=== PATIENT | male | born 1955 | race Caucasian/White ===

== ENCOUNTER 2016-10-05 12:07 | Inpatient (IN) | payer OTHER ==
[2016-10-05] MEDS ORDERED: Albuterol 0.083% 2.5 MG/3 ML Neb Soln NEB ONE ×2 (12:45→14:04)
--- NOTE | 2016-10-05 12:55 | EDM.PDOC ---
ED HPI GENERAL MEDICAL PROBLEM - General Chief Complaint: Respiratory Problem Stated Complaint: SOB/CHILLS/SWEATS Time Seen by Provider: 10/05/16 12:29 Source of Information: Reports: Patient History Limitations: Reports: No Limitations - History of Present Illness INITIAL COMMENTS - FREE TEXT/NARRATIVE: 60-year-old male presents for evaluation and treatment of shortness of breath and chest discomfort. Patient reports he has been over several weeks. He was seen at the [facility]. No imaging or lab studies were done. Feels his symptoms have progressively worsened over the last several weeks. Discomfort currently complaining of chills, shakes, diaphoresis, productive cough, shortness of breath and chest discomfort. He states he is unable to keep anything down. Feels slightly nauseous. Did not take his temperature at home. Patient is also complaining of a sore throat. Past medical history of COPD. Chest Pain Score (Numeric/FACES): 7 - Related Data Allergies Allergy/AdvReac Type Severity Reaction Status Date / Time No Known Allergies Allergy Verified 07/03/15 14:23 Home Meds: Home Meds ALPRAZolam [Alprazolam] 0.5 mg PO BEDTIME PRN 07/03/15 [History] Albuterol [Ventolin HFA] 2 puff INH Q6H PRN 07/03/15 [History] Allopurinol [Zyloprim] 300 mg PO DAILY 07/03/15 [History] Aspirin [Children's Aspirin] 81 mg PO BID 07/03/15 [History] Calcium Citrate/Vitamin D3 [Calcium Citrate-Vit D3 Tablet] 3 each PO BID [History] Gabapentin [Neurontin] 1,200 mg PO TID 07/03/15 [History] Hydrocodone/Acetaminophen [Hydrocodon-Acetaminophn 10-300] 1 tab PO Q8HR PRN [History] Multivitamin W/Iron, Minerals [Flintstones Complete] 1 each PO DAILY 07/03/15 [ History] Nitroglycerin [Nitrostat] 0.4 mg SL Q5M PRN 07/03/15 [History] Omeprazole [Prilosec] 20 mg PO DAILY 07/03/15 [History] Doxazosin [Cardura] 2 mg PO BEDTIME 10/05/16 [History] Escitalopram [Lexapro] 20 mg PO DAILY 10/05/16 [History] Fluticasone/Vilanterol [Breo Ellipta 200-25 Mcg INH] 1 each IH DAILY 10/05/16 [ History] Lisinopril 40 mg PO DAILY 10/05/16 [History] Metoprolol Succinate 100 mg PO DAILY 10/05/16 [History] Past Medical History Cardiovascular History: Reports: Hypertension Respiratory History: Reports: Asthma Gastrointestinal History: Reports: GERD, Hemorrhoids Genitourinary History: Reports: Prostate Disorder Musculoskeletal History: Reports: Back Pain, Chronic, Gout, Other (See Below) Other Musculoskeletal History: neuropathy Psychiatric History: Reports: Anxiety - Past Surgical History GI Surgical History: Reports: Bariatric Procedure, Colonoscopy, Polypectomy Social & Family History - Tobacco Use Smoking Status *Q: Former Smoker (quit 20 years ago) Used Tobacco, but Quit: Yes Month Tobacco Last Used: 40 yr Second Hand Smoke Exposure: Yes - Caffeine Use Caffeine Use: Reports: None - Alcohol Use Days Per Week of Alcohol Use: 7 Number of Drinks Per Day: 2 Total Drinks Per Week: 14 - Recreational Drug Use Recreational Drug Use: No Drug Use in Last 12 Months: No ED ROS GENERAL - Review of Systems Review Of Systems: See Below Constitutional: Reports: Fever, Chills, Malaise, Other (shakiness) HEENT: Reports: Throat Pain Respiratory: Reports: Shortness of Breath, Cough, Sputum Cardiovascular: Reports: Chest Pain GI/Abdominal: Reports: Nausea. Denies: Vomiting ED EXAM, GENERAL - Physical Exam Exam: See Below Exam Limited By: No Limitations General Appearance: Alert, WD/WN, Moderate Distress, Obese, Other (ill appearing ) Ears: Normal External Exam Nose: Normal Inspection Throat/Mouth: Normal Inspection, Normal Lips, Normal Voice, No Airway Compromise , Other (posterior orophyarnx erythema) Neck: Lymphadenopathy (L), Lymphadenopathy (R) Respiratory/Chest: Respiratory Distress (tachypnic; labored breathing), Rhonchi (diffuse), Wheezing (diffuse expiratory), Splinting Cardiovascular: Normal Peripheral Pulses, Regular Rate, Rhythm, No Murmur GI/Abdominal: Soft, Non-Tender Neurological: Alert, Oriented Psychiatric: Normal Affect, Normal Mood Skin Exam: Warm, Dry, Normal Color EKG INTERPRETATION EKG Date: 10/05/16 Time: 12:55 Rhythm: NSR Rate (beats/min): 91 [place]: normal P-wave: present QRS: normal ST-T: normal QT: normal EKG Interpretation Comments: NSR at 91 bpm. no acute changes. Reviewed by myself and Dr. Carvalho. Course - Vital Signs Last Recorded V/S: Last Vital Signs Temp 36.1 C 10/05/16 20:00 Pulse 110 H 10/05/16 19:00 Resp 24 H 10/05/16 20:00 BP 139/70 10/05/16 20:53 Pulse Ox 98 10/05/16 21:00 - Orders/Labs/Meds Orders: Active Orders 24 hr Category Date Time Status Oxygen Therapy [RC] ASDIRECTED Care 10/05/16 12:46 Active Peripheral IV Care [] Q2HR Care 10/05/16 12:45 Active RT Aerosol Therapy [] ASDIRECTED Care 10/05/16 12:45 Active CULTURE BLOOD [] Stat Lab 10/05/16 13:04 Received CULTURE BLOOD [] Stat Lab 10/05/16 13:24 Received CULTURE STREP A CONFIRMATION [] Stat Lab 10/05/16 13:40 Results STREP SCRN A RAPID W CULT CONF [] Stat Lab 10/05/16 13:40 Results Sodium Chloride 0.9% [Saline Flush] Med 10/05/16 12:45 Active 10 ml FLUSH ASDIRECTED PRN Blood Culture x2 Reflex Set [OM.PC] Stat Oth 10/05/16 12:45 Ordered Peripheral IV Insertion Adult [OM.PC] Routine Oth 10/05/16 12:44 Ordered Medication Orders Acetaminophen (Tylenol) 650 mg PO Q6H PRN PRN Reason: Pain/Fever Last Admin: 10/05/16 19:19 Dose: 650 mg Hydrocodone Bitart/Acetaminophen ([place] 325-10 Mg) 1 tab PO Q8H PRN PRN Reason: Pain Last Admin: 10/05/16 18:00 Dose: 1 tab Albuterol (Proventil Neb Soln) 2.5 mg NEB Q4HRRT PRN PRN Reason: Shortness of Breath Albuterol/Ipratropium (Duoneb 3.0-0.5 Mg/3 Ml) 3 ml NEB QIDRT [facility]OUD Last Admin: 10/05/16 21:00 Dose: 3 ml Aspirin (Aspirin) 81 mg PO BID [facility] Last Admin: 10/05/16 20:53 Dose: 81 mg Chlordiazepoxide HCl (Librium) 25 mg PO TID [facility] Last Admin: 10/05/16 20:53 Dose: 25 mg Citalopram Hydrobromide (Celexa) 40 mg PO DAILY [facility] Doxazosin Mesylate (Cardura) 2 mg PO BEDTIME [facility] Last Admin: 10/05/16 20:53 Dose: 2 mg Enoxaparin Sodium (Lovenox) 40 mg SUBCUT DAILY [facility] Folic Acid (Folic Acid) 1 mg PO DAILY [facility] Gabapentin (Neurontin) 1,200 mg PO TID [facility] Last Admin: 10/05/16 20:53 Dose: 1,200 mg Haloperidol Lactate (Haldol) 1 mg IVPUSH Q8H PRN PRN Reason: restlessness Azithromycin 500 mg/ Sodium (Chloride) 250 mls @ 250 mls/hr IV Q24H [facility] Last Admin: 10/05/16 17:57 Dose: 250 mls/hr Lactated Ringer's (Ringers, Lactated) 1,000 mls @ 125 mls/hr IV ASDIRECTED [facility] Stop: 10/06/16 13:00 Last Infusion: 10/05/16 18:35 Dose: 125 mls/hr Admin: 10/05/16 18:03 Dose: 75 mls/hr Ceftriaxone Sodium 2 gm/ (Sodium Chloride) 100 mls @ 200 mls/hr IV Q24H [facility] Lorazepam (Ativan) 2 mg IVPUSH Q2H PRN PRN Reason: Anxiety Last Admin: 10/05/16 20:57 Dose: 2 mg Metoprolol Succinate (Toprol Xl) 50 mg PO DAILY [facility] Metoprolol Tartrate (Lopressor) 5 mg IVPUSH Q6H PRN PRN Reason: HR>120 Last Admin: 10/05/16 18:41 Dose: 5 mg Mometasone Furoate/Formoterol Fumar ([place] 200-5 Mcg) 2 puff IH [id number] [facility] Nitroglycerin (Nitrostat) 0.4 mg SL Q5M PRN PRN Reason: Chest Pain Pantoprazole Sodium (Protonix) 40 mg PO DAILY@0700 [facility] Sodium Chloride (Saline Flush) 10 ml FLUSH ASDIRECTED PRN PRN Reason: Keep Vein Open Last Admin: 10/05/16 13:07 Dose: 10 ml Thiamine HCl (Vitamin B-1) 100 mg PO BEDTIME [facility] Last Admin: 10/05/16 20:53 Dose: 100 mg Labs: Laboratory Tests 10/05/16 10/05/16 10/05/16 Range/Units 13:04 13:04 13:04 WBC 18.52 H (4.23-9.07) K/mm3 RBC 3.54 L (4.63-6.08) M/mm3 Hgb 12.5 L (13.7-17.5) gm/L Hct 38.6 L (40.1-51.0) % MCV 109.0 H (79.0-92.2) fl MCH 35.3 H (25.7-32.2) pg MCHC 32.4 (32.2-35.5) g/dl RDW Std Deviation 52.9 H (35.1-43.9) fL Plt Count 123 L (163-337) K/mm3 MPV 10.5 (9.4-12.3) fl Neutrophils % (Manual) 85 H (40-60) % Band Neutrophils % 2 (0-10) % Lymphocytes % (Manual) 9 L (20-40) % Atypical Lymphs % 0 % Monocytes % (Manual) 2 (2-10) % Eosinophils % (Manual) 1 (0.8-7.0) % Basophils % (Manual) 1 (0.2-1.2) Platelet Estimate Adequate Poikilocytosis 1+ slight Anisocytosis 1+ slight Macrocytosis 2+ moderate RBC Morph Comment Not Reportable Sodium 140 (136-145) mEq/L Potassium 4.8 (3.5-5.1) mEq/L Chloride 106 (98-107) mEq/L Carbon Dioxide 23 (21-32) mEq/L Anion Gap 15.8 H (5-15) BUN 33 H (7-18) mg/dL Creatinine 1.5 H (0.7-1.3) mg/dL Est Cr Clr Drug Dosing 58.45 mL/min Estimated GFR (MDRD) 48 (>60) mL/min BUN/Creatinine Ratio 22.0 H (14-18) Glucose 124 H (80-115) mg/dL Lactic Acid 1.5 (0.4-2.0) mmol/L Calcium 9.1 (8.5-10.1) mg/dL Total Bilirubin 0.9 (0.2-1.0) mg/dL AST 31 (15-37) U/L ALT 34 (16-63) U/L Alkaline Phosphatase 46 (46-116) U/L C-Reactive Protein 23.9 H* (<1.0) mg/dL Total Protein 7.0 (6.4-8.2) g/dl Albumin 2.9 L (3.4-5.0) g/dl Globulin 4.1 gm/dL Albumin/Globulin Ratio 0.7 L (1-2) Ethyl Alcohol (0.00) gm% Mycoplasma pneumon IgM (NEGATIVE) 10/05/16 10/05/16 Range/Units 13:04 13:53 WBC (4.23-9.07) K/mm3 RBC (4.63-6.08) M/mm3 Hgb (13.7-17.5) gm/L Hct (40.1-51.0) % MCV (79.0-92.2) fl MCH (25.7-32.2) pg MCHC (32.2-35.5) g/dl RDW Std Deviation (35.1-43.9) fL Plt Count (163-337) K/mm3 MPV (9.4-12.3) fl Neutrophils % (Manual) (40-60) % Band Neutrophils % (0-10) % Lymphocytes % (Manual) (20-40) % Atypical Lymphs % % Monocytes % (Manual) (2-10) % Eosinophils % (Manual) (0.8-7.0) % Basophils % (Manual) (0.2-1.2) Platelet Estimate Poikilocytosis Anisocytosis Macrocytosis RBC Morph Comment Sodium (136-145) mEq/L Potassium (3.5-5.1) mEq/L Chloride (98-107) mEq/L Carbon Dioxide (21-32) mEq/L Anion Gap (5-15) BUN (7-18) mg/dL Creatinine (0.7-1.3) mg/dL Est Cr Clr Drug Dosing mL/min Estimated GFR (MDRD) (>60) mL/min BUN/Creatinine Ratio (14-18) Glucose (80-115) mg/dL Lactic Acid (0.4-2.0) mmol/L Calcium (8.5-10.1) mg/dL Total Bilirubin (0.2-1.0) mg/dL AST (15-37) U/L ALT (16-63) U/L Alkaline Phosphatase (46-116) U/L C-Reactive Protein (<1.0) mg/dL Total Protein (6.4-8.2) g/dl Albumin (3.4-5.0) g/dl Globulin gm/dL Albumin/Globulin Ratio (1-2) Ethyl Alcohol 0.00 (0.00) gm% Mycoplasma pneumon IgM Negative (NEGATIVE) Meds: Medications Generic Name Dose Route Start Last Admin Trade Name Freq PRN Reason Stop Dose Admin Acetaminophen 650 mg 10/05/16 18:53 10/05/16 19:19 Tylenol PO 650 mg Q6H PRN Administration Pain/Fever Hydrocodone Bitart/Acetaminophen 1 tab 10/05/16 17:09 10/05/16 18:00 [place] 325-10 Mg PO 1 tab Q8H PRN Administration Pain Albuterol 2.5 mg 10/05/16 17:29 Proventil Neb Soln NEB Q4HRRT PRN Shortness of Breath Albuterol/Ipratropium 3 ml 10/05/16 21:00 10/05/16 21:00 Duoneb 3.0-0.5 Mg/3 Ml NEB 3 ml QIDRT [facility]OUD Administration Aspirin 81 mg 10/05/16 21:00 10/05/16 20:53 Aspirin PO 81 mg BID [facility]OUD Administration Chlordiazepoxide HCl 25 mg 10/05/16 21:00 10/05/16 20:53 Librium PO 25 mg TID [facility]OUD Administration Citalopram Hydrobromide 40 mg 10/06/16 09:00 Celexa PO DAILY [facility] Doxazosin Mesylate 2 mg 10/05/16 21:00 10/05/16 20:53 Cardura PO 2 mg BEDTIME [facility] Administration Enoxaparin Sodium 40 mg 10/06/16 09:00 Lovenox SUBCUT DAILY [facility] Folic Acid 1 mg 10/06/16 09:00 Folic Acid PO DAILY [facility] Gabapentin 1,200 mg 10/05/16 21:00 10/05/16 20:53 Neurontin PO 1,200 mg TID [facility]OU[facility] Administration Haloperidol Lactate 1 mg 10/05/16 18:10 Haldol IVPUSH Q8H PRN restlessness Azithromycin 500 mg/ Sodium 250 mls @ 250 mls/hr 10/05/16 18:00 10/05/16 17: 57 Chloride IV 250 mls/hr Q24H [facility] Administration Lactated Ringer's 1,000 mls @ 125 mls/hr 10/05/16 17:30 10/05/16 18:35 Ringers, Lactated IV 10/06/16 13:00 125 mls/hr ASDIRECTED [facility] Infusion Ceftriaxone Sodium 2 gm/ 100 mls @ 200 mls/hr 10/06/16 13:00 Sodium Chloride IV Q24H [facility] Lorazepam 2 mg 10/05/16 18:08 10/05/16 20:57 Ativan IVPUSH 2 mg Q2H PRN Administration Anxiety Metoprolol Succinate 50 mg 10/06/16 09:00 Toprol Xl PO DAILY [facility] Metoprolol Tartrate 5 mg 10/05/16 18:21 10/05/16 18:41 Lopressor IVPUSH 5 mg Q6H PRN Administration HR>120 Mometasone Furoate/Formoterol Fumar 2 puff 10/06/16 08:00 Dulera 200-5 Mcg IH [id number] [facility] Nitroglycerin 0.4 mg 10/05/16 17:09 Nitrostat SL Q5M PRN Chest Pain Pantoprazole Sodium 40 mg 10/06/16 07:00 Protonix PO DAILY@0700 [facility] Sodium Chloride 10 ml 10/05/16 12:45 10/05/16 13:07 Saline Flush FLUSH 10 ml ASDIRECTED PRN Administration Keep Vein Open Thiamine HCl 100 mg 10/05/16 21:00 10/05/16 20:53 Vitamin B-1 PO 100 mg BEDTIME [facility] Administration Discontinued Medications Generic Name Dose Route Start Last Admin Trade Name Freq PRN Reason Stop Dose Admin Albuterol 2.5 mg 10/05/16 12:45 10/05/16 12:54 Proventil Neb Soln NEB 10/05/16 12:46 2.5 mg ONETIME ONE Administration Albuterol 2.5 mg 10/05/16 14:04 10/05/16 14:29 Proventil Neb Soln NEB 10/05/16 14:05 2.5 mg ONETIME ONE Administration Alprazolam 0.5 mg 10/05/16 17:09 Xanax PO BEDTIME PRN Insomnia Ceftriaxone Sodium 2 gm 10/06/16 13:00 Rocephin IVPUSH Q24H [facility] Doxazosin Mesylate 1 mg 10/05/16 21:00 Cardura PO BEDTIME [facility] Sodium Chloride 1,000 mls @ 100 mls/hr 10/05/16 13:45 10/05/16 13:47 Normal Saline IV 100 mls/hr ASDIRECTED [facility] Administration Ceftriaxone Sodium 2 gm/ 100 mls @ 200 mls/hr 10/05/16 13:53 10/05/16 14:41 Sodium Chloride IV 10/05/16 14:22 200 mls/hr ONETIME ONE Administration Lorazepam 2 mg 10/05/16 18:24 10/05/16 18:24 Ativan IVPUSH 10/05/16 18:25 2 mg ONETIME ONE Administration Pneumococcal Polyvalent Vaccine 0.5 ml 10/05/16 17:42 Pneumovax 23 IM 10/05/16 17:43 .ONCE ONE - Radiology Interpretation Free Text/Narrative:: chest [address] Wise: Diffuse increased density noted throughout both lungs which is worse within the right lower lung. Some of the density has a nodular appearance. Mild increased density due to callus previous left-sided rib fractures noted. Heart size and mediastinum are within normal limits. Mild degenerative changes seen within the spine. Epidural stimulator wire is present. - Re-Assessments/Exams Free Text/Narrative Re-Assessment/Exam: 10/05/16 15:03 Labs have returned. White blood cell count is elevated at 18.52, hgb is 12.5 and platelets are 123. CRP is elevated at 23.9. Sodium is 140, potassium 4.8 chloride is 106. Anion gap is 15.8. Creatinine is 1.5. Glucose is 124. Lactic acid is 1.8. Rapid strep is negative. Influenza is negative. Mycoplasm is negative. Blood and urine cultures pending. I given the patient's 2 albuterol nebulizers and he is currently on 3 L nasal cannula. His oxygen sats have maintained in the low 90s on the 3 L. He feels the shortness of breath has slightly improved after the 2 albuterol nebs. I gave him 2 g of Rocephin here in the ER to treat for pneumonia. Case discussed with Dr. Caruso, hospitalist. All. She agrees to the admission. Will admit to ICU for pneumonia with hypoxemia. Departure - Departure Time of Disposition: 15:00 Disposition: Admitted As Inpatient 65 Condition: serious Clinical Impression: Pneumonia - Discharge Information - My Orders Last 24 Hours: My Active Orders 10/05/16 12:44 Peripheral IV Insertion Adult [OM.PC] Routine 10/05/16 12:45 Peripheral IV Care [RC] Q2HR RT Aerosol Therapy [RC] ASDIRECTED Sodium Chloride 0.9% [Saline Flush] 10 ml FLUSH ASDIRECTED PRN Blood Culture x2 Reflex Set [OM.PC] Stat 10/05/16 12:46 Oxygen Therapy [RC] ASDIRECTED 10/05/16 13:04 CULTURE BLOOD [BC] Stat 10/05/16 13:24 CULTURE BLOOD [BC] Stat 10/05/16 13:40 CULTURE STREP A CONFIRMATION [RM] Stat STREP SCRN A RAPID W CULT CONF [RM] Stat - Assessment/Plan Last 24 Hours: My Active Orders 10/05/16 12:44 Peripheral IV Insertion Adult [OM.PC] Routine 10/05/16 12:45 Peripheral IV Care [RC] Q2HR RT Aerosol Therapy [RC] ASDIRECTED Sodium Chloride 0.9% [Saline Flush] 10 ml FLUSH ASDIRECTED PRN Blood Culture x2 Reflex Set [OM.PC] Stat 10/05/16 12:46 Oxygen Therapy [RC] ASDIRECTED 10/05/16 13:04 CULTURE BLOOD [BC] Stat 10/05/16 13:24 CULTURE BLOOD [BC] Stat 10/05/16 13:40 CULTURE STREP A CONFIRMATION [RM] Stat STREP SCRN A RAPID W CULT CONF [RM] Stat
[2016-10-05] MEDS: Sodium Chloride 0.9% 10 ML Syringe FLUSH PRN (13:07)
[2016-10-05] MEDS ORDERED: Sodium Chloride 0.9% 1,000 ML IV SCH (13:45)
[2016-10-05] MEDS ORDERED: cefTRIAXone 2 GM in Sodium Chloride 0.9% 100 ML IV ONE (13:53)
--- NOTE | 2016-10-05 15:32 | CR ---
Chest: Two views of the chest were obtained. Comparison: Previous chest x-ray of 06/24/12. Diffuse increased density noted throughout both lungs which is worse within the right lower lung. Some of this density has a nodular appearance. Mild increased density due to callus from previous left-sided rib fractures is noted. Heart size and mediastinum are within normal limits. Mild degenerative change is seen within the spine. Epidural stimulating wire is present. Impression: 1. Increased density within the chest most likely representing pneumonia. Follow-up recommended as there are some nodular densities being seen and difficult to exclude superimposed metastatic disease. Recommend repeat chest x-ray 2 weeks after patient has completed clinical therapy. 2. Areas of increased density within the left chest due to several healing left-sided rib fractures. 3. Other incidental findings. Diagnostic code #9
[2016-10-05] MEDS ORDERED: Nitroglycerin 0.4 MG Tab.SL SL PRN (17:09)
[2016-10-05] MEDS ORDERED: ALPRAZolam 0.5 MG Tab PO PRN (17:09)
[2016-10-05] MEDS ORDERED: Albuterol 0.083% 2.5 MG/3 ML Neb Soln NEB PRN (17:29)
[2016-10-05] MEDS ORDERED: Lactated Ringers 1,000 ML IV SCH (17:30)
--- NOTE | 2016-10-05 17:40 | PCM.HP ---
H&P History of Present Illness - General Date of Service: 10/05/16 Admit Problem/Dx: Admission Diagnosis/Problem Admission Diagnosis/Problem Pneumonia Source of Information: Patient, Provider History Limitations: Reports: No Limitations - History of Present Illness Initial Comments - Free Text/Narative: 60 year old male complaining of chest paion associated with yellowish sputum. Reported feeling weak and sluggish for 1-2 weeks. Had been seen at the [facility] with no change in symptoms. Has had malaise, fever/chills as well as generalized weakness. Labs are pending obtained in the ED. He did receive Rocephin 2 GM in the ED. A CXR has confirmed pneumonia. Additional information obtained includes alcohol dependence, last drink was at 12:30 today; he normally drinks at least 4-5 shots daily of Alfredo Hdez. A long with a beer chaser usually at least 4-5 are needed. His admission has been changed to ICU for ETOH impending withdrawal and CAP. Onset of Symptoms: Reports: Gradual Duration of Symptoms: Reports: Week(s):, Getting Worse Location: Reports: Chest, Generalized Severity: Moderate Improves with: Reports: Medication Worsens with: Reports: None Context: Reports: Sick Contact (unknown) Associated Symptoms: Reports: cough w sputum, Fever/Chills, Malaise, Shortness of Breath, Weakness Chest Pain Score (Numeric/FACES): 7 Headache Pain Score (Numeric/FACES): 4 - Related Data Allergies/Adverse Reactions: Allergies Allergy/AdvReac Type Severity Reaction Status Date / Time No Known Allergies Allergy Verified 07/03/15 14:23 Home Medications: Home Meds ALPRAZolam [Alprazolam] 0.5 mg PO BEDTIME PRN 07/03/15 [History] Albuterol [Ventolin HFA] 2 puff INH Q6H PRN 07/03/15 [History] Allopurinol [Zyloprim] 300 mg PO DAILY 07/03/15 [History] Aspirin [Children's Aspirin] 81 mg PO BID 07/03/15 [History] Calcium Citrate/Vitamin D3 [Calcium Citrate-Vit D3 Tablet] 3 each PO BID [History] Gabapentin [Neurontin] 1,200 mg PO TID 07/03/15 [History] Hydrocodone/Acetaminophen [Hydrocodon-Acetaminophn 10-300] 1 tab PO Q8HR PRN [History] Multivitamin W/Iron, Minerals [Flintstones Complete] 1 each PO DAILY 07/03/15 [ History] Nitroglycerin [Nitrostat] 0.4 mg SL Q5M PRN 07/03/15 [History] Omeprazole [Prilosec] 20 mg PO DAILY 07/03/15 [History] Doxazosin [Cardura] 2 mg PO BEDTIME 10/05/16 [History] Escitalopram [Lexapro] 20 mg PO DAILY 10/05/16 [History] Fluticasone/Vilanterol [Breo Ellipta 200-25 Mcg INH] 1 each IH DAILY 10/05/16 [ History] Lisinopril 40 mg PO DAILY 10/05/16 [History] Metoprolol Succinate 100 mg PO DAILY 10/05/16 [History] Past Medical History Cardiovascular History: Reports: Hypertension Respiratory History: Reports: Asthma Gastrointestinal History: Reports: GERD, Hemorrhoids Genitourinary History: Reports: Prostate Disorder Musculoskeletal History: Reports: Back Pain, Chronic, Gout, Other (See Below) Other Musculoskeletal History: neuropathy Psychiatric History: Reports: Anxiety - Past Surgical History GI Surgical History: Reports: Bariatric Procedure, Colonoscopy, Polypectomy Social & Family History - Tobacco Use Smoking Status *Q: Former Smoker (quit 20 years ago) Used Tobacco, but Quit: Yes Month Tobacco Last Used: 40 yr Second Hand Smoke Exposure: Yes - Caffeine Use Caffeine Use: Reports: None - Alcohol Use Days Per Week of Alcohol Use: 7 Number of Drinks Per Day: 2 Total Drinks Per Week: 14 - Recreational Drug Use Recreational Drug Use: No Drug Use in Last 12 Months: No H&P Review of Systems - Review of Systems: Review Of Systems: See Below General: Reports: Fever, Chills, Malaise, Weakness, Fatigue HEENT: Reports: No Symptoms Pulmonary: Reports: Shortness of Breath, Wheezing, Pleuritic Chest Pain, Cough, Sputum Cardiovascular: Reports: No Symptoms Gastrointestinal: Reports: No Symptoms Genitourinary: Reports: No Symptoms Musculoskeletal: Reports: No Symptoms Skin: Reports: No Symptoms Psychiatric: Reports: No Symptoms Neurological: Reports: No Symptoms Hematologic/Lymphatic: Reports: No Symptoms Immunologic: Reports: No Symptoms Exam - Exam Exam: See Below - Vital Signs Vital Signs: Last Vital Signs Temp 38.3 C H 10/05/16 17:05 Pulse 91 10/05/16 12:18 Resp 24 H 10/05/16 17:05 BP 196/92 H 10/05/16 17:05 Pulse Ox 95 10/05/16 17:05 Weight: 140.387 kg - Exam Quality Assessment: Supplemental Oxygen, DVT Prophylaxis General: Alert, Oriented, Mild Distress HEENT: EACs Clear, EOMI, Hearing Intact, Nares Patent, Normal Nasal Septum, Pupils Equal, Pupils Reactive, PERRLA Neck: Supple, Trachea Midline Lungs: Normal Respiratory Effort, Decreased Breath Sounds, Rhonchi, Wheezing Cardiovascular: Regular Rate, Regular Rhythm Abdomen: Normal Bowel Sounds, Soft (Male) Exam: Deferred Rectal (Males) Exam: Deferred Back Exam: Normal Inspection Extremities: Normal Inspection Skin: Warm Neurological: Cranial Nerves Intact, Normal Speech Neuro Extensive - Mental Status: Alert, Oriented x3, Normal Mood/Affect, Normal Cognition, Memory Intact Neuro Extensive - Motor, Sensory, Reflexes: CN II-XII Intact Psychiatric: Alert, Normal Affect, Normal Mood - Patient Data Result Diagrams: 10/06/16 06:01 10/06/16 06:01 *Q Meaningful Use (ADM) - VTE *Q VTE Criteria *Q: - Stroke *Q Stroke Criteria *Q: - AMI *Q AMI Criteria *Q: - Problem List (1) Rigor SNOMED Code(s): 05200426, 94237111 ICD Code: R68.89 - OTHER GENERAL SYMPTOMS AND SIGNS Status: Acute Current Visit: Yes (2) Pneumonia SNOMED Code(s): 901136179 ICD Code: J18.9 - PNEUMONIA, UNSPECIFIED ORGANISM Status: Acute Current Visit: Yes (3) COPD (chronic obstructive pulmonary disease) SNOMED Code(s): 12984654 ICD Code: J44.9 - CHRONIC OBSTRUCTIVE PULMONARY DISEASE, UNSPECIFIED Status : Acute Current Visit: Yes (4) GERD (gastroesophageal reflux disease) SNOMED Code(s): 061950590 ICD Code: K21.9 - GASTRO-ESOPHAGEAL REFLUX DISEASE WITHOUT ESOPHAGITIS Status: Acute Current Visit: Yes (5) HTN (hypertension) SNOMED Code(s): 89689251 ICD Code: I10 - ESSENTIAL (PRIMARY) HYPERTENSION Status: Acute Current Visit: Yes Problem List Initiated/Reviewed/Updated: Yes Orders Last 24hrs: Active Orders 24 hr Category Date Time Status Antiembolic Devices [RC] PER UNIT ROUTINE Care 10/05/16 17:14 Ordered Antiembolic Devices [RC] PER UNIT ROUTINE Care 10/05/16 17:30 Ordered Bedrest Bathroom Privileges [RC] ASDIRECTED Care 10/05/16 17:14 Ordered RT Aerosol Therapy [RC] ASDIRECTED Care 10/05/16 17:29 Ordered Vital Signs [RC] PER UNIT ROUTINE Care 10/05/16 17:14 Ordered Consult to Occupational Therapy [OT Evaluation and Cons 10/07/16 09:00 Ordered Treatment] [CONS] Routine Consult to Physical Therapy [PT Evaluation and Cons 10/07/16 09:00 Ordered Treatment] [CONS] Routine Consult to [employer] [CONS] Routine Cons 10/07/16 10:00 Ordered BMP [BASIC METABOLIC PANEL,BMP] [CHEM] DAILY Lab 10/06/16 05:00 Ordered BMP [BASIC METABOLIC PANEL,BMP] [CHEM] DAILY Lab 10/07/16 05:00 Ordered BMP [BASIC METABOLIC PANEL,BMP] [CHEM] DAILY Lab 10/08/16 05:00 Ordered BMP [BASIC METABOLIC PANEL,BMP] [CHEM] DAILY Lab 10/09/16 05:00 Ordered CBC WITH AUTO DIFF [HEME] DAILY Lab 10/06/16 05:00 Ordered CBC WITH AUTO DIFF [HEME] DAILY Lab 10/07/16 05:00 Ordered CBC WITH AUTO DIFF [HEME] DAILY Lab 10/08/16 05:00 Ordered CBC WITH AUTO DIFF [HEME] DAILY Lab 10/09/16 05:00 Ordered CRP [C-REACTIVE PROTEIN] [CHEM] DAILY Lab 10/06/16 05:00 Ordered CRP [C-REACTIVE PROTEIN] [CHEM] DAILY Lab 10/07/16 05:00 Ordered CRP [C-REACTIVE PROTEIN] [CHEM] DAILY Lab 10/08/16 05:00 Ordered CRP [C-REACTIVE PROTEIN] [CHEM] DAILY Lab 10/09/16 05:00 Ordered CULTURE RESPIRATORY + SMEAR [RM] Routine Lab 10/05/16 17:19 Uncollected MAGNESIUM [CHEM] DAILY Lab 10/06/16 05:00 Ordered MAGNESIUM [CHEM] DAILY Lab 10/07/16 05:00 Ordered MAGNESIUM [CHEM] DAILY Lab 10/08/16 05:00 Ordered MAGNESIUM [CHEM] DAILY Lab 10/09/16 05:00 Ordered STREP PNEUMONIAE ANTIGEN [MREF] Routine Lab 10/06/16 05:00 Uncollected ALPRAZolam [Xanax] Med 10/05/16 17:09 Ordered 0.5 mg PO BEDTIME PRN Albuterol [Proventil Neb Soln] Med 10/05/16 17:29 Ordered 2.5 mg NEB Q4HRRT PRN Albuterol/Ipratropium [DuoNeb 3.0-0.5 MG/3 ML] Med 10/05/16 21:00 Ordered 3 ml NEB QID Aspirin Med 10/05/16 21:00 Ordered 81 mg PO BID Azithromycin [Zithromax] 500 mg Med 10/05/16 17:30 Ordered Sodium Chloride 0.9% [Normal Saline] 250 ml IV Q24H Doxazosin [Cardura] Med 10/05/16 21:00 Stop Req 1 mg PO BEDTIME Doxazosin [Cardura] Med 10/05/16 21:00 Ordered 2 mg PO BEDTIME Enoxaparin [Lovenox] Med 10/06/16 09:00 Ordered 30 mg SUBCUT DAILY Escitalopram Med 10/06/16 09:00 Ordered 20 mg PO DAILY Fluticasone/Vilanterol Med 10/06/16 09:00 Ordered 1 each IH DAILY Gabapentin Med 10/05/16 21:00 Ordered 1,200 mg PO TID Hydrocodone/Acetaminophen [Hydrocodon-Acetaminophn 10- Med 10/05/16 17:09 Ordered 300] 1 tab PO Q8HR PRN Lactated Ringers @ 75 MLS/HR(1000ml Bag) Med 10/05/16 17:30 Ordered Lactated Ringers [Ringers, Lactated] 1,000 ml IV ASDIRECTED Metoprolol Succinate Med 10/06/16 09:00 Ordered 50 mg PO DAILY Nitroglycerin [Nitrostat] Med 10/05/16 17:09 Ordered 0.4 mg SL Q5M PRN Omeprazole Med 10/06/16 09:00 Ordered 20 mg PO DAILY cefTRIAXone [Rocephin] Med 10/06/16 13:00 Ordered 2 gm IVPUSH Q24H Isolation [COMM] Routine Oth 10/05/16 17:13 Ordered ALIZA Hose [Antiembolic Hose] [OM.PC] Routine Oth 10/05/16 17:14 Ordered ALIZA Hose [Antiembolic Hose] [OM.PC] Routine Oth 10/05/16 17:30 Ordered Medication Orders Hydrocodone Bitart/Acetaminophen (Hayes 325-10 Mg) 1 tab PO Q8H PRN PRN Reason: Pain Albuterol (Proventil Neb Soln) 2.5 mg NEB Q4HRRT PRN PRN Reason: Shortness of Breath Albuterol/Ipratropium (Duoneb 3.0-0.5 Mg/3 Ml) 3 ml NEB QID MASOUD Alprazolam (Xanax) 0.5 mg PO BEDTIME PRN PRN Reason: Insomnia Aspirin (Aspirin) 81 mg PO BID [facility] Ceftriaxone Sodium (Rocephin) 2 gm IVPUSH Q24H [facility] Doxazosin Mesylate (Cardura) 2 mg PO BEDTIME [facility] Enoxaparin Sodium (Lovenox) 30 mg SUBCUT DAILY [facility] Azithromycin 500 mg/ Sodium (Chloride) 250 mls @ 250 mls/hr IV Q24H [facility] Lactated Ringer's (Ringers, Lactated) 1,000 mls @ 75 mls/hr IV ASDIRECTED [facility] Metoprolol Succinate (Toprol Xl) 50 mg PO DAILY [facility] Nitroglycerin (Nitrostat) 0.4 mg SL Q5M PRN PRN Reason: Chest Pain Non-Formulary Medication (Gabapentin) 1,200 mg PO TID [facility] Non-Formulary Medication (Fluticasone/Vilanterol) 1 each IH DAILY [facility] Non-Formulary Medication (Escitalopram) 20 mg PO DAILY [facility] Pantoprazole Sodium (Protonix) 40 mg PO DAILY@0700 [facility] Sodium Chloride (Saline Flush) 10 ml FLUSH ASDIRECTED PRN PRN Reason: Keep Vein Open Last Admin: 10/05/16 13:07 Dose: 10 ml Assessment/Plan Comment:: Impression: COPD with history of former tobacco use >20 years ago CAP ETOH dependence, impending withdrawal; query substance abuse Chronic HTN GERD Morbid Obesity s/p Gastric By Pass Surgery Plan: IVF with oral supplements Clear liquids CIWA Librium Clonidine Rocephin/Zithromax DVT/GI prophylaxis SW/PT/OT//Substance abuse consult as soon as possible, prefer 10/05/16. LOS may exceed 96 hours for ETOH treatment and/or placement
[2016-10-05] MEDS ORDERED: Pneumococcal Polyvalent-23 Vaccine 0.5 ML SDV IM ONE (17:42)
[2016-10-05] MEDS: Azithromycin 500 MG in Sodium Chloride 0.9% 250 ML IV SCH (17:57)
[2016-10-05] MEDS: Acetaminophen/HYDROcodone 325-10 MG Tab PO PRN (18:00)
[2016-10-05] MEDS ORDERED: LORazepam 2 MG/ML MDV IVPUSH PRN (18:08)
[2016-10-05] MEDS ORDERED: Haloperidol Lactate 5 MG/ML SDV IVPUSH PRN (18:10)
[2016-10-05] MEDS ORDERED: LORazepam 2 MG/ML MDV IVPUSH ONE (18:24)
[2016-10-05] MEDS: Metoprolol Tartrate 5 MG/5 ML SDV IVPUSH PRN (18:41)
[2016-10-05] MEDS: Acetaminophen 325 MG Tab PO PRN (19:19)
[2016-10-05] MEDS: Gabapentin 600 MG Tab PO SCH (20:53)
[2016-10-05] MEDS: Doxazosin 2 MG Tab PO SCH (20:53)
[2016-10-05] MEDS: chlordiazePOXIDE 25 MG Cap PO SCH (20:53)
[2016-10-05] MEDS: Aspirin 81 MG Tab.Chew PO SCH (20:53)
[2016-10-05] MEDS: Thiamine 100 MG Tab PO SCH (20:53)
[2016-10-05] MEDS ORDERED: Doxazosin 2 MG Tab PO SCH (21:00)
[2016-10-05] MEDS: Albuterol/Ipratropium 3.0-0.5 MG/3 ML Neb Soln NEB SCH (21:00)
[2016-10-06] MEDS: Albuterol/Ipratropium 3.0-0.5 MG/3 ML Neb Soln NEB SCH ×4 (06:08→20:57)
[2016-10-06] MEDS ORDERED: Pantoprazole 40 MG Tab.CR PO SCH (07:00)
[2016-10-06] MEDS ORDERED: Formoterol/Mometasone 200-5 MCG 8.8 GM Inhaler IH SCH (08:00)
[2016-10-06] MEDS: Citalopram 20 MG Tab PO SCH (08:39)
[2016-10-06] MEDS: chlordiazePOXIDE 25 MG Cap PO SCH ×2 (08:39→21:04)
[2016-10-06] MEDS: Aspirin 81 MG Tab.Chew PO SCH ×2 (08:39→21:04)
[2016-10-06] MEDS: Folic Acid 1 MG Tab PO SCH (08:40)
[2016-10-06] MEDS: Acetaminophen/HYDROcodone 325-10 MG Tab PO PRN ×2 (08:40→21:03)
[2016-10-06] MEDS: Gabapentin 600 MG Tab PO SCH ×3 (08:40→21:02)
[2016-10-06] MEDS: Enoxaparin 40 MG/0.4 ML Syringe SUBCUT SCH (08:45)
[2016-10-06] MEDS ORDERED: Metoprolol Succinate 50 MG Tab.ER PO SCH (09:00)
[2016-10-06] MEDS ORDERED: Magnesium Sulfate/Water 2 GM in Premix Bag 1 BAG IV ONE (09:17)
[2016-10-06] MEDS: BREO ELLIPTA INH SCH (09:19)
[2016-10-06] MEDS ORDERED: cefTRIAXone 2 GM Vial IVPUSH SCH (13:00)
[2016-10-06] MEDS: cefTRIAXone 2 GM in Sodium Chloride 0.9% 100 ML IV SCH (13:10)
--- NOTE | 2016-10-06 13:12 | PCM.PN ---
- General Info Date of Service: 10/06/16 Functional Status: Reports: pain controlled, tolerating diet, ambulating, urinating - Review of Systems General: Reports: No Symptoms HEENT: Reports: no symptoms Pulmonary: Reports: no symptoms Cardiovascular: Reports: No Symptoms Gastrointestinal: Reports: No symptoms Genitourinary: Reports: no symptoms Musculoskeletal: Reports: no symptoms Skin: Reports: no symptoms Neurological: Reports: No Symptoms Psychiatric: Reports: no symptoms - Patient Data Vitals - most recent: Last Vital Signs Temp 36.6 C 10/06/16 12:00 Pulse 82 10/06/16 11:00 Resp 14 10/06/16 12:00 BP 118/81 10/06/16 12:00 Pulse Ox 92 L 10/06/16 12:00 Weight - most recent: 140.387 kg I&O - last 24 hours: Intake & Output 10/05/16 10/06/16 10/06/16 22:59 06:59 14:59 Intake Total 2460 2343 1898 Output Total 250 651 250 Balance 2210 1692 1648 Lab Results last 24 hrs: Laboratory Results - last 24 hr 10/05/16 10/06/16 10/06/16 Range/Units 17:25 06:01 06:01 WBC 13.28 H (4.23-9.07) K/mm3 RBC 3.23 L (4.63-6.08) M/mm3 Hgb 11.5 L (13.7-17.5) gm/L Hct 35.7 L (40.1-51.0) % MCV 110.5 H (79.0-92.2) fl MCH 35.6 H (25.7-32.2) pg MCHC 32.2 (32.2-35.5) g/dl RDW Std Deviation 53.6 H (35.1-43.9) fL Plt Count 98 L (163-337) K/mm3 MPV 10.4 (9.4-12.3) fl Neut % (Auto) 87.6 H (34.0-67.9) % Lymph % (Auto) 6.6 L (21.8-53.1) % Louisa % (Auto) 5.0 L (5.3-12.2) % Eos % (Auto) 0.3 L (0.8-7.0) Baso % (Auto) 0.2 (0.1-1.2) % Neut # (Auto) 11.63 H (1.78-5.38) K/mm3 Lymph # (Auto) 0.87 L (1.32-3.57) K/mm3 Louisa # (Auto) 0.67 (0.30-0.82) K/mm3 Eos # (Auto) 0.04 (0.04-0.54) K/mm3 Baso # (Auto) 0.03 (0.01-0.08) K/mm3 Manual Slide Review Abnormal smear Sodium 142 (136-145) mEq/L Potassium 4.3 (3.5-5.1) mEq/L Chloride 109 H (98-107) mEq/L Carbon Dioxide 27 (21-32) mEq/L Anion Gap 10.3 (5-15) BUN 24 H (7-18) mg/dL Creatinine 1.1 (0.7-1.3) mg/dL Est Cr Clr Drug Dosing 79.70 mL/min Estimated GFR (MDRD) > 60 (>60) mL/min BUN/Creatinine Ratio 21.8 H (14-18) Glucose 108 (80-115) mg/dL Calcium 8.7 (8.5-10.1) mg/dL Magnesium 1.9 (1.8-2.4) mg/dl C-Reactive Protein 35.0 H* (<1.0) mg/dL Urine Color Yellow (Yellow) Urine Appearance Clear (Clear) Urine pH 5.5 (5.0-8.0) Ur Specific [place] 1.020 (1.005-1.030) Urine Protein 2+ H (Negative) Urine Glucose (UA) Negative (Negative) Urine Ketones 1+ H (Negative) Urine Occult Blood 2+ H (Negative) Urine Nitrite Negative (Negative) Urine Bilirubin Negative (Negative) Urine Urobilinogen 0.2 (0.2-1.0) Ur Leukocyte Esterase Negative (Negative) Urine RBC 5-10 H (0-5) /hpf Urine WBC 5-10 H (0-5) /hpf Ur Epithelial Cells 0-5 (0-5) /hpf Amorphous Sediment Few H (NOT SEEN) /hpf Urine Bacteria Few (FEW) /hpf Urine Mucus Not seen (FEW) /hpf Urine Opiates Screen (NEGATIVE) Ur Buprenorphine Scrn (NEGATIVE) Ur Oxycodone Screen (NEGATIVE) Urine Methadone Screen (NEGATIVE) Ur Propoxyphene Screen (NEGATIVE) Ur Barbiturates Screen (NEGATIVE) Ur Tricyclics Screen (NEGATIVE) Ur Phencyclidine Scrn (NEGATIVE) Ur Amphetamine Screen (NEGATIVE) U Methamphetamines Scrn (NEGATIVE) U Benzodiazepines Scrn (NEGATIVE) U Cocaine Metab Screen (NEGATIVE) U Marijuana (THC) Screen (NEGATIVE) 10/06/16 Range/Units 12:25 WBC (4.23-9.07) K/mm3 RBC (4.63-6.08) M/mm3 Hgb (13.7-17.5) gm/L Hct (40.1-51.0) % MCV (79.0-92.2) fl MCH (25.7-32.2) pg MCHC (32.2-35.5) g/dl RDW Std Deviation (35.1-43.9) fL Plt Count (163-337) K/mm3 MPV (9.4-12.3) fl Neut % (Auto) (34.0-67.9) % Lymph % (Auto) (21.8-53.1) % Louisa % (Auto) (5.3-12.2) % Eos % (Auto) (0.8-7.0) Baso % (Auto) (0.1-1.2) % Neut # (Auto) (1.78-5.38) K/mm3 Lymph # (Auto) (1.32-3.57) K/mm3 Louisa # (Auto) (0.30-0.82) K/mm3 Eos # (Auto) (0.04-0.54) K/mm3 Baso # (Auto) (0.01-0.08) K/mm3 Manual Slide Review Sodium (136-145) mEq/L Potassium (3.5-5.1) mEq/L Chloride (98-107) mEq/L Carbon Dioxide (21-32) mEq/L Anion Gap (5-15) BUN (7-18) mg/dL Creatinine (0.7-1.3) mg/dL Est Cr Clr Drug Dosing mL/min Estimated GFR (MDRD) (>60) mL/min BUN/Creatinine Ratio (14-18) Glucose (80-115) mg/dL Calcium (8.5-10.1) mg/dL Magnesium (1.8-2.4) mg/dl C-Reactive Protein (<1.0) mg/dL Urine Color (Yellow) Urine Appearance (Clear) Urine pH (5.0-8.0) Ur Specific [place] (1.005-1.030) Urine Protein (Negative) Urine Glucose (UA) (Negative) Urine Ketones (Negative) Urine Occult Blood (Negative) Urine Nitrite (Negative) Urine Bilirubin (Negative) Urine Urobilinogen (0.2-1.0) Ur Leukocyte Esterase (Negative) Urine RBC (0-5) /hpf Urine WBC (0-5) /hpf Ur Epithelial Cells (0-5) /hpf Amorphous Sediment (NOT SEEN) /hpf Urine Bacteria (FEW) /hpf Urine Mucus (FEW) /hpf Urine Opiates Screen Presumptive positive H (NEGATIVE) Ur Buprenorphine Scrn Negative (NEGATIVE) Ur Oxycodone Screen Negative (NEGATIVE) Urine Methadone Screen Negative (NEGATIVE) Ur Propoxyphene Screen Negative (NEGATIVE) Ur Barbiturates Screen Negative (NEGATIVE) Ur Tricyclics Screen Negative (NEGATIVE) Ur Phencyclidine Scrn Negative (NEGATIVE) Ur Amphetamine Screen Negative (NEGATIVE) U Methamphetamines Scrn Negative (NEGATIVE) U Benzodiazepines Scrn Presumptive positive H (NEGATIVE) U Cocaine Metab Screen Negative (NEGATIVE) U Marijuana (THC) Screen Negative (NEGATIVE) Marcello Results last 24 hrs: Microbiology 10/06/16 06:45 Gram Stain - Final Sputum - Expectorated Med Orders - Current: Current Medications Acetaminophen (Tylenol) 650 mg PO Q6H PRN PRN Reason: Pain/Fever Last Admin: 10/05/16 19:19 Dose: 650 mg Hydrocodone Bitart/Acetaminophen ([place] 325-10 Mg) 1 tab PO Q8H PRN PRN Reason: Pain Last Admin: 10/06/16 08:40 Dose: 1 tab Albuterol (Proventil Neb Soln) 2.5 mg NEB Q4HRRT PRN PRN Reason: Shortness of Breath Albuterol/Ipratropium (Duoneb 3.0-0.5 Mg/3 Ml) 3 ml NEB QIDRT [facility] Last Admin: 10/06/16 09:19 Dose: 3 ml Aspirin (Aspirin) 81 mg PO BID [facility] Last Admin: 10/06/16 08:39 Dose: 81 mg Chlordiazepoxide HCl (Librium) 25 mg PO TID [facility] Last Admin: 10/06/16 08:39 Dose: 25 mg Citalopram Hydrobromide (Celexa) 40 mg PO DAILY [facility] Last Admin: 10/06/16 08:39 Dose: 40 mg Doxazosin Mesylate (Cardura) 2 mg PO BEDTIME [facility] Last Admin: 10/05/16 20:53 Dose: 2 mg Enoxaparin Sodium (Lovenox) 40 mg SUBCUT DAILY [facility] Last Admin: 10/06/16 08:45 Dose: 40 mg Folic Acid (Folic Acid) 1 mg PO DAILY [facility] Last Admin: 10/06/16 08:40 Dose: 1 mg Gabapentin (Neurontin) 1,200 mg PO TID [facility] Last Admin: 10/06/16 08:40 Dose: 1,200 mg Haloperidol Lactate (Haldol) 1 mg IVPUSH Q8H PRN PRN Reason: restlessness Azithromycin 500 mg/ Sodium (Chloride) 250 mls @ 250 mls/hr IV Q24H [facility] Last Admin: 10/05/16 17:57 Dose: 250 mls/hr Ceftriaxone Sodium 2 gm/ (Sodium Chloride) 100 mls @ 200 mls/hr IV Q24H [facility] Lorazepam (Ativan) 2 mg IVPUSH Q2H PRN PRN Reason: Anxiety Last Admin: 10/05/16 20:57 Dose: 2 mg Metoprolol Succinate (Toprol Xl) 50 mg PO DAILY [facility] Last Admin: 10/06/16 08:42 Dose: 50 mg Metoprolol Tartrate (Lopressor) 5 mg IVPUSH Q6H PRN PRN Reason: HR>120 Last Admin: 10/05/16 18:41 Dose: 5 mg Nitroglycerin (Nitrostat) 0.4 mg SL Q5M PRN PRN Reason: Chest Pain Pantoprazole Sodium (Protonix) 40 mg PO DAILY@0700 [facility] Last Admin: 10/06/16 06:32 Dose: 40 mg Breo Ellipta 200/25 (Mcg Inhaler) 0 each INH DAILY [facility] Last Admin: 10/06/16 09:19 Dose: 1 each Sodium Chloride (Saline Flush) 10 ml FLUSH ASDIRECTED PRN PRN Reason: Keep Vein Open Last Admin: 10/05/16 13:07 Dose: 10 ml Thiamine HCl (Vitamin B-1) 100 mg PO BEDTIME [facility] Last Admin: 10/05/16 20:53 Dose: 100 mg Discontinued Medications Albuterol (Proventil Neb Soln) 2.5 mg NEB ONETIME ONE Stop: 10/05/16 12:46 Last Admin: 10/05/16 12:54 Dose: 2.5 mg Albuterol (Proventil Neb Soln) 2.5 mg NEB ONETIME ONE Stop: 10/05/16 14:05 Last Admin: 10/05/16 14:29 Dose: 2.5 mg Alprazolam (Xanax) 0.5 mg PO BEDTIME PRN PRN Reason: Insomnia Ceftriaxone Sodium (Rocephin) 2 gm IVPUSH Q24H [facility] Doxazosin Mesylate (Cardura) 1 mg PO BEDTIME [facility] Sodium Chloride (Normal Saline) 1,000 mls @ 100 mls/hr IV ASDIRECTED [facility] Last Admin: 10/05/16 13:47 Dose: 100 mls/hr Ceftriaxone Sodium 2 gm/ (Sodium Chloride) 100 mls @ 200 mls/hr IV ONETIME ONE Stop: 10/05/16 14:22 Last Admin: 10/05/16 14:41 Dose: 200 mls/hr Lactated Ringer's (Ringers, Lactated) 1,000 mls @ 125 mls/hr IV ASDIRECTED [facility] Stop: 10/06/16 13:00 Last Infusion: 10/05/16 18:35 Dose: 125 mls/hr Magnesium Sulfate 2 gm/ Premix 50 mls @ 25 mls/hr IV ONETIME ONE Stop: 10/06/16 11:16 Last Admin: 10/06/16 09:49 Dose: 25 mls/hr Lorazepam (Ativan) 2 mg IVPUSH ONETIME ONE Stop: 10/05/16 18:25 Last Admin: 10/05/16 18:24 Dose: 2 mg Mometasone Furoate/Formoterol Fumar (Dulera 200-5 Mcg) 2 puff IH [id number] [facility] Last Admin: 10/06/16 08:47 Dose: Not Given Pneumococcal Polyvalent Vaccine (Pneumovax 23) 0.5 ml IM .ONCE ONE Stop: 10/05/16 17:43 - Exam Quality Assessment: supplemental oxygen, DVT prophylaxis General: alert, oriented, cooperative, no acute distress HEENT: Pupils equal, Pupils reactive, EOMI, Mucous membr. moist/pink Neck: supple, trachea midline, no JVD Lungs: Normal respiratory effort, Decreased breath sounds Cardiovascular: Regular Rate, Regular Rhythm Abdomen: bowel sounds present, soft, no tenderness, no distension (Male) Exam: Deferred Back Exam: Normal Inspection Extremities: normal pulses Skin: warm Neurological: no new focal deficit, normal gait, normal speech Psy/Mental Status: alert, normal affect, normal mood - Problem List & Annotations (1) Rigor SNOMED Code(s): 72079983, 54318021 Code(s): R68.89 - OTHER GENERAL SYMPTOMS AND SIGNS Status: Acute Current Visit: Yes (2) Pneumonia SNOMED Code(s): 441895541 Code(s): J18.9 - PNEUMONIA, UNSPECIFIED ORGANISM Status: Acute Current Visit: Yes (3) COPD (chronic obstructive pulmonary disease) SNOMED Code(s): 54797837 Code(s): J44.9 - CHRONIC OBSTRUCTIVE PULMONARY DISEASE, UNSPECIFIED Status : Acute Current Visit: Yes (4) GERD (gastroesophageal reflux disease) SNOMED Code(s): 165679897 Code(s): K21.9 - GASTRO-ESOPHAGEAL REFLUX DISEASE WITHOUT ESOPHAGITIS Status: Acute Current Visit: Yes (5) HTN (hypertension) SNOMED Code(s): 53440599 Code(s): I10 - ESSENTIAL (PRIMARY) HYPERTENSION Status: Acute Current Visit: Yes (6) Alcohol dependence syndrome SNOMED Code(s): 89087483, 392745120 Code(s): F10.20 - ALCOHOL DEPENDENCE, UNCOMPLICATED Status: Acute Current Visit: Yes (7) Narcotic dependence SNOMED Code(s): 55464389, 07343460 Code(s): F11.20 - OPIOID DEPENDENCE, UNCOMPLICATED Status: Acute Current Visit: Yes - Problem List Review Problem List Initiated/Reviewed/Updated: Yes - My Orders Last 24 Hours: My Active Orders 10/05/16 17:09 Acetaminophen/HYDROcodone [[place] 325-10 MG] 1 tab PO Q8H PRN Nitroglycerin [Nitrostat] 0.4 mg SL Q5M PRN 10/05/16 17:13 Isolation [COMM] Routine 10/05/16 17:14 Antiembolic Devices [RC] 10,22 Bedrest Bathroom Privileges [RC] ASDIRECTED Vital Signs [RC] Q4HR ALIZA Hose [Antiembolic Hose] [OM.PC] Routine 10/05/16 17:19 CULTURE RESPIRATORY + SMEAR [RM] Routine 10/05/16 17:25 STREP PNEUMONIAE ANTIGEN [MREF] Routine 10/05/16 17:29 Albuterol [Proventil Neb Soln] 2.5 mg NEB Q4HRRT PRN 10/05/16 17:30 ALIZA Hose [Antiembolic Hose] [OM.PC] Routine 10/05/16 18:00 Azithromycin [Zithromax] 500 mg Sodium Chloride 0.9% [Normal Saline] 250 ml IV Q24H 10/05/16 18:06 CIWAA Assessment [RC] Q1HR 10/05/16 18:08 LORazepam [Ativan] 2 mg IVPUSH Q2H PRN 10/05/16 18:10 Haloperidol Lactate [Haldol] 1 mg IVPUSH Q8H PRN 10/05/16 18:21 Metoprolol Tartrate [Lopressor] 5 mg IVPUSH Q6H PRN 10/05/16 18:53 Acetaminophen [Tylenol] 650 mg PO Q6H PRN 10/05/16 21:00 Albuterol/Ipratropium [DuoNeb 3.0-0.5 MG/3 ML] 3 ml NEB QIDRT Aspirin 81 mg PO BID Doxazosin [Cardura] 2 mg PO BEDTIME Gabapentin [Neurontin] 1,200 mg PO TID Thiamine [Vitamin B-1] 100 mg PO BEDTIME chlordiazePOXIDE [Librium] 25 mg PO TID 10/06/16 07:00 Pantoprazole [ProTONIX] 40 mg PO DAILY@0700 10/06/16 09:00 Citalopram [Celexa] 40 mg PO DAILY Enoxaparin [Lovenox] 40 mg SUBCUT DAILY Folic Acid 1 mg PO DAILY Metoprolol Succinate [Toprol XL] 50 mg PO DAILY Patient's Own Medication [Ptom] 0 each INH DAILY 10/06/16 10:31 Up ad Rupali [RC] ASDIRECTED 10/06/16 13:00 cefTRIAXone [Rocephin] 2 gm Sodium Chloride 0.9% [Normal Saline] 100 ml IV Q24H 10/06/16 Lunch Heart Healthy Diet [DIET] 10/07/16 05:00 BMP [BASIC METABOLIC PANEL,BMP] [CHEM] DAILY CBC WITH AUTO DIFF [HEME] DAILY CRP [C-REACTIVE PROTEIN] [CHEM] DAILY MAGNESIUM [CHEM] DAILY 10/07/16 09:00 Consult for Substance Abuse [CONS] Routine Consult to Occupational Therapy [OT Evaluation and Treatment] [CONS] Routine Consult to Physical Therapy [PT Evaluation and Treatment] [CONS] Routine 10/07/16 10:00 Consult to Inventory Control Manager [CONS] Routine 10/08/16 05:00 BMP [BASIC METABOLIC PANEL,BMP] [CHEM] DAILY CBC WITH AUTO DIFF [HEME] DAILY CRP [C-REACTIVE PROTEIN] [CHEM] DAILY MAGNESIUM [CHEM] DAILY 10/08/16 08:00 CXR [Chest 2V] [CR] Routine 10/09/16 05:00 BMP [BASIC METABOLIC PANEL,BMP] [CHEM] DAILY CBC WITH AUTO DIFF [HEME] DAILY CRP [C-REACTIVE PROTEIN] [CHEM] DAILY MAGNESIUM [CHEM] DAILY - Plan Plan:: Impression: COPD with history of former tobacco use >20 years ago CAP ETOH dependence, impending withdrawal; query substance abuse Declines IP treatment, has been seen by SA provider Narcotic dependence Benzodiazepine dependence Chronic HTN GERD Morbid Obesity s/p Gastric By Pass Surgery Plan: UDS ordered from sample IVF with oral supplements Clear liquids, advance as tolerated CIWA Librium Clonidine Rocephin/Zithromax DVT/GI prophylaxis SW/PT/OT//substance abuse Would benefit in IP therapy, multiple addictions: ETOH, narcotics, benzodiazepine LOS may exceed 96 hours for ETOH treatment and/or placement
[2016-10-06] MEDS: Sodium Chloride 0.9% 10 ML Syringe FLUSH PRN ×2 (17:35→18:38)
[2016-10-06] MEDS: Azithromycin 500 MG in Sodium Chloride 0.9% 250 ML IV SCH (17:35)
[2016-10-06] MEDS: Metoprolol Tartrate 5 MG/5 ML SDV IVPUSH PRN (18:38)
[2016-10-06] MEDS: Saccharomyces Boulardii (Probiotic) 250 MG Cap PO SCH (21:02)
[2016-10-06] MEDS: Thiamine 100 MG Tab PO SCH (21:02)
[2016-10-06] MEDS: Doxazosin 2 MG Tab PO SCH (21:03)
[2016-10-06] MEDS: LORazepam 2 MG/ML MDV IVPUSH PRN (21:08)
--- NOTE | 2016-10-06 23:33 | CONS ---
CONSULTING PHYSICIAN: Papito Low LAC DATE OF CONSULTATION: 10/06/2016 TIME: 10:08 p.m. The patient is a 60-year-old male, who was admitted to [facility] on 10/05/2016 with pneumonia exacerbated by alcohol, opiate, and benzodiazepine dependence. I received a request from Dr. Caruso at [facility] at 08:16 a.m. on 10/06/2016 for an alcohol and drug consultation. I returned the call at approximately 09:25 to confirm my availability for the consultation, which was to be completed by request on 10/06/2016. I arrived at the hospital at 11:45 a.m. after gathering background information, pulling a PDMR or Prescription Drug Monitoring Report, and obtaining Dr. Caruso' assessment and began the evaluation at approximately 12:15 p.m., completed the assessment and consulted with Dr. Caruso regarding a safe discharge plan. The patient had signed a KANU to include his son, Mauro, in evaluation. I placed a call to Mauro at 1:07 p.m. to discuss any collateral information he may have regarding the patient's substance abuse and for the family's input regarding treatment options. I discussed the new information with Dr. Caruso and consulted with Emily Martínez before concluding at 1:30 p.m. I began composing the patient's evaluation at 9:00 p.m. on 10/06/2016. SOURCE OF INFORMATION: The patient's self-report, KANU signed to obtain collateral information from the patient's son, hospital records, background research, and a Prescription Drug Monitoring Report. PSYCHOSOCIAL HISTORY: The patient states he was born and raised in [place] by his biological parents, who are both . His father 16 years ago and his mother 10 years ago. He has 1 brother, who lives in [place]. The patient reports that he obtained a high school education and was at age 16. They were for 27 years. The patient reports that 7 years before they decided to get , his became disabled with MS and after depleting all of their income, they were for financial reasons enabling the state to care for his . The patient states that they consider themselves still . His is in a longterm in [place] and the patient moved to [place] 4 years ago to work for his son to continue receiving an income. He states that he has a [place] cabin in [place] and he has been going back and forth every 3 months. [facility] and he has 2 sons. His younger son is an alcoholic and his older son owns [employer] out of [place], where the patient works. 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 Then, he quit to take care of his for 7 years. 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 MEDICAL: The patient reports that he had gastric bypass surgery 15 years ago and has painful neuropathy in his feet that he believes requires opiates and he also has gout. He is currently presenting with pneumonia. A Prescription Drug Monitoring Report was pulled indicating that he is prescribed hydrocodone- acetaminophen 10-300, 90/30 by SHUKRI Rodriguez, in [place], [place]. MENTAL HEALTH: The patient reports that he suffers from ADHD and insomnia. A Prescription Drug Monitoring Report was pulled indicating he is prescribed alprazolam 0.5 mg 30/60 by SHUKRI Rodriguez, in [place], [place]. SUBSTANCE ABUSE HISTORY: The patient's self-report is generalized; however, he reports that he has been drinking throughout his adult life. Fifteen years ago, he had gastric bypass surgery and he quit drinking for 2 years. He started again because he thought he could and he states "over the years, I drank a little more and a little more and a little more and it went from 6 to 7 beers and 6 to 7 shots of whisky every day to a half gallon of Alfredo Hdez and 5 or 6 beers." At age 39, he began to use methamphetamine and states he smoked every day for 5 years. 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 He states, "I take a little puff before work at 10 a.m., at noon, at 4 p.m., and at night." After 5 years, he was arrested and charged with felony possession and spent time in the [facility]. He was paroled and revoked for a weapon's charge. He is currently on 27 years of probation. He states he has not smoked methamphetamine since age 44 and has no desire to ever use it again. He admits that his methamphetamine addiction crossed over to opiates and alcohol. The patient reports that he began using opiates 12 years ago for his neuropathy and states "I cannot take the pain, I can never stop taking opiates because the pain is so bad, I will have to cut off my legs." He has been consistently taking 3 hydrocodone-acetaminophen 10-300 daily. Around the same time, 12 years ago, he started to use Xanax and has been consistently taking three 0.5 mg daily. He states he cannot stop using these Xanax either because he cannot sleep. The patient reports he quit smoking cigarettes 20 years ago. He denies all other drug use. CIWA-AR SCORE: The patient reports that he is unaware of the severity of his withdrawal symptoms because he has had no sobriety in the past 15 years. He appears to be tremulous at this time. However, his withdrawals are being medically managed. DIAGNOSES: The patient meets DSM-5 criteria for the following diagnoses. 1. F10.20, alcohol use disorder, severe. 2. F10.239, alcohol withdrawal without perceptual disturbance. 3. F13.20, sedative, hypnotic, or anxiolytic use disorder; severe. 4. F11.20, opiate use disorder, severe. ASAM DIMENSIONS: 1. Dimension 1: Score 2: The patient has some difficulty tolerating and coping with withdrawal discomfort, but responds to support and treatment such that the client does not immediately endanger himself. He displays moderate signs and symptoms of withdrawal, however he is currently being medically managed. 2. Dimension 2: Score 3. The patient tolerates and mariela poorly with physical problems and has poor general health. He is reporting neuropathy and gout, which he manages by using hydrocodone-acetaminophen. He also has gastric bypass and currently pneumonia. 3. Dimension 3: Score 2. The patient has difficulty with impulse control and lacks coping skills. He is verbalizing that he understands that the drugs and alcohol are exacerbating his medical condition; however, he just does not care. He seems to have some difficulty functioning in significant life areas. 4. Dimension 4: Score 3: The patient has minimal awareness of his addiction. He is superficially cooperative and has no desire for treatment. 5. Dimension 5: Score 4: The patient has no awareness of the negative impact of his substance abuse. No coping skills to arrest the addiction or prevent relapse. 6. Dimension 6: Score 2+: The patient is engaged in structured meaningful activity; however, his son owns the business and is his employer and is extremely tolerant of the patient's drug and alcohol use. The patient would be unable to be employable in another situation. There is criminal justice involvement and he is living apart from his , who suffers from MS and is in a longterm. ASSESSMENT SUMMARY: The patient appears to be a man, who is deeply ritualized in his drug and alcohol use patterns and verbalizes no desire to change any of his drug or alcohol use. I spoke to the patient's son and [id number] and they indicated that they have tried for years to get him to stop drinking and taking the medications that he uses; however, they have had no success. They reported the patient has been through a residential treatment program in the past while incarcerated; however, he was resistant throughout that time in his life and did not maintain sobriety. The patient is reporting that he does not know the severity of his withdrawals because he has not been sober for the past 15 years. It will be necessary to wean the patient off his current medications to understand the severity of his withdrawals and to prepare for admission to a treatment center. Dr. Caruso was consulted on the necessity of understanding the severity of the withdrawals as any treatment center that accepts this patient will require complete sobriety and medical stability. The patient's family is verbalizing their desire for substance abuse treatment, as they state they have exhausted all other options. RECOMMENDATION: The patient meets ASAM criteria for a level 3.7 medically monitored inpatient treatment. At this time, a petition for involuntary commitment is being considered; however, it will be necessary to known if the patient is able to tolerate sobriety. I will contact SANDRA Juarez, on 10/07/2016, to discuss the patient's medical condition as Dr. Caruso attempts to wean him off his medications. We will consider all treatment options when the patient is medically stable. CHRISTOPHER /[id number]
[2016-10-07] MEDS: Acetaminophen/HYDROcodone 325-10 MG Tab PO PRN ×2 (05:36→14:08)
[2016-10-07] MEDS: LORazepam 2 MG/ML MDV IVPUSH PRN ×2 (05:37→08:32)
[2016-10-07] MEDS: Albuterol/Ipratropium 3.0-0.5 MG/3 ML Neb Soln NEB SCH ×4 (06:15→20:46)
[2016-10-07] MEDS: Aspirin 81 MG Tab.Chew PO SCH ×2 (08:33→20:41)
[2016-10-07] MEDS: Folic Acid 1 MG Tab PO SCH (08:33)
[2016-10-07] MEDS: Citalopram 20 MG Tab PO SCH (08:33)
[2016-10-07] MEDS: chlordiazePOXIDE 25 MG Cap PO SCH ×2 (08:33→20:40)
[2016-10-07] MEDS: Metoprolol Succinate 50 MG Tab.ER PO SCH (08:34)
[2016-10-07] MEDS: Gabapentin 600 MG Tab PO SCH ×3 (08:34→20:41)
[2016-10-07] MEDS: Pantoprazole 40 MG Tab.CR PO SCH (08:34)
[2016-10-07] MEDS: Lisinopril 20 MG Tab PO SCH (08:34)
[2016-10-07] MEDS: BREO ELLIPTA INH SCH (08:59)
[2016-10-07] MEDS: cloNIDine 0.1 MG Tab PO SCH ×2 (09:31→17:19)
[2016-10-07] MEDS: Enoxaparin 40 MG/0.4 ML Syringe SUBCUT SCH (09:33)
[2016-10-07] MEDS: Saccharomyces Boulardii (Probiotic) 250 MG Cap PO SCH ×2 (09:33→20:41)
--- NOTE | 2016-10-07 10:52 | PCM.PN ---
- General Info Date of Service: 10/07/16 Functional Status: Reports: pain controlled, tolerating diet, ambulating, urinating - Review of Systems General: Reports: Weakness HEENT: Reports: no symptoms Pulmonary: Reports: shortness of breath Cardiovascular: Reports: No Symptoms Gastrointestinal: Reports: No symptoms Genitourinary: Reports: no symptoms Musculoskeletal: Reports: no symptoms Skin: Reports: no symptoms Neurological: Reports: No Symptoms Psychiatric: Reports: no symptoms - Patient Data Vitals - most recent: Last Vital Signs Temp 36.6 C 10/07/16 08:00 Pulse 95 10/07/16 08:34 Resp 22 H 10/07/16 08:00 BP 138/125 H 10/07/16 09:31 Pulse Ox 92 L 10/07/16 08:59 Weight - most recent: 140.8 kg I&O - last 24 hours: Intake & Output 10/06/16 10/07/16 10/07/16 22:59 06:59 14:59 Intake Total 1590 2000 Output Total 300 1200 Balance 1290 800 Lab Results last 24 hrs: Laboratory Results - last 24 hr 10/06/16 10/06/16 10/07/16 Range/Units 12:25 18:20 06:45 WBC 10.36 H (4.23-9.07) K/mm3 RBC 3.10 L (4.63-6.08) M/mm3 Hgb 11.0 L (13.7-17.5) gm/L Hct 34.3 L (40.1-51.0) % MCV 110.6 H (79.0-92.2) fl MCH 35.5 H (25.7-32.2) pg MCHC 32.1 L (32.2-35.5) g/dl RDW Std Deviation 52.5 H (35.1-43.9) fL Plt Count 108 L (163-337) K/mm3 MPV 10.2 (9.4-12.3) fl Neut % (Auto) 82.2 H (34.0-67.9) % Lymph % (Auto) 8.8 L (21.8-53.1) % [place] % (Auto) 6.9 (5.3-12.2) % Eos % (Auto) 1.7 (0.8-7.0) Baso % (Auto) 0.2 (0.1-1.2) % Neut # (Auto) 8.51 H (1.78-5.38) K/mm3 Lymph # (Auto) 0.91 L (1.32-3.57) K/mm3 [place] # (Auto) 0.72 (0.30-0.82) K/mm3 Eos # (Auto) 0.18 (0.04-0.54) K/mm3 Baso # (Auto) 0.02 (0.01-0.08) K/mm3 Manual Slide Review Abnormal smear Sodium (136-145) mEq/L Potassium (3.5-5.1) mEq/L Chloride (98-107) mEq/L Carbon Dioxide (21-32) mEq/L Anion Gap (5-15) BUN (7-18) mg/dL Creatinine (0.7-1.3) mg/dL Est Cr Clr Drug Dosing mL/min Estimated GFR (MDRD) (>60) mL/min BUN/Creatinine Ratio (14-18) Glucose (80-115) mg/dL Calcium (8.5-10.1) mg/dL Magnesium (1.8-2.4) mg/dl C-Reactive Protein (<1.0) mg/dL Urine Opiates Screen Presumptive positive H (NEGATIVE) Ur Buprenorphine Scrn Negative (NEGATIVE) Ur Oxycodone Screen Negative (NEGATIVE) Urine Methadone Screen Negative (NEGATIVE) Ur Propoxyphene Screen Negative (NEGATIVE) Ur Barbiturates Screen Negative (NEGATIVE) Ur Tricyclics Screen Negative (NEGATIVE) Ur Phencyclidine Scrn Negative (NEGATIVE) Ur Amphetamine Screen Negative (NEGATIVE) U Methamphetamines Scrn Negative (NEGATIVE) U Benzodiazepines Scrn Presumptive positive H (NEGATIVE) U Cocaine Metab Screen Negative (NEGATIVE) U Marijuana (THC) Screen Negative (NEGATIVE) C.difficile [id number] Presumptive negative C. difficile Tox (PCR) Negative 10/07/16 Range/Units 06:45 WBC (4.23-9.07) K/mm3 RBC (4.63-6.08) M/mm3 Hgb (13.7-17.5) gm/L Hct (40.1-51.0) % MCV (79.0-92.2) fl MCH (25.7-32.2) pg MCHC (32.2-35.5) g/dl RDW Std Deviation (35.1-43.9) fL Plt Count (163-337) K/mm3 MPV (9.4-12.3) fl Neut % (Auto) (34.0-67.9) % Lymph % (Auto) (21.8-53.1) % [place] % (Auto) (5.3-12.2) % Eos % (Auto) (0.8-7.0) Baso % (Auto) (0.1-1.2) % Neut # (Auto) (1.78-5.38) K/mm3 Lymph # (Auto) (1.32-3.57) K/mm3 [place] # (Auto) (0.30-0.82) K/mm3 Eos # (Auto) (0.04-0.54) K/mm3 Baso # (Auto) (0.01-0.08) K/mm3 Manual Slide Review Sodium 140 (136-145) mEq/L Potassium 3.9 (3.5-5.1) mEq/L Chloride 107 (98-107) mEq/L Carbon Dioxide 25 (21-32) mEq/L Anion Gap 11.9 (5-15) BUN 15 (7-18) mg/dL Creatinine 1.1 (0.7-1.3) mg/dL Est Cr Clr Drug Dosing 79.70 mL/min Estimated GFR (MDRD) > 60 (>60) mL/min BUN/Creatinine Ratio 13.6 L (14-18) Glucose 100 (80-115) mg/dL Calcium 9.0 (8.5-10.1) mg/dL Magnesium 2.0 (1.8-2.4) mg/dl C-Reactive Protein 17.3 H* (<1.0) mg/dL Urine Opiates Screen (NEGATIVE) Ur Buprenorphine Scrn (NEGATIVE) Ur Oxycodone Screen (NEGATIVE) Urine Methadone Screen (NEGATIVE) Ur Propoxyphene Screen (NEGATIVE) Ur Barbiturates Screen (NEGATIVE) Ur Tricyclics Screen (NEGATIVE) Ur Phencyclidine Scrn (NEGATIVE) Ur Amphetamine Screen (NEGATIVE) U Methamphetamines Scrn (NEGATIVE) U Benzodiazepines Scrn (NEGATIVE) U Cocaine Metab Screen (NEGATIVE) U Marijuana (THC) Screen (NEGATIVE) C.difficile [id number] C. difficile Tox (PCR) Marcello Results last 24 hrs: Microbiology 10/06/16 06:45 Gram Stain - Final Sputum - Expectorated Respiratory Culture - Preliminary Med Orders - Current: Current Medications Acetaminophen (Tylenol) 650 mg PO Q6H PRN PRN Reason: Pain/Fever Last Admin: 10/05/16 19:19 Dose: 650 mg Hydrocodone Bitart/Acetaminophen ([place] 325-10 Mg) 1 tab PO Q12HR PRN PRN Reason: Pain Last Admin: 10/07/16 05:36 Dose: 1 tab Albuterol (Proventil Neb Soln) 2.5 mg NEB Q4HRRT PRN PRN Reason: Shortness of Breath Albuterol/Ipratropium (Duoneb 3.0-0.5 Mg/3 Ml) 3 ml NEB QIDRT [facility] Last Admin: 10/07/16 08:59 Dose: 3 ml Aspirin (Aspirin) 81 mg PO BID [facility] Last Admin: 10/07/16 08:33 Dose: 81 mg Chlordiazepoxide HCl (Librium) 25 mg PO BID [facility] Last Admin: 10/07/16 08:33 Dose: 25 mg Citalopram Hydrobromide (Celexa) 40 mg PO DAILY [facility] Last Admin: 10/07/16 08:33 Dose: 40 mg Clonidine HCl (Catapres) 0.1 mg PO Q8H [facility] Last Admin: 10/07/16 09:31 Dose: 0.1 mg Doxazosin Mesylate (Cardura) 2 mg PO BEDTIME [facility] Last Admin: 10/06/16 21:03 Dose: 2 mg Enoxaparin Sodium (Lovenox) 40 mg SUBCUT DAILY [facility] Last Admin: 10/07/16 09:33 Dose: 40 mg Folic Acid (Folic Acid) 1 mg PO DAILY [facility] Last Admin: 10/07/16 08:33 Dose: 1 mg Gabapentin (Neurontin) 1,200 mg PO TID [facility] Last Admin: 10/07/16 08:34 Dose: 1,200 mg Haloperidol Lactate (Haldol) 1 mg IVPUSH Q8H PRN PRN Reason: restlessness Azithromycin 500 mg/ Sodium (Chloride) 250 mls @ 250 mls/hr IV Q24H [facility] Last Admin: 10/06/16 17:35 Dose: 250 mls/hr Ceftriaxone Sodium 2 gm/ (Sodium Chloride) 100 mls @ 200 mls/hr IV Q24H [facility] Last Admin: 10/06/16 13:10 Dose: 200 mls/hr Lisinopril (Prinivil) 20 mg PO DAILY [facility] Last Admin: 10/07/16 08:34 Dose: 20 mg Lorazepam (Ativan) 1 mg IVPUSH Q2H PRN PRN Reason: Anxiety Last Admin: 10/07/16 08:32 Dose: 1 mg Metoprolol Succinate (Toprol Xl) 50 mg PO DAILY [facility] Last Admin: 10/07/16 08:34 Dose: 50 mg Metoprolol Tartrate (Lopressor) 5 mg IVPUSH Q6H PRN PRN Reason: HR>120 Last Admin: 10/06/16 18:38 Dose: 5 mg Nitroglycerin (Nitrostat) 0.4 mg SL Q5M PRN PRN Reason: Chest Pain Pantoprazole Sodium (Protonix) 40 mg PO DAILY@0900 [facility] Last Admin: 10/07/16 08:34 Dose: 40 mg Breo Ellipta 200/25 (Mcg Inhaler) 0 each INH DAILY [facility] Last Admin: 10/07/16 08:59 Dose: 1 each Saccharomyces Boulardii (Florastor) 500 mg PO BID [facility] Last Admin: 10/07/16 09:33 Dose: 500 mg Sodium Chloride (Saline Flush) 10 ml FLUSH ASDIRECTED PRN PRN Reason: Keep Vein Open Last Admin: 10/06/16 18:38 Dose: 10 ml Thiamine HCl (Vitamin B-1) 100 mg PO BEDTIME [facility] Last Admin: 10/06/16 21:02 Dose: 100 mg Discontinued Medications Hydrocodone Bitart/Acetaminophen ([place] 325-10 Mg) 1 tab PO Q8H PRN PRN Reason: Pain Last Admin: 10/06/16 08:40 Dose: 1 tab Albuterol (Proventil Neb Soln) 2.5 mg NEB ONETIME ONE Stop: 10/05/16 12:46 Last Admin: 10/05/16 12:54 Dose: 2.5 mg Albuterol (Proventil Neb Soln) 2.5 mg NEB ONETIME ONE Stop: 10/05/16 14:05 Last Admin: 10/05/16 14:29 Dose: 2.5 mg Alprazolam (Xanax) 0.5 mg PO BEDTIME PRN PRN Reason: Insomnia Ceftriaxone Sodium (Rocephin) 2 gm IVPUSH Q24H [facility] Chlordiazepoxide HCl (Librium) 25 mg PO TID [facility] Last Admin: 10/06/16 08:39 Dose: 25 mg Doxazosin Mesylate (Cardura) 1 mg PO BEDTIME [facility] Sodium Chloride (Normal Saline) 1,000 mls @ 100 mls/hr IV ASDIRECTED [facility] Last Admin: 10/05/16 13:47 Dose: 100 mls/hr Ceftriaxone Sodium 2 gm/ (Sodium Chloride) 100 mls @ 200 mls/hr IV ONETIME ONE Stop: 10/05/16 14:22 Last Admin: 10/05/16 14:41 Dose: 200 mls/hr Lactated Ringer's (Ringers, Lactated) 1,000 mls @ 125 mls/hr IV ASDIRECTED [facility] Stop: 10/06/16 13:00 Last Infusion: 10/05/16 18:35 Dose: 125 mls/hr Magnesium Sulfate 2 gm/ Premix 50 mls @ 25 mls/hr IV ONETIME ONE Stop: 10/06/16 11:16 Last Admin: 10/06/16 09:49 Dose: 25 mls/hr Lorazepam (Ativan) 2 mg IVPUSH Q2H PRN PRN Reason: Anxiety Last Admin: 10/05/16 20:57 Dose: 2 mg Lorazepam (Ativan) 2 mg IVPUSH ONETIME ONE Stop: 10/05/16 18:25 Last Admin: 10/05/16 18:24 Dose: 2 mg Metoprolol Succinate (Toprol Xl) 50 mg PO DAILY [facility] Last Admin: 10/06/16 08:42 Dose: 50 mg Mometasone Furoate/Formoterol Fumar (Dulera 200-5 Mcg) 2 puff IH [id number] [facility] Last Admin: 10/06/16 08:47 Dose: Not Given Pantoprazole Sodium (Protonix) 40 mg PO DAILY@0700 [facility] Last Admin: 10/06/16 06:32 Dose: 40 mg Pneumococcal Polyvalent Vaccine (Pneumovax 23) 0.5 ml IM .ONCE ONE Stop: 10/05/16 17:43 - Exam Quality Assessment: supplemental oxygen, DVT prophylaxis General: alert, oriented, cooperative, no acute distress HEENT: Pupils equal, Pupils reactive, EOMI Neck: supple, trachea midline Lungs: Normal respiratory effort, Decreased breath sounds, Rhonchi Cardiovascular: Regular Rate, Regular Rhythm Abdomen: bowel sounds present, soft, no tenderness, no distension (Male) Exam: Deferred Back Exam: Normal Inspection Extremities: normal pulses Skin: warm Neurological: no new focal deficit Psy/Mental Status: alert, normal affect, normal mood - Problem List & Annotations (1) Rigor SNOMED Code(s): 14520008, 43181760 Code(s): R68.89 - OTHER GENERAL SYMPTOMS AND SIGNS Status: Acute Current Visit: Yes (2) Pneumonia SNOMED Code(s): 716063972 Code(s): J18.9 - PNEUMONIA, UNSPECIFIED ORGANISM Status: Acute Current Visit: Yes (3) COPD (chronic obstructive pulmonary disease) SNOMED Code(s): 60468359 Code(s): J44.9 - CHRONIC OBSTRUCTIVE PULMONARY DISEASE, UNSPECIFIED Status : Acute Current Visit: Yes (4) GERD (gastroesophageal reflux disease) SNOMED Code(s): 995533471 Code(s): K21.9 - GASTRO-ESOPHAGEAL REFLUX DISEASE WITHOUT ESOPHAGITIS Status: Acute Current Visit: Yes (5) HTN (hypertension) SNOMED Code(s): 20602380 Code(s): I10 - ESSENTIAL (PRIMARY) HYPERTENSION Status: Acute Current Visit: Yes (6) Alcohol dependence syndrome SNOMED Code(s): 24858445, 351863328 Code(s): F10.20 - ALCOHOL DEPENDENCE, UNCOMPLICATED Status: Acute Current Visit: Yes (7) Narcotic dependence SNOMED Code(s): 58385471, 88592888 Code(s): F11.20 - OPIOID DEPENDENCE, UNCOMPLICATED Status: Acute Current Visit: Yes - Problem List Review Problem List Initiated/Reviewed/Updated: Yes - My Orders Last 24 Hours: My Active Orders 10/06/16 10:31 Up ad Rupali [RC] ASDIRECTED 10/06/16 13:00 cefTRIAXone [Rocephin] 2 gm Sodium Chloride 0.9% [Normal Saline] 100 ml IV Q24H 10/06/16 13:29 Acetaminophen/HYDROcodone [[place] 325-10 MG] 1 tab PO Q12HR PRN 10/06/16 13:30 LORazepam [Ativan] 1 mg IVPUSH Q2H PRN 10/06/16 18:05 Code Status [Resuscitation Status] Routine 10/06/16 21:00 Saccharomyces Boulardii [Florastor] 500 mg PO BID chlordiazePOXIDE [Librium] 25 mg PO BID 10/06/16 Lunch Heart Healthy Diet [DIET] 10/07/16 09:00 Consult for Substance Abuse [CONS] Routine Consult to Occupational Therapy [OT Evaluation and Treatment] [CONS] Routine Consult to Physical Therapy [PT Evaluation and Treatment] [CONS] Routine Lisinopril [Prinivil] 20 mg PO DAILY Metoprolol Succinate [Toprol XL] 50 mg PO DAILY Pantoprazole [ProTONIX] 40 mg PO DAILY@0900 10/07/16 09:15 cloNIDine [Catapres] 0.1 mg PO Q8H 10/07/16 10:00 Consult to [employer] [CONS] Routine 10/08/16 05:00 BMP [BASIC METABOLIC PANEL,BMP] [CHEM] DAILY CBC WITH AUTO DIFF [HEME] DAILY CRP [C-REACTIVE PROTEIN] [CHEM] DAILY MAGNESIUM [CHEM] DAILY 10/08/16 08:00 CXR [Chest 2V] [CR] Routine 10/09/16 05:00 BMP [BASIC METABOLIC PANEL,BMP] [CHEM] DAILY CBC WITH AUTO DIFF [HEME] DAILY CRP [C-REACTIVE PROTEIN] [CHEM] DAILY MAGNESIUM [CHEM] DAILY - Plan Plan:: Impression: COPD with history of former tobacco use >20 years ago CAP ETOH dependence, impending withdrawal; query substance abuse Declines IP treatment, has been seen by provider Narcotic dependence Benzodiazepine dependence Chronic HTN GERD Morbid Obesity s/p Gastric By Pass Surgery Plan: Ok transfer to MD telemetry IVF with oral supplements Clear liquids, advance as tolerated CIWA Librium Clonidine Rocephin/Zithromax DVT/GI prophylaxis SW/PT/OT//substance abuse Would benefit in IP therapy, multiple addictions: ETOH, narcotics, benzodiazepine LOS may exceed 96 hours for ETOH treatment and/or placement
[2016-10-07] MEDS: cefTRIAXone 2 GM in Sodium Chloride 0.9% 100 ML IV SCH ×2 (14:52→15:37)
[2016-10-07] MEDS: Azithromycin 500 MG in Sodium Chloride 0.9% 250 ML IV SCH (17:19)
[2016-10-07] MEDS: Acetaminophen 325 MG Tab PO PRN (20:38)
[2016-10-07] MEDS: Doxazosin 2 MG Tab PO SCH (20:39)
[2016-10-07] MEDS: Thiamine 100 MG Tab PO SCH (20:41)
[2016-10-08] MEDS: cloNIDine 0.1 MG Tab PO SCH ×3 (02:09→17:03)
[2016-10-08] MEDS: Acetaminophen/HYDROcodone 325-10 MG Tab PO PRN ×2 (05:24→17:03)
[2016-10-08] MEDS ORDERED: Magnesium Hydroxide 400 MG/5 ML Susp 30 ML Cup PO ONE (06:06)
[2016-10-08] MEDS: Albuterol/Ipratropium 3.0-0.5 MG/3 ML Neb Soln NEB SCH ×4 (06:29→20:22)
[2016-10-08] MEDS: Folic Acid 1 MG Tab PO SCH (08:37)
[2016-10-08] MEDS: Pantoprazole 40 MG Tab.CR PO SCH (08:37)
[2016-10-08] MEDS: Saccharomyces Boulardii (Probiotic) 250 MG Cap PO SCH ×2 (08:37→20:17)
[2016-10-08] MEDS: Lisinopril 20 MG Tab PO SCH (08:38)
[2016-10-08] MEDS: Aspirin 81 MG Tab.Chew PO SCH ×2 (08:38→20:17)
[2016-10-08] MEDS: Citalopram 20 MG Tab PO SCH (08:38)
[2016-10-08] MEDS: Metoprolol Succinate 50 MG Tab.ER PO SCH (08:38)
[2016-10-08] MEDS: Enoxaparin 40 MG/0.4 ML Syringe SUBCUT SCH (08:39)
[2016-10-08] MEDS: Gabapentin 600 MG Tab PO SCH ×3 (08:39→20:16)
[2016-10-08] MEDS: chlordiazePOXIDE 25 MG Cap PO SCH ×2 (08:39→20:17)
--- NOTE | 2016-10-08 09:51 | CR ---
Chest: Two views of the chest were obtained. Comparison: Previous chest x-ray of 10/05/16. Old left-sided rib fractures are seen. Patchy areas of increased density are noted within the right mid and lower lung and left lung base which remain stable from prior chest x-ray. No improvement or worsening is seen. Heart size and mediastinum and bony structures remain unchanged. Epidural stimulating wire is noted within the spine. Impression: 1. No change is seen on chest x-ray from previous chest x-ray of 10/05/16. Diagnostic code #3
[2016-10-08] MEDS: BREO ELLIPTA INH SCH (10:27)
--- NOTE | 2016-10-08 14:00 | PCM.PN ---
- General Info Date of Service: 10/08/16 Functional Status: Reports: pain controlled, tolerating diet, ambulating, urinating - Review of Systems General: Reports: No Symptoms HEENT: Reports: no symptoms Pulmonary: Reports: no symptoms Cardiovascular: Reports: No Symptoms Gastrointestinal: Reports: No symptoms Genitourinary: Reports: no symptoms Musculoskeletal: Reports: no symptoms Skin: Reports: no symptoms Neurological: Reports: No Symptoms Psychiatric: Reports: no symptoms - Patient Data Vitals - most recent: Last Vital Signs Temp 37.9 C 10/08/16 11:48 Pulse 90 10/08/16 11:48 Resp 12 10/08/16 11:48 BP 158/96 H 10/08/16 12:07 Pulse Ox 95 10/08/16 11:48 Weight - most recent: 141.294 kg I&O - last 24 hours: Intake & Output 10/07/16 10/08/16 10/08/16 22:59 06:59 14:59 Intake Total 2160 850 360 Output Total 2100 Balance 2160 -1250 360 Lab Results last 24 hrs: Laboratory Results - last 24 hr 10/08/16 10/08/16 Range/Units 06:00 06:00 WBC 8.16 (4.23-9.07) K/mm3 RBC 3.31 L (4.63-6.08) M/mm3 Hgb 11.9 L (13.7-17.5) gm/L Hct 36.6 L (40.1-51.0) % MCV 110.6 H (79.0-92.2) fl MCH 36.0 H (25.7-32.2) pg MCHC 32.5 (32.2-35.5) g/dl RDW Std Deviation 52.5 H (35.1-43.9) fL Plt Count 127 L (163-337) K/mm3 MPV 10.3 (9.4-12.3) fl Neut % (Auto) 81.6 H (34.0-67.9) % Lymph % (Auto) 7.8 L (21.8-53.1) % [place] % (Auto) 8.2 (5.3-12.2) % Eos % (Auto) 1.8 (0.8-7.0) Baso % (Auto) 0.4 (0.1-1.2) % Neut # (Auto) 6.65 H (1.78-5.38) K/mm3 Lymph # (Auto) 0.64 L (1.32-3.57) K/mm3 [place] # (Auto) 0.67 (0.30-0.82) K/mm3 Eos # (Auto) 0.15 (0.04-0.54) K/mm3 Baso # (Auto) 0.03 (0.01-0.08) K/mm3 Manual Slide Review Normal smear Sodium 141 (136-145) mEq/L Potassium 4.2 (3.5-5.1) mEq/L Chloride 106 (98-107) mEq/L Carbon Dioxide 26 (21-32) mEq/L Anion Gap 13.2 (5-15) BUN 11 (7-18) mg/dL Creatinine 1.1 (0.7-1.3) mg/dL Est Cr Clr Drug Dosing 79.70 mL/min Estimated GFR (MDRD) > 60 (>60) mL/min BUN/Creatinine Ratio 10.0 L (14-18) Glucose 108 (80-115) mg/dL Calcium 9.3 (8.5-10.1) mg/dL Magnesium 1.8 (1.8-2.4) mg/dl C-Reactive Protein 9.2 H* (<1.0) mg/dL Marcello Results last 24 hrs: Microbiology 10/06/16 06:45 Gram Stain - Final Sputum - Expectorated Respiratory Culture - Final NORMAL RESPIRATORY BEN 2 DAYS Med Orders - Current: Current Medications Acetaminophen (Tylenol) 650 mg PO Q6H PRN PRN Reason: Pain/Fever Last Admin: 10/07/16 20:38 Dose: 650 mg Hydrocodone Bitart/Acetaminophen ([place] 325-10 Mg) 1 tab PO Q12HR PRN PRN Reason: Pain Last Admin: 10/08/16 05:24 Dose: 1 tab Albuterol (Proventil Neb Soln) 2.5 mg NEB Q4HRRT PRN PRN Reason: Shortness of Breath Albuterol/Ipratropium (Duoneb 3.0-0.5 Mg/3 Ml) 3 ml NEB QIDRT [facility] Last Admin: 10/08/16 10:27 Dose: 3 ml Aspirin (Aspirin) 81 mg PO BID [facility] Last Admin: 10/08/16 08:38 Dose: 81 mg Chlordiazepoxide HCl (Librium) 25 mg PO BID [facility] Last Admin: 10/08/16 08:39 Dose: 25 mg Citalopram Hydrobromide (Celexa) 40 mg PO DAILY [facility] Last Admin: 10/08/16 08:38 Dose: 40 mg Clonidine HCl (Catapres) 0.1 mg PO Q8H [facility] Last Admin: 10/08/16 08:37 Dose: 0.1 mg Doxazosin Mesylate (Cardura) 2 mg PO BEDTIME [facility] Last Admin: 10/07/16 20:39 Dose: 2 mg Enoxaparin Sodium (Lovenox) 40 mg SUBCUT DAILY [facility] Last Admin: 10/08/16 08:39 Dose: 40 mg Folic Acid (Folic Acid) 1 mg PO DAILY [facility] Last Admin: 10/08/16 08:37 Dose: 1 mg Gabapentin (Neurontin) 1,200 mg PO TID [facility] Last Admin: 10/08/16 08:39 Dose: 1,200 mg Haloperidol Lactate (Haldol) 1 mg IVPUSH Q8H PRN PRN Reason: restlessness Azithromycin 500 mg/ Sodium (Chloride) 250 mls @ 250 mls/hr IV Q24H [facility] Last Admin: 10/07/16 17:19 Dose: 250 mls/hr Ceftriaxone Sodium 2 gm/ (Sodium Chloride) 100 mls @ 200 mls/hr IV Q24H [facility] Last Admin: 10/07/16 14:52 Dose: 200 mls/hr Lisinopril (Prinivil) 20 mg PO DAILY [facility] Last Admin: 10/08/16 08:38 Dose: 20 mg Lorazepam (Ativan) 1 mg IVPUSH Q2H PRN PRN Reason: Anxiety Last Admin: 10/07/16 08:32 Dose: 1 mg Metoprolol Succinate (Toprol Xl) 50 mg PO DAILY [facility] Last Admin: 10/08/16 08:38 Dose: 50 mg Metoprolol Tartrate (Lopressor) 5 mg IVPUSH Q6H PRN PRN Reason: HR>120 Last Admin: 10/06/16 18:38 Dose: 5 mg Nitroglycerin (Nitrostat) 0.4 mg SL Q5M PRN PRN Reason: Chest Pain Pantoprazole Sodium (Protonix) 40 mg PO DAILY@0900 [facility] Last Admin: 10/08/16 08:37 Dose: 40 mg Breo Ellipta 200/25 (Mcg Inhaler) 0 each INH DAILY [facility] Last Admin: 10/08/16 10:27 Dose: 1 each Saccharomyces Boulardii (Florastor) 500 mg PO BID [facility] Last Admin: 10/08/16 08:37 Dose: 500 mg Sodium Chloride (Saline Flush) 10 ml FLUSH ASDIRECTED PRN PRN Reason: Keep Vein Open Last Admin: 10/06/16 18:38 Dose: 10 ml Thiamine HCl (Vitamin B-1) 100 mg PO BEDTIME [facility] Last Admin: 10/07/16 20:41 Dose: 100 mg Discontinued Medications Hydrocodone Bitart/Acetaminophen ([place] 325-10 Mg) 1 tab PO Q8H PRN PRN Reason: Pain Last Admin: 10/06/16 08:40 Dose: 1 tab Albuterol (Proventil Neb Soln) 2.5 mg NEB ONETIME ONE Stop: 10/05/16 12:46 Last Admin: 10/05/16 12:54 Dose: 2.5 mg Albuterol (Proventil Neb Soln) 2.5 mg NEB ONETIME ONE Stop: 10/05/16 14:05 Last Admin: 10/05/16 14:29 Dose: 2.5 mg Alprazolam (Xanax) 0.5 mg PO BEDTIME PRN PRN Reason: Insomnia Ceftriaxone Sodium (Rocephin) 2 gm IVPUSH Q24H [facility] Chlordiazepoxide HCl (Librium) 25 mg PO TID [facility] Last Admin: 10/06/16 08:39 Dose: 25 mg Doxazosin Mesylate (Cardura) 1 mg PO BEDTIME [facility] Sodium Chloride (Normal Saline) 1,000 mls @ 100 mls/hr IV ASDIRECTED [facility] Last Admin: 10/05/16 13:47 Dose: 100 mls/hr Ceftriaxone Sodium 2 gm/ (Sodium Chloride) 100 mls @ 200 mls/hr IV ONETIME ONE Stop: 10/05/16 14:22 Last Admin: 10/05/16 14:41 Dose: 200 mls/hr Lactated Ringer's (Ringers, Lactated) 1,000 mls @ 125 mls/hr IV ASDIRECTED [facility] Stop: 10/06/16 13:00 Last Infusion: 10/05/16 18:35 Dose: 125 mls/hr Ceftriaxone Sodium 2 gm/ (Sodium Chloride) 100 mls @ 200 mls/hr IV Q24H [facility] Last Admin: 10/07/16 15:37 Dose: Not Given Magnesium Sulfate 2 gm/ Premix 50 mls @ 25 mls/hr IV ONETIME ONE Stop: 10/06/16 11:16 Last Admin: 10/06/16 09:49 Dose: 25 mls/hr Lorazepam (Ativan) 2 mg IVPUSH Q2H PRN PRN Reason: Anxiety Last Admin: 10/05/16 20:57 Dose: 2 mg Lorazepam (Ativan) 2 mg IVPUSH ONETIME ONE Stop: 10/05/16 18:25 Last Admin: 10/05/16 18:24 Dose: 2 mg Metoprolol Succinate (Toprol Xl) 50 mg PO DAILY [facility] Last Admin: 10/06/16 08:42 Dose: 50 mg Mometasone Furoate/Formoterol Fumar (Dulera 200-5 Mcg) 2 puff IH [id number] [facility] Last Admin: 10/06/16 08:47 Dose: Not Given Pantoprazole Sodium (Protonix) 40 mg PO DAILY@0700 [facility] Last Admin: 10/06/16 06:32 Dose: 40 mg Pneumococcal Polyvalent Vaccine (Pneumovax 23) 0.5 ml IM .ONCE ONE Stop: 10/05/16 17:43 - Exam Quality Assessment: DVT prophylaxis General: alert, oriented, cooperative, no acute distress HEENT: Pupils equal, Pupils reactive, EOMI Neck: supple, trachea midline Lungs: Normal respiratory effort, Decreased breath sounds Cardiovascular: Regular Rate, Regular Rhythm Abdomen: bowel sounds present, soft, no tenderness, no distension (Male) Exam: Deferred Back Exam: Normal Inspection Extremities: normal pulses Skin: warm Neurological: no new focal deficit, normal gait, normal speech Psy/Mental Status: alert, normal affect, normal mood - Problem List & Annotations (1) Rigor SNOMED Code(s): 60784723, 45794311 Code(s): R68.89 - OTHER GENERAL SYMPTOMS AND SIGNS Status: Acute Current Visit: Yes (2) Pneumonia SNOMED Code(s): 592954202 Code(s): J18.9 - PNEUMONIA, UNSPECIFIED ORGANISM Status: Acute Current Visit: Yes (3) COPD (chronic obstructive pulmonary disease) SNOMED Code(s): 84761184 Code(s): J44.9 - CHRONIC OBSTRUCTIVE PULMONARY DISEASE, UNSPECIFIED Status : Acute Current Visit: Yes (4) GERD (gastroesophageal reflux disease) SNOMED Code(s): 076276149 Code(s): K21.9 - GASTRO-ESOPHAGEAL REFLUX DISEASE WITHOUT ESOPHAGITIS Status: Acute Current Visit: Yes (5) HTN (hypertension) SNOMED Code(s): 29329063 Code(s): I10 - ESSENTIAL (PRIMARY) HYPERTENSION Status: Acute Current Visit: Yes (6) Alcohol dependence syndrome SNOMED Code(s): 59694882, 796456632 Code(s): F10.20 - ALCOHOL DEPENDENCE, UNCOMPLICATED Status: Acute Current Visit: Yes (7) Narcotic dependence SNOMED Code(s): 80473351, 89127454 Code(s): F11.20 - OPIOID DEPENDENCE, UNCOMPLICATED Status: Acute Current Visit: Yes - Problem List Review Problem List Initiated/Reviewed/Updated: Yes - My Orders Last 24 Hours: My Active Orders 10/07/16 14:30 cefTRIAXone [Rocephin] 2 gm Sodium Chloride 0.9% [Normal Saline] 100 ml IV Q24H 10/09/16 05:00 BMP [BASIC METABOLIC PANEL,BMP] [CHEM] DAILY CBC WITH AUTO DIFF [HEME] DAILY CRP [C-REACTIVE PROTEIN] [CHEM] DAILY MAGNESIUM [CHEM] DAILY - Plan Plan:: Impression: COPD with history of former tobacco use >20 years ago CAP ETOH dependence, impending withdrawal; query substance abuse Declines IP treatment, has been seen by provider Narcotic dependence Benzodiazepine dependence Chronic HTN GERD Morbid Obesity s/p Gastric By Pass Surgery Plan: Ok transfer to ID telemetry IVF with oral supplements Heart healthy CIWA Librium Clonidine Rocephin/Zithromax DVT/GI prophylaxis SW/PT/OT//substance abuse Declines IP ETOH treatment, current circumstance do not meet requirements for involuntary committal. LOS <96 hours, will DC home and recommend OP ETOH treatment
[2016-10-08] MEDS ORDERED: Ibuprofen 800 MG Tab PO PRN (14:23)
[2016-10-08] MEDS: cefTRIAXone 2 GM in Sodium Chloride 0.9% 100 ML IV SCH (14:55)
[2016-10-08] MEDS: Azithromycin 500 MG in Sodium Chloride 0.9% 250 ML IV SCH (17:03)
[2016-10-08] MEDS: Doxazosin 2 MG Tab PO SCH (20:16)
[2016-10-08] MEDS: Thiamine 100 MG Tab PO SCH (20:17)
[2016-10-09] MEDS: cloNIDine 0.1 MG Tab PO SCH ×2 (01:34→08:26)
[2016-10-09] MEDS: Acetaminophen 325 MG Tab PO PRN (01:38)
[2016-10-09] MEDS: Acetaminophen/HYDROcodone 325-10 MG Tab PO PRN (05:42)
[2016-10-09] MEDS: Albuterol/Ipratropium 3.0-0.5 MG/3 ML Neb Soln NEB SCH ×2 (06:34→09:21)
--- NOTE | 2016-10-09 07:14 | PCM.DCSUM1 ---
<Renetta Gomez M - Last Filed: 10/09/16 07:08> Discharge Summary - Hospital Course Free Text/Narrative:: 60 year old male complaining of chest pain associated with yellowish sputum. Reported feeling weak and sluggish for 1-2 weeks. Had been seen at the [facility] with no change in symptoms. Has had malaise, fever/chills as well as generalized weakness. Labs are pending obtained in the ED. He did receive Rocephin 2 GM in the ED. A CXR has confirmed pneumonia; RML/RLL and LLL pneumonia. Additional information obtained includes alcohol dependence, last drink was at 12:30 today; he normally drinks at least 4-5 shots daily of Alfredo Hdez. A long with a beer chaser usually at least 4-5 are needed. His admission has been changed to ICU for ETOH impending withdrawal and CAP. Patient was admitted to ICU for alcohol withdrawl and CAP. He was treated with Rocephin and Zithromax IV x 4 days with good response. He was maintained on CIWA protocol with ativan PRN, librium. He did go through mild withdrawl. He was transfered out of the unit to med/surg with telemetry. Continued to do well. Labs improved, WBC normalized, CRP was trending down. He was on RA with good saturations. B/P was elevated, medications adjusted with better control. Repeat CXR day prior to discharge was unchanged, no worsening of PNA noted. Papito Low LAC was consulted for alcohol use/abuse recommends outpatient treatment program at this time. Patient will be discharged home today, PO ceftin BID x 7 more days, cont albuterol inhaler, recommend follow up with Papito Low for alcoholism as outpatient. He should have follow up with his PCP, SHUKRI Robertson in [place] within 1 week of discharge. Recommend repeat CXR in 2-3 wks to assure clearing of bilat PNA. - Discharge Data Discharge Date: 10/09/16 (admit date 10/05/16) Discharge Disposition: Home, Self-Care 01 Condition: Good - Patient Summary/Data Operative Procedure(s) Performed: None Complications: None Consults: Consultations 10/07/16 09:00 Consult for Substance Abuse [CONS] Routine Consult to Occupational Therapy [OT Evaluation and Treatment] [CONS] Routine Consult to Physical Therapy [PT Evaluation and Treatment] [CONS] Routine 10/07/16 10:00 Consult to Mail Caller [CONS] Routine Labs Pending at D/C: None Recommended Follow-up Testing/Procedures: Follow up with SHUKRI Robertson within one week of discharge; recommend repeat CXR in 2-3 wks to assure clearing of bilat pneumonia. Follow up with Papito Low LAC with [facility]; office # provided in discharge instructions for patient to schedule follow up visit for alcoholism/outpatient treatment. Planned Operative Procedure(s) after DC: None Hospital Course: As above - Patient Instructions Diet: Heart Healthy Diet, Drink 8-10+ Glasses/Day, No Alcoholic Beverages Activity: As Tolerated (ambulate/walk 30-45 minutes daily for exercise) Showering/Bathing: May Shower Notify Provider of: Fever, Increased Pain, Nausea and/or Vomiting (worsening of cough, shortness of breath, chest pain, wheezing) - Discharge Plan Prescriptions/Med Rec: Cefuroxime [Ceftin] 500 mg PO BID #14 tablet Folic Acid 1 mg PO DAILY #30 tablet Lisinopril 40 mg PO DAILY #60 tablet Metoprolol Succinate 100 mg PO DAILY #30 tab.er.24h Thiamine [Vitamin B-1] 100 mg PO BEDTIME #30 tablet Home Medications: Home Meds ALPRAZolam [Alprazolam] 0.5 mg PO BEDTIME PRN 07/03/15 [History] Albuterol [Ventolin HFA] 2 puff INH Q6H PRN 07/03/15 [History] Allopurinol [Zyloprim] 300 mg PO DAILY 07/03/15 [History] Aspirin [Children's Aspirin] 81 mg PO BID 07/03/15 [History] Calcium Citrate/Vitamin D3 [Calcium Citrate-Vit D3 Tablet] 3 each PO BID [History] Gabapentin [Neurontin] 1,200 mg PO TID 07/03/15 [History] Hydrocodone/Acetaminophen [Hydrocodon-Acetaminophn 10-300] 1 tab PO Q8HR PRN [History] Multivitamin W/Iron, Minerals [Flintstones Complete] 1 each PO DAILY 07/03/15 [ History] Nitroglycerin [Nitrostat] 0.4 mg SL Q5M PRN 07/03/15 [History] Omeprazole [Prilosec] 20 mg PO DAILY 07/03/15 [History] Doxazosin [Cardura] 2 mg PO BEDTIME 10/05/16 [History] Escitalopram [Lexapro] 20 mg PO DAILY 10/05/16 [History] Fluticasone/Vilanterol [Breo Ellipta 200-25 Mcg INH] 1 each IH DAILY 10/05/16 [ History] Cefuroxime [Ceftin] 500 mg PO BID #14 tablet 10/09/16 [Rx] Folic Acid 1 mg PO DAILY #30 tablet 10/09/16 [Rx] Lisinopril 40 mg PO DAILY #60 tablet 10/09/16 [Rx] Metoprolol Succinate 100 mg PO DAILY #30 tab.er.24h 10/09/16 [Rx] Thiamine [Vitamin B-1] 100 mg PO BEDTIME #30 tablet 10/09/16 [Rx] Patient Handouts: Chronic Obstructive Pulmonary Disease, [id number], Community-Acquired Pneumonia, Adult, [id number], Alcohol Withdrawal, Easy-to- Read Forms: ED Department Discharge Referrals: Amalia Guillen, [facility] [Primary Care Provider] - (Have follow-up chest xray done in 2 weeks.) - Discharge Summary/Plan Comment DC Time >30 min.: Yes (40 min) - General Info Date of Service: 10/09/16 Admission Dx/Problem (Free Text: Admission Diagnosis/Problem Admission Diagnosis/Problem Pneumonia Patient seen this morning; feeling much better. Cough is improved, energy improved. Afebrile overnight. Plans for and is anxious to be dc'd home today Functional Status: Reports: pain controlled, tolerating diet, ambulating, urinating. Denies: new symptoms - Review of Systems General: Denies: Fever, Weakness (significantly improved to resolved) HEENT: Reports: no symptoms. Denies: headaches Pulmonary: Reports: cough (significantly improved). Denies: shortness of breath , pleuritic chest pain, sputum (clear to white), hemoptysis, wheezing Cardiovascular: Reports: No Symptoms. Denies: Chest Pain, Dyspnea on Exertion, Lightheadedness Gastrointestinal: Reports: No symptoms Genitourinary: Reports: no symptoms Neurological: Reports: No Symptoms. Denies: Headache Psychiatric: Reports: no symptoms. Denies: cravings - Patient Data Vitals - Most Recent: Last Vital Signs Temp 98.4 F 10/08/16 19:44 Pulse 71 10/08/16 19:44 Resp 16 10/08/16 19:44 BP 145/86 H 10/09/16 01:34 Pulse Ox 95 10/08/16 20:22 Weight - Most Recent: 142.156 kg I&O - Last 24 hours: Intake & Output 10/08/16 10/09/16 10/09/16 22:59 06:59 14:59 Intake Total 3030 950 Output Total 1700 1540 Balance 1330 -590 Lab Results - Last 24 hrs: Laboratory Results - last 24 hr 10/09/16 10/09/16 Range/Units 05:30 05:30 WBC 8.14 (4.23-9.07) K/mm3 RBC 3.27 L (4.63-6.08) M/mm3 Hgb 11.6 L (13.7-17.5) gm/L Hct 35.9 L (40.1-51.0) % MCV 109.8 H (79.0-92.2) fl MCH 35.5 H (25.7-32.2) pg MCHC 32.3 (32.2-35.5) g/dl RDW Std Deviation 52.1 H (35.1-43.9) fL Plt Count 131 L (163-337) K/mm3 MPV 10.3 (9.4-12.3) fl Neut % (Auto) 74.3 H (34.0-67.9) % Lymph % (Auto) 10.3 L (21.8-53.1) % Calvert % (Auto) 12.0 (5.3-12.2) % Eos % (Auto) 2.7 (0.8-7.0) Baso % (Auto) 0.5 (0.1-1.2) % Neut # (Auto) 6.04 H (1.78-5.38) K/mm3 Lymph # (Auto) 0.84 L (1.32-3.57) K/mm3 Calvert # (Auto) 0.98 H (0.30-0.82) K/mm3 Eos # (Auto) 0.22 (0.04-0.54) K/mm3 Baso # (Auto) 0.04 (0.01-0.08) K/mm3 Manual Slide Review Normal smear Sodium 143 (136-145) mEq/L Potassium 4.4 (3.5-5.1) mEq/L Chloride 108 H (98-107) mEq/L Carbon Dioxide 27 (21-32) mEq/L Anion Gap 12.4 (5-15) BUN 14 (7-18) mg/dL Creatinine 1.0 (0.7-1.3) mg/dL Est Cr Clr Drug Dosing 87.67 mL/min Estimated GFR (MDRD) > 60 (>60) mL/min BUN/Creatinine Ratio 14.0 (14-18) Glucose 103 (80-115) mg/dL Calcium 9.1 (8.5-10.1) mg/dL Magnesium 1.9 (1.8-2.4) mg/dl C-Reactive Protein 6.1 H* (<1.0) mg/dL HERB Results - Last 24 hrs: Microbiology 10/06/16 06:45 Gram Stain - Final Sputum - Expectorated Respiratory Culture - Final NORMAL RESPIRATORY BEN 2 DAYS Med Orders - Current: Current Medications Acetaminophen (Tylenol) 650 mg PO Q6H PRN PRN Reason: Pain/Fever Last Admin: 10/09/16 01:38 Dose: 650 mg Hydrocodone Bitart/Acetaminophen ([place] 325-10 Mg) 1 tab PO Q12HR PRN PRN Reason: Pain Last Admin: 10/09/16 05:42 Dose: 1 tab Albuterol (Proventil Neb Soln) 2.5 mg NEB Q4HRRT PRN PRN Reason: Shortness of Breath Albuterol/Ipratropium (Duoneb 3.0-0.5 Mg/3 Ml) 3 ml NEB QIDRT [facility] Last Admin: 10/09/16 06:34 Dose: 3 ml Aspirin (Aspirin) 81 mg PO BID [facility] Last Admin: 10/08/16 20:17 Dose: 81 mg Chlordiazepoxide HCl (Librium) 25 mg PO BID [facility] Last Admin: 10/08/16 20:17 Dose: 25 mg Citalopram Hydrobromide (Celexa) 40 mg PO DAILY [facility] Last Admin: 10/08/16 08:38 Dose: 40 mg Clonidine HCl (Catapres) 0.1 mg PO Q8H [facility] Last Admin: 10/09/16 01:34 Dose: 0.1 mg Doxazosin Mesylate (Cardura) 2 mg PO BEDTIME [facility] Last Admin: 10/08/16 20:16 Dose: 2 mg Enoxaparin Sodium (Lovenox) 40 mg SUBCUT DAILY [facility] Last Admin: 10/08/16 08:39 Dose: 40 mg Folic Acid (Folic Acid) 1 mg PO DAILY [facility] Last Admin: 10/08/16 08:37 Dose: 1 mg Gabapentin (Neurontin) 1,200 mg PO TID [facility] Last Admin: 10/08/16 20:16 Dose: 1,200 mg Haloperidol Lactate (Haldol) 1 mg IVPUSH Q8H PRN PRN Reason: restlessness Azithromycin 500 mg/ Sodium (Chloride) 250 mls @ 250 mls/hr IV Q24H [facility] Last Admin: 10/08/16 17:03 Dose: 250 mls/hr Ceftriaxone Sodium 2 gm/ (Sodium Chloride) 100 mls @ 200 mls/hr IV Q24H [facility] Last Admin: 10/08/16 14:55 Dose: 200 mls/hr Ibuprofen (Motrin) 800 mg PO Q8H PRN PRN Reason: Pain Last Admin: 10/08/16 14:55 Dose: 800 mg Lisinopril (Prinivil) 20 mg PO DAILY [facility] Last Admin: 10/08/16 08:38 Dose: 20 mg Lorazepam (Ativan) 1 mg IVPUSH Q2H PRN PRN Reason: Anxiety Last Admin: 10/07/16 08:32 Dose: 1 mg Metoprolol Succinate (Toprol Xl) 50 mg PO DAILY [facility] Last Admin: 10/08/16 08:38 Dose: 50 mg Metoprolol Tartrate (Lopressor) 5 mg IVPUSH Q6H PRN PRN Reason: HR>120 Last Admin: 10/06/16 18:38 Dose: 5 mg Nitroglycerin (Nitrostat) 0.4 mg SL Q5M PRN PRN Reason: Chest Pain Pantoprazole Sodium (Protonix) 40 mg PO DAILY@0900 [facility] Last Admin: 10/08/16 08:37 Dose: 40 mg Breo Ellipta 200/25 (Mcg Inhaler) 0 each INH DAILY [facility] Last Admin: 10/08/16 10:27 Dose: 1 each Saccharomyces Boulardii (Florastor) 500 mg PO BID [facility] Last Admin: 10/08/16 20:17 Dose: 500 mg Sodium Chloride (Saline Flush) 10 ml FLUSH ASDIRECTED PRN PRN Reason: Keep Vein Open Last Admin: 10/06/16 18:38 Dose: 10 ml Thiamine HCl (Vitamin B-1) 100 mg PO BEDTIME [facility] Last Admin: 10/08/16 20:17 Dose: 100 mg Discontinued Medications Hydrocodone Bitart/Acetaminophen ([place] 325-10 Mg) 1 tab PO Q8H PRN PRN Reason: Pain Last Admin: 10/06/16 08:40 Dose: 1 tab Albuterol (Proventil Neb Soln) 2.5 mg NEB ONETIME ONE Stop: 10/05/16 12:46 Last Admin: 10/05/16 12:54 Dose: 2.5 mg Albuterol (Proventil Neb Soln) 2.5 mg NEB ONETIME ONE Stop: 10/05/16 14:05 Last Admin: 10/05/16 14:29 Dose: 2.5 mg Alprazolam (Xanax) 0.5 mg PO BEDTIME PRN PRN Reason: Insomnia Ceftriaxone Sodium (Rocephin) 2 gm IVPUSH Q24H [facility] Chlordiazepoxide HCl (Librium) 25 mg PO TID [facility] Last Admin: 10/06/16 08:39 Dose: 25 mg Doxazosin Mesylate (Cardura) 1 mg PO BEDTIME [facility] Sodium Chloride (Normal Saline) 1,000 mls @ 100 mls/hr IV ASDIRECTED [facility] Last Admin: 10/05/16 13:47 Dose: 100 mls/hr Ceftriaxone Sodium 2 gm/ (Sodium Chloride) 100 mls @ 200 mls/hr IV ONETIME ONE Stop: 10/05/16 14:22 Last Admin: 10/05/16 14:41 Dose: 200 mls/hr Lactated Ringer's (Ringers, Lactated) 1,000 mls @ 125 mls/hr IV ASDIRECTED [facility] Stop: 10/06/16 13:00 Last Infusion: 10/05/16 18:35 Dose: 125 mls/hr Ceftriaxone Sodium 2 gm/ (Sodium Chloride) 100 mls @ 200 mls/hr IV Q24H [facility] Last Admin: 10/07/16 15:37 Dose: Not Given Magnesium Sulfate 2 gm/ Premix 50 mls @ 25 mls/hr IV ONETIME ONE Stop: 10/06/16 11:16 Last Admin: 10/06/16 09:49 Dose: 25 mls/hr Lorazepam (Ativan) 2 mg IVPUSH Q2H PRN PRN Reason: Anxiety Last Admin: 10/05/16 20:57 Dose: 2 mg Lorazepam (Ativan) 2 mg IVPUSH ONETIME ONE Stop: 10/05/16 18:25 Last Admin: 10/05/16 18:24 Dose: 2 mg Metoprolol Succinate (Toprol Xl) 50 mg PO DAILY [facility] Last Admin: 10/06/16 08:42 Dose: 50 mg Mometasone Furoate/Formoterol Fumar (Dulera 200-5 Mcg) 2 puff IH [id number] [facility] Last Admin: 10/06/16 08:47 Dose: Not Given Pantoprazole Sodium (Protonix) 40 mg PO DAILY@0700 [facility] Last Admin: 10/06/16 06:32 Dose: 40 mg Pneumococcal Polyvalent Vaccine (Pneumovax 23) 0.5 ml IM .ONCE ONE Stop: 10/05/16 17:43 - Exam Quality Assessment: Reports: DVT prophylaxis General: Reports: alert, oriented, cooperative, no acute distress HEENT: Reports: Pupils equal, Pupils reactive, EOMI, Mucous membr. moist/pink Neck: Reports: supple Lungs: Reports: Clear to auscultation, Normal respiratory effort, Wheezing ( scattered on expiration) Cardiovascular: Reports: Regular Rate, Regular Rhythm, No Murmurs Abdomen: Reports: bowel sounds present, soft, no tenderness, no distension (Male) Exam: Deferred Rectal (Males) Exam: Deferred Back Exam: Reports: Normal Inspection Extremities: Reports: no calf tenderness, edema (trace to ankles) Neurological: Reports: no new focal deficit Psy/Mental Status: Reports: alert, normal affect, normal mood *Q Meaningful Use (DIS) - VTE *Q VTE Criteria *Q: - Stroke *Q Stroke Criteria *Q: - AMI *Q AMI Criteria *Q: <Amber Caruso - Last Filed: 10/09/16 10:57> Discharge Summary - Hospital Course Free Text/Narrative:: Will DC today, needs CXR for follow up. [facility] in [place] will see him in 7-10 days. - Discharge Diagnosis/Problem(s) (1) Rigor SNOMED Code(s): 95505638, 26245729 ICD Code: R68.89 - OTHER GENERAL SYMPTOMS AND SIGNS Status: Acute (2) Pneumonia SNOMED Code(s): 819403799 ICD Code: J18.9 - PNEUMONIA, UNSPECIFIED ORGANISM Status: Acute (3) COPD (chronic obstructive pulmonary disease) SNOMED Code(s): 11375048 ICD Code: J44.9 - CHRONIC OBSTRUCTIVE PULMONARY DISEASE, UNSPECIFIED Status : Acute (4) GERD (gastroesophageal reflux disease) SNOMED Code(s): 604959202 ICD Code: K21.9 - GASTRO-ESOPHAGEAL REFLUX DISEASE WITHOUT ESOPHAGITIS Status: Acute (5) HTN (hypertension) SNOMED Code(s): 75798142 ICD Code: I10 - ESSENTIAL (PRIMARY) HYPERTENSION Status: Acute (6) Alcohol dependence syndrome SNOMED Code(s): 28582618, 425729384 ICD Code: F10.20 - ALCOHOL DEPENDENCE, UNCOMPLICATED Status: Acute (7) Narcotic dependence SNOMED Code(s): 30433981, 00279793 ICD Code: F11.20 - OPIOID DEPENDENCE, UNCOMPLICATED Status: Acute - Patient Summary/Data Consults: Consultations 10/07/16 09:00 Consult for Substance Abuse [CONS] Routine Consult to Occupational Therapy [OT Evaluation and Treatment] [CONS] Routine Consult to Physical Therapy [PT Evaluation and Treatment] [CONS] Routine 10/07/16 10:00 Consult to Mail Caller [CONS] Routine - Patient Data Vitals - Most Recent: Last Vital Signs Temp 37.1 C 10/09/16 07:54 Pulse 83 10/09/16 08:01 Resp 18 10/09/16 07:54 BP 178/95 H 10/09/16 08:26 Pulse Ox 94 L 10/09/16 09:23 I&O - Last 24 hours: Intake & Output 10/08/16 10/09/16 10/09/16 22:59 06:59 14:59 Intake Total 3030 950 530 Output Total 1700 1540 Balance 1330 -590 530 Lab Results - Last 24 hrs: Laboratory Results - last 24 hr 10/09/16 10/09/16 Range/Units 05:30 05:30 WBC 8.14 (4.23-9.07) K/mm3 RBC 3.27 L (4.63-6.08) M/mm3 Hgb 11.6 L (13.7-17.5) gm/L Hct 35.9 L (40.1-51.0) % MCV 109.8 H (79.0-92.2) fl MCH 35.5 H (25.7-32.2) pg MCHC 32.3 (32.2-35.5) g/dl RDW Std Deviation 52.1 H (35.1-43.9) fL Plt Count 131 L (163-337) K/mm3 MPV 10.3 (9.4-12.3) fl Neut % (Auto) 74.3 H (34.0-67.9) % Lymph % (Auto) 10.3 L (21.8-53.1) % Calvert % (Auto) 12.0 (5.3-12.2) % Eos % (Auto) 2.7 (0.8-7.0) Baso % (Auto) 0.5 (0.1-1.2) % Neut # (Auto) 6.04 H (1.78-5.38) K/mm3 Lymph # (Auto) 0.84 L (1.32-3.57) K/mm3 Calvert # (Auto) 0.98 H (0.30-0.82) K/mm3 Eos # (Auto) 0.22 (0.04-0.54) K/mm3 Baso # (Auto) 0.04 (0.01-0.08) K/mm3 Manual Slide Review Normal smear Sodium 143 (136-145) mEq/L Potassium 4.4 (3.5-5.1) mEq/L Chloride 108 H (98-107) mEq/L Carbon Dioxide 27 (21-32) mEq/L Anion Gap 12.4 (5-15) BUN 14 (7-18) mg/dL Creatinine 1.0 (0.7-1.3) mg/dL Est Cr Clr Drug Dosing 87.67 mL/min Estimated GFR (MDRD) > 60 (>60) mL/min BUN/Creatinine Ratio 14.0 (14-18) Glucose 103 (80-115) mg/dL Calcium 9.1 (8.5-10.1) mg/dL Magnesium 1.9 (1.8-2.4) mg/dl C-Reactive Protein 6.1 H* (<1.0) mg/dL HERB Results - Last 24 hrs: Microbiology 10/06/16 06:45 Gram Stain - Final Sputum - Expectorated Respiratory Culture - Final NORMAL RESPIRATORY BEN 2 DAYS Med Orders - Current: Current Medications Acetaminophen (Tylenol) 650 mg PO Q6H PRN PRN Reason: Pain/Fever Last Admin: 10/09/16 01:38 Dose: 650 mg Hydrocodone Bitart/Acetaminophen ([place] 325-10 Mg) 1 tab PO Q12HR PRN PRN Reason: Pain Last Admin: 10/09/16 05:42 Dose: 1 tab Albuterol (Proventil Neb Soln) 2.5 mg NEB Q4HRRT PRN PRN Reason: Shortness of Breath Albuterol/Ipratropium (Duoneb 3.0-0.5 Mg/3 Ml) 3 ml NEB QIDRT [facility] Last Admin: 10/09/16 09:21 Dose: 3 ml Aspirin (Aspirin) 81 mg PO BID [facility] Last Admin: 10/09/16 08:03 Dose: 81 mg Chlordiazepoxide HCl (Librium) 25 mg PO BID [facility] Last Admin: 10/09/16 08:03 Dose: 25 mg Citalopram Hydrobromide (Celexa) 40 mg PO DAILY [facility] Last Admin: 10/09/16 08:02 Dose: 40 mg Clonidine HCl (Catapres) 0.1 mg PO Q8H [facility] Last Admin: 10/09/16 08:26 Dose: 0.1 mg Doxazosin Mesylate (Cardura) 2 mg PO BEDTIME [facility] Last Admin: 10/08/16 20:16 Dose: 2 mg Enoxaparin Sodium (Lovenox) 40 mg SUBCUT DAILY [facility] Last Admin: 10/09/16 08:01 Dose: 40 mg Folic Acid (Folic Acid) 1 mg PO DAILY [facility] Last Admin: 10/09/16 08:03 Dose: 1 mg Gabapentin (Neurontin) 1,200 mg PO TID [facility] Last Admin: 10/09/16 08:00 Dose: 1,200 mg Haloperidol Lactate (Haldol) 1 mg IVPUSH Q8H PRN PRN Reason: restlessness Azithromycin 500 mg/ Sodium (Chloride) 250 mls @ 250 mls/hr IV Q24H [facility] Last Admin: 10/08/16 17:03 Dose: 250 mls/hr Ceftriaxone Sodium 2 gm/ (Sodium Chloride) 100 mls @ 200 mls/hr IV Q24H [facility] Last Admin: 10/08/16 14:55 Dose: 200 mls/hr Ibuprofen (Motrin) 800 mg PO Q8H PRN PRN Reason: Pain Last Admin: 10/08/16 14:55 Dose: 800 mg Lisinopril (Prinivil) 20 mg PO DAILY [facility] Last Admin: 10/09/16 08:02 Dose: 20 mg Lorazepam (Ativan) 1 mg IVPUSH Q2H PRN PRN Reason: Anxiety Last Admin: 10/07/16 08:32 Dose: 1 mg Metoprolol Succinate (Toprol Xl) 50 mg PO DAILY [facility] Last Admin: 10/09/16 08:01 Dose: 50 mg Metoprolol Tartrate (Lopressor) 5 mg IVPUSH Q6H PRN PRN Reason: HR>120 Last Admin: 10/06/16 18:38 Dose: 5 mg Nitroglycerin (Nitrostat) 0.4 mg SL Q5M PRN PRN Reason: Chest Pain Pantoprazole Sodium (Protonix) 40 mg PO DAILY@0900 [facility] Last Admin: 10/09/16 08:01 Dose: 40 mg Breo Ellipta 200/25 (Mcg Inhaler) 0 each INH DAILY [facility] Last Admin: 10/09/16 08:04 Dose: 1 each Saccharomyces Boulardii (Florastor) 500 mg PO BID [facility] Last Admin: 10/09/16 08:03 Dose: 500 mg Sodium Chloride (Saline Flush) 10 ml FLUSH ASDIRECTED PRN PRN Reason: Keep Vein Open Last Admin: 10/06/16 18:38 Dose: 10 ml Thiamine HCl (Vitamin B-1) 100 mg PO BEDTIME [facility] Last Admin: 10/08/16 20:17 Dose: 100 mg Discontinued Medications Hydrocodone Bitart/Acetaminophen ([place] 325-10 Mg) 1 tab PO Q8H PRN PRN Reason: Pain Last Admin: 10/06/16 08:40 Dose: 1 tab Albuterol (Proventil Neb Soln) 2.5 mg NEB ONETIME ONE Stop: 10/05/16 12:46 Last Admin: 10/05/16 12:54 Dose: 2.5 mg Albuterol (Proventil Neb Soln) 2.5 mg NEB ONETIME ONE Stop: 10/05/16 14:05 Last Admin: 10/05/16 14:29 Dose: 2.5 mg Alprazolam (Xanax) 0.5 mg PO BEDTIME PRN PRN Reason: Insomnia Ceftriaxone Sodium (Rocephin) 2 gm IVPUSH Q24H [facility] Chlordiazepoxide HCl (Librium) 25 mg PO TID [facility] Last Admin: 10/06/16 08:39 Dose: 25 mg Doxazosin Mesylate (Cardura) 1 mg PO BEDTIME [facility] Sodium Chloride (Normal Saline) 1,000 mls @ 100 mls/hr IV ASDIRECTED [facility] Last Admin: 10/05/16 13:47 Dose: 100 mls/hr Ceftriaxone Sodium 2 gm/ (Sodium Chloride) 100 mls @ 200 mls/hr IV ONETIME ONE Stop: 10/05/16 14:22 Last Admin: 10/05/16 14:41 Dose: 200 mls/hr Lactated Ringer's (Ringers, Lactated) 1,000 mls @ 125 mls/hr IV ASDIRECTED [facility] Stop: 10/06/16 13:00 Last Infusion: 10/05/16 18:35 Dose: 125 mls/hr Ceftriaxone Sodium 2 gm/ (Sodium Chloride) 100 mls @ 200 mls/hr IV Q24H [facility] Last Admin: 10/07/16 15:37 Dose: Not Given Magnesium Sulfate 2 gm/ Premix 50 mls @ 25 mls/hr IV ONETIME ONE Stop: 10/06/16 11:16 Last Admin: 10/06/16 09:49 Dose: 25 mls/hr Lorazepam (Ativan) 2 mg IVPUSH Q2H PRN PRN Reason: Anxiety Last Admin: 10/05/16 20:57 Dose: 2 mg Lorazepam (Ativan) 2 mg IVPUSH ONETIME ONE Stop: 10/05/16 18:25 Last Admin: 10/05/16 18:24 Dose: 2 mg Magnesium Oxide (Magnesium Oxide) 400 mg PO ONETIME ONE Stop: 10/09/16 07:25 Last Admin: 10/09/16 08:01 Dose: 400 mg Metoprolol Succinate (Toprol Xl) 50 mg PO DAILY [facility] Last Admin: 10/06/16 08:42 Dose: 50 mg Mometasone Furoate/Formoterol Fumar (Dulera 200-5 Mcg) 2 puff IH [id number] [facility] Last Admin: 10/06/16 08:47 Dose: Not Given Pantoprazole Sodium (Protonix) 40 mg PO DAILY@0700 [facility] Last Admin: 10/06/16 06:32 Dose: 40 mg Pneumococcal Polyvalent Vaccine (Pneumovax 23) 0.5 ml IM .ONCE ONE Stop: 10/05/16 17:43 Last Admin: 10/09/16 10:28 Dose: 0.5 ml *Q Meaningful Use (DIS) - VTE *Q VTE Criteria *Q: - Stroke *Q Stroke Criteria *Q: - AMI *Q AMI Criteria *Q:
[2016-10-09] MEDS ORDERED: Magnesium Oxide 400 MG Tab PO ONE (07:24)
[2016-10-09 07:55] VITALS: BP 178/95
[2016-10-09] MEDS: Gabapentin 600 MG Tab PO SCH (08:00)
[2016-10-09] MEDS: Enoxaparin 40 MG/0.4 ML Syringe SUBCUT SCH (08:01)
[2016-10-09] MEDS: Metoprolol Succinate 50 MG Tab.ER PO SCH (08:01)
[2016-10-09] MEDS: Pantoprazole 40 MG Tab.CR PO SCH (08:01)
[2016-10-09] MEDS: Citalopram 20 MG Tab PO SCH (08:02)
[2016-10-09] MEDS: Lisinopril 20 MG Tab PO SCH (08:02)
[2016-10-09] MEDS: Saccharomyces Boulardii (Probiotic) 250 MG Cap PO SCH (08:03)
[2016-10-09] MEDS: Aspirin 81 MG Tab.Chew PO SCH (08:03)
[2016-10-09] MEDS: chlordiazePOXIDE 25 MG Cap PO SCH (08:03)
[2016-10-09] MEDS: Folic Acid 1 MG Tab PO SCH (08:03)
[2016-10-09] MEDS: BREO ELLIPTA INH SCH (08:04)
[2016-10-09] MEDS ORDERED: Pneumococcal 13-Valent Conjugate Vaccine 0.5 ML Syringe IM ONE (10:05)
== END 2016-10-09 10:41 | disposition home or self-care (01) | DRG 194 ==
LOC: JD.ED 12:07 → JD.ICU 14:51 → JD.MS 10-07 11:58
PROVIDERS: ADMIT Internal Medicine Cardiovascular Disease; ATTEND Internal Medicine Cardiovascular Disease
PROC: 3E0234Z Introduction of Serum, Toxoid and Vaccine into Muscle, Percutaneous Approach (ICD-10-PCS; principal; 2016-10-09)
DX: J18.9 Pneumonia, unspecified organism (principal); F10.239 Alcohol dependence with withdrawal, unspecified; F11.20 Opioid dependence, uncomplicated; F13.20 Sedative, hypnotic or anxiolytic dependence, uncomplicated; R68.89 Other general symptoms and signs; J44.9 Chronic obstructive pulmonary disease, unspecified; K21.9 Gastro-esophageal reflux disease without esophagitis; I10 Essential (primary) hypertension; J45.909 Unspecified asthma, uncomplicated; F41.9 Anxiety disorder, unspecified; E66.01 Morbid (severe) obesity due to excess calories; F90.9 Attention-deficit hyperactivity disorder, unspecified type; Z79.899 Other long term (current) drug therapy; Z79.82 Long term (current) use of aspirin; Z87.891 Personal history of nicotine dependence; Z98.84 Bariatric surgery status; Z23 Encounter for immunization; Z68.35 Body mass index [BMI] 35.0-35.9, adult
CPT/HCPCS: 36415; 71020; 71020-26; 80048; 80053; 80306; 81001; 83605; 83735; 85025; 86140; 86738; 87040; 87070; 87081; 87205; 87430; 87493; 87804; 87899; 90732; 93005; 94640; 94640-76; 94664; 94761; 96361; 96374; 97161-GP; 97165-GO; 99284; 99285-25; A9270-GY; G0009; G0480; J0456; J0696; J1650; J2060; J3475; J3490; J7030; J7040; J7050; J7120

== ENCOUNTER 2016-11-11 12:44 | Emergency (ER) | payer OTHER ==
[2016-11-11 12:54] VITALS: BP 137/85
[2016-11-11] MEDS ORDERED: Sodium Chloride 0.9% 10 ML Syringe FLUSH PRN (12:55)
[2016-11-11] MEDS ORDERED: Metoclopramide 10 MG/2 ML SDV IVPUSH ONE (12:59)
[2016-11-11] MEDS ORDERED: Sodium Chloride 0.9% 1,000 ML IV SCH ×2 (13:00)
[2016-11-11] MEDS ORDERED: Ketorolac 30 MG/ML SDV IVPUSH SCH (13:00)
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
[2016-11-11] MEDS: Ketorolac 30 MG/ML SDV ONE ×2 (13:18→13:29)
[2016-11-11] MEDS ORDERED: Dextrose 5%-0.9% NaCl 1,000 ML IV SCH (14:30)
== END 2016-11-11 16:15 | disposition home or self-care (01) ==
LOC: JD.ED 12:44
DX: E86.9 Volume depletion, unspecified (principal); E87.2 Acidosis; E88.89 Other specified metabolic disorders; I10 Essential (primary) hypertension; J45.909 Unspecified asthma, uncomplicated; K21.9 Gastro-esophageal reflux disease without esophagitis; F41.9 Anxiety disorder, unspecified; Z79.82 Long term (current) use of aspirin; Z79.899 Other long term (current) drug therapy; Z87.891 Personal history of nicotine dependence
CPT/HCPCS: 36415; 80053; 82009; 83735; 85025; 85610; 93005; 96361; 96374; 96375; 99285; G0480; J1885; J2765; J7040; J7050; 99284

== ENCOUNTER 2017-02-02 16:55 | Emergency (ER) | payer OTHER ==
[2017-02-02 17:15] VITALS: BP 163/100
[2017-02-02] MEDS ORDERED: Sodium Chloride 0.9% 10 ML Syringe FLUSH PRN (17:27)
--- NOTE | 2017-02-02 17:37 | EDM.PDOC ---
ED HPI GENERAL MEDICAL PROBLEM - General Chief Complaint: Lower Extremity Injury/Pain Stated Complaint: DVT Time Seen by Provider: 02/02/17 17:17 Source of Information: Reports: Patient History Limitations: Reports: No Limitations - History of Present Illness INITIAL COMMENTS - FREE TEXT/NARRATIVE: Patient is a 61-year-old male who presents to the ED complaining of left lower leg swelling, pain, and increased redness. Outpatient order for ultrasound of the lower leg was obtained to rule out DVT. Patient was instructed to come to the ED after having the ultrasound obtained. Unclear if the patient has a DVT or not. Patient states this started approximately 5 days ago. States while standing developed a charley horse to his lower leg. Swelling, redness, pain has persisted. He does have a history of asthma and states he is normally short of breath but notes up until 2 days ago the shortness of breath has mildly increased. He has some chest pain is localized to his right lateral sternal border increased with inspiration. Denies any fever, nausea/vomiting, abdominal pain, or history of DVT/PE. 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 He has no previous coronary artery disease. Does not smoke. He consumes alcohol on a regular basis consisting of 4 beers and 4 shots of Alfredo Hdez every night. Denies having a problem. Past medical history includes: asthma, hypertension/uncontrolled, GERD, BPH, gout, chronic back pain, neuropathy Current Medications: see list. Left Lower Leg Pain Score (Numeric/FACES): 5 - Related Data Allergies Allergy/AdvReac Type Severity Reaction Status Date / Time No Known Allergies Allergy Verified 11/11/16 12:50 Home Meds: Home Meds . [Unable to Verify Home Med List] 02/02/17 [History] Past Medical History HEENT History: Reports: Impaired Vision Cardiovascular History: Reports: Hypertension Respiratory History: Reports: Asthma Gastrointestinal History: Reports: GERD, Hemorrhoids Genitourinary History: Reports: Prostate Disorder Musculoskeletal History: Reports: Back Pain, Chronic, Gout, Other (See Below) Other Musculoskeletal History: neuropathy Psychiatric History: Reports: Anxiety - Past Surgical History GI Surgical History: Reports: Bariatric Procedure, Colonoscopy, Polypectomy Social & Family History - Family History Family Medical History: Noncontributory - Tobacco Use Smoking Status *Q: Never Smoker Years of Tobacco use: 40 Packs/Tins Daily: 1 Used Tobacco, but Quit: Yes Month Tobacco Last Used: 40 yr Second Hand Smoke Exposure: Yes - Caffeine Use Caffeine Use: Reports: None - Alcohol Use Days Per Week of Alcohol Use: 7 Number of Drinks Per Day: 6 Total Drinks Per Week: 42 Date of Last Drink: 02/02/17 Time of Last Drink: 12:00 - Recreational Drug Use Recreational Drug Use: No Drug Use in Last 12 Months: No - Living Situation & Occupation Living situation: Reports: Single Occupation: Employed Review of Systems - Review of Systems Review Of Systems: ROS reveals no pertinent complaints other than HPI. ED EXAM, GENERAL - Physical Exam Exam: See Below Exam Limited By: No Limitations General Appearance: Alert, WD/WN, No Apparent Distress Ears: Hearing Grossly Normal Nose: Normal Inspection Throat/Mouth: Normal Voice, No Airway Compromise Neck: Normal Inspection, Supple Respiratory/Chest: No Respiratory Distress, Lungs Clear, Normal Breath Sounds, No Accessory Muscle Use Cardiovascular: Normal Peripheral Pulses, Regular Rate, Rhythm Peripheral Pulses: 2+: Radial (R) GI/Abdominal: Normal Bowel Sounds, Soft, Non-Tender, No Organomegaly Back Exam: Normal Inspection Extremities: Redness (redness notedto the medial aspect of the left lower leg. Increasing swelling noted. Mild pain present. Increased warmth noted. No palpable cord. No drainage present. No open wounds.) Neurological: Alert, Oriented, CN II-XII Intact, Normal Cognition, No Motor/ Sensory Deficits Psychiatric: Normal Affect, Normal Mood Skin Exam: Warm, Dry, Intact Course - Vital Signs Last Recorded V/S: Last Vital Signs Temp 98.7 F 02/02/17 17:13 Pulse 68 02/02/17 17:13 Resp 18 02/02/17 17:13 BP 163/100 H 02/02/17 17:13 Pulse Ox 99 02/02/17 17:13 - Orders/Labs/Meds Orders: Active Orders 24 hr Category Date Time Status EKG Documentation Completion [RC] STAT Care 02/02/17 17:28 Active Peripheral IV Care [RC] . DIRECTED Care 02/02/17 17:27 Active CXR [Chest 1V Frontal] [CR] Stat Exams 02/02/17 17:31 Taken Peripheral IV Insertion Adult [OM.PC] Stat Oth 02/02/17 17:27 Ordered Labs: Laboratory Tests 0902/02/17 02/02/17 Range/Units 17:40 17:40 17:40 WBC 6.42 (4.23-9.07) K/mm3 RBC 3.65 L (4.63-6.08) M/mm3 Hgb 13.2 L (13.7-17.5) gm/L Hct 39.9 L (40.1-51.0) % MCV 109.3 H (79.0-92.2) fl MCH 36.2 H (25.7-32.2) pg MCHC 33.1 (32.2-35.5) g/dl RDW Std Deviation 57.6 H (35.1-43.9) fL Plt Count 93 L (163-337) K/mm3 MPV 10.8 (9.4-12.3) fl Neut % (Auto) 60.6 (34.0-67.9) % Lymph % (Auto) 19.0 L (21.8-53.1) % Lamar % (Auto) 16.8 H (5.3-12.2) % Eos % (Auto) 2.8 (0.8-7.0) Baso % (Auto) 0.6 (0.1-1.2) % Neut # (Auto) 3.89 (1.78-5.38) K/mm3 Lymph # (Auto) 1.22 L (1.32-3.57) K/mm3 Lamar # (Auto) 1.08 H (0.30-0.82) K/mm3 Eos # (Auto) 0.18 (0.04-0.54) K/mm3 Baso # (Auto) 0.04 (0.01-0.08) K/mm3 Manual Slide Review Abnormal smear PT 10.0 (8.0-13.0) SECONDS INR 0.92 APTT 28 (22-36) SECONDS Sodium 140 (136-145) mEq/L Potassium 4.3 (3.5-5.1) mEq/L Chloride 105 (98-107) mEq/L Carbon Dioxide 26 (21-32) mEq/L Anion Gap 13.3 (5-15) BUN 16 (7-18) mg/dL Creatinine 1.2 (0.7-1.3) mg/dL Est Cr Clr Drug Dosing 72.13 mL/min Estimated GFR (MDRD) > 60 (>60) mL/min BUN/Creatinine Ratio 13.3 L (14-18) Glucose 101 (80-115) mg/dL Calcium 8.8 (8.5-10.1) mg/dL Total Bilirubin 0.4 (0.2-1.0) mg/dL AST 42 H (15-37) U/L ALT 48 (16-63) U/L Alkaline Phosphatase 54 (46-116) U/L Troponin I < 0.017 (0.00-0.056) ng/mL C-Reactive Protein 4.0 H* (<1.0) mg/dL Total Protein 6.6 (6.4-8.2) g/dl Albumin 3.0 L (3.4-5.0) g/dl Globulin 3.6 gm/dL Albumin/Globulin Ratio 0.8 L (1-2) Meds: Medications Discontinued Medications Generic Name Dose Route Start Last Admin Trade Name Freq PRN Reason Stop Dose Admin Sodium Chloride 10 ml 02/02/17 17:27 02/02/17 17:35 Saline Flush FLUSH 10 ml ASDIRECTED PRN Administration Keep Vein Open - Re-Assessments/Exams Free Text/Narrative Re-Assessment/Exam: Patient was sent to the ED after obtaining a ultrasound of the left lower extremity to rule out DVT. Radiology had contacted the patient's PCP to which the PCP instructed the patient come to the ED. Patient has a history of swelling to the lower extremity with increased redness and increased warmth. Developed after experiencing a crampy like sensation while standing. Swelling has increased. Patient states he has a history of asthma and as of the past 2 days and experiencing increasing shortness of breath along with some chest discomfort with inspiration. He has no history of DVT and or PE. Denies any additional complaints. IV established. Initial labs and studies include CBC, chem 14, PTT/INR, PTT, troponin, chest x-ray one view, and EKG. EKG: Sinus Rhythm in the 60's with no acute ST changes. CXR did not reveal any acute abnormalities. This was confirmed with Dr. Carvalho reviewing the chest x-ray. Final interpretation pending. 02/02/17 17:39 Ultrasound the left lower extremity impression: Thrombosed within the distal left superficial femoral, popliteal and posterior tibial veins , perineal not visualized which may be technical versus additional thrombus. Subcutaneous edema is seen within the left calf. No additional testing to be conducted. Patient has history of asthma. Auscultation did not reveal any adventitious lung sounds. EKG did not reveal any concerning findings. In addition heart rate was normal and SPO2 is within normal limits as well. 02/02/17 19:11 Labs reviewed: Sodium 140, potassium 4.3, AG 13.3, creatinine 1.2 , troponin less than 0.017, CRP is 4.0, coags normal, white blood cell count 6.42, hemoglobin 13.2, MCV 109.3, and platelet count 93. Will discharge patient home with instructions for Superficial thrombophlebitis. Departure - Departure Time of Disposition: 19:25 Disposition: Home, Self-Care 01 Condition: Good Clinical Impression: Atypical chest pain, Superficial thrombosis of left lower extremity - Discharge Information Instructions: Nonspecific Chest Pain, Vascular Access for Hemodialysis Referrals: PCP,Unknown [Primary Care Provider] - Forms: ED Department Discharge Additional Instructions: You have a superficial blood clot to the left lower leg. Treatment is ibuprofen 600 mg every 6 hours and one full dose adult aspirin daily. Close follow-up is required. Blood Clot can propagate extending into the deep venous system. This would put you at increased risk of developing a blood clot to your lungs. Repeat ultrasound should be obtained if condition worsens. See your PCP the end of this week or the first part of next. Return to ED for any new or worsening symptoms. - My Orders Last 24 Hours: My Active Orders 02/02/17 17:27 Peripheral IV Care [RC] . DIRECTED Peripheral IV Insertion Adult [OM.PC] Stat 02/02/17 17:28 EKG Documentation Completion [RC] STAT 02/02/17 17:31 CXR [Chest 1V Frontal] [CR] Stat - Assessment/Plan Last 24 Hours: My Active Orders 02/02/17 17:27 Peripheral IV Care [RC] . DIRECTED Peripheral IV Insertion Adult [OM.PC] Stat 02/02/17 17:28 EKG Documentation Completion [RC] STAT 02/02/17 17:31 CXR [Chest 1V Frontal] [CR] Stat
--- NOTE | 2017-02-03 07:32 | CR ---
Chest: Portable view of the chest was obtained. Comparison: Previous chest x-ray of 10/08/16 and 10/05/16. Old healed left-sided rib fractures are noted. Heart size at the upper limits of normal. Tortuous thoracic aorta is seen. No acute infiltrates are identified. Impression: 1. Incidental findings. Nothing acute is definitely seen Diagnostic code #2
== END 2017-02-02 19:38 | disposition home or self-care (01) ==
LOC: JD.ED 16:55
DX: I82.812 Embolism and thrombosis of superficial veins of left lower extremity (principal); R07.89 Other chest pain; I10 Essential (primary) hypertension; K21.9 Gastro-esophageal reflux disease without esophagitis; Z87.891 Personal history of nicotine dependence; M79.605 Pain in left leg; R22.42 Localized swelling, mass and lump, left lower limb; I82.442 Acute embolism and thrombosis of left tibial vein; I82.432 Acute embolism and thrombosis of left popliteal vein
CPT/HCPCS: 36415; 71010; 80053; 84484; 85025; 85610; 85730; 86140; 93005; 93971; 99284; J7050

== ENCOUNTER 2017-04-14 16:16 | Emergency (ER) | payer OTHER ==
[2017-04-14 16:25] VITALS: BP 142/110
--- NOTE | 2017-04-14 16:40 | EDM.PDOC ---
ED HPI GENERAL MEDICAL PROBLEM - General Chief Complaint: Cardiovascular Problem Stated Complaint: KIDNEY ISSUES Time Seen by Provider: 04/14/17 16:35 Source of Information: Reports: Patient History Limitations: Reports: No Limitations - History of Present Illness INITIAL COMMENTS - FREE TEXT/NARRATIVE: 61-year-old male presented himself to the clinic in [place] today and was identified to have abnormal renal function and a serum potassium of 5.5. Patient is a chronic alcoholic and tends to drink at least 6-12 beers per day and usually 6-12 shots of whiskey daily. He states he's never had any withdrawal symptoms. At present he doesn't denies headache nausea vomiting or diarrhea. He does not smoke cigarettes denies cough or sputum production. Does feel weak and played out. He was identified to be hypertensive at the clinic and upon arrival here his BP is 142/110. Of note he rarely sees a physician. He states he's currently on a blood thinner because he had a DVT in his left leg. He denies any allergies. He is currently employed. Onset: Unknown/Unsure Duration: Other (On unknown how long he may have had abnormal renal functions anything happening labs with him so therefore I can't comment that they're drastically abnormal.) Severity: Moderate Improves with: Reports: None Worsens with: Reports: None Context: Reports: Other (Heavy daily alcohol use.). Denies: Activity, Exercise , Lifting, Sick Contact, Trauma Associated Symptoms: Reports: Malaise, Weakness. Denies: Fever/Chills, Headaches, Loss of Appetite, Nausea/Vomiting, Rash, Seizure, Shortness of Breath , Syncope Treatments [employer]: Reports: Other (see below) (Takes no medications) - Related Data Allergies Allergy/AdvReac Type Severity Reaction Status Date / Time No Known Allergies Allergy Verified 04/14/17 16:21 Home Meds: Home Meds ALPRAZolam [Alprazolam] 0.5 mg PO BID PRN 04/14/17 [History] Albuterol [Ventolin HFA] 2 puff IH Q4H PRN 04/14/17 [History] Allopurinol [Zyloprim] 300 mg PO DAILY 04/14/17 [History] Apixaban [Eliquis] 5 mg PO BID 04/14/17 [History] Aspirin 162 mg PO DAILY 04/14/17 [History] Calcium Citrate/Vitamin D3 [Calcium Citrate-Vit D3 Caplet] 3 tab PO DAILY [History] Doxazosin [Cardura] 2 mg PO BEDTIME 04/14/17 [History] Escitalopram [Lexapro] 20 mg PO DAILY 04/14/17 [History] Fluticasone/Vilanterol [Breo Ellipta 200-25 Mcg INH] 1 puff IH DAILY 04/14/17 [ History] Folic Acid 1 mg PO DAILY 04/14/17 [History] Furosemide [Lasix] 40 mg PO BID 04/14/17 [History] Gabapentin [Neurontin] 1,200 mg PO TID 04/14/17 [History] Hydrocodone/Acetaminophen [Hydrocodon-Acetaminophn 10-325] 1 tab PO Q6H [History] Loperamide [Imodium] 2 mg PO ASDIRECTED PRN 04/14/17 [History] Metoprolol Succinate 100 mg PO DAILY 04/14/17 [History] Nitroglycerin [Nitrostat] 0.4 mg SL Q5M PRN 04/14/17 [History] Omeprazole 20 mg PO DAILY 04/14/17 [History] Pedi Multivit No.7/Folic Acid [Flintstones Multi-Vit Gummies] 100 mcg PO DAILY 04/14/17 [History] Thiamine Mononitrate [Vitamin B-1] 100 mg PO BEDTIME 04/14/17 [History] Past Medical History HEENT History: Reports: Impaired Vision Cardiovascular History: Reports: Hypertension Respiratory History: Reports: Asthma Gastrointestinal History: Reports: GERD, Hemorrhoids Genitourinary History: Reports: Prostate Disorder Musculoskeletal History: Reports: Back Pain, Chronic, Gout, Other (See Below) Other Musculoskeletal History: neuropathy Psychiatric History: Reports: Anxiety - Past Surgical History GI Surgical History: Reports: Bariatric Procedure, Colonoscopy, Polypectomy Social & Family History - Family History Family Medical History: Noncontributory - Tobacco Use Smoking Status *Q: Never Smoker Years of Tobacco use: 40 Packs/Tins Daily: 1 Used Tobacco, but Quit: Yes Month Tobacco Last Used: 40 yr Second Hand Smoke Exposure: Yes - Caffeine Use Caffeine Use: Reports: None - Alcohol Use Days Per Week of Alcohol Use: 7 Number of Drinks Per Day: 6 Total Drinks Per Week: 42 - Recreational Drug Use Recreational Drug Use: Yes Drug Use in Last 12 Months: No - Living Situation & Occupation Living situation: Reports: Single Occupation: Employed ED ROS GENERAL - Review of Systems Review Of Systems: See Below Constitutional: Reports: Malaise, Weakness, Fatigue, Decreased Appetite. Denies : Fever, Chills, Weight Loss HEENT: Reports: No Symptoms Respiratory: Denies: Shortness of Breath, Wheezing, Pleuritic Chest Pain Cardiovascular: Reports: Dyspnea on Exertion. Denies: Chest Pain, Claudication , Edema, Lightheadedness, Orthopnea, Other Endocrine: Reports: Fatigue GI/Abdominal: Reports: Decreased Appetite, Nausea (Sometimes first thing in the morning.). Denies: Difficulty Swallowing, Distension, Flatus, Hematemesis, Hematochezia, Melena, Stool Incontinence, Vomiting, Other : Reports: Frequency Musculoskeletal: Reports: Back Pain (Often has to take hydrocodone for back pain ) Skin: Reports: Bruising (Fell recently with injury to his right lower ribs with a fractured rib apparently identified on previous x-ray.) Neurological: Reports: Difficulty Walking (States he often falls and is off balance. It's unclear whether this only occurs when he's been drinking a lot or has to cerebellar dysfunction from alcohol abuse.) Psychiatric: Reports: No Symptoms Hematologic/Lymphatic: Reports: No Symptoms ED EXAM, GENERAL - Physical Exam Exam: See Below Exam Limited By: No Limitations General Appearance: Alert, WD/WN, No Apparent Distress, Other (Does not appear to be intoxicated at this time.) Eye Exam: Bilateral Eye: Normal Inspection (No nystagmus. ) Ears: Normal TMs Throat/Mouth: Normal Inspection, Normal Lips, Normal Oropharynx, Other Head: Atraumatic (Poor dentition), Normocephalic Neck: Normal Inspection, Supple, Non-Tender, Full Range of Motion. No: Lymphadenopathy (L), Lymphadenopathy (R) Respiratory/Chest: No Respiratory Distress, Lungs Clear, Normal Breath Sounds. No: Rales, Rhonchi, Wheezing Cardiovascular: Normal Peripheral Pulses, Regular Rate, Rhythm, No Edema, No Gallop, No Murmur, No Rub Peripheral Pulses: 1+: Posterior Tibial (L), Posterior Tibial (R), Dorsalis Pedis (L), Dorsalis Pedis (R) GI/Abdominal: Normal Bowel Sounds, Soft, Non-Tender, No Organomegaly, Other ( Mildly obese. Has multiple deep purple ecchymoses on the right upper abdominal wall and right lateral abdominal wall from a recent fall. He claims that he was identified to have fracture rib in the posterior lateral back. These areas are dark purple in color and are 2-3 days old.) (Male) Exam: No Hernia Back Exam: Normal Inspection, Full Range of Motion Extremities: Normal Inspection, Normal Range of Motion, Non-Tender, No Pedal Edema, Other Neurological: Alert, Oriented, CN II-XII Intact, Normal Cognition Psychiatric: Normal Affect, Normal Mood Skin Exam: Warm, Dry, Intact, Normal Color, No Rash EKG INTERPRETATION EKG Date: 04/14/17 Time: 16:50 Rhythm: NSR Rate (Beats/Min): 84 Admire: Normal P-Wave: Present QRS: Other (Decreased voltage in the limb leads.) ST-T: Normal QT: Normal EKG Interpretation Comments: Essentially normal ECG Course - Vital Signs Last Recorded V/S: Last Vital Signs Temp 36.6 C 04/14/17 16:21 Pulse 90 04/14/17 16:21 Resp BP 142/110 H 04/14/17 16:21 Pulse Ox 99 04/14/17 16:21 - Orders/Labs/Meds Orders: Active Orders 24 hr Category Date Time Status EKG Documentation Completion [RC] STAT Care 04/14/17 16:36 Active Dextrose 5%-0.9% NaCl [Dextrose 5%-Normal Saline] 1,000 Med 04/14/17 16:45 Active ml IV ASDIRECTED Medication Orders Dextrose/Sodium Chloride (Dextrose 5%-Normal Saline) 1,000 mls @ 999 mls/hr IV ASDIRECTED MASOUD Last Admin: 04/14/17 16:48 Dose: 999 mls/hr Labs: Laboratory Tests 04/14/17 04/14/17 04/14/17 Range/Units 16:45 16:45 16:45 WBC 7.71 (4.23-9.07) K/mm3 RBC 3.87 L (4.63-6.08) M/mm3 Hgb 13.8 (13.7-17.5) gm/L Hct 41.3 (40.1-51.0) % MCV 106.7 H (79.0-92.2) fl MCH 35.7 H (25.7-32.2) pg MCHC 33.4 (32.2-35.5) g/dl RDW Std Deviation 51.9 H (35.1-43.9) fL Plt Count 191 (163-337) K/mm3 MPV 9.5 (9.4-12.3) fl Neutrophils % (Manual) 74 H (40-60) % Band Neutrophils % 0 (0-10) % Lymphocytes % (Manual) 17 L (20-40) % Atypical Lymphs % 0 % Monocytes % (Manual) 4 (2-10) % Eosinophils % (Manual) 5 (0.8-7.0) % Basophils % (Manual) 0 L (0.2-1.2) Platelet Estimate Adequate Macrocytosis Moderate Target Cells 1+ slight Tear Drop Cells 1+ slight PT 9.8 (8.0-13.0) SECONDS INR 0.90 Sodium 135 L (136-145) mEq/L Potassium 4.8 (3.5-5.1) mEq/L Chloride 99 (98-107) mEq/L Carbon Dioxide 25 (21-32) mEq/L Anion Gap 15.8 H (5-15) BUN 38 H (7-18) mg/dL Creatinine 1.9 H (0.7-1.3) mg/dL Est Cr Clr Drug Dosing 42.93 mL/min Estimated GFR (MDRD) 36 (>60) mL/min BUN/Creatinine Ratio 20.0 H (14-18) Glucose 93 (80-115) mg/dL Calcium 9.7 (8.5-10.1) mg/dL Magnesium 1.9 (1.8-2.4) mg/dl Total Bilirubin 0.3 (0.2-1.0) mg/dL AST 31 (15-37) U/L ALT 33 (16-63) U/L Alkaline Phosphatase 59 (46-116) U/L Total Protein 7.3 (6.4-8.2) g/dl Albumin 3.3 L (3.4-5.0) g/dl Globulin 4.0 gm/dL Albumin/Globulin Ratio 0.8 L (1-2) TSH 3rd Generation 1.760 (0.358-3.74) uIU/mL Ethyl Alcohol (0.00) gm% Ketones (0.0-0.3) mM 04/14/17 04/14/17 Range/Units 16:45 16:45 WBC (4.23-9.07) K/mm3 RBC (4.63-6.08) M/mm3 Hgb (13.7-17.5) gm/L Hct (40.1-51.0) % MCV (79.0-92.2) fl MCH (25.7-32.2) pg MCHC (32.2-35.5) g/dl RDW Std Deviation (35.1-43.9) fL Plt Count (163-337) K/mm3 MPV (9.4-12.3) fl Neutrophils % (Manual) (40-60) % Band Neutrophils % (0-10) % Lymphocytes % (Manual) (20-40) % Atypical Lymphs % % Monocytes % (Manual) (2-10) % Eosinophils % (Manual) (0.8-7.0) % Basophils % (Manual) (0.2-1.2) Platelet Estimate Macrocytosis Target Cells Tear Drop Cells PT (8.0-13.0) SECONDS INR Sodium (136-145) mEq/L Potassium (3.5-5.1) mEq/L Chloride (98-107) mEq/L Carbon Dioxide (21-32) mEq/L Anion Gap (5-15) BUN (7-18) mg/dL Creatinine (0.7-1.3) mg/dL Est Cr Clr Drug Dosing mL/min Estimated GFR (MDRD) (>60) mL/min BUN/Creatinine Ratio (14-18) Glucose (80-115) mg/dL Calcium (8.5-10.1) mg/dL Magnesium (1.8-2.4) mg/dl Total Bilirubin (0.2-1.0) mg/dL AST (15-37) U/L ALT (16-63) U/L Alkaline Phosphatase (46-116) U/L Total Protein (6.4-8.2) g/dl Albumin (3.4-5.0) g/dl Globulin gm/dL Albumin/Globulin Ratio (1-2) TSH 3rd Generation (0.358-3.74) uIU/mL Ethyl Alcohol < 0.00 L (0.00) gm% Ketones 0.51 (0.0-0.3) mM Meds: Medications Generic Name Dose Route Start Last Admin Trade Name Cassandra PRN Reason Stop Dose Admin Dextrose/Sodium Chloride 1,000 mls @ 999 mls/hr 04/14/17 16:45 04/14/17 16:48 Dextrose 5%-Normal Saline IV 999 mls/hr ASDIRECTED [facility] Administration - Radiology Interpretation Free Text/Narrative:: 61-year-old male who is a chronic very heavy alcohol user sent down to the ED for evaluation of renal function identified by abnormal labs done in [place] today. She rarely sees a physician. Has a history of hypertension and a history of DVT left leg. He remains on Eliquis 5 mg twice a day for DVT. His med list is currently being sorted out. On my assessment he is alert he's oriented he does not appear to be under the influence of alcohol or drugs at this time. Lungs are clear heart was sinus with no murmurs identified. ECG is normal sinus 84/m. Benign abdominal examination of the multiple ecchymoses right upper quadrant where he recently apparently fell and contused his lower chest wall and abdominal wall. Labs will be repeated as the initial one sent down suggests that his be urine was 36 with a creatinine of 2.0 EGFR 30. This is likely indicating chronic renal sufficiency stage III. He will be given IV D5 normal saline at open for now. At present he does not appear to need any medication. We 'll await lab values. - Re-Assessments/Exams Free Text/Narrative Re-Assessment/Exam: 04/14/17 18:21 Labs reveal a normal white count at 7.71. Hemoglobin is good at 13.8 with hematocrit of 41.3. MCV is elevated at 106.7 suggesting that he doesn' t pack to use alcohol 20 significant chronic extent. Platelet count is normal at 191,000. Differential shows 74% neutrophils and no bands. PT is 9.8 with an INR of 0.90. Sodium is low normal at 135. Potassium 4.8 chloride 99. Bicarbonate 25. Anion gap is mildly elevated at 15.8. BUN was 38. Creatinine 1.9. EGFR is very low at 36 a stage III chronic kidney disease partly aggravated by mild volume depletion but does suggest occult kidney disease. Is a level normal at 1.9. Liver function is normal albumin fraction slightly low at 3.3 thyroid function normal at 1.7 TSH. Blood alcohol is 0 ketones were elevated at 0.51 from not eating. Patient is completed liter of IV fluids and feels improved. 04/14/17 18:40 Departure - Departure Time of Disposition: 18:41 Disposition: Home, Self-Care 01 Condition: Fair Clinical Impression: Volume depletion, Chronic renal insufficiency, stage III (moderate) Referrals: Amalia Guillen, [employer] [Primary Care Provider] - Forms: ED Department Discharge Additional Instructions: Evaluation the emergency room today at the request of your provider in [place]. Identified abnormal lab values in regards to kidney function primarily today. Blood pressure was elevated when you arrived but it certainly came down to normal and in fact low-normal over time. Discharge blood pressure was 100/62 and I agree with you it is frazier to stop one of your blood pressure medications as your blood pressure is too low. This in fact may be contributing to poor blood supply to the kidneys and causing some of the problems. Otherwise her Medicare medications are not contributing to kidney abnormalities. Medications such as too much aspirin Motrin/Advil/ibuprofen/Aleve may be contributing to poor kidney function as well. I would suggest trying to take aspirin 162 mg once daily. This dosage would not be problematic for the kidneys. Suggest kidney function be checked in a month's time to see if there is an improvement after blood pressure comes back up and you're no longer taking aspirin or Advil. Treatment in the ED was a liter of IV fluids to improve hydration status. When you're drinking a fair amount of alcohol as you are does contribute to excessive urination which is stealing some of your fluids. I would suggest drinking at least one or 2 Gatorade or Powerade's per day to maintain hydration. Follow up in the clinic in 2-4 weeks' time for repeat kidney function testing. - My Orders Last 24 Hours: My Active Orders 04/14/17 16:36 EKG Documentation Completion [RC] STAT 04/14/17 16:45 Dextrose 5%-0.9% NaCl [Dextrose 5%-Normal Saline] 1,000 ml IV ASDIRECTED - Assessment/Plan Last 24 Hours: My Active Orders 04/14/17 16:36 EKG Documentation Completion [RC] STAT 04/14/17 16:45 Dextrose 5%-0.9% NaCl [Dextrose 5%-Normal Saline] 1,000 ml IV ASDIRECTED
[2017-04-14] MEDS ORDERED: Dextrose 5%-0.9% NaCl 1,000 ML IV SCH (16:45)
== END 2017-04-14 18:58 | disposition home or self-care (01) ==
LOC: JD.ED 16:16
DX: E86.9 Volume depletion, unspecified (principal); I12.9 Hypertensive chronic kidney disease with stage 1 through stage 4 chronic kidney disease, or unspecified chronic kidney disease; N18.3 Chronic kidney disease, stage 3 (moderate); Z79.899 Other long term (current) drug therapy; Z79.82 Long term (current) use of aspirin
CPT/HCPCS: 36415; 80053; 82009; 83735; 84443; 84550; 85025; 85610; 93005; 96360; 99285; G0480; J7042; 93010; 99284

== ENCOUNTER 2017-06-17 16:35 | Inpatient (IN) | payer MEDICAID, OTHER ==
--- NOTE | 2017-06-17 16:55 | EDM.PDOCBH ---
ED HPI GENERAL MEDICAL PROBLEM - General Chief Complaint: Drug or Alcohol Abuse Stated Complaint: DETOX Time Seen by Provider: 06/17/17 16:52 Source of Information: Reports: Patient - History of Present Illness INITIAL COMMENTS - FREE TEXT/NARRATIVE: Patient is here as he would like to be helped through the detox process of alcohol withdrawal. Patient's provider reportedly told him to come in earlier in the week, patient states he just came out as he has been trying to do this at home. Patient states that he drinks "constantly throughout the day "of everything including "beer, whiskey, bloody Aurora's, wine". Patient does get up throughout the night to have alcohol as well. Bilateral Feet Pain Score (Numeric/FACES): 10 - Related Data Allergies Allergy/AdvReac Type Severity Reaction Status Date / Time No Known Allergies Allergy Verified 04/14/17 16:21 Home Meds: Home Meds ALPRAZolam [Alprazolam] 0.5 mg PO BID PRN 04/14/17 [History] Albuterol [Ventolin HFA] 2 puff IH Q4H PRN 04/14/17 [History] Allopurinol [Zyloprim] 300 mg PO DAILY 04/14/17 [History] Apixaban [Eliquis] 5 mg PO BID 04/14/17 [History] Aspirin 162 mg PO DAILY 04/14/17 [History] Calcium Citrate/Vitamin D3 [Calcium Citrate-Vit D3 Caplet] 3 tab PO DAILY [History] Doxazosin [Cardura] 2 mg PO BEDTIME 04/14/17 [History] Escitalopram [Lexapro] 20 mg PO DAILY 04/14/17 [History] Fluticasone/Vilanterol [Breo Ellipta 200-25 Mcg INH] 1 puff IH DAILY 04/14/17 [ History] Folic Acid 1 mg PO DAILY 04/14/17 [History] Furosemide [Lasix] 40 mg PO BID 04/14/17 [History] Gabapentin [Neurontin] 1,200 mg PO TID 04/14/17 [History] Hydrocodone/Acetaminophen [Hydrocodon-Acetaminophn 10-325] 1 tab PO Q6H [History] Loperamide [Imodium] 2 mg PO ASDIRECTED PRN 04/14/17 [History] Metoprolol Succinate 100 mg PO DAILY 04/14/17 [History] Nitroglycerin [Nitrostat] 0.4 mg SL Q5M PRN 04/14/17 [History] Omeprazole 20 mg PO DAILY 04/14/17 [History] Pedi Multivit No.7/Folic Acid [Flintstones Multi-Vit Gummies] 100 mcg PO DAILY 04/14/17 [History] Thiamine Mononitrate [Vitamin B-1] 100 mg PO BEDTIME 04/14/17 [History] Past Medical History HEENT History: Reports: Impaired Vision Cardiovascular History: Reports: Hypertension Respiratory History: Reports: Asthma Gastrointestinal History: Reports: GERD, Hemorrhoids Genitourinary History: Reports: Prostate Disorder Musculoskeletal History: Reports: Back Pain, Chronic, Gout, Other (See Below) Other Musculoskeletal History: neuropathy Psychiatric History: Reports: Anxiety - Past Surgical History GI Surgical History: Reports: Bariatric Procedure, Colonoscopy, Polypectomy Social & Family History - Family History Family Medical History: Noncontributory - Tobacco Use Smoking Status *Q: Never Smoker Years of Tobacco use: 40 Packs/Tins Daily: 1 Used Tobacco, but Quit: Yes Month Tobacco Last Used: 40 yr Second Hand Smoke Exposure: Yes - Caffeine Use Caffeine Use: Reports: None - Alcohol Use Days Per Week of Alcohol Use: 7 Number of Drinks Per Day: 6 Total Drinks Per Week: 42 - Recreational Drug Use Recreational Drug Use: Yes Drug Use in Last 12 Months: No - Living Situation & Occupation Living situation: Reports: Single Occupation: Employed ED ROS GENERAL - Review of Systems Review Of Systems: See Below Constitutional: Reports: Chills, Weakness, Fatigue, Night Sweats, Diaphoresis, Decreased Appetite. Denies: Fever Respiratory: Reports: No Symptoms Cardiovascular: Reports: No Symptoms GI/Abdominal: Reports: Abdominal Pain, Decreased Appetite, Nausea Musculoskeletal: Reports: No Symptoms Skin: Reports: No Symptoms Neurological: Reports: Dizziness, Headache, Tremors, Weakness. Denies: Confusion, Numbness, Tingling Psychiatric: Reports: Agitation, Anxiety. Denies: Confusion, Hallucinations ED EXAM, BEHAVIORAL HEALTH - Physical Exam Exam: See Below Exam Limited By: Altered Mental Status (Very anxious) General Appearance: Alert, WD/WN, Anxious, Moderate Distress Eye Exam: Bilateral Eye: PERRL Throat/Mouth: Normal Inspection, Normal Oropharynx, Other (Poor dentition) Respiratory/Chest: No Respiratory Distress, Lungs Clear, Normal Breath Sounds Cardiovascular: Normal Peripheral Pulses, Regular Rate, Rhythm, No Murmur GI/Abdominal: Normal Bowel Sounds, Soft, Non-Tender Extremities: Normal Inspection, No Pedal Edema Neurological: Alert, No Motor/Sensory Deficits, Oriented x 3 Psychiatric: Restless. No: Suicidal Plan, Suicidal Thoughts, Grandiose Thoughts Skin Exam: Warm, Intact, Diaphoretic EKG INTERPRETATION EKG Date: 06/17/17 Time: 18:03 Rhythm: NSR COURSE, BEHAVIORAL HEALTH COMP - Course Vital Signs: Last Vital Signs Temp 97.9 F 06/17/17 16:49 Pulse 93 06/17/17 16:49 Resp 23 H 06/17/17 16:49 BP 186/125 H 06/17/17 16:49 Pulse Ox 99 06/17/17 16:49 Orders, Labs, Meds: Active Orders 24 hr Category Date Time Status EKG 12 Lead [EKG Documentation Completion] [RC] STAT Care 06/17/17 17:03 Active Sodium Chloride 0.9% [Normal Saline] 1,000 ml Med 06/17/17 19:00 Ordered IV ONETIME Medication Orders Sodium Chloride (Normal Saline) 1,000 mls @ 250 mls/hr IV ONETIME ONE Stop: 06/17/17 22:59 Laboratory Tests 06/17/17 06/17/17 06/17/17 Range/Units 17:45 17:45 17:45 WBC 3.34 L (4.23-9.07) K/mm3 RBC 3.82 L (4.63-6.08) M/mm3 Hgb 13.9 (13.7-17.5) gm/L Hct 41.7 (40.1-51.0) % MCV 109.2 H (79.0-92.2) fl MCH 36.4 H (25.7-32.2) pg MCHC 33.3 (32.2-35.5) g/dl RDW Std Deviation 60.9 H (35.1-43.9) fL Plt Count 69 L (163-337) K/mm3 MPV 10.3 (9.4-12.3) fl Neutrophils % (Manual) 62 H (40-60) % Band Neutrophils % 0 (0-10) % Lymphocytes % (Manual) 29 (20-40) % Atypical Lymphs % 0 % Monocytes % (Manual) 9 (2-10) % Eosinophils % (Manual) 0 L (0.8-7.0) % Basophils % (Manual) 0 L (0.2-1.2) Platelet Estimate Marked dec Plt Morphology Comment Normal Macrocytosis 3+ marked RBC Morph Comment Not Reportable Sodium 143 (136-145) mEq/L Potassium 4.1 (3.5-5.1) mEq/L Chloride 106 (98-107) mEq/L Carbon Dioxide 22 (21-32) mEq/L Anion Gap 19.1 H (5-15) BUN 5 L (7-18) mg/dL Creatinine 1.0 (0.7-1.3) mg/dL Est Cr Clr Drug Dosing 81.58 mL/min Estimated GFR (MDRD) > 60 (>60) mL/min BUN/Creatinine Ratio 5.0 L (14-18) Glucose 87 (80-115) mg/dL Calcium 8.4 L (8.5-10.1) mg/dL Magnesium 1.9 (1.8-2.4) mg/dl Total Bilirubin 0.6 (0.2-1.0) mg/dL AST 334 H (15-37) U/L ALT 173 H (16-63) U/L Alkaline Phosphatase 63 (46-116) U/L Total Protein 6.9 (6.4-8.2) g/dl Albumin 3.0 L (3.4-5.0) g/dl Globulin 3.9 gm/dL Albumin/Globulin Ratio 0.8 L (1-2) TSH 3rd Generation 1.361 (0.358-3.74) uIU/mL Urine Color (Yellow) Urine Appearance (Clear) Urine pH (5.0-8.0) Ur Specific [place] (1.005-1.030) Urine Protein (Negative) Urine Glucose (UA) (Negative) Urine Ketones (Negative) Urine Occult Blood (Negative) Urine Nitrite (Negative) Urine Bilirubin (Negative) Urine Urobilinogen (0.2-1.0) Ur Leukocyte Esterase (Negative) Urine RBC (0-5) /hpf Urine WBC (0-5) /hpf Ur Epithelial Cells (0-5) /hpf Urine Bacteria (FEW) /hpf Urine Mucus (FEW) /hpf Salicylates (2.8-20) mg/dL Urine Opiates Screen (NEGATIVE) Ur Buprenorphine Scrn (NEGATIVE) Ur Oxycodone Screen (NEGATIVE) Urine Methadone Screen (NEGATIVE) Ur Propoxyphene Screen (NEGATIVE) Acetaminophen 2 L (10-30) ug/mL Ur Barbiturates Screen (NEGATIVE) Ur Tricyclics Screen (NEGATIVE) Ur Phencyclidine Scrn (NEGATIVE) Ur Amphetamine Screen (NEGATIVE) U Methamphetamines Scrn (NEGATIVE) U Benzodiazepines Scrn (NEGATIVE) U Cocaine Metab Screen (NEGATIVE) U Marijuana (THC) Screen (NEGATIVE) Ethyl Alcohol 0.36 (0.00) gm% 06/17/17 06/17/17 06/17/17 Range/Units 17:45 18:10 18:10 WBC (4.23-9.07) K/mm3 RBC (4.63-6.08) M/mm3 Hgb (13.7-17.5) gm/L Hct (40.1-51.0) % MCV (79.0-92.2) fl MCH (25.7-32.2) pg MCHC (32.2-35.5) g/dl RDW Std Deviation (35.1-43.9) fL Plt Count (163-337) K/mm3 MPV (9.4-12.3) fl Neutrophils % (Manual) (40-60) % Band Neutrophils % (0-10) % Lymphocytes % (Manual) (20-40) % Atypical Lymphs % % Monocytes % (Manual) (2-10) % Eosinophils % (Manual) (0.8-7.0) % Basophils % (Manual) (0.2-1.2) Platelet Estimate Plt Morphology Comment Macrocytosis RBC Morph Comment Sodium (136-145) mEq/L Potassium (3.5-5.1) mEq/L Chloride (98-107) mEq/L Carbon Dioxide (21-32) mEq/L Anion Gap (5-15) BUN (7-18) mg/dL Creatinine (0.7-1.3) mg/dL Est Cr Clr Drug Dosing mL/min Estimated GFR (MDRD) (>60) mL/min BUN/Creatinine Ratio (14-18) Glucose (80-115) mg/dL Calcium (8.5-10.1) mg/dL Magnesium (1.8-2.4) mg/dl Total Bilirubin (0.2-1.0) mg/dL AST (15-37) U/L ALT (16-63) U/L Alkaline Phosphatase (46-116) U/L Total Protein (6.4-8.2) g/dl Albumin (3.4-5.0) g/dl Globulin gm/dL Albumin/Globulin Ratio (1-2) TSH 3rd Generation (0.358-3.74) uIU/mL Urine Color Yellow (Yellow) Urine Appearance Clear (Clear) Urine pH 6.0 (5.0-8.0) Ur Specific [place] 1.015 (1.005-1.030) Urine Protein 2+ H (Negative) Urine Glucose (UA) Negative (Negative) Urine Ketones Negative (Negative) Urine Occult Blood 2+ H (Negative) Urine Nitrite Negative (Negative) Urine Bilirubin Negative (Negative) Urine Urobilinogen 0.2 (0.2-1.0) Ur Leukocyte Esterase Negative (Negative) Urine RBC Not seen (0-5) /hpf Urine WBC Not seen (0-5) /hpf Ur Epithelial Cells 0-5 (0-5) /hpf Urine Bacteria Rare (FEW) /hpf Urine Mucus Not seen (FEW) /hpf Salicylates 3.2 (2.8-20) mg/dL Urine Opiates Screen Presumptive positive H (NEGATIVE) Ur Buprenorphine Scrn Negative (NEGATIVE) Ur Oxycodone Screen Negative (NEGATIVE) Urine Methadone Screen Negative (NEGATIVE) Ur Propoxyphene Screen Negative (NEGATIVE) Acetaminophen (10-30) ug/mL Ur Barbiturates Screen Negative (NEGATIVE) Ur Tricyclics Screen Negative (NEGATIVE) Ur Phencyclidine Scrn Negative (NEGATIVE) Ur Amphetamine Screen Negative (NEGATIVE) U Methamphetamines Scrn Negative (NEGATIVE) U Benzodiazepines Scrn Presumptive positive H (NEGATIVE) U Cocaine Metab Screen Negative (NEGATIVE) U Marijuana (THC) Screen Negative (NEGATIVE) Ethyl Alcohol (0.00) gm% Medications Generic Name Dose Route Start Last Admin Trade Name Freq PRN Reason Stop Dose Admin Sodium Chloride 1,000 mls @ 250 mls/hr 06/17/17 19:00 Normal Saline IV 06/17/17 22:59 ONETIME ONE Discontinued Medications Generic Name Dose Route Start Last Admin Trade Name Freq PRN Reason Stop Dose Admin Sodium Chloride 1,000 mls @ 999 mls/hr 06/17/17 17:02 06/17/17 17:34 Normal Saline IV 06/17/17 18:02 999 mls/hr ONETIME ONE Administration Lorazepam 1 mg 06/17/17 17:02 06/17/17 17:33 Ativan IVPUSH 06/17/17 17:03 1 mg ONETIME ONE Administration Discharge vs Psych Eval/Treatment:: Patient initially very agitated, he did come down with 1 mg IM Ativan. This was initially ordered IV, but was given IM as he was agitated and nursing had difficulty obtaining IV access. Oxygen was a bit low on room air, he was dropping to 88% when he talked to running around 90% when resting. 2 L O2 applied by nasal cannula. 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 On Breo and albuterol daily. 06/17/17 18:07 Patient with acute withdrawal symptom with delirium tremors. Symptoms improved with lorazepam. Patient has numerous laboratory abnormalities including low WBC/RBC. Elevated anion gap of 19.1. Elevated liver enzymes with AST 334, ALT 173. Likely due to chronic alcohol consumption. She reports that he has not drank in "34 hours" but his EtOH is 0.36. Discussed with hospitalist, Will admit patient for further treatment of alcohol withdrawal and electrolyte abnormalities. 06/17/17 19:04 Departure - Departure Time of Disposition: 19:03 Disposition: Admitted As Inpatient 65 Condition: Fair Clinical Impression: Delirium tremens, Elevated LFTs Alcohol dependence syndrome Qualifiers: Substance use status: with intoxication Complication of substance-induced condition: with unspecified complication Qualified Code(s): F10.229 - Alcohol dependence with intoxication, unspecified Alcohol withdrawal syndrome Qualifiers: Complication of substance-induced condition: with unspecified complication Qualified Code(s): F10.239 - Alcohol dependence with withdrawal, unspecified - Discharge Information Referrals: Amalia Guillen NP [Primary Care Provider] - - My Orders Last 24 Hours: My Active Orders 06/17/17 17:03 EKG 12 Lead [EKG Documentation Completion] [RC] STAT 06/17/17 19:00 Sodium Chloride 0.9% [Normal Saline] 1,000 ml IV ONETIME - Assessment/Plan Last 24 Hours: My Active Orders 06/17/17 17:03 EKG 12 Lead [EKG Documentation Completion] [RC] STAT 06/17/17 19:00 Sodium Chloride 0.9% [Normal Saline] 1,000 ml IV ONETIME
[2017-06-17] MEDS ORDERED: Sodium Chloride 0.9% 1,000 ML IV ONE ×2 (17:02→19:00)
[2017-06-17] MEDS ORDERED: LORazepam 2 MG/ML SDV IVPUSH ONE (17:02)
[2017-06-17 18:28] LABS: ACETAMINOPHEN 2 ug/mL (10-30)
[2017-06-17] MEDS ORDERED: Ondansetron 4 MG Tab.DIS PO PRN (19:48)
[2017-06-17] MEDS ORDERED: Albuterol/Ipratropium 3.0-0.5 MG/3 ML Neb Soln NEB PRN (19:48)
[2017-06-17] MEDS ORDERED: Acetaminophen 325 MG Tab PO PRN (19:48)
[2017-06-17] MEDS ORDERED: LORazepam 2 MG/ML SDV IVPUSH PRN (19:56)
--- NOTE | 2017-06-17 20:14 | PCM.HP ---
H&P History of Present Illness - General Date of Service: 06/17/17 Admit Problem/Dx: Admission Diagnosis/Problem Admission Diagnosis/Problem Alcohol withdrawal delirium Source of Information: Patient, Provider, RN, RN Notes Reviewed History Limitations: Reports: No Limitations - History of Present Illness Initial Comments - Free Text/Narative: Efrem Fletcher is a 61 yo male who was in to to our ED today requesting help with detox Inc. after significant alcohol use. He states his primary care provider told to come in earlier this week and he's been trying to detox at home. He reports he drinks consistently throughout the day. Reportedly lost his job 2 months ago and has been drinking heavily since then. In reviewing prior notes, it appears the patient has been detoxed here before and does have a significant alcohol abuse history. During his last stay the [facility] did suggest outpatient treatment. Contrary to this, the patient reports that he did not drink very much alcohol while he was employed and losing his job essentially set off the process. Reports he has been drinking 15 beers a day and a half gallon of whiskey daily as well. He also reportedly drinks "bloody radha's" and wine. He told me that he will wake up early in the morning to begin drinking and wake up throughout the night to have more alcohol. He reports he lives up by [place]. Upon arrival to the ED temperature was 97.9 Fahrenheit. Pulse 93. Respirations 23. Blood pressure 186/125. Pulse ox 99%. ED provider reports he had quite significant tremors and became quite agitated. He was given Ativan IM for this as there was some difficulty obtaining IV access. He was also started on a 1 L bolus. Labs are obtained: The FVC is low at 3.34. RBCs low at 3.82. Hemoglobin good at 13.9. Hematocrit 41.7. He is macrocytic. Platelet are low at 69,000. Neutrophils are elevated at 62%. There is no bandemia. Sodium is 143. Potassium 4.1. Chloride 106. Carbon dioxide 22. Anion gap is quite high at 19.1. BUN is low at 5. Creatinine 1.0. EGFR greater than 60. Glucose is 87. Calcium 8.4. Magnesium 1.9. Total bilirubin 0.6. Liver enzymes show elevated AST at 334, elevated ALT at 173, alkaline phosphatase at 63. Protein is good at 6.9. Albumin low at 3.0. TSH is good at 1.361. UA is negative however 2+ protein and 2+ occult blood are seen. Salicylates are 3.2. Urine drug screen shows positive for opioids and benzodiazepines. He is prescribed opioids for home medications and it is relayed to me that the benzodiazepines were initiated right on his arrival to ED. [place] alcohol was 0.36. EKG is obtained and shows a sinus rhythm with possible left atrial enlargement. Oxygen saturations were dropping around 80- 90 and he was placed on 2 L O2 via cannula. 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 The patient reported told the ED provider that he has not drank in 34 hours however, he admits to me that he was drinking this morning up until coming to the ED. I did discuss the plan of care with the patient including electrolyte and multivitamin supplementation and other medications to avoid withdrawal symptoms up to including seizures. I did explain him at psychiatric services will be consulted, as well as addiction counseling. He reports he would like to try outpatient services and is told there is some help available in [place]. I did explain to him that his ultimate plan of care after discharge will be determined by the addiction counselor in collaboration with our medical team. He is in agreement to this plan. Very concerned about his liver as he was told it is damaged. I explained to him that his liver enzymes are elevated and it would be his best interest to stop drinking immediately. I also commended him on coming here to start the process as it is the best thing for his health. Multiple bruises were noted on the patient on his back, arms, and chest. Patient reports this is from falling while drinking. He carries a history of: Impaired vision, HTN, asthma, GERD, hemorrhoids, prostate disorder, chronic back pain, gout, neuropathy, anxiety. He does say he was prescribed a CPAP after a failed sleep study, however he does not utilize it. He also reports that he had a DVT quite a while ago and was prescribed eliquis for this, however he was told he no longer needed to take this. He is a former smoker. He says really admitted to the ICU for detox. He is a full code. His PCP is Amalia Guillen up in [place]. Location: Reports: Upper Extremity, Right Bilateral Feet Pain Score (Numeric/FACES): 10 - Related Data Allergies/Adverse Reactions: Allergies Allergy/AdvReac Type Severity Reaction Status Date / Time No Known Allergies Allergy Verified 04/14/17 16:21 Home Medications: Home Meds ALPRAZolam [Alprazolam] 0.5 mg PO BID PRN 04/14/17 [History] Albuterol [Ventolin HFA] 2 puff IH Q4H PRN 04/14/17 [History] Allopurinol [Zyloprim] 300 mg PO DAILY 04/14/17 [History] Apixaban [Eliquis] 5 mg PO BID 04/14/17 [History] Aspirin 162 mg PO DAILY 04/14/17 [History] Calcium Citrate/Vitamin D3 [Calcium Citrate-Vit D3 Caplet] 3 tab PO DAILY [History] Doxazosin [Cardura] 2 mg PO BEDTIME 04/14/17 [History] Escitalopram [Lexapro] 20 mg PO DAILY 04/14/17 [History] Fluticasone/Vilanterol [Breo Ellipta 200-25 Mcg INH] 1 puff IH DAILY 04/14/17 [ History] Folic Acid 1 mg PO DAILY 04/14/17 [History] Furosemide [Lasix] 40 mg PO BID 04/14/17 [History] Gabapentin [Neurontin] 1,200 mg PO TID 04/14/17 [History] Hydrocodone/Acetaminophen [Hydrocodon-Acetaminophn 10-325] 1 tab PO Q6H [History] Loperamide [Imodium] 2 mg PO ASDIRECTED PRN 04/14/17 [History] Metoprolol Succinate 100 mg PO DAILY 04/14/17 [History] Nitroglycerin [Nitrostat] 0.4 mg SL Q5M PRN 04/14/17 [History] Omeprazole 20 mg PO DAILY 04/14/17 [History] Pedi Multivit No.7/Folic Acid [[place]stones Multi-Vit Gummies] 100 mcg PO DAILY 04/14/17 [History] Thiamine Mononitrate [Vitamin B-1] 100 mg PO BEDTIME 04/14/17 [History] Past Medical History HEENT History: Reports: Impaired Vision Cardiovascular History: Reports: Hypertension Respiratory History: Reports: Asthma Gastrointestinal History: Reports: GERD, Hemorrhoids Genitourinary History: Reports: Prostate Disorder Musculoskeletal History: Reports: Back Pain, Chronic, Gout, Other (See Below) Other Musculoskeletal History: neuropathy Psychiatric History: Reports: Anxiety - Past Surgical History GI Surgical History: Reports: Bariatric Procedure, Colonoscopy, Polypectomy Social & Family History - Family History Family Medical History: Noncontributory - Tobacco Use Smoking Status *Q: Never Smoker Years of Tobacco use: 40 Packs/Tins Daily: 1 Used Tobacco, but Quit: Yes Month Tobacco Last Used: 40 yr Second Hand Smoke Exposure: Yes - Caffeine Use Caffeine Use: Reports: None - Alcohol Use Days Per Week of Alcohol Use: 7 Number of Drinks Per Day: 6 Total Drinks Per Week: 42 - Recreational Drug Use Recreational Drug Use: Yes Drug Use in Last 12 Months: No - Living Situation & Occupation Living situation: Reports: Single Occupation: Employed H&P Review of Systems - Review of Systems: Review Of Systems: See Below General: Reports: Chills, Malaise, Weakness, Fatigue, Night Sweats, Diaphoresis , Decreased Appetite, Weight Gain. Denies: Fever HEENT: Reports: No Symptoms. Denies: Ear Pain, Eye Pain, Headaches, Hearing Changes, Rhinitis, Sore Throat, Vertigo, Visual Changes Pulmonary: Reports: No Symptoms. Denies: Shortness of Breath, Wheezing, Pleuritic Chest Pain, Cough, Sputum Cardiovascular: Reports: Blood Pressure Problem. Denies: Chest Pain, Palpitations, Orthopnea, Edema, Claudication Gastrointestinal: Reports: No Symptoms. Denies: Abdominal Pain, Constipation, Diarrhea, Hematemesis, Hematochezia, Melena, Nausea, Stool Incontinence, Vomiting Genitourinary: Reports: No Symptoms. Denies: Dysuria, Frequency, Burning, Pain , Urgency Musculoskeletal: Reports: No Symptoms Skin: Reports: No Symptoms Psychiatric: Reports: Anxiety, Agitation. Denies: Confusion, Hallucinations Neurological: Reports: Tingling (chronic periphreal neuropathy ), Difficulty Walking, Weakness, Other (frequent falls. ). Denies: Confusion, Numbness, Trouble Speaking, Gait Disturbance Hematologic/Lymphatic: Reports: No Symptoms Immunologic: Reports: No Symptoms Exam - Exam Exam: See Below - Vital Signs Vital Signs: Last Vital Signs Temp 97.9 F 06/17/17 16:49 Pulse 93 06/17/17 16:49 Resp 23 H 06/17/17 16:49 BP 186/125 H 06/17/17 16:49 Pulse Ox 99 06/17/17 16:49 Weight: 299 lb - Exam Quality Assessment: Supplemental Oxygen, Other (Obese) General: Alert, Oriented, Cooperative, Mild Distress HEENT: Conjunctiva Clear, EACs Clear, EOMI, Hearing Intact, Nares Patent, Normal Nasal Septum, Posterior Pharynx Clear, TMs Clear, Other (Dry oral mucosa ), PERRLA Neck: Supple, Trachea Midline. No: JVD Lungs: Clear to Auscultation, Normal Respiratory Effort, Decreased Breath Sounds Cardiovascular: Regular Rate, Regular Rhythm GI/Abdominal Exam: Normal Bowel Sounds, Soft, Non-Tender, No Organomegaly, No Distention, No Abnormal Bruit, No Mass, Pelvis Stable (Male) Exam: Deferred Rectal (Males) Exam: Deferred Back Exam: Full Range of Motion, Other (Multiple bruises in multiple stages of healing noted.) Extremities: Normal Inspection, Normal Range of Motion, Non-Tender, No Pedal Edema, Normal Capillary Refill Peripheral Pulses: 3+: Radial (L), Radial (R), Posterior Tibial (L), Posterior Tibial (R), Dorsalis Pedis (L), Dorsalis Pedis (R) Skin: Warm, Dry, Intact, Other (Scattered bruises on arms and chest and back) Neurological: Cranial Nerves Intact (grossly ), Abnormal Gait Neuro Extensive - Mental Status: Alert, Oriented x3, Normal Mood/Affect, Normal Cognition Neuro Extensive - Motor, Sensory, Reflexes: CN II-XII Intact (grossly ), Other ( has difficulty sitting up for exam - falls back onto ER bed) Psychiatric: Alert, Anxious, Withdrawal Symptoms. No: Agitated, Hallucinations - Patient Data Result Diagrams: 06/17/17 17:45 06/17/17 17:45 *Q Meaningful Use (ADM) - VTE *Q VTE Criteria *Q: - Stroke *Q Stroke Criteria *Q: - AMI *Q AMI Criteria *Q: - Problem List (1) Alcohol withdrawal syndrome SNOMED Code(s): 265777491 ICD Code: F10.239 - ALCOHOL DEPENDENCE WITH WITHDRAWAL, UNSPECIFIED Status : Acute Priority: High Current Visit: Yes Qualifiers: Complication of substance-induced condition: with unspecified complication Qualified Code(s): F10.239 - Alcohol dependence with withdrawal, unspecified (2) Elevated LFTs SNOMED Code(s): 277045309 ICD Code: R79.89 - OTHER SPECIFIED ABNORMAL FINDINGS OF BLOOD CHEMISTRY Status: Acute Priority: Medium Current Visit: Yes (3) Chronic back pain SNOMED Code(s): 580522409 ICD Code: M54.9 - DORSALGIA, UNSPECIFIED; G89.29 - OTHER CHRONIC PAIN Status: Chronic Priority: Low Current Visit: No Qualifiers: Back pain location: back pain in unspecified location Back pain laterality : unspecified Qualified Code(s): M54.9 - Dorsalgia, unspecified; G89.29 - Other chronic pain; G89.29 - Other chronic pain (4) Neuropathy SNOMED Code(s): 209466712 ICD Code: G62.9 - POLYNEUROPATHY, UNSPECIFIED Status: Chronic Priority: Low Current Visit: No (5) Anxiety SNOMED Code(s): 13259711 ICD Code: F41.9 - ANXIETY DISORDER, UNSPECIFIED Status: Acute Priority: Medium Current Visit: Yes (6) Sleep apnea SNOMED Code(s): 06868348 ICD Code: G47.30 - SLEEP APNEA, UNSPECIFIED Status: Chronic Priority: Low Current Visit: No Qualifiers: Sleep apnea type: unspecified type Qualified Code(s): G47.30 - Sleep apnea , unspecified (7) COPD (chronic obstructive pulmonary disease) SNOMED Code(s): 56034388 ICD Code: J44.9 - CHRONIC OBSTRUCTIVE PULMONARY DISEASE, UNSPECIFIED Status : Chronic Priority: Low Current Visit: No Qualifiers: COPD type: unspecified COPD Qualified Code(s): J44.9 - Chronic obstructive pulmonary disease, unspecified (8) GERD (gastroesophageal reflux disease) SNOMED Code(s): 738897517 ICD Code: K21.9 - GASTRO-ESOPHAGEAL REFLUX DISEASE WITHOUT ESOPHAGITIS Status: Chronic Priority: Low Current Visit: No Qualifiers: Esophagitis presence: esophagitis presence not specified Qualified Code(s) : K21.9 - Gastro-esophageal reflux disease without esophagitis (9) HTN (hypertension) SNOMED Code(s): 12442276 ICD Code: I10 - ESSENTIAL (PRIMARY) HYPERTENSION Status: Chronic Priority : Low Current Visit: No (10) Thrombocytopenia SNOMED Code(s): 112444227 ICD Code: D69.6 - THROMBOCYTOPENIA, UNSPECIFIED Status: Acute Current Visit: Yes Problem List Initiated/Reviewed/Updated: Yes Orders Last 24hrs: Active Orders 24 hr Category Date Time Status Patient Status [ADT] Routine ADT 06/17/17 19:43 Active Ambulate [RC] PER UNIT ROUTINE Care 06/17/17 19:51 Active Antiembolic Devices [RC] PER UNIT ROUTINE Care 06/17/17 19:54 Active Cardiac Monitoring [RC] CONTINUOUS Care 06/17/17 19:49 Active Height and Weight [RC] DAILY Care 06/17/17 19:48 Active Intake and Output [RC] QSHIFT Care 06/17/17 19:49 Active Notify Provider Consults [RC] ASDIRECTED Care 06/17/17 19:55 Active Oxygen Therapy [RC] PRN Care 06/17/17 19:48 Active Pulse Oximetry [RC] PRN Care 06/17/17 19:50 Active RT Aerosol Therapy [RC] ASDIRECTED Care 06/17/17 19:55 Active Up With Assistance [RC] ASDIRECTED Care 06/17/17 19:48 Active VTE/DVT Education [RC] PER UNIT ROUTINE Care 06/17/17 19:48 Active Vital Signs [RC] Q4H Care 06/17/17 19:48 Active Consult for Substance Abuse [CONS] Routine Cons 06/17/17 20:01 Active Consult to Case Management [CONS] Routine Cons 06/17/17 19:48 Active Consult to Physician [CONS] Routine Cons 06/17/17 19:48 Active Consult to Abatement Worker [CONS] Routine Cons 06/17/17 19:48 Active Heart Healthy Diet [DIET] Diet 06/17/17 Dinner Active BASIC METABOLIC PANEL,BMP [CHEM] AM Lab 06/18/17 05:11 Ordered BASIC METABOLIC PANEL,BMP [CHEM] AM Lab 06/19/17 05:11 Ordered BASIC METABOLIC PANEL,BMP [CHEM] AM Lab 06/20/17 05:11 Ordered BASIC METABOLIC PANEL,BMP [CHEM] AM Lab 06/21/17 05:11 Ordered CBC WITH AUTO DIFF [HEME] AM Lab 06/18/17 05:11 Ordered CBC WITH AUTO DIFF [HEME] AM Lab 06/19/17 05:11 Ordered CBC WITH AUTO DIFF [HEME] AM Lab 06/20/17 05:11 Ordered CBC WITH AUTO DIFF [HEME] AM Lab 06/21/17 05:11 Ordered MAGNESIUM [CHEM] AM Lab 06/18/17 05:11 Ordered MAGNESIUM [CHEM] AM Lab 06/19/17 05:11 Ordered MAGNESIUM [CHEM] AM Lab 06/20/17 05:11 Ordered MAGNESIUM [CHEM] AM Lab 06/21/17 05:11 Ordered Acetaminophen [Tylenol] Med 06/17/17 19:48 Active 650 mg PO Q4H PRN Albuterol/Ipratropium [DuoNeb 3.0-0.5 MG/3 ML] Med 06/17/17 19:48 Active 3 ml NEB Q4H PRN Folic Acid Med 06/17/17 20:00 Active 1 mg PO DAILY LORazepam [Ativan] Med 06/17/17 20:02 Active 1 mg IVPUSH Q4H PRN LORazepam [Ativan] Med 06/17/17 19:56 Active 2 mg IVPUSH Q4H PRN LORazepam [Ativan] Med 06/17/17 20:01 Active See Protocol IVPUSH Q1H PRN Metoprolol Tartrate [Lopressor] Med 06/17/17 19:56 Active 5 mg IVPUSH Q4H PRN Multivitamins,Therapeutic [Thera] Med 06/17/17 20:15 Active 1 each PO DAILY Ondansetron [Zofran ODT] Med 06/17/17 19:48 Active 4 mg PO Q6H PRN Ondansetron [Zofran] Med 06/17/17 19:48 Active 4 mg IV Q6H PRN QUEtiapine [SEROquel] Med 06/18/17 21:00 Active 25 mg PO BEDTIME QUEtiapine [SEROquel] Med 06/17/17 21:00 Once 50 mg PO BEDTIME ONE Thiamine [Vitamin B-1] Med 06/17/17 20:00 Active 100 mg PO DAILY Topiramate [Topamax] Med 06/18/17 09:00 Active 25 mg PO BID Topiramate [Topamax] Med 06/17/17 21:00 Once 50 mg PO BEDTIME ONE hydrALAZINE [Apresoline] Med 06/17/17 19:56 Active 10 mg IVPUSH Q6H PRN Sequential Compression Device [OM.PC] Per Unit Routine Oth 06/17/17 19:54 Ordered Resuscitation Status Routine Resus Stat 06/17/17 19:48 Ordered Medication Orders Acetaminophen (Tylenol) 650 mg PO Q4H PRN PRN Reason: Pain (Mild 1-3)/fever Albuterol/Ipratropium (Duoneb 3.0-0.5 Mg/3 Ml) 3 ml NEB Q4H PRN PRN Reason: Shortness Of Breath/wheezing Folic Acid (Folic Acid) 1 mg PO DAILY [place] Hydralazine HCl (Apresoline) 10 mg IVPUSH Q6H PRN PRN Reason: Hypertension Sodium Chloride (Normal Saline) 1,000 mls @ 250 mls/hr IV ONETIME ONE Stop: 06/17/17 22:59 Last Admin: 06/17/17 19:09 Dose: 250 mls/hr Lorazepam (Ativan) 2 mg IVPUSH Q4H PRN PRN Reason: Seizures Lorazepam (Ativan) 0 mg IVPUSH Q1H PRN; Protocol PRN Reason: withdrawl Lorazepam (Ativan) 1 mg IVPUSH Q4H PRN PRN Reason: Anxiety Metoprolol Tartrate (Lopressor) 5 mg IVPUSH Q4H PRN PRN Reason: Tachycardia Multivitamins (Thera) 1 each PO DAILY [facility] Ondansetron HCl (Zofran Odt) 4 mg PO Q6H PRN PRN Reason: nausea, able to take PO Ondansetron HCl (Zofran) 4 mg IV Q6H PRN PRN Reason: Nausea/Vomiting Quetiapine Fumarate (Seroquel) 50 mg PO BEDTIME ONE Stop: 06/17/17 21:01 Quetiapine Fumarate (Seroquel) 25 mg PO BEDTIME [facility] Thiamine HCl (Vitamin B-1) 100 mg PO DAILY [facility] Topiramate (Topamax) 50 mg PO BEDTIME ONE Stop: 06/17/17 21:01 Topiramate (Topamax) 25 mg PO BID [facility] Assessment/Plan Comment:: I/P: Acute ETOH Withdrawal Symptoms/DT - CIWA protocol Q1HR - Topamax/Seroquel - Hydralzine and IVP BB for HR/BP control - Ativan for Abortive Seizure and Withdrawal Symptoms - Tele-psych and SA consult Alcohol Abuse - Acute on Chronic - Risk factors: Lost job 2 months ago, Hx/o ETOH abuse, Prior Dextox - He drinks heavily - He reports he wakes up early and throughout the night to drink - Reports 1/2 gallon of whiskey and 15 beers per day +/- - CIWA Protocol as above - SA consult - ETOH 0.36 in ED Elevated LFTs -AST 334, ALT 173, Alk Phos 63 -2/2 ETOH abuse as above -Monitor Thrombocytopenia -Platelets 69,000 -Likely 2/2 ETOH abuse, liver damage -Monitor Chronic: HTN - Home meds and PRN BB, Hydralizine as ordered Asthma - Home inhalers and PRN Duonebs COPD - Home inhalers GERD - Home PPI Prostate Disorder Chronic back pain - PRN meds Gout Neuropathy - Home meds Anxiety - Meds as ordered Plan: Admit to ICU MVI, Folic, Acid and Thiamine CIWA protocol Ativan for Abortive Seizure and Withdrawal Symptoms PRN meds for Withdrawal Symptoms Aspiration/Seizure Precautions SW/CM for d/c planning SA/Psych consult DVT/PE prophylaxis - SCDs; Patient is thrombocytopenic GI Prophylaxis: Home PPI Code Status: Full Code; PCP: SHUKRI Robertson in [place]
[2017-06-17] MEDS ORDERED: Pneumococcal Polyvalent-23 Vaccine 0.5 ML SDV IM ONE (20:19)
[2017-06-17] MEDS: LORazepam 2 MG/ML SDV IVPUSH PRN ×3 (20:25→23:30)
[2017-06-17] MEDS: Ondansetron 4 MG/2 ML SDV IV PRN (20:29)
[2017-06-17] MEDS ORDERED: Topiramate 25 MG Tab PO ONE (21:00)
[2017-06-17] MEDS ORDERED: QUEtiapine 25 MG Tab PO ONE (21:00)
[2017-06-17] MEDS: Thiamine 100 MG Tab PO SCH (21:04)
[2017-06-17] MEDS: Folic Acid 1 MG Tab PO SCH (21:04)
[2017-06-17] MEDS: Multivitamins,Therapeutic Tab PO SCH (21:05)
[2017-06-17] MEDS: Metoprolol Tartrate 5 MG/5 ML SDV IVPUSH PRN (21:09)
[2017-06-17] MEDS ORDERED: Albuterol 0.042% 1.25 MG/3 ML Neb Soln NEB PRN (21:53)
[2017-06-17] MEDS: Sodium Chloride 0.9% 1,000 ML IV SCH (23:20)
[2017-06-18] MEDS: hydrALAZINE 20 MG/ML SDV IVPUSH PRN ×2 (00:33→06:29)
[2017-06-18] MEDS: LORazepam 2 MG/ML SDV IVPUSH PRN ×12 (00:36→23:57)
[2017-06-18] MEDS: Metoprolol Tartrate 5 MG/5 ML SDV IVPUSH PRN ×2 (02:46→08:58)
[2017-06-18] MEDS: Sodium Chloride 0.9% 1,000 ML IV SCH ×3 (03:19→21:31)
[2017-06-18] MEDS ORDERED: Furosemide 20 MG/2 ML VIAL IVPUSH ONE (04:40)
[2017-06-18] MEDS ORDERED: cloNIDine 0.2 MG/Day Transdermal Patch TRDERM ONE (04:45)
[2017-06-18] MEDS ORDERED: Furosemide 40 MG Tab PO SCH (06:00)
[2017-06-18] MEDS: Pantoprazole 40 MG Tab.CR PO SCH (06:38)
[2017-06-18] MEDS ORDERED: cloNIDine 0.1 MG Tab PO ONE (08:11)
[2017-06-18] MEDS ORDERED: QUEtiapine 25 MG Tab PO ONE (08:13)
[2017-06-18] MEDS ORDERED: chlordiazePOXIDE 25 MG Cap PO ONE (08:13)
[2017-06-18] MEDS: Topiramate 25 MG Tab PO SCH ×2 (08:24→20:26)
[2017-06-18] MEDS: Folic Acid 1 MG Tab PO SCH (08:24)
[2017-06-18] MEDS: Thiamine 100 MG Tab PO SCH (08:24)
[2017-06-18] MEDS ORDERED: LORazepam 2 MG/ML SDV IVPUSH PRN (09:05)
[2017-06-18] MEDS ORDERED: Metoprolol Tartrate 5 MG/5 ML SDV IVPUSH PRN (09:05)
[2017-06-18] MEDS ORDERED: cloNIDine 0.1 MG Tab PO PRN (09:06)
[2017-06-18] MEDS: Allopurinol 300 MG Tab PO SCH (09:57)
[2017-06-18] MEDS: Citalopram 20 MG Tab PO SCH (09:57)
[2017-06-18] MEDS: Multivitamins,Therapeutic Tab PO SCH (09:57)
[2017-06-18] MEDS: Gabapentin 600 MG Tab PO SCH ×3 (09:57→20:25)
[2017-06-18] MEDS: Formoterol/Mometasone 200-5 MCG 8.8 GM Inhaler IH SCH ×2 (11:19→21:21)
[2017-06-18] MEDS ORDERED: Magnesium Sulfate/Water 2 GM in Premix Bag 1 BAG IV ONE (13:29)
[2017-06-18] MEDS ORDERED: Nitroglycerin 0.4 MG Tab.SL SL PRN (13:31)
--- NOTE | 2017-06-18 13:43 | PCM.PN ---
- General Info Date of Service: 06/18/17 Functional Status: Reports: Ambulating, Urinating - Review of Systems General: Reports: No Symptoms HEENT: Reports: No Symptoms Pulmonary: Reports: No Symptoms Cardiovascular: Reports: No Symptoms Gastrointestinal: Reports: No Symptoms Genitourinary: Reports: No Symptoms Musculoskeletal: Reports: No Symptoms Skin: Reports: No Symptoms Neurological: Reports: No Symptoms Psychiatric: Reports: Anxiety - Patient Data Vitals - Most Recent: Last Vital Signs Temp 37.5 C 06/18/17 08:00 Pulse 112 H 06/18/17 12:00 Resp 26 H 06/18/17 12:00 BP 146/83 H 06/18/17 12:00 Pulse Ox 94 L 06/18/17 12:00 Weight - Most Recent: 137.257 kg I&O - Last 24 Hours: Intake & Output 06/17/17 06/18/17 06/18/17 22:59 06:59 14:59 Intake Total 2213 1430 Output Total 1771 2275 Balance 438 -845 Lab Results Last 24 Hours: Laboratory Results - last 24 hr 06/18/17 06/18/17 Range/Units 06:22 06:22 WBC 3.38 L (4.23-9.07) K/mm3 RBC 3.58 L (4.63-6.08) M/mm3 Hgb 13.0 L (13.7-17.5) gm/L Hct 39.6 L (40.1-51.0) % MCV 110.6 H (79.0-92.2) fl MCH 36.3 H (25.7-32.2) pg MCHC 32.8 (32.2-35.5) g/dl RDW Std Deviation 61.1 H (35.1-43.9) fL Plt Count 63 L (163-337) K/mm3 MPV 10.9 (9.4-12.3) fl Neut % (Auto) 59.1 (34.0-67.9) % Lymph % (Auto) 22.2 (21.8-53.1) % [place] % (Auto) 15.7 H (5.3-12.2) % Eos % (Auto) 1.5 (0.8-7.0) Baso % (Auto) 1.5 H (0.1-1.2) % Neut # (Auto) 2.00 (1.78-5.38) K/mm3 Lymph # (Auto) 0.75 L (1.32-3.57) K/mm3 [place] # (Auto) 0.53 (0.30-0.82) K/mm3 Eos # (Auto) 0.05 (0.04-0.54) K/mm3 Baso # (Auto) 0.05 (0.01-0.08) K/mm3 Manual Slide Review Abnormal smear Sodium 144 (136-145) mEq/L Potassium 4.3 (3.5-5.1) mEq/L Chloride 109 H (98-107) mEq/L Carbon Dioxide 25 (21-32) mEq/L Anion Gap 14.3 (5-15) BUN 5 L (7-18) mg/dL Creatinine 1.1 (0.7-1.3) mg/dL Est Cr Clr Drug Dosing TNP Estimated GFR (MDRD) > 60 (>60) mL/min BUN/Creatinine Ratio 4.5 L (14-18) Glucose 81 (80-115) mg/dL Calcium 8.0 L (8.5-10.1) mg/dL Magnesium 1.7 L (1.8-2.4) mg/dl Med Orders - Current: Current Medications Acetaminophen (Tylenol) 650 mg PO Q4H PRN PRN Reason: Pain (Mild 1-3)/fever Hydrocodone Bitart/Acetaminophen ([place] 325-10 Mg) 1 tab PO Q4H PRN PRN Reason: Pain (moderate 3-7) Albuterol (Proventil Neb Soln) 1.25 mg NEB Q4HRRT PRN PRN Reason: SOB/wheezing Albuterol/Ipratropium (Duoneb 3.0-0.5 Mg/3 Ml) 3 ml NEB Q4H PRN PRN Reason: Shortness Of Breath/wheezing Allopurinol (Zyloprim) 300 mg PO DAILY [facility] Last Admin: 06/18/17 09:57 Dose: 300 mg Chlordiazepoxide HCl (Librium) 25 mg PO Q8H PRN PRN Reason: Withdrawal Symptoms Citalopram Hydrobromide (Celexa) 40 mg PO DAILY [facility] Last Admin: 06/18/17 09:57 Dose: 40 mg Clonidine HCl (Catapres) 0.1 mg PO Q4H PRN PRN Reason: Agitation Doxazosin Mesylate (Cardura) 2 mg PO BEDTIME [facility] Folic Acid (Folic Acid) 1 mg PO DAILY [facility] Last Admin: 06/18/17 08:24 Dose: 1 mg Folic Acid (Folic Acid) 1 mg PO DAILY [facility] Gabapentin (Neurontin) 1,200 mg PO TID [facility] Last Admin: 06/18/17 09:57 Dose: 1,200 mg Hydralazine HCl (Apresoline) 20 mg IVPUSH Q4H PRN PRN Reason: Hypertension Sodium Chloride (Normal Saline) 1,000 mls @ 125 mls/hr IV ASDIRECTED [facility] Last Infusion: 06/18/17 10:32 Dose: 75 mls/hr Magnesium Sulfate 2 gm/ Premix 50 mls @ 25 mls/hr IV ONETIME ONE Stop: 06/18/17 15:28 Lorazepam (Ativan) 2 mg IVPUSH Q4H PRN PRN Reason: Seizures Lorazepam (Ativan) 0 mg IVPUSH Q1H PRN; Protocol PRN Reason: withdrawl Last Admin: 06/18/17 07:57 Dose: 2 mg Lorazepam (Ativan) 1 mg IVPUSH Q4H PRN PRN Reason: Anxiety Last Admin: 06/17/17 23:30 Dose: 1 mg Lorazepam (Ativan) 2 mg IVPUSH Q4H PRN PRN Reason: Seizures Metoprolol Tartrate (Lopressor) 5 mg IVPUSH Q4H PRN PRN Reason: Tachycardia Metoprolol Tartrate (Lopressor) 25 mg PO Q12HR [facility] Miscellaneous Information (Remove Patch) 1 ea TRDERM Q7D [facility] Mometasone Furoate/Formoterol Fumar (Dulera 200-5 Mcg) 0 puff IH BID [facility] Last Admin: 06/18/17 11:19 Dose: 2 puff Multivitamins (Thera) 1 each PO DAILY [facility] Last Admin: 06/18/17 09:57 Dose: 1 each Nitroglycerin (Nitrostat) 0.4 mg SL Q5M PRN PRN Reason: Chest Pain Non-Formulary Medication (Thiamine Mononitrate [Vitamin B-1]) 100 mg PO BEDTIME [facility] Ondansetron HCl (Zofran Odt) 4 mg PO Q6H PRN PRN Reason: nausea, able to take PO Ondansetron HCl (Zofran) 4 mg IV Q6H PRN PRN Reason: Nausea/Vomiting Last Admin: 06/17/17 20:29 Dose: 4 mg Pantoprazole Sodium (Protonix) 40 mg PO ACBREAKFAST [facility] Last Admin: 06/18/17 06:38 Dose: 40 mg Quetiapine Fumarate (Seroquel) 25 mg PO BEDTIME [facility] Quetiapine Fumarate (Seroquel) 25 mg PO DAILY [facility] Thiamine HCl (Vitamin B-1) 100 mg PO DAILY [facility] Last Admin: 06/18/17 08:24 Dose: 100 mg Topiramate (Topamax) 25 mg PO BID [facility] Last Admin: 06/18/17 08:24 Dose: 25 mg Discontinued Medications Chlordiazepoxide HCl (Librium) 100 mg PO ONETIME ONE Stop: 06/18/17 08:14 Last Admin: 06/18/17 08:22 Dose: 100 mg Clonidine HCl (Catapres Tts-2) 0.2 mg TRDERM ONETIME ONE Stop: 06/18/17 04:46 Last Admin: 06/18/17 04:53 Dose: 0.2 mg Clonidine HCl (Catapres) 0.2 mg PO ONETIME ONE Stop: 06/18/17 08:12 Last Admin: 06/18/17 08:23 Dose: 0.2 mg Furosemide (Lasix) 40 mg PO BIDDIURETIC [facility] Last Admin: 06/18/17 06:37 Dose: 40 mg Furosemide (Lasix) 10 mg IVPUSH NOW ONE Stop: 06/18/17 04:41 Last Admin: 06/18/17 04:55 Dose: 10 mg Hydralazine HCl (Apresoline) 10 mg IVPUSH Q6H PRN PRN Reason: Hypertension Last Admin: 06/18/17 06:29 Dose: 10 mg Sodium Chloride (Normal Saline) 1,000 mls @ 999 mls/hr IV ONETIME ONE Stop: 06/17/17 18:02 Last Admin: 06/17/17 17:34 Dose: 999 mls/hr Sodium Chloride (Normal Saline) 1,000 mls @ 250 mls/hr IV ONETIME ONE Stop: 06/17/17 22:59 Last Admin: 06/17/17 19:09 Dose: 250 mls/hr Sodium Chloride (Normal Saline) 1,000 mls @ 250 mls/hr IV ASDIRECTED [facility] Stop: 06/19/17 03:14 Last Admin: 06/18/17 03:19 Dose: 250 mls/hr Lorazepam (Ativan) 1 mg IVPUSH ONETIME ONE Stop: 06/17/17 17:03 Last Admin: 06/17/17 17:33 Dose: 1 mg Metoprolol Tartrate (Lopressor) 5 mg IVPUSH Q4H PRN PRN Reason: Tachycardia Last Admin: 06/18/17 08:58 Dose: 5 mg Pneumococcal Polyvalent Vaccine (Pneumovax 23) 0.5 ml IM .ONCE ONE Stop: 06/17/17 20:20 Last Admin: 06/17/17 21:05 Dose: Not Given Quetiapine Fumarate (Seroquel) 50 mg PO BEDTIME ONE Stop: 06/17/17 21:01 Last Admin: 06/17/17 21:05 Dose: 50 mg Quetiapine Fumarate (Seroquel) 25 mg PO ONETIME ONE Stop: 06/18/17 08:14 Last Admin: 06/18/17 08:23 Dose: 25 mg Topiramate (Topamax) 50 mg PO BEDTIME ONE Stop: 06/17/17 21:01 Last Admin: 06/17/17 21:04 Dose: 50 mg - Exam Quality Assessment: Supplemental Oxygen, DVT Prophylaxis General: Lethargic HEENT: Pupils Equal, Pupils Reactive, EOMI Neck: Trachea Midline, No JVD Lungs: Normal Respiratory Effort Cardiovascular: Regular Rate, Tachycardia GI/Abdominal Exam: Normal Bowel Sounds, Soft, Non-Tender, No Organomegaly, No Distention (Male) Exam: Deferred Back Exam: Normal Inspection Extremities: Normal Inspection Skin: Warm Neurological: No New Focal Deficit Psy/Mental Status: Anxious, Withdrawal Symptoms - Problem List Review Problem List Initiated/Reviewed/Updated: Yes - My Orders Last 24 Hours: My Active Orders 06/18/17 13:29 Magnesium Sulfate/Water [Magnesium Sulfate 2 GM in Water 50 ML] 2 gm Premix Bag 1 bag IV ONETIME 06/18/17 13:31 Nitroglycerin [Nitrostat] 0.4 mg SL Q5M PRN 06/18/17 16:00 Metoprolol Tartrate [Lopressor] 25 mg PO Q12HR 06/18/17 21:00 Thiamine Mononitrate [Vitamin B-1] 100 mg PO BEDTIME 06/19/17 09:00 Folic Acid 1 mg PO DAILY - Plan Plan:: I/P: Acute ETOH Withdrawal Symptoms/DT - [facility] protocol Q1HR - Topamax/Seroquel - Hydralzine and IVP BB for HR/BP control - Ativan for Abortive Seizure and Withdrawal Symptoms - Tele-psych and SA consult Alcohol Abuse - Acute on Chronic - Risk factors: Lost job 2 months ago, Hx/o ETOH abuse, Prior Dextox - He drinks heavily - He reports he wakes up early and throughout the night to drink - Reports 1/2 gallon of whiskey and 15 beers per day +/- - [facility] Protocol as above - SA consult - ETOH 0.36 in ED Elevated LFTs -AST 334, ALT 173, Alk Phos 63 -2/2 ETOH abuse as above -Monitor Thrombocytopenia -Platelets 69,000 -Likely 2/2 ETOH abuse, liver damage -Monitor Chronic: HTN - Home meds and PRN BB, Hydralizine as ordered Asthma - Home inhalers and PRN Duonebs COPD - Home inhalers GERD - Home PPI Prostate Disorder Chronic back pain - PRN meds Gout Neuropathy - Home meds Anxiety - Meds as ordered Plan: ICU-->detox protocol MVI, Folic, Acid and Thiamine CIPR protocol Resume home meds Replace electrolytes Ativan for Abortive Seizure and Withdrawal Symptoms PRN meds for Withdrawal Symptoms Aspiration/Seizure Precautions SW/CM for d/c planning SA/Psych consult DVT/PE prophylaxis - SCDs; Patient is thrombocytopenic GI Prophylaxis: Home PPI Code Status: Full Code; PCP: SHUKRI Robertson in [place]
[2017-06-18] MEDS: Metoprolol Tartrate 25 MG Tab PO SCH ×2 (15:07→20:26)
[2017-06-18] MEDS ORDERED: Metoprolol Tartrate 25 MG Tab PO SCH (16:00)
[2017-06-18] MEDS: chlordiazePOXIDE 25 MG Cap PO PRN (18:38)
[2017-06-18] MEDS: QUEtiapine 25 MG Tab PO SCH (20:26)
[2017-06-18] MEDS: Doxazosin 2 MG Tab PO SCH (20:26)
[2017-06-18] MEDS ORDERED: Thiamine 100 MG Tab PO SCH (21:00)
[2017-06-19] MEDS: LORazepam 2 MG/ML SDV IVPUSH PRN ×5 (00:21→08:06)
[2017-06-19] MEDS: chlordiazePOXIDE 25 MG Cap PO PRN ×2 (02:44→10:20)
[2017-06-19] MEDS: Pantoprazole 40 MG Tab.CR PO SCH (06:21)
[2017-06-19] MEDS: hydrALAZINE 20 MG/ML SDV IVPUSH PRN ×2 (07:57→20:46)
[2017-06-19] MEDS: Multivitamins,Therapeutic Tab PO SCH (08:15)
[2017-06-19] MEDS: Metoprolol Tartrate 25 MG Tab PO SCH ×2 (08:15→20:46)
[2017-06-19] MEDS: Citalopram 20 MG Tab PO SCH (08:15)
[2017-06-19] MEDS: Topiramate 25 MG Tab PO SCH ×2 (08:15→20:45)
[2017-06-19] MEDS: Gabapentin 600 MG Tab PO SCH ×3 (08:15→20:45)
[2017-06-19] MEDS: Allopurinol 300 MG Tab PO SCH (08:15)
[2017-06-19] MEDS: Folic Acid 1 MG Tab PO SCH ×2 (08:15→08:17)
[2017-06-19] MEDS: Thiamine 100 MG Tab PO SCH (08:15)
[2017-06-19] MEDS: QUEtiapine 25 MG Tab PO SCH ×2 (08:16→20:45)
[2017-06-19] MEDS ORDERED: Albuterol 6.7 GM Inhaler INH PRN (09:25)
[2017-06-19] MEDS ORDERED: Non-Formulary Medication 1 Each (Metoprolol Succinate 100 MG) PO SCH (09:30)
[2017-06-19] MEDS ORDERED: Aspirin 81 MG Tab.Chew PO SCH (09:30)
[2017-06-19] MEDS: Potassium Chloride 20 MEQ Tab.ER PO SCH ×2 (10:20→20:46)
[2017-06-19] MEDS: Apixaban 5 MG Tab PO SCH ×2 (10:20→20:45)
[2017-06-19] MEDS: Sodium Chloride 0.9% 1,000 ML IV SCH (10:49)
[2017-06-19] MEDS ORDERED: Magnesium Sulfate/Water 2 GM in Premix Bag 1 BAG IV ONE (11:39)
--- NOTE | 2017-06-19 11:48 | PCM.PN ---
- General Info Date of Service: 06/19/17 Functional Status: Reports: Ambulating, Urinating - Review of Systems General: Reports: No Symptoms HEENT: Reports: No Symptoms Pulmonary: Reports: No Symptoms Cardiovascular: Reports: No Symptoms Gastrointestinal: Reports: No Symptoms Genitourinary: Reports: No Symptoms Musculoskeletal: Reports: No Symptoms Skin: Reports: No Symptoms Neurological: Reports: No Symptoms Psychiatric: Reports: Mood Lability, Anxiety - Patient Data Vitals - Most Recent: Last Vital Signs Temp 36.9 C 06/19/17 08:00 Pulse 86 06/19/17 10:09 Resp 26 H 06/19/17 10:09 BP 145/102 H 06/19/17 10:09 Pulse Ox 92 L 06/19/17 10:09 Weight - Most Recent: 136.622 kg I&O - Last 24 Hours: Intake & Output 06/18/17 06/19/17 06/19/17 22:59 06:59 14:59 Intake Total 1686 1590 1906 Output Total 250 1800 600 Balance 1436 -210 1306 Lab Results Last 24 Hours: Laboratory Results - last 24 hr 06/19/17 06/19/17 Range/Units 07:24 07:24 WBC 3.63 L (4.23-9.07) K/mm3 RBC 3.57 L (4.63-6.08) M/mm3 Hgb 13.0 L (13.7-17.5) gm/L Hct 39.8 L (40.1-51.0) % MCV 111.5 H (79.0-92.2) fl MCH 36.4 H (25.7-32.2) pg MCHC 32.7 (32.2-35.5) g/dl RDW Std Deviation 59.8 H (35.1-43.9) fL Plt Count 55 L (163-337) K/mm3 MPV 10.8 (9.4-12.3) fl Neut % (Auto) 58.1 (34.0-67.9) % Lymph % (Auto) 20.9 L (21.8-53.1) % [place] % (Auto) 17.9 H (5.3-12.2) % Eos % (Auto) 2.2 (0.8-7.0) Baso % (Auto) 0.6 (0.1-1.2) % Neut # (Auto) 2.11 (1.78-5.38) K/mm3 Lymph # (Auto) 0.76 L (1.32-3.57) K/mm3 [place] # (Auto) 0.65 (0.30-0.82) K/mm3 Eos # (Auto) 0.08 (0.04-0.54) K/mm3 Baso # (Auto) 0.02 (0.01-0.08) K/mm3 Manual Slide Review Abnormal smear Sodium 143 (136-145) mEq/L Potassium 3.3 L (3.5-5.1) mEq/L Chloride 106 (98-107) mEq/L Carbon Dioxide 29 (21-32) mEq/L Anion Gap 11.3 (5-15) BUN 6 L (7-18) mg/dL Creatinine 1.1 (0.7-1.3) mg/dL Est Cr Clr Drug Dosing 74.16 mL/min Estimated GFR (MDRD) > 60 (>60) mL/min BUN/Creatinine Ratio 5.5 L (14-18) Glucose 92 (80-115) mg/dL Calcium 8.7 (8.5-10.1) mg/dL Magnesium 1.8 (1.8-2.4) mg/dl Med Orders - Current: Current Medications Acetaminophen (Tylenol) 650 mg PO Q4H PRN PRN Reason: Pain (Mild 1-3)/fever Hydrocodone Bitart/Acetaminophen ([place] 325-10 Mg) 1 tab PO Q4H PRN PRN Reason: Pain (moderate 3-7) Albuterol (Proventil Neb Soln) 1.25 mg NEB Q4HRRT PRN PRN Reason: SOB/wheezing Albuterol (Proventil Hfa) 0 gm INH Q4H PRN PRN Reason: Shortness of Breath Albuterol/Ipratropium (Duoneb 3.0-0.5 Mg/3 Ml) 3 ml NEB Q4H PRN PRN Reason: Shortness Of Breath/wheezing Last Admin: 06/18/17 15:17 Dose: 3 ml Allopurinol (Zyloprim) 300 mg PO DAILY [facility] [place] Last Admin: 06/19/17 08:15 Dose: 300 mg Apixaban (Eliquis) 5 mg PO BID [facility] [place] Last Admin: 06/19/17 10:20 Dose: 5 mg Citalopram Hydrobromide (Celexa) 40 mg PO DAILY [facility] [place] Last Admin: 06/19/17 08:15 Dose: 40 mg Clonidine HCl (Catapres) 0.1 mg PO Q4H PRN PRN Reason: Agitation Doxazosin Mesylate (Cardura) 2 mg PO BEDTIME [facility] [place] Last Admin: 06/18/17 20:26 Dose: 2 mg Folic Acid (Folic Acid) 1 mg PO DAILY [facility] [place] Last Admin: 06/19/17 08:17 Dose: Not Given Folic Acid (Folic Acid) 1 mg PO DAILY [facility] [place] Last Admin: 06/19/17 08:15 Dose: 1 mg Gabapentin (Neurontin) 1,200 mg PO TID [facility] [place] Last Admin: 06/19/17 08:15 Dose: 1,200 mg Hydralazine HCl (Apresoline) 20 mg IVPUSH Q4H PRN PRN Reason: Hypertension Last Admin: 06/19/17 07:57 Dose: 20 mg Sodium Chloride (Normal Saline) 1,000 mls @ 75 mls/hr IV ASDIRECTED [facility] Last Admin: 06/19/17 10:49 Dose: 75 mls/hr Lorazepam (Ativan) 2 mg IVPUSH Q4H PRN PRN Reason: Seizures Lorazepam (Ativan) 0 mg IVPUSH Q1H PRN; Protocol PRN Reason: withdrawl Last Admin: 06/19/17 08:06 Dose: 2 mg Lorazepam (Ativan) 1 mg IVPUSH Q4H PRN PRN Reason: Anxiety Last Admin: 06/19/17 00:21 Dose: 1 mg Lorazepam (Ativan) 2 mg IVPUSH Q4H PRN PRN Reason: Seizures Metoprolol Tartrate (Lopressor) 5 mg IVPUSH Q4H PRN PRN Reason: Tachycardia Metoprolol Tartrate (Lopressor) 50 mg PO Q12HR [facility] [place] Last Admin: 06/19/17 08:15 Dose: 50 mg Miscellaneous Information (Remove Patch) 1 ea TRDERM Q7D [facility] Mometasone Furoate/Formoterol Fumar (Dulera 200-5 Mcg) 0 puff IH BID [facility] [place] Last Admin: 06/18/17 21:21 Dose: 2 puff Multivitamins (Thera) 1 each PO DAILY [facility] [place] Last Admin: 06/19/17 08:15 Dose: 1 each Nitroglycerin (Nitrostat) 0.4 mg SL Q5M PRN PRN Reason: Chest Pain Ondansetron HCl (Zofran Odt) 4 mg PO Q6H PRN PRN Reason: nausea, able to take PO Ondansetron HCl (Zofran) 4 mg IV Q6H PRN PRN Reason: Nausea/Vomiting Last Admin: 06/17/17 20:29 Dose: 4 mg Pantoprazole Sodium (Protonix) 40 mg PO ACBREAKFAST [facility] [place] Last Admin: 06/19/17 06:21 Dose: 40 mg Potassium Chloride (Klor-Con M20) 40 meq PO BID [facility] [place] Stop: 06/20/17 21:01 Last Admin: 06/19/17 10:20 Dose: 40 meq Quetiapine Fumarate (Seroquel) 25 mg PO BEDTIME [facility] [place] Last Admin: 06/18/17 20:26 Dose: 25 mg Quetiapine Fumarate (Seroquel) 25 mg PO DAILY [facility] [place] Last Admin: 06/19/17 08:16 Dose: 25 mg Thiamine HCl (Vitamin B-1) 100 mg PO DAILY [facility] [place] Last Admin: 06/19/17 08:15 Dose: 100 mg Topiramate (Topamax) 25 mg PO BID [facility] [place] Last Admin: 06/19/17 08:15 Dose: 25 mg Discontinued Medications Aspirin (Aspirin) 162 mg PO DAILY [facility] [place] Chlordiazepoxide HCl (Librium) 100 mg PO ONETIME ONE Stop: 06/18/17 08:14 Last Admin: 06/18/17 08:22 Dose: 100 mg Chlordiazepoxide HCl (Librium) 25 mg PO Q8H PRN PRN Reason: Withdrawal Symptoms Last Admin: 06/19/17 10:20 Dose: 25 mg Clonidine HCl (Catapres Tts-2) 0.2 mg TRDERM ONETIME ONE Stop: 06/18/17 04:46 Last Admin: 06/18/17 04:53 Dose: 0.2 mg Clonidine HCl (Catapres) 0.2 mg PO ONETIME ONE Stop: 06/18/17 08:12 Last Admin: 06/18/17 08:23 Dose: 0.2 mg Furosemide (Lasix) 40 mg PO BIDDIURETIC [facility] [place] Last Admin: 06/18/17 06:37 Dose: 40 mg Furosemide (Lasix) 10 mg IVPUSH NOW ONE Stop: 06/18/17 04:41 Last Admin: 06/18/17 04:55 Dose: 10 mg Hydralazine HCl (Apresoline) 10 mg IVPUSH Q6H PRN PRN Reason: Hypertension Last Admin: 06/18/17 06:29 Dose: 10 mg Sodium Chloride (Normal Saline) 1,000 mls @ 999 mls/hr IV ONETIME ONE Stop: 06/17/17 18:02 Last Admin: 06/17/17 17:34 Dose: 999 mls/hr Sodium Chloride (Normal Saline) 1,000 mls @ 250 mls/hr IV ONETIME ONE Stop: 06/17/17 22:59 Last Admin: 06/17/17 19:09 Dose: 250 mls/hr Sodium Chloride (Normal Saline) 1,000 mls @ 250 mls/hr IV ASDIRECTED [facility] [place] Stop: 06/19/17 03:14 Last Admin: 06/18/17 03:19 Dose: 250 mls/hr Sodium Chloride (Normal Saline) 1,000 mls @ 125 mls/hr IV ASDIRECTED [facility] [place] Last Admin: 06/18/17 21:31 Dose: 75 mls/hr Magnesium Sulfate 2 gm/ Premix 50 mls @ 25 mls/hr IV ONETIME ONE Stop: 06/18/17 15:28 Last Admin: 06/18/17 13:51 Dose: 25 mls/hr Lorazepam (Ativan) 1 mg IVPUSH ONETIME ONE Stop: 06/17/17 17:03 Last Admin: 06/17/17 17:33 Dose: 1 mg Metoprolol Tartrate (Lopressor) 5 mg IVPUSH Q4H PRN PRN Reason: Tachycardia Last Admin: 06/18/17 08:58 Dose: 5 mg Metoprolol Tartrate (Lopressor) 25 mg PO Q12HR [facility] [place] Non-Formulary Medication (Metoprolol Succinate) 100 mg PO DAILY [facility] Pneumococcal Polyvalent Vaccine (Pneumovax 23) 0.5 ml IM .ONCE ONE Stop: 06/17/17 20:20 Last Admin: 06/17/17 21:05 Dose: Not Given Quetiapine Fumarate (Seroquel) 50 mg PO BEDTIME ONE Stop: 06/17/17 21:01 Last Admin: 06/17/17 21:05 Dose: 50 mg Quetiapine Fumarate (Seroquel) 25 mg PO ONETIME ONE Stop: 06/18/17 08:14 Last Admin: 06/18/17 08:23 Dose: 25 mg Thiamine HCl (Vitamin B-1) 100 mg PO BEDTIME [facility] Topiramate (Topamax) 50 mg PO BEDTIME ONE Stop: 06/17/17 21:01 Last Admin: 06/17/17 21:04 Dose: 50 mg - Exam Quality Assessment: Supplemental Oxygen, DVT Prophylaxis General: Sedated HEENT: Pupils Equal, Pupils Reactive, EOMI Neck: Trachea Midline, No JVD Lungs: Normal Respiratory Effort Cardiovascular: Regular Rate, Regular Rhythm GI/Abdominal Exam: Normal Bowel Sounds, Soft, Non-Tender, No Organomegaly, No Distention (Male) Exam: Deferred Back Exam: Normal Inspection Extremities: Normal Inspection, Non-Tender Skin: Warm Neurological: No New Focal Deficit Psy/Mental Status: Anxious - Problem List & Annotations (1) Macrocytic anemia SNOMED Code(s): 14895903 Code(s): D53.9 - NUTRITIONAL ANEMIA, UNSPECIFIED Status: Acute Current Visit: Yes (2) Elevated transaminase level SNOMED Code(s): 500336733 Code(s): R74.0 - NONSPEC ELEV OF LEVELS OF TRANSAMNS & LACTIC ACID DEHYDRGNSE Status: Acute Current Visit: Yes - Problem List Review Problem List Initiated/Reviewed/Updated: Yes - My Orders Last 24 Hours: My Active Orders 06/18/17 13:31 Nitroglycerin [Nitrostat] 0.4 mg SL Q5M PRN 06/18/17 16:00 Metoprolol Tartrate [Lopressor] 50 mg PO Q12HR 06/19/17 09:00 Folic Acid 1 mg PO DAILY 06/19/17 09:30 Potassium Chloride [Klor-Con M20] 40 meq PO BID Sodium Chloride 0.9% [Normal Saline] 1,000 ml IV ASDIRECTED 06/19/17 11:39 Magnesium Sulfate/Water [Magnesium Sulfate 2 GM in Water 50 ML] 2 gm Premix Bag 1 bag IV ONETIME 06/19/17 15:00 chlordiazePOXIDE [Librium] 25 mg PO TID - Plan Plan:: I/P: Acute ETOH Withdrawal Symptoms/DT - [facility] protocol Q1HR - Topamax/Seroquel - Hydralzine and IVP BB for HR/BP control - Ativan for Abortive Seizure and Withdrawal Symptoms - Tele-psych and SA consult Alcohol Abuse - Acute on Chronic - He reports he wakes up early and throughout the night to drink - Reports 1/2 gallon of whiskey and 15 beers per day +/- - [facility] Protocol as above - SA consult - ETOH 0.36 in ED Elevated LFTs -2/2 ETOH abuse as above -Monitor Thrombocytopenia -Platelets 69,000 -Likely 2/2 ETOH abuse, liver damage -Monitor Macrocyctic anemia Chronic: HTN - Home meds and PRN BB, Hydralizine as ordered Asthma - Home inhalers and PRN Duonebs COPD - Home inhalers GERD - Home PPI Prostate Disorder Chronic back pain - PRN meds Gout Neuropathy - Home meds Anxiety - Meds as ordered Plan: ICU-->detox protocol MVI, Folic, Acid and Thiamine [facility] protocol Resume home meds Replace electrolytes Ativan for Abortive Seizure and Withdrawal Symptoms Scheduled Librium with parameters Aspiration/Seizure Precautions SW/CM for d/c planning SA/Psych consult DVT/PE prophylaxis - SCDs; Patient is thrombocytopenic GI Prophylaxis: Home PPI Decrease fluid rate JENNIFER/LORETTA when able to participate with consultation; needs inpatient rehab Code Status: Full Code; PCP: SHUKRI Robertson in [place]
[2017-06-19] MEDS: Formoterol/Mometasone 200-5 MCG 8.8 GM Inhaler IH SCH ×2 (12:46→22:42)
[2017-06-19] MEDS: chlordiazePOXIDE 25 MG Cap PO SCH ×2 (15:07→20:45)
[2017-06-19] MEDS: Acetaminophen/HYDROcodone 325-10 MG Tab PO PRN (20:27)
[2017-06-19] MEDS: Doxazosin 2 MG Tab PO SCH (20:44)
[2017-06-20] MEDS: LORazepam 2 MG/ML SDV IVPUSH PRN ×2 (01:14→19:29)
[2017-06-20] MEDS: Sodium Chloride 0.9% 1,000 ML IV SCH (04:53)
[2017-06-20] MEDS: Pantoprazole 40 MG Tab.CR PO SCH (05:17)
[2017-06-20] MEDS: Folic Acid 1 MG Tab PO SCH ×2 (08:56→09:11)
[2017-06-20] MEDS: Formoterol/Mometasone 200-5 MCG 8.8 GM Inhaler IH SCH ×2 (08:59→21:15)
[2017-06-20] MEDS: chlordiazePOXIDE 25 MG Cap PO SCH ×3 (09:07→20:56)
[2017-06-20] MEDS: QUEtiapine 25 MG Tab PO SCH ×2 (09:07→20:56)
[2017-06-20] MEDS: Thiamine 100 MG Tab PO SCH (09:07)
[2017-06-20] MEDS: Gabapentin 600 MG Tab PO SCH ×3 (09:07→20:57)
[2017-06-20] MEDS: Citalopram 20 MG Tab PO SCH (09:07)
[2017-06-20] MEDS: Apixaban 5 MG Tab PO SCH ×2 (09:07→20:56)
[2017-06-20] MEDS: Multivitamins,Therapeutic Tab PO SCH (09:07)
[2017-06-20] MEDS: Metoprolol Tartrate 25 MG Tab PO SCH ×2 (09:07→20:56)
[2017-06-20] MEDS: Allopurinol 300 MG Tab PO SCH (09:11)
[2017-06-20] MEDS: Potassium Chloride 20 MEQ Tab.ER PO SCH ×2 (09:11→20:57)
[2017-06-20] MEDS: Topiramate 25 MG Tab PO SCH ×2 (09:11→20:56)
--- NOTE | 2017-06-20 13:57 | PCM.PN ---
- General Info Date of Service: 06/20/17 Functional Status: Reports: Pain Controlled, Tolerating Diet, Ambulating, Urinating - Review of Systems General: Reports: No Symptoms HEENT: Reports: No Symptoms Pulmonary: Reports: No Symptoms Cardiovascular: Reports: No Symptoms Gastrointestinal: Reports: No Symptoms Genitourinary: Reports: No Symptoms Musculoskeletal: Reports: No Symptoms Skin: Reports: No Symptoms Neurological: Reports: No Symptoms Psychiatric: Reports: Anxiety - Patient Data Vitals - Most Recent: Last Vital Signs Temp 36.6 C 06/20/17 08:00 Pulse 80 06/20/17 12:00 Resp 22 H 06/20/17 12:00 BP 145/91 H 06/20/17 12:00 Pulse Ox 93 L 06/20/17 12:00 Weight - Most Recent: 133.356 kg I&O - Last 24 Hours: Intake & Output 06/19/17 06/20/17 06/20/17 22:59 06:59 14:59 Intake Total 3238 922 3663 Output Total 350 650 Balance 9123 [id number] Lab Results Last 24 Hours: Laboratory Results - last 24 hr 06/20/17 06/20/17 Range/Units 06:09 06:09 WBC 3.89 L (4.23-9.07) K/mm3 RBC 3.52 L (4.63-6.08) M/mm3 Hgb 12.9 L (13.7-17.5) gm/L Hct 39.8 L (40.1-51.0) % MCV 113.1 H (79.0-92.2) fl MCH 36.6 H (25.7-32.2) pg MCHC 32.4 (32.2-35.5) g/dl RDW Std Deviation 62.2 H (35.1-43.9) fL Plt Count 56 L (163-337) K/mm3 MPV 11.3 (9.4-12.3) fl Neut % (Auto) 55.7 (34.0-67.9) % Lymph % (Auto) 23.7 (21.8-53.1) % [place] % (Auto) 14.9 H (5.3-12.2) % Eos % (Auto) 4.6 (0.8-7.0) Baso % (Auto) 0.8 (0.1-1.2) % Neut # (Auto) 2.17 (1.78-5.38) K/mm3 Lymph # (Auto) 0.92 L (1.32-3.57) K/mm3 [place] # (Auto) 0.58 (0.30-0.82) K/mm3 Eos # (Auto) 0.18 (0.04-0.54) K/mm3 Baso # (Auto) 0.03 (0.01-0.08) K/mm3 Manual Slide Review Abnormal smear Sodium 143 (136-145) mEq/L Potassium 3.8 (3.5-5.1) mEq/L Chloride 108 H (98-107) mEq/L Carbon Dioxide 27 (21-32) mEq/L Anion Gap 11.8 (5-15) BUN 7 (7-18) mg/dL Creatinine 1.1 (0.7-1.3) mg/dL Est Cr Clr Drug Dosing 74.16 mL/min Estimated GFR (MDRD) > 60 (>60) mL/min BUN/Creatinine Ratio 6.4 L (14-18) Glucose 88 (80-115) mg/dL Calcium 9.0 (8.5-10.1) mg/dL Magnesium 2.3 (1.8-2.4) mg/dl Med Orders - Current: Current Medications Acetaminophen (Tylenol) 650 mg PO Q4H PRN PRN Reason: Pain (Mild 1-3)/fever Hydrocodone Bitart/Acetaminophen ([place] 325-10 Mg) 1 tab PO Q4H PRN PRN Reason: Pain (moderate 3-7) Last Admin: 06/19/17 20:27 Dose: 1 tab Albuterol (Proventil Neb Soln) 1.25 mg NEB Q4HRRT PRN PRN Reason: SOB/wheezing Albuterol (Proventil Hfa) 0 gm INH Q4H PRN PRN Reason: Shortness of Breath Albuterol/Ipratropium (Duoneb 3.0-0.5 Mg/3 Ml) 3 ml NEB Q4H PRN PRN Reason: Shortness Of Breath/wheezing Last Admin: 06/18/17 15:17 Dose: 3 ml Allopurinol (Zyloprim) 300 mg PO DAILY [facility] Last Admin: 06/20/17 09:11 Dose: 300 mg Apixaban (Eliquis) 5 mg PO BID [facility] Last Admin: 06/20/17 09:07 Dose: 5 mg Chlordiazepoxide HCl (Librium) 25 mg PO TID [facility] Last Admin: 06/20/17 09:07 Dose: 25 mg Citalopram Hydrobromide (Celexa) 40 mg PO DAILY [facility] Last Admin: 06/20/17 09:07 Dose: 40 mg Clonidine HCl (Catapres) 0.1 mg PO Q4H PRN PRN Reason: Agitation Doxazosin Mesylate (Cardura) 2 mg PO BEDTIME [facility] Last Admin: 06/19/17 20:44 Dose: 2 mg Folic Acid (Folic Acid) 1 mg PO DAILY [facility] Last Admin: 06/20/17 08:56 Dose: Not Given Folic Acid (Folic Acid) 1 mg PO DAILY [facility] Last Admin: 06/20/17 09:11 Dose: 1 mg Gabapentin (Neurontin) 1,200 mg PO TID [facility] Last Admin: 06/20/17 09:07 Dose: 1,200 mg Hydralazine HCl (Apresoline) 20 mg IVPUSH Q4H PRN PRN Reason: Hypertension Last Admin: 06/19/17 20:46 Dose: 20 mg Sodium Chloride (Normal Saline) 1,000 mls @ 75 mls/hr IV ASDIRECTED [facility] Last Admin: 06/20/17 04:53 Dose: 75 mls/hr Lorazepam (Ativan) 2 mg IVPUSH Q4H PRN PRN Reason: Seizures Lorazepam (Ativan) 0 mg IVPUSH Q1H PRN; Protocol PRN Reason: withdrawl Last Admin: 06/20/17 01:14 Dose: 1 mg Lorazepam (Ativan) 1 mg IVPUSH Q4H PRN PRN Reason: Anxiety Last Admin: 06/19/17 00:21 Dose: 1 mg Lorazepam (Ativan) 2 mg IVPUSH Q4H PRN PRN Reason: Seizures Metoprolol Tartrate (Lopressor) 5 mg IVPUSH Q4H PRN PRN Reason: Tachycardia Metoprolol Tartrate (Lopressor) 50 mg PO Q12HR [facility] Last Admin: 06/20/17 09:07 Dose: 50 mg Miscellaneous Information (Remove Patch) 1 ea TRDERM Q7D [facility] Mometasone Furoate/Formoterol Fumar (Dulera 200-5 Mcg) 0 puff IH BID [facility] Last Admin: 06/20/17 08:59 Dose: 2 puff Multivitamins (Thera) 1 each PO DAILY [facility] Last Admin: 06/20/17 09:07 Dose: 1 each Nitroglycerin (Nitrostat) 0.4 mg SL Q5M PRN PRN Reason: Chest Pain Ondansetron HCl (Zofran Odt) 4 mg PO Q6H PRN PRN Reason: nausea, able to take PO Ondansetron HCl (Zofran) 4 mg IV Q6H PRN PRN Reason: Nausea/Vomiting Last Admin: 06/17/17 20:29 Dose: 4 mg Pantoprazole Sodium (Protonix) 40 mg PO ACBREAKFAST [facility] Last Admin: 06/20/17 05:17 Dose: 40 mg Potassium Chloride (Klor-Con M20) 40 meq PO BID [facility] Stop: 06/20/17 21:01 Last Admin: 06/20/17 09:11 Dose: 40 meq Quetiapine Fumarate (Seroquel) 25 mg PO BEDTIME [facility] Last Admin: 06/19/17 20:45 Dose: 25 mg Quetiapine Fumarate (Seroquel) 25 mg PO DAILY [facility] Last Admin: 06/20/17 09:07 Dose: 25 mg Thiamine HCl (Vitamin B-1) 100 mg PO DAILY [facility] Last Admin: 06/20/17 09:07 Dose: 100 mg Topiramate (Topamax) 25 mg PO BID [facility] Last Admin: 06/20/17 09:11 Dose: 25 mg Discontinued Medications Aspirin (Aspirin) 162 mg PO DAILY [facility] Last Admin: 06/19/17 12:12 Dose: Not Given Chlordiazepoxide HCl (Librium) 100 mg PO ONETIME ONE Stop: 06/18/17 08:14 Last Admin: 06/18/17 08:22 Dose: 100 mg Chlordiazepoxide HCl (Librium) 25 mg PO Q8H PRN PRN Reason: Withdrawal Symptoms Last Admin: 06/19/17 10:20 Dose: 25 mg Clonidine HCl (Catapres Tts-2) 0.2 mg TRDERM ONETIME ONE Stop: 06/18/17 04:46 Last Admin: 06/18/17 04:53 Dose: 0.2 mg Clonidine HCl (Catapres) 0.2 mg PO ONETIME ONE Stop: 06/18/17 08:12 Last Admin: 06/18/17 08:23 Dose: 0.2 mg Furosemide (Lasix) 40 mg PO BIDDIURETIC [facility] Last Admin: 06/18/17 06:37 Dose: 40 mg Furosemide (Lasix) 10 mg IVPUSH NOW ONE Stop: 06/18/17 04:41 Last Admin: 06/18/17 04:55 Dose: 10 mg Hydralazine HCl (Apresoline) 10 mg IVPUSH Q6H PRN PRN Reason: Hypertension Last Admin: 06/18/17 06:29 Dose: 10 mg Sodium Chloride (Normal Saline) 1,000 mls @ 999 mls/hr IV ONETIME ONE Stop: 06/17/17 18:02 Last Admin: 06/17/17 17:34 Dose: 999 mls/hr Sodium Chloride (Normal Saline) 1,000 mls @ 250 mls/hr IV ONETIME ONE Stop: 06/17/17 22:59 Last Admin: 06/17/17 19:09 Dose: 250 mls/hr Sodium Chloride (Normal Saline) 1,000 mls @ 250 mls/hr IV ASDIRECTED [facility] Stop: 06/19/17 03:14 Last Admin: 06/18/17 03:19 Dose: 250 mls/hr Sodium Chloride (Normal Saline) 1,000 mls @ 125 mls/hr IV ASDIRECTED [facility] Last Admin: 06/18/17 21:31 Dose: 75 mls/hr Magnesium Sulfate 2 gm/ Premix 50 mls @ 25 mls/hr IV ONETIME ONE Stop: 06/18/17 15:28 Last Admin: 06/18/17 13:51 Dose: 25 mls/hr Magnesium Sulfate 2 gm/ Premix 50 mls @ 25 mls/hr IV ONETIME ONE Stop: 06/19/17 13:38 Last Admin: 06/19/17 12:08 Dose: 25 mls/hr Lorazepam (Ativan) 1 mg IVPUSH ONETIME ONE Stop: 06/17/17 17:03 Last Admin: 06/17/17 17:33 Dose: 1 mg Metoprolol Tartrate (Lopressor) 5 mg IVPUSH Q4H PRN PRN Reason: Tachycardia Last Admin: 06/18/17 08:58 Dose: 5 mg Metoprolol Tartrate (Lopressor) 25 mg PO Q12HR [facility] Non-Formulary Medication (Metoprolol Succinate) 100 mg PO DAILY [facility] Last Admin: 06/19/17 12:12 Dose: Not Given Pneumococcal Polyvalent Vaccine (Pneumovax 23) 0.5 ml IM .ONCE ONE Stop: 06/17/17 20:20 Last Admin: 06/17/17 21:05 Dose: Not Given Quetiapine Fumarate (Seroquel) 50 mg PO BEDTIME ONE Stop: 06/17/17 21:01 Last Admin: 06/17/17 21:05 Dose: 50 mg Quetiapine Fumarate (Seroquel) 25 mg PO ONETIME ONE Stop: 06/18/17 08:14 Last Admin: 06/18/17 08:23 Dose: 25 mg Thiamine HCl (Vitamin B-1) 100 mg PO BEDTIME [facility] Topiramate (Topamax) 50 mg PO BEDTIME ONE Stop: 06/17/17 21:01 Last Admin: 06/17/17 21:04 Dose: 50 mg - Exam Quality Assessment: Supplemental Oxygen, DVT Prophylaxis General: Alert, Oriented, Cooperative, No Acute Distress HEENT: Pupils Equal, Pupils Reactive, EOMI Neck: Supple, Trachea Midline Lungs: Normal Respiratory Effort, Decreased Breath Sounds Cardiovascular: Regular Rate, Regular Rhythm GI/Abdominal Exam: Normal Bowel Sounds, Soft, Non-Tender, No Organomegaly, No Distention (Male) Exam: Deferred Back Exam: Normal Inspection Extremities: Normal Inspection Skin: Warm Neurological: No New Focal Deficit Psy/Mental Status: Alert, Anxious - Problem List & Annotations (1) Macrocytic anemia SNOMED Code(s): 26464849 Code(s): D53.9 - NUTRITIONAL ANEMIA, UNSPECIFIED Status: Acute Current Visit: Yes (2) Elevated transaminase level SNOMED Code(s): 559779525 Code(s): R74.0 - NONSPEC ELEV OF LEVELS OF TRANSAMNS & LACTIC ACID DEHYDRGNSE Status: Acute Current Visit: Yes - Problem List Review Problem List Initiated/Reviewed/Updated: Yes - My Orders Last 24 Hours: My Active Orders 06/19/17 15:00 chlordiazePOXIDE [Librium] 25 mg PO TID 06/20/17 09:51 Patient Status [ADT] Routine - Plan Plan:: I/P: Acute ETOH Withdrawal Symptoms/DT - [facility] protocol Q1HR - Topamax/Seroquel - Hydralzine and IVP BB for HR/BP control - Ativan for Abortive Seizure and Withdrawal Symptoms - Tele-psych and SA consult Alcohol Abuse - Acute on Chronic - He reports he wakes up early and throughout the night to drink - Reports 1/2 gallon of whiskey and 15 beers per day +/- - CIWA Protocol as above - SA consult - ETOH 0.36 in ED Elevated LFTs -2/2 ETOH abuse as above -Monitor Thrombocytopenia -Platelets 69,000 -Likely 2/2 ETOH abuse, liver damage -Monitor Macrocyctic anemia Chronic: HTN - Home meds and PRN BB, Hydralizine as ordered Asthma - Home inhalers and PRN Duonebs COPD - Home inhalers GERD - Home PPI Prostate Disorder Chronic back pain - PRN meds Gout Neuropathy - Home meds Anxiety - Meds as ordered Plan: ICU-->detox protocol MVI, Folic, Acid and Thiamine CI[facility] protocol Resume home meds Replace electrolytes Ativan for Abortive Seizure and Withdrawal Symptoms Scheduled Librium with parameters Aspiration/Seizure Precautions SW/CM for d/c planning SA/Psych consult DVT/PE prophylaxis - SCDs; Patient is thrombocytopenic GI Prophylaxis: Home PPI Decrease fluid rate JENNIFER/LORETTA when able to participate with consultation; needs inpatient rehab [place] tele with 1:1 Code Status: Full Code; PCP: SHUKRI Robertson in [place]
[2017-06-20] MEDS: Acetaminophen/HYDROcodone 325-10 MG Tab PO PRN (15:52)
[2017-06-20] MEDS: hydrALAZINE 20 MG/ML SDV IVPUSH PRN (15:55)
[2017-06-20] MEDS ORDERED: chlordiazePOXIDE 25 MG Cap PO ONE (17:12)
[2017-06-20] MEDS: Ondansetron 4 MG/2 ML SDV IV PRN (18:48)
[2017-06-20] MEDS: Temazepam 15 MG Cap PO PRN (20:56)
[2017-06-20] MEDS: Doxazosin 2 MG Tab PO SCH (20:56)
[2017-06-21] MEDS: Pantoprazole 40 MG Tab.CR PO SCH (05:38)
[2017-06-21] MEDS: hydrALAZINE 20 MG/ML SDV IVPUSH PRN (05:39)
[2017-06-21] MEDS: Multivitamins,Therapeutic Tab PO SCH (08:46)
[2017-06-21] MEDS: Metoprolol Tartrate 25 MG Tab PO SCH ×2 (08:46→22:05)
[2017-06-21] MEDS: Thiamine 100 MG Tab PO SCH (08:47)
[2017-06-21] MEDS: Apixaban 5 MG Tab PO SCH ×2 (08:47→22:05)
[2017-06-21] MEDS: Allopurinol 300 MG Tab PO SCH (08:47)
[2017-06-21] MEDS: Gabapentin 600 MG Tab PO SCH ×3 (08:47→22:03)
[2017-06-21] MEDS: QUEtiapine 25 MG Tab PO SCH ×2 (08:47→22:04)
[2017-06-21] MEDS: Citalopram 20 MG Tab PO SCH (08:47)
[2017-06-21] MEDS: Furosemide 40 MG Tab PO SCH ×2 (08:47→22:06)
[2017-06-21] MEDS: Folic Acid 1 MG Tab PO SCH ×2 (08:48)
[2017-06-21] MEDS: Topiramate 25 MG Tab PO SCH ×2 (08:48→22:08)
[2017-06-21] MEDS: chlordiazePOXIDE 25 MG Cap PO SCH ×3 (08:48→22:07)
[2017-06-21] MEDS: Formoterol/Mometasone 200-5 MCG 8.8 GM Inhaler IH SCH ×2 (08:55→20:11)
[2017-06-21] MEDS: Acetaminophen/HYDROcodone 325-10 MG Tab PO PRN ×2 (12:44→18:55)
[2017-06-21] MEDS: LORazepam 2 MG/ML SDV IVPUSH PRN (12:52)
--- NOTE | 2017-06-21 15:11 | PCM.PN ---
- General Info Date of Service: 06/21/17 Functional Status: Reports: Tolerating Diet, Ambulating, Urinating - Review of Systems General: Reports: No Symptoms HEENT: Reports: No Symptoms Pulmonary: Reports: No Symptoms Cardiovascular: Reports: No Symptoms Gastrointestinal: Reports: No Symptoms Genitourinary: Reports: No Symptoms Musculoskeletal: Reports: No Symptoms Skin: Reports: No Symptoms Neurological: Reports: No Symptoms Psychiatric: Reports: No Symptoms - Patient Data Vitals - Most Recent: Last Vital Signs Temp 36.3 C 06/21/17 08:43 Pulse 78 06/21/17 08:46 Resp 16 06/21/17 08:43 BP 151/90 H 06/21/17 08:46 Pulse Ox 93 L 06/21/17 08:43 Weight - Most Recent: 134.626 kg I&O - Last 24 Hours: Intake & Output 06/21/17 06/21/17 06/21/17 06:59 14:59 22:59 Intake Total 400 500 Output Total 400 700 Balance 0 -200 Lab Results Last 24 Hours: Laboratory Results - last 24 hr 06/21/17 06/21/17 Range/Units 07:09 07:09 WBC 3.96 L (4.23-9.07) K/mm3 RBC 3.60 L (4.63-6.08) M/mm3 Hgb 13.1 L (13.7-17.5) gm/L Hct 40.9 (40.1-51.0) % MCV 113.6 H (79.0-92.2) fl MCH 36.4 H (25.7-32.2) pg MCHC 32.0 L (32.2-35.5) g/dl RDW Std Deviation 61.6 H (35.1-43.9) fL Plt Count 63 L (163-337) K/mm3 MPV 11.0 (9.4-12.3) fl Neut % (Auto) 54.0 (34.0-67.9) % Lymph % (Auto) 19.9 L (21.8-53.1) % [place] % (Auto) 20.7 H (5.3-12.2) % Eos % (Auto) 4.3 (0.8-7.0) Baso % (Auto) 0.8 (0.1-1.2) % Neut # (Auto) 2.14 (1.78-5.38) K/mm3 Lymph # (Auto) 0.79 L (1.32-3.57) K/mm3 [place] # (Auto) 0.82 (0.30-0.82) K/mm3 Eos # (Auto) 0.17 (0.04-0.54) K/mm3 Baso # (Auto) 0.03 (0.01-0.08) K/mm3 Manual Slide Review Abnormal smear Sodium 143 (136-145) mEq/L Potassium 4.0 (3.5-5.1) mEq/L Chloride 110 H (98-107) mEq/L Carbon Dioxide 23 (21-32) mEq/L Anion Gap 14.0 (5-15) BUN 9 (7-18) mg/dL Creatinine 1.0 (0.7-1.3) mg/dL Est Cr Clr Drug Dosing 81.58 mL/min Estimated GFR (MDRD) > 60 (>60) mL/min BUN/Creatinine Ratio 9.0 L (14-18) Glucose 92 (80-115) mg/dL Calcium 9.4 (8.5-10.1) mg/dL Magnesium 2.0 (1.8-2.4) mg/dl Med Orders - Current: Current Medications Acetaminophen (Tylenol) 650 mg PO Q4H PRN PRN Reason: Pain (Mild 1-3)/fever Hydrocodone Bitart/Acetaminophen ([place] 325-10 Mg) 1 tab PO Q4H PRN PRN Reason: Pain (moderate 3-7) Last Admin: 06/21/17 12:44 Dose: 1 tab Albuterol (Proventil Neb Soln) 1.25 mg NEB Q4HRRT PRN PRN Reason: SOB/wheezing Albuterol (Proventil Hfa) 0 gm INH Q4H PRN PRN Reason: Shortness of Breath Albuterol/Ipratropium (Duoneb 3.0-0.5 Mg/3 Ml) 3 ml NEB Q4H PRN PRN Reason: Shortness Of Breath/wheezing Last Admin: 06/18/17 15:17 Dose: 3 ml Allopurinol (Zyloprim) 300 mg PO DAILY [facility] Last Admin: 06/21/17 08:47 Dose: 300 mg Apixaban (Eliquis) 5 mg PO BID [facility] Last Admin: 06/21/17 08:47 Dose: 5 mg Chlordiazepoxide HCl (Librium) 25 mg PO TID [facility] Last Admin: 06/21/17 08:48 Dose: 25 mg Citalopram Hydrobromide (Celexa) 40 mg PO DAILY [facility] Last Admin: 06/21/17 08:47 Dose: 40 mg Clonidine HCl (Catapres) 0.1 mg PO Q4H PRN PRN Reason: Agitation Doxazosin Mesylate (Cardura) 2 mg PO BEDTIME [facility] Last Admin: 06/20/17 20:56 Dose: 2 mg Folic Acid (Folic Acid) 1 mg PO DAILY [facility] Last Admin: 06/21/17 08:48 Dose: Not Given Folic Acid (Folic Acid) 1 mg PO DAILY [facility] Last Admin: 06/21/17 08:48 Dose: 1 mg Furosemide (Lasix) 40 mg PO BID [facility] Last Admin: 06/21/17 08:47 Dose: 40 mg Gabapentin (Neurontin) 1,200 mg PO TID [facility] Last Admin: 06/21/17 08:47 Dose: 1,200 mg Hydralazine HCl (Apresoline) 20 mg IVPUSH Q4H PRN PRN Reason: Hypertension Last Admin: 06/21/17 05:39 Dose: 20 mg Lorazepam (Ativan) 2 mg IVPUSH Q4H PRN PRN Reason: Seizures Lorazepam (Ativan) 0 mg IVPUSH Q1H PRN; Protocol PRN Reason: withdrawl Last Admin: 06/20/17 19:29 Dose: 1 mg Lorazepam (Ativan) 1 mg IVPUSH Q4H PRN PRN Reason: Anxiety Last Admin: 06/21/17 12:52 Dose: 1 mg Lorazepam (Ativan) 2 mg IVPUSH Q4H PRN PRN Reason: Seizures Metoprolol Tartrate (Lopressor) 5 mg IVPUSH Q4H PRN PRN Reason: Tachycardia Last Admin: 06/20/17 18:51 Dose: 5 mg Metoprolol Tartrate (Lopressor) 50 mg PO Q12HR [facility] Last Admin: 06/21/17 08:46 Dose: 50 mg Miscellaneous Information (Remove Patch) 1 ea TRDERM Q7D [facility] Mometasone Furoate/Formoterol Fumar (Dulera 200-5 Mcg) 0 puff IH BID [facility] Last Admin: 06/21/17 08:55 Dose: 2 puff Multivitamins (Thera) 1 each PO DAILY [facility] Last Admin: 06/21/17 08:46 Dose: 1 each Nitroglycerin (Nitrostat) 0.4 mg SL Q5M PRN PRN Reason: Chest Pain Ondansetron HCl (Zofran Odt) 4 mg PO Q6H PRN PRN Reason: nausea, able to take PO Ondansetron HCl (Zofran) 4 mg IV Q6H PRN PRN Reason: Nausea/Vomiting Last Admin: 06/20/17 18:48 Dose: 4 mg Pantoprazole Sodium (Protonix) 40 mg PO ACBREAKFAST [facility] Last Admin: 06/21/17 05:38 Dose: 40 mg Quetiapine Fumarate (Seroquel) 25 mg PO BEDTIME [facility] Last Admin: 06/20/17 20:56 Dose: 25 mg Quetiapine Fumarate (Seroquel) 25 mg PO DAILY [facility] Last Admin: 06/21/17 08:47 Dose: 25 mg Temazepam (Restoril) 15 mg PO BEDTIME PRN PRN Reason: Sleep Last Admin: 06/20/17 20:56 Dose: 15 mg Thiamine HCl (Vitamin B-1) 100 mg PO DAILY [facility] Last Admin: 06/21/17 08:47 Dose: 100 mg Topiramate (Topamax) 25 mg PO BID [facility] Last Admin: 06/21/17 08:48 Dose: 25 mg Discontinued Medications Aspirin (Aspirin) 162 mg PO DAILY [facility] Last Admin: 06/19/17 12:12 Dose: Not Given Chlordiazepoxide HCl (Librium) 100 mg PO ONETIME ONE Stop: 06/18/17 08:14 Last Admin: 06/18/17 08:22 Dose: 100 mg Chlordiazepoxide HCl (Librium) 25 mg PO Q8H PRN PRN Reason: Withdrawal Symptoms Last Admin: 06/19/17 10:20 Dose: 25 mg Chlordiazepoxide HCl (Librium) 50 mg PO ONETIME ONE Stop: 06/20/17 17:13 Last Admin: 06/20/17 17:32 Dose: 50 mg Clonidine HCl (Catapres Tts-2) 0.2 mg TRDERM ONETIME ONE Stop: 06/18/17 04:46 Last Admin: 06/18/17 04:53 Dose: 0.2 mg Clonidine HCl (Catapres) 0.2 mg PO ONETIME ONE Stop: 06/18/17 08:12 Last Admin: 06/18/17 08:23 Dose: 0.2 mg Furosemide (Lasix) 40 mg PO BIDDIURETIC [facility] Last Admin: 06/18/17 06:37 Dose: 40 mg Furosemide (Lasix) 10 mg IVPUSH NOW ONE Stop: 06/18/17 04:41 Last Admin: 06/18/17 04:55 Dose: 10 mg Hydralazine HCl (Apresoline) 10 mg IVPUSH Q6H PRN PRN Reason: Hypertension Last Admin: 06/18/17 06:29 Dose: 10 mg Sodium Chloride (Normal Saline) 1,000 mls @ 999 mls/hr IV ONETIME ONE Stop: 06/17/17 18:02 Last Admin: 06/17/17 17:34 Dose: 999 mls/hr Sodium Chloride (Normal Saline) 1,000 mls @ 250 mls/hr IV ONETIME ONE Stop: 06/17/17 22:59 Last Admin: 06/17/17 19:09 Dose: 250 mls/hr Sodium Chloride (Normal Saline) 1,000 mls @ 250 mls/hr IV ASDIRECTED [facility] Stop: 06/19/17 03:14 Last Admin: 06/18/17 03:19 Dose: 250 mls/hr Sodium Chloride (Normal Saline) 1,000 mls @ 125 mls/hr IV ASDIRECTED [facility] Last Admin: 06/18/17 21:31 Dose: 75 mls/hr Magnesium Sulfate 2 gm/ Premix 50 mls @ 25 mls/hr IV ONETIME ONE Stop: 06/18/17 15:28 Last Admin: 06/18/17 13:51 Dose: 25 mls/hr Sodium Chloride (Normal Saline) 1,000 mls @ 75 mls/hr IV ASDIRECTED [facility] Last Admin: 06/20/17 04:53 Dose: 75 mls/hr Magnesium Sulfate 2 gm/ Premix 50 mls @ 25 mls/hr IV ONETIME ONE Stop: 06/19/17 13:38 Last Admin: 06/19/17 12:08 Dose: 25 mls/hr Lorazepam (Ativan) 1 mg IVPUSH ONETIME ONE Stop: 06/17/17 17:03 Last Admin: 06/17/17 17:33 Dose: 1 mg Metoprolol Tartrate (Lopressor) 5 mg IVPUSH Q4H PRN PRN Reason: Tachycardia Last Admin: 06/18/17 08:58 Dose: 5 mg Metoprolol Tartrate (Lopressor) 25 mg PO Q12HR [facility] Non-Formulary Medication (Metoprolol Succinate) 100 mg PO DAILY [facility] Last Admin: 06/19/17 12:12 Dose: Not Given Pneumococcal Polyvalent Vaccine (Pneumovax 23) 0.5 ml IM .ONCE ONE Stop: 06/17/17 20:20 Last Admin: 06/17/17 21:05 Dose: Not Given Potassium Chloride (Klor-Con M20) 40 meq PO BID [facility] Stop: 06/20/17 21:01 Last Admin: 06/20/17 20:57 Dose: 40 meq Quetiapine Fumarate (Seroquel) 50 mg PO BEDTIME ONE Stop: 06/17/17 21:01 Last Admin: 06/17/17 21:05 Dose: 50 mg Quetiapine Fumarate (Seroquel) 25 mg PO ONETIME ONE Stop: 06/18/17 08:14 Last Admin: 06/18/17 08:23 Dose: 25 mg Thiamine HCl (Vitamin B-1) 100 mg PO BEDTIME [facility] Topiramate (Topamax) 50 mg PO BEDTIME ONE Stop: 06/17/17 21:01 Last Admin: 06/17/17 21:04 Dose: 50 mg - Exam Quality Assessment: Supplemental Oxygen, DVT Prophylaxis General: Alert, Oriented, Cooperative, No Acute Distress HEENT: Pupils Equal, Pupils Reactive, EOMI Neck: Trachea Midline, No JVD Lungs: Normal Respiratory Effort Cardiovascular: Regular Rate, Regular Rhythm GI/Abdominal Exam: Normal Bowel Sounds, Soft, Non-Tender, No Organomegaly, No Distention (Male) Exam: Deferred Back Exam: Normal Inspection Extremities: Normal Inspection, Normal Range of Motion, Non-Tender, No Pedal Edema, Normal Capillary Refill Skin: Warm Neurological: No New Focal Deficit, Normal Gait, Normal Speech Psy/Mental Status: Alert, Normal Affect, Normal Mood - Problem List & Annotations (1) Macrocytic anemia SNOMED Code(s): 72820297 Code(s): D53.9 - NUTRITIONAL ANEMIA, UNSPECIFIED Status: Acute Current Visit: Yes (2) Elevated transaminase level SNOMED Code(s): 857066490 Code(s): R74.0 - NONSPEC ELEV OF LEVELS OF TRANSAMNS & LACTIC ACID DEHYDRGNSE Status: Acute Current Visit: Yes - Problem List Review Problem List Initiated/Reviewed/Updated: Yes - My Orders Last 24 Hours: My Active Orders 06/20/17 20:37 Temazepam [Restoril] 15 mg PO BEDTIME PRN 06/21/17 09:00 Furosemide [Lasix] 40 mg PO BID 06/22/17 05:00 HEPATIC FUNCTION PANEL,HFP [CHEM] Routine - Plan Plan:: I/P: Acute ETOH Withdrawal Symptoms/DT - [facility] protocol Q1HR - Topamax/Seroquel - Hydralzine and IVP BB for HR/BP control - Ativan for Abortive Seizure and Withdrawal Symptoms - Tele-psych and SA consult Alcohol Abuse - Acute on Chronic - He reports he wakes up early and throughout the night to drink - Reports 1/2 gallon of whiskey and 15 beers per day +/- - CIWA Protocol as above - SA consult - ETOH 0.36 in ED Elevated LFTs -2/2 ETOH abuse as above -Monitor Thrombocytopenia -Platelets 69,000 -Likely 2/2 ETOH abuse, liver damage -Monitor Macrocyctic anemia Chronic: HTN - Home meds and PRN BB, Hydralizine as ordered Asthma - Home inhalers and PRN Duonebs COPD - Home inhalers GERD - Home PPI Prostate Disorder Chronic back pain - PRN meds Gout Neuropathy - Home meds Anxiety - Meds as ordered Plan: ICU-->detox protocol MVI, Folic, Acid and Thiamine CIWA protocol Resume home meds Replace electrolytes Ativan for Abortive Seizure and Withdrawal Symptoms Scheduled Librium with parameters Aspiration/Seizure Precautions SW/CM for d/c planning SA/Psych consult DVT/PE prophylaxis - SCDs; Patient is thrombocytopenic GI Prophylaxis: Home PPI Decrease fluid rate JENNIFER/LORETTA when able to participate with consultation; needs inpatient rehab [place] tele with 1:1 LOS>96 hours for IP psych/SA eval are pending. Code Status: Full Code; PCP: SHUKRI Robertson in [place]
[2017-06-21] MEDS: Doxazosin 2 MG Tab PO SCH (22:06)
[2017-06-22] MEDS: Pantoprazole 40 MG Tab.CR PO SCH (06:59)
[2017-06-22] MEDS: Formoterol/Mometasone 200-5 MCG 8.8 GM Inhaler IH SCH ×2 (08:52→21:51)
[2017-06-22] MEDS: Multivitamins,Therapeutic Tab PO SCH (08:58)
[2017-06-22] MEDS: Thiamine 100 MG Tab PO SCH (08:58)
[2017-06-22] MEDS: Gabapentin 600 MG Tab PO SCH ×3 (08:58→21:49)
[2017-06-22] MEDS: chlordiazePOXIDE 25 MG Cap PO SCH ×3 (09:00→21:47)
[2017-06-22] MEDS: Allopurinol 300 MG Tab PO SCH (09:00)
[2017-06-22] MEDS: Apixaban 5 MG Tab PO SCH ×2 (09:01→21:43)
[2017-06-22] MEDS: Citalopram 20 MG Tab PO SCH (09:01)
[2017-06-22] MEDS: Furosemide 40 MG Tab PO SCH ×2 (09:01→21:46)
[2017-06-22] MEDS: Folic Acid 1 MG Tab PO SCH (09:02)
[2017-06-22] MEDS: Topiramate 25 MG Tab PO SCH ×2 (09:02→21:49)
[2017-06-22] MEDS: Metoprolol Tartrate 25 MG Tab PO SCH ×2 (09:03→21:44)
--- NOTE | 2017-06-22 13:14 | CONS ---
CONSULTING PHYSICIAN: Walter Narvaez MD DATE OF CONSULTATION: 06/21/2017 This is a 60-minute inpatient evaluation. IDENTIFICATION: The patient is a 61-year-old male who is admitted to the inpatient MICU at [facility] on 06/17/2017. He is seen for psychiatric evaluation. CHIEF COMPLAINT: "I am tired of drinking." HISTORY OF PRESENT ILLNESS: The patient is a 61-year-old man who reports that he was brought to the emergency room "by a friend" because he was "tired of drinking." Evidently, the patient has been drinking "a half gallon of whiskey and a 12-pack a day" of alcohol for quite a bit of time now. He states that he has not been able to have any sustained sobriety for as long as he can remember. 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 On admission, he had a BAL of 0.36. The patient states that he has "depression" as a result of his drinking and states that he tries to treat the depression by a "want to drink." He states he has lack of interest, increase isolative behavior, and just feels generally depressed overall. He is wanting help, and he states he "wants to go to a rehab." MEDICATIONS: At the time of presentation; 1. Librium 25 mg t.i.d. 2. Seroquel 25 mg b.i.d. 3. Topamax 25 mg b.i.d. 4. Ativan per CIWA protocol. 5. Celexa 40 mg daily. ALLERGIES: No known drug allergies. PAST MEDICAL HISTORY: Sleep apnea. REVIEW OF SYSTEMS: Aside from pulmonary and musculoskeletal, all other major organ systems are negative at this point in time for acute difficulties or complications. FAMILY PSYCHIATRIC AND CD HISTORY: The patient denies. PAST PSYCHIATRIC AND CD HISTORY: The patient denies any previous psychiatric hospitalizations or chemical dependency treatments. Denies any previous suicide attempts. PAST PSYCHIATRIC MEDICATION HISTORY: Includes Lexapro. His primary outpatient providers are at [place], [place]. SOCIAL HISTORY: The patient was born and raised in [place], [place]. He was working in the [employer]. He lives with a friend in [place]. He has been x1 for 40 years, but he states his is in a fpc with severe MS. He has 3 children from the marriage. He denies any prior service. He has been on probation for about 15 years. He does not know when he is going to come off it. It sounds like the probation was originally put in place for illegal possession of drugs and guns. He states he was raised Hindu, and he enjoys fishing. MENTAL STATUS EXAM: The patient is a 61-year-old white male in no apparent distress. Speech is of increased latency and response, shortened duration of utterance. Psychomotor activity is within normal limits. There are no abnormal motor movements or tics observed. The patient is alert and oriented x2 to person and place, but not to date. Gait and station are not observed, as this patient is seated on the side of his bed for the inpatient consult. Mood is "depressed." His affect is restricted, tired appearing, but cooperative overall for the purposes of the inpatient consult. There is no behavioral or stated evidence of acute suicidal or homicidal ideation or acute psychotic, delusional, or paranoid symptoms. Thought processes are significant for some thought blocking. There are no manic symptoms or loose associations evident. Judgment and insight still appear somewhat impaired secondary to the patient's excessive alcohol use and alcohol withdrawal that is occurring. Motivation for help appears good. VITAL SIGNS: 172/46, 114, 26, and 98.4 degrees. IMPRESSION: [place] I: 1. Alcohol dependence, F10.20. 2. Major depressive disorder, F32.2. 3. Anxiety disorder, not otherwise specified, F41.9. [place] II: None. [place] III: 1. Signs and symptoms of alcohol withdrawal. 2. History of sleep apnea. [place] IV: Severe. [place] V: 55. PLAN: 1. Folic acid supplementation. 2. Thiamine supplementation. 3. Continue Seroquel, but change dosing from b.i.d. to bedtime and increase from 25 mg b.i.d. to 75 mg at bedtime going forward to help with clarity of thoughts, sleep initiation and maintenance, mood stability, and anxiety reduction. 4. Continue Celexa 40 mg daily for mood. 5. Continue Librium 25 mg t.i.d. for symptoms of alcohol withdrawal. 6. Continue Topamax 25 mg b.i.d. for mood stability and seizure prophylaxis. 7. Continue Ativan per [facility] protocol. 8. AA construction sales representative to visit the patient. 9. Pastoral guidance. 10.Chemical dependency evaluation to assess for need for treatment. 11.When the patient is medically stabilized, he will be placed in inpatient chemical dependency treatment to help with treating his alcohol dependence. 12.May discontinue one-to-one at this point, as the patient does not appear to be a danger to himself or others and is voluntarily seeking help. 13.Recommend that the patient followup with Outpatient Psychiatry when he is medically stabilized and discharged after treatment into the community to assess his overall function and efficacy of his current psychiatric medication regimen. 14.We will continue to follow up with the patient on an as-needed basis while he remains in the inpatient medical unit at [facility] in [place], [place]. 15.Crisis plan is in place. CHRISTOPHER /[id number]
--- NOTE | 2017-06-22 15:00 | PCM.PN ---
- General Info Date of Service: 06/22/17 Functional Status: Reports: Tolerating Diet, Ambulating, Urinating - Review of Systems General: Reports: No Symptoms HEENT: Reports: No Symptoms Pulmonary: Reports: No Symptoms Cardiovascular: Reports: No Symptoms Gastrointestinal: Reports: No Symptoms Genitourinary: Reports: No Symptoms Musculoskeletal: Reports: No Symptoms Skin: Reports: No Symptoms Neurological: Reports: No Symptoms Psychiatric: Reports: No Symptoms - Patient Data Vitals - Most Recent: Last Vital Signs Temp 36.6 C 06/22/17 12:48 Pulse 85 06/22/17 12:48 Resp 16 06/22/17 12:48 BP 129/88 06/22/17 12:48 Pulse Ox 95 06/22/17 12:48 Weight - Most Recent: 130.317 kg I&O - Last 24 Hours: Intake & Output 06/21/17 06/22/17 06/22/17 22:59 06:59 14:59 Intake Total 1340 420 Output Total 250 Balance 1090 420 Lab Results Last 24 Hours: Laboratory Results - last 24 hr 06/22/17 Range/Units 06:20 Total Bilirubin 0.8 (0.2-1.0) mg/dL Direct Bilirubin 0.20 (0.0-0.2) mg/dl Indirect Bilirubin 0.60 AST 68 H (15-37) U/L ALT 80 H (16-63) U/L Alkaline Phosphatase 48 (46-116) U/L Total Protein 6.8 (6.4-8.2) g/dl Albumin 2.7 L (3.4-5.0) g/dl Globulin 4.1 gm/dL Albumin/Globulin Ratio 0.7 L (1-2) Med Orders - Current: Current Medications Acetaminophen (Tylenol) 650 mg PO Q4H PRN PRN Reason: Pain (Mild 1-3)/fever Hydrocodone Bitart/Acetaminophen ([place] 325-10 Mg) 1 tab PO Q4H PRN PRN Reason: Pain (moderate 3-7) Last Admin: 06/21/17 18:55 Dose: 1 tab Albuterol (Proventil Neb Soln) 1.25 mg NEB Q4HRRT PRN PRN Reason: SOB/wheezing Albuterol (Proventil Hfa) 0 gm INH Q4H PRN PRN Reason: Shortness of Breath Albuterol/Ipratropium (Duoneb 3.0-0.5 Mg/3 Ml) 3 ml NEB Q4H PRN PRN Reason: Shortness Of Breath/wheezing Last Admin: 06/18/17 15:17 Dose: 3 ml Allopurinol (Zyloprim) 300 mg PO DAILY [facility] Last Admin: 06/22/17 09:00 Dose: 300 mg Apixaban (Eliquis) 5 mg PO BID [facility] Last Admin: 06/22/17 09:01 Dose: 5 mg Chlordiazepoxide HCl (Librium) 25 mg PO TID [facility] Last Admin: 06/22/17 09:00 Dose: 25 mg Citalopram Hydrobromide (Celexa) 40 mg PO DAILY [facility] Last Admin: 06/22/17 09:01 Dose: 40 mg Clonidine HCl (Catapres) 0.1 mg PO Q4H PRN PRN Reason: Agitation Doxazosin Mesylate (Cardura) 2 mg PO BEDTIME [facility] Last Admin: 06/21/17 22:06 Dose: 2 mg Folic Acid (Folic Acid) 1 mg PO DAILY [facility] Last Admin: 06/22/17 09:02 Dose: 1 mg Furosemide (Lasix) 40 mg PO BID [facility] Last Admin: 06/22/17 09:01 Dose: 40 mg Gabapentin (Neurontin) 1,200 mg PO TID [facility] Last Admin: 06/22/17 08:58 Dose: 1,200 mg Hydralazine HCl (Apresoline) 20 mg IVPUSH Q4H PRN PRN Reason: Hypertension Last Admin: 06/21/17 05:39 Dose: 20 mg Lorazepam (Ativan) 2 mg IVPUSH Q4H PRN PRN Reason: Seizures Lorazepam (Ativan) 0 mg IVPUSH Q1H PRN; Protocol PRN Reason: withdrawl Last Admin: 06/20/17 19:29 Dose: 1 mg Lorazepam (Ativan) 1 mg IVPUSH Q4H PRN PRN Reason: Anxiety Last Admin: 06/21/17 12:52 Dose: 1 mg Lorazepam (Ativan) 2 mg IVPUSH Q4H PRN PRN Reason: Seizures Metoprolol Tartrate (Lopressor) 5 mg IVPUSH Q4H PRN PRN Reason: Tachycardia Last Admin: 06/20/17 18:51 Dose: 5 mg Metoprolol Tartrate (Lopressor) 50 mg PO Q12HR [facility] Last Admin: 06/22/17 09:03 Dose: 50 mg Miscellaneous Information (Remove Patch) 1 ea TRDERM Q7D [facility] Mometasone Furoate/Formoterol Fumar (Dulera 200-5 Mcg) 0 puff IH BID [facility] Last Admin: 06/22/17 08:52 Dose: 2 puff Multivitamins (Thera) 1 each PO DAILY [facility] Last Admin: 06/22/17 08:58 Dose: 1 each Nitroglycerin (Nitrostat) 0.4 mg SL Q5M PRN PRN Reason: Chest Pain Ondansetron HCl (Zofran Odt) 4 mg PO Q6H PRN PRN Reason: nausea, able to take PO Ondansetron HCl (Zofran) 4 mg IV Q6H PRN PRN Reason: Nausea/Vomiting Last Admin: 06/20/17 18:48 Dose: 4 mg Pantoprazole Sodium (Protonix) 40 mg PO ACBREAKFAST [facility] Last Admin: 06/22/17 06:59 Dose: 40 mg Quetiapine Fumarate (Seroquel) 75 mg PO BEDTIME [facility] Last Admin: 06/21/17 22:04 Dose: 75 mg Temazepam (Restoril) 15 mg PO BEDTIME PRN PRN Reason: Sleep Last Admin: 06/20/17 20:56 Dose: 15 mg Thiamine HCl (Vitamin B-1) 100 mg PO DAILY [facility] Last Admin: 06/22/17 08:58 Dose: 100 mg Topiramate (Topamax) 25 mg PO BID [facility] Last Admin: 06/22/17 09:02 Dose: 25 mg Discontinued Medications Aspirin (Aspirin) 162 mg PO DAILY [facility] Last Admin: 06/19/17 12:12 Dose: Not Given Chlordiazepoxide HCl (Librium) 100 mg PO ONETIME ONE Stop: 06/18/17 08:14 Last Admin: 06/18/17 08:22 Dose: 100 mg Chlordiazepoxide HCl (Librium) 25 mg PO Q8H PRN PRN Reason: Withdrawal Symptoms Last Admin: 06/19/17 10:20 Dose: 25 mg Chlordiazepoxide HCl (Librium) 50 mg PO ONETIME ONE Stop: 06/20/17 17:13 Last Admin: 06/20/17 17:32 Dose: 50 mg Clonidine HCl (Catapres Tts-2) 0.2 mg TRDERM ONETIME ONE Stop: 06/18/17 04:46 Last Admin: 06/18/17 04:53 Dose: 0.2 mg Clonidine HCl (Catapres) 0.2 mg PO ONETIME ONE Stop: 06/18/17 08:12 Last Admin: 06/18/17 08:23 Dose: 0.2 mg Folic Acid (Folic Acid) 1 mg PO DAILY MASOUD Last Admin: 06/21/17 08:48 Dose: Not Given Furosemide (Lasix) 40 mg PO BIDDIURETIC MASOUD Last Admin: 06/18/17 06:37 Dose: 40 mg Furosemide (Lasix) 10 mg IVPUSH NOW ONE Stop: 06/18/17 04:41 Last Admin: 06/18/17 04:55 Dose: 10 mg Hydralazine HCl (Apresoline) 10 mg IVPUSH Q6H PRN PRN Reason: Hypertension Last Admin: 06/18/17 06:29 Dose: 10 mg Sodium Chloride (Normal Saline) 1,000 mls @ 999 mls/hr IV ONETIME ONE Stop: 06/17/17 18:02 Last Admin: 06/17/17 17:34 Dose: 999 mls/hr Sodium Chloride (Normal Saline) 1,000 mls @ 250 mls/hr IV ONETIME ONE Stop: 06/17/17 22:59 Last Admin: 06/17/17 19:09 Dose: 250 mls/hr Sodium Chloride (Normal Saline) 1,000 mls @ 250 mls/hr IV ASDIRECTED MASOUD Stop: 06/19/17 03:14 Last Admin: 06/18/17 03:19 Dose: 250 mls/hr Sodium Chloride (Normal Saline) 1,000 mls @ 125 mls/hr IV ASDIRECTED MASOUD Last Admin: 06/18/17 21:31 Dose: 75 mls/hr Magnesium Sulfate 2 gm/ Premix 50 mls @ 25 mls/hr IV ONETIME ONE Stop: 06/18/17 15:28 Last Admin: 06/18/17 13:51 Dose: 25 mls/hr Sodium Chloride (Normal Saline) 1,000 mls @ 75 mls/hr IV ASDIRECTED MASOUD Last Admin: 06/20/17 04:53 Dose: 75 mls/hr Magnesium Sulfate 2 gm/ Premix 50 mls @ 25 mls/hr IV ONETIME ONE Stop: 06/19/17 13:38 Last Admin: 06/19/17 12:08 Dose: 25 mls/hr Lorazepam (Ativan) 1 mg IVPUSH ONETIME ONE Stop: 06/17/17 17:03 Last Admin: 06/17/17 17:33 Dose: 1 mg Metoprolol Tartrate (Lopressor) 5 mg IVPUSH Q4H PRN PRN Reason: Tachycardia Last Admin: 06/18/17 08:58 Dose: 5 mg Metoprolol Tartrate (Lopressor) 25 mg PO Q12HR [facility] Non-Formulary Medication (Metoprolol Succinate) 100 mg PO DAILY [facility] Last Admin: 06/19/17 12:12 Dose: Not Given Pneumococcal Polyvalent Vaccine (Pneumovax 23) 0.5 ml IM .ONCE ONE Stop: 06/17/17 20:20 Last Admin: 06/17/17 21:05 Dose: Not Given Potassium Chloride (Klor-Con M20) 40 meq PO BID [facility] Stop: 06/20/17 21:01 Last Admin: 06/20/17 20:57 Dose: 40 meq Quetiapine Fumarate (Seroquel) 50 mg PO BEDTIME ONE Stop: 06/17/17 21:01 Last Admin: 06/17/17 21:05 Dose: 50 mg Quetiapine Fumarate (Seroquel) 25 mg PO BEDTIME [facility] Last Admin: 06/20/17 20:56 Dose: 25 mg Quetiapine Fumarate (Seroquel) 25 mg PO ONETIME ONE Stop: 06/18/17 08:14 Last Admin: 06/18/17 08:23 Dose: 25 mg Quetiapine Fumarate (Seroquel) 25 mg PO DAILY [facility] Last Admin: 06/21/17 08:47 Dose: 25 mg Thiamine HCl (Vitamin B-1) 100 mg PO BEDTIME [facility] Topiramate (Topamax) 50 mg PO BEDTIME ONE Stop: 06/17/17 21:01 Last Admin: 06/17/17 21:04 Dose: 50 mg - Exam Quality Assessment: Supplemental Oxygen, DVT Prophylaxis General: Alert, Oriented, Cooperative HEENT: Pupils Equal, Pupils Reactive, EOMI Neck: Trachea Midline Lungs: Normal Respiratory Effort Cardiovascular: Regular Rate, Regular Rhythm GI/Abdominal Exam: Normal Bowel Sounds, Soft, Non-Tender, No Organomegaly, No Distention (Male) Exam: Deferred Back Exam: Normal Inspection Extremities: Normal Inspection Skin: Warm Neurological: No New Focal Deficit Psy/Mental Status: Alert, Anxious - Problem List & Annotations (1) Macrocytic anemia SNOMED Code(s): 33878400 Code(s): D53.9 - NUTRITIONAL ANEMIA, UNSPECIFIED Status: Acute Current Visit: Yes (2) Elevated transaminase level SNOMED Code(s): 993109643 Code(s): R74.0 - NONSPEC ELEV OF LEVELS OF TRANSAMNS & LACTIC ACID DEHYDRGNSE Status: Acute Current Visit: Yes - Problem List Review Problem List Initiated/Reviewed/Updated: Yes - Plan Plan:: I/P: Acute ETOH Withdrawal Symptoms/DT--stable - [facility] protocol Q1HR - Topamax/Seroquel - Hydralzine and IVP BB for HR/BP control - Ativan for Abortive Seizure and Withdrawal Symptoms - Tele-psych and SA consult Alcohol Abuse - Acute on Chronic - He reports he wakes up early and throughout the night to drink - Reports 1/2 gallon of whiskey and 15 beers per day +/- - [facility] Protocol as above - SA consult - ETOH 0.36 in ED Elevated LFTs--improved -2/2 ETOH abuse as above -Monitor Thrombocytopenia -Platelets 69,000 -Likely 2/2 ETOH abuse, liver damage -Monitor Macrocyctic anemia--on going treatment Chronic: HTN - Home meds and PRN BB, Hydralizine as ordered Asthma - Home inhalers and PRN Duonebs COPD - Home inhalers GERD - Home PPI Prostate Disorder Chronic back pain - PRN meds Gout Neuropathy - Home meds Anxiety - Meds as ordered Plan: MS desir MVI, Folic, Acid and Thiamine [facility]WA protocol Resume home meds Replace electrolytes Ativan for Abortive Seizure and Withdrawal Symptoms Scheduled Librium with parameters Aspiration/Seizure Precautions SW/CM for d/c planning SA/Psych consult DVT/PE prophylaxis - SCDs; Patient is thrombocytopenic GI Prophylaxis: Home PPI Decrease fluid rate JENNIFER---completed/LORETTA when able to participate with consultation; needs inpatient rehab MS desir with 1:1 LOS>96 hours for IP psych--completed/SA eval are pending. Code Status: Full Code; PCP: SHUKRI Robertson in [place]
[2017-06-22] MEDS: Acetaminophen/HYDROcodone 325-10 MG Tab PO PRN (19:06)
[2017-06-22] MEDS: QUEtiapine 25 MG Tab PO SCH (21:48)
[2017-06-22] MEDS: Temazepam 15 MG Cap PO PRN (21:49)
[2017-06-22] MEDS: Doxazosin 2 MG Tab PO SCH (23:26)
--- NOTE | 2017-06-23 00:46 | CONS ---
CONSULTING PHYSICIAN: Papito Low LAC DATE OF CONSULTATION: 06/22/2017 TIME: 10:30 p.m. HISTORY OF PRESENT ILLNESS: The patient is a 61-year-old male who was admitted to [facility] on 06/17/2017 requesting help with detox. An alcohol and drug consultation were requested by his Medical Treatment Team. SOURCE OF INFORMATION: Hospital records, background research, prescription drug monitoring report, and KANU was signed to include his son in the consultation. HISTORY OF PRESENT ILLNESS: The patient is a 61-year-old male who was admitted to [facility] on 06/17/2017 for detox from alcohol exacerbated by opiate and benzodiazepine dependence. The patient has presented to [facility] ER 5 times in the past year with alcohol related admissions. His body appears to be badly bruised secondary to intoxicated falls as reported by the patient. PSYCHOSOCIAL HISTORY: The patient states he was born and raised in [place] by his biological parents who are both . His father 16 years ago and his mother 11 years ago. He has 1 brother, who lives in [place]. The patient reports that he has a 10th grade education and was at age 17. They were for 27 years and the patient reports that 7 years before they decided to get divorce, his became disabled with MS and after depleting all of their income treating the disease, they were for financial reasons, enabling the state to care for his . The patient states that they consider themselves still and he states they have been for 43 years. His is in a [employer] in [place]; however, the patient goes back and forth every 3 or 4 months to visit her. He states he moved to [place] in 2010 to work for his son, to continue receiving an income. He has a [employer] in [place] that his daughter lives in and he also has 2 sons. His younger son is an alcoholic and his older son owns renewable resources in an oil field company out at [place]. 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 He is currently receiving unemployment benefits. MEDICAL HISTORY: The patient reports that he had gastric bypass surgery about 16 years ago, and has painful neuropathy in his feet, that he believes requires opiates, and he also has gout. A prescription drug monitoring report was pulled indicating that he has been consistently prescribed hydrocodone/acetaminophen 10/300, 90/30 for at least the past 3 years or as far back as the report goes. However, in 03/2017, the quantity was increased to 105/27. He is also prescribed gabapentin consistently 180/30, gabapentin 600 mg. The patient reports that he began using opiates 12 years ago for his neuropathy and states "I cannot take the pain. I can never stop taking opiates because the pain is so bad. I will have to cut off my legs." MENTAL HEALTH HISTORY: The patient reports that he suffers from ADHD and insomnia. His prescription drug monitoring report indicates that he is prescribed Xanax 0.5 mg 60/30 by SHUKRI Robertson in [place], [place]. 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 He is not being treated currently for this condition; however, his son states that he suffers from this mental illness. SUBSTANCE ABUSE HISTORY: The patient reports that he began drinking beer at 7 years old and has been drinking throughout his life. About 16 years ago, he had gastric bypass surgery and he quit drinking for 2 years. He started again because he thought he could and states, "over the years, I drank a little more and a little more and a little more and it went from 6 to 7 beers and 6 to 7 shots of whiskey every day to a half gallon of Alfredo Hdez and 5 or 6 beers." At age 39, he began to use methamphetamine and states he smoked every day for 5 years. 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 He states he smoked all day and all night every day, going through about 3 to 4 g of methamphetamine per day. After 5 years, he was arrested and charged with felony possession and did time in the [place] [facility]. He was paroled and revoked for a weapons charge. He is currently on 27 years of probation. He states he has not smoked methamphetamine since age 44 and has no desire to ever use it again. However, he does believe that his methamphetamine addiction crossed over to opiates, benzodiazepines, and alcohol. He states that he cannot quit using opiates or Xanax because he will not be able to function without them. The patient also reports he quit smoking cigarettes 20 years ago. Currently, in the past since 2010, he states that he drank before work and at lunch he would have 2 or 3 beers and after work, he would typically drink, at least a case a week and 175 mL every 4 days. He states this was fairly consistent until he was laid off. In the past several months, he has been drinking all day and all night and states he will sleep, wake up at midnight, and begin a ritual of a beer and a shot, a beer and a shot, a beer and a shot. However, he can up the amounts but the combination is always the same. He wakes up at 3:00 a.m., 6:00 a.m.; sleeps in between; and drinks the rest of the day. He reports that he has been drinking Alfredo Hdez approximately a 1.75 mL every 2 days and a half a 30 pack every day. His body is badly bruised and he reports it is from intoxicated falls, likely to be the result of in combination use of alcohol, opiates, Xanax, and gabapentin. He moves with a roommate who is also his drinking joann and his son reports that it has gotten so bad that he is unable to control his bowel movements while drinking and the house is quite a mess. The patient's father was an alcoholic who was diagnosed with liver cirrhosis and from drinking. The patient is reporting that he is just like his father and if his liver is damaged, he will continue to drink and have fun and enjoy the rest of his life, which includes drinking. The patient has many grandchildren that he loves; however, he is unable to make the choice to stop drinking to spend his remaining time with them, as he is presenting in stage IV alcoholism. This stage manifests with guilt and remorse; however, there is a pervasive belief that there is not a problem with alcohol. 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 He states he really has not been aware of what his withdrawal symptoms have been as he has had no sobriety in the past 15 to 20 years. His withdrawals are being medically managed at this time. DIAGNOSES: The patient meets DSM-5 criteria for the following diagnoses. 1. F10.20, alcohol use disorder, severe. 2. F10.239, alcohol withdrawal without perceptual disturbance. 3. F13.20, sedative, hypnotic, or anxiolytic use disorder, severe. 4. F11.20, iatrogenic pseudo opioid use disorder, severe. 5. F17.200, tobacco use disorder, severe in sustained full remission. 6. F15.20, amphetamine use disorder, severe, methamphetamine type in sustained full remission. ASAM DIMENSIONS: 1. Dimension 1: Score 3. The patient tolerates and mariela with withdrawal discomfort poorly. He presents with severe intoxication such that the client in danger self or others, and displays severe signs and symptoms of risk of severe but manageable withdrawals. 2. Dimension 2: Score 3. The patient tolerates and mariela poorly with physical problems, has poor general health and neglects medical problems without seeking active assistance, presenting with gastric bypass, gout, and elevated liver enzymes. 3. Dimension 3: Score 2. The patient has difficulty with impulse control and lacks coping skills. He has thoughts of suicide that is reported to the emergency room upon admission. He is verbalizing a willingness and desire to drink himself to . He has difficulty functioning in significant life areas and has a mental health diagnosis given to him by the [facility] in [place]. Substance induced schizophrenia, ADHD, and insomnia. 4. Dimension 4: Score 3. The patient has minimal awareness of addiction or mental health disorder and is minimally cooperative. 5. Dimension 5: Score 4. The patient has little recognition and understanding of relapse and recidivism issues and displays high vulnerability for further substance use and mental health problems. He has no coping skills to arrest, either his mental health or addiction illness or prevent relapse. 6. Dimension 6: Score 3+. The patient is not engaged in structured meaningful activity, is living with his drinking joann, has significant criminal justice involvement. ASSESSMENT SUMMARY: The patient appears to be a man who is ritualized in his drug and alcohol use patterns and verbalizes no desire to change any of his alcohol or drug use. The patient's son was involved in the evaluation and he reports that the family is tired and frustrated that they have tried for years to get him to stop drinking and taking medications, however, they have had no success and they are worried that there is no turning back at this point. They reported that the patient has been through a residential treatment program in the past while incarcerated; however, he was resistant throughout that time in his life and did not maintain sobriety. The patient has several factors working against him to achieve or maintain sobriety. He lives with his drinking joann. His primary physician is prescribing him consistently opiates, benzodiazepines, and gabapentin in combination with serious alcohol dependence causing him frequent falls and incoherence. A letter must be drafted to SHUKRI Robertson at the [facility] suggesting that the patient have a medication review and a plan to wean him off these medications as this combination can be fatal. A letter will be drafted by Papito Low LAC for Dr. Amber Caruso on 06/23/2017. The patient is meeting ASAM criteria for level 3.7, medically monitored inpatient treatment and a commitment for involuntary treatment was executed on 06/22/[address] [facility]. Caruso was consulted regarding this evaluation as well as Trupti Colmenares LCSW, who will be making arrangements for transfer and admittance to the [facility]. CHRISTOPHER /[id number]
[2017-06-23] MEDS: LORazepam 2 MG/ML SDV IVPUSH PRN ×2 (01:16→02:13)
[2017-06-23] MEDS ORDERED: Furosemide 40 MG Tab PO SCH (06:00)
[2017-06-23] MEDS: Pantoprazole 40 MG Tab.CR PO SCH (06:20)
[2017-06-23] MEDS: Topiramate 25 MG Tab PO SCH (08:00)
[2017-06-23] MEDS: Multivitamins,Therapeutic Tab PO SCH (08:00)
[2017-06-23] MEDS: Allopurinol 300 MG Tab PO SCH (08:00)
[2017-06-23] MEDS: Thiamine 100 MG Tab PO SCH (08:00)
[2017-06-23] MEDS: Apixaban 5 MG Tab PO SCH (08:00)
[2017-06-23] MEDS: Metoprolol Tartrate 25 MG Tab PO SCH (08:00)
[2017-06-23] MEDS: Gabapentin 600 MG Tab PO SCH (08:00)
[2017-06-23] MEDS: chlordiazePOXIDE 25 MG Cap PO SCH (08:00)
[2017-06-23 08:01] VITALS: BP 151/99
[2017-06-23] MEDS: Citalopram 20 MG Tab PO SCH (08:01)
[2017-06-23] MEDS: Folic Acid 1 MG Tab PO SCH (08:01)
[2017-06-23] MEDS: Formoterol/Mometasone 200-5 MCG 8.8 GM Inhaler IH SCH (08:25)
--- NOTE | 2017-06-23 09:00 | PCM.DCSUM1 ---
Discharge Summary - Hospital Course Free Text/Narrative:: Efrem Fletcher is a 61 yo male who was in to to our ED today requesting help with detox Inc. after significant alcohol use. He states his primary care provider told to come in earlier this week and he's been trying to detox at home. He reports he drinks consistently throughout the day. Reportedly lost his job 2 months ago and has been drinking heavily since then. In reviewing prior notes, it appears the patient has been detoxed here before and does have a significant alcohol abuse history. During his last stay the [facility] did suggest outpatient treatment. Contrary to this, the patient reports that he did not drink very much alcohol while he was employed and losing his job essentially set off the process. Reports he has been drinking 15 beers a day and a half gallon of whiskey daily as well. He also reportedly drinks "bloody radha's" and wine. He told me that he will wake up early in the morning to begin drinking and wake up throughout the night to have more alcohol. He reports he lives up by [place]. Upon arrival to the ED temperature was 97.9 Fahrenheit. Pulse 93. Respirations 23. Blood pressure 186/125. Pulse ox 99%. ED provider reports he had quite significant tremors and became quite agitated. He was given Ativan IM for this as there was some difficulty obtaining IV access. He was also started on a 1 L bolus. Labs are obtained: The FVC is low at 3.34. RBCs low at 3.82. Hemoglobin good at 13.9. Hematocrit 41.7. He is macrocytic. Platelet are low at 69,000. Neutrophils are elevated at 62%. There is no bandemia. Sodium is 143. Potassium 4.1. Chloride 106. Carbon dioxide 22. Anion gap is quite high at 19.1. BUN is low at 5. Creatinine 1.0. EGFR greater than 60. Glucose is 87. Calcium 8.4. Magnesium 1.9. Total bilirubin 0.6. Liver enzymes show elevated AST at 334, elevated ALT at 173, alkaline phosphatase at 63. Protein is good at 6.9. Albumin low at 3.0. TSH is good at 1.361. UA is negative however 2+ protein and 2+ occult blood are seen. Salicylates are 3.2. Urine drug screen shows positive for opioids and benzodiazepines. He is prescribed opioids for home medications and it is relayed to me that the benzodiazepines were initiated right on his arrival to ED. Talya alcohol was 0.36. EKG is obtained and shows a sinus rhythm with possible left atrial enlargement. Oxygen saturations were dropping around 80- 90 and he was placed on 2 L O2 via cannula. 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 The patient reported told the ED provider that he has not drank in 34 hours however, he admits to me that he was drinking this morning up until coming to the ED. I did discuss the plan of care with the patient including electrolyte and multivitamin supplementation and other medications to avoid withdrawal symptoms up to including seizures. I did explain him at psychiatric services will be consulted, as well as addiction counseling. He reports he would like to try outpatient services and is told there is some help available in [place]. I did explain to him that his ultimate plan of care after discharge will be determined by the addiction counselor in collaboration with our medical team. He is in agreement to this plan. Very concerned about his liver as he was told it is damaged. I explained to him that his liver enzymes are elevated and it would be his best interest to stop drinking immediately. I also commended him on coming here to start the process as it is the best thing for his health. Multiple bruises were noted on the patient on his back, arms, and chest. Patient reports this is from falling while drinking. He carries a history of: Impaired vision, HTN, asthma, GERD, hemorrhoids, prostate disorder, chronic back pain, gout, neuropathy, anxiety. He does say he was prescribed a CPAP after a failed sleep study, however he does not utilize it. He also reports that he had a DVT quite a while ago and was prescribed eliquis for this, however he was told he no longer needed to take this. He is a former smoker. He says really admitted to the ICU for detox. He is a full code. His PCP is Amalia Guillen up in [place]. Nursing alerted admitting provider that patient was talking about committing suicide by shooting himself during the admission process. Will place suicide precautions and 1:1 care. Psychiatry consult already ordered for ETOH abuse. Pt. did not express any suicidal ideation during initial exam and visit with him by admitting provider. - Discharge Data Discharge Date: 06/23/17 (admit date 06/17/17) Discharge Disposition: DC/Tfer to Psych Hosp/Unit 65 Condition: Fair - Discharge Diagnosis/Problem(s) (1) Alcohol dependence syndrome SNOMED Code(s): 38027949 ICD Code: F10.20 - ALCOHOL DEPENDENCE, UNCOMPLICATED Status: Acute Priority: High Current Visit: Yes Qualifiers: Substance use status: with intoxication Complication of substance-induced condition: with unspecified complication Qualified Code(s): F10.229 - Alcohol dependence with intoxication, unspecified (2) Alcohol withdrawal syndrome SNOMED Code(s): 576321231 ICD Code: F10.239 - ALCOHOL DEPENDENCE WITH WITHDRAWAL, UNSPECIFIED Status : Acute Priority: High Current Visit: Yes Qualifiers: Complication of substance-induced condition: with unspecified complication Qualified Code(s): F10.239 - Alcohol dependence with withdrawal, unspecified (3) Delirium tremens SNOMED Code(s): 7071972 ICD Code: F10.231 - ALCOHOL DEPENDENCE WITH WITHDRAWAL DELIRIUM Status: Acute Priority: High Current Visit: Yes (4) Elevated LFTs SNOMED Code(s): 979906324 ICD Code: R79.89 - OTHER SPECIFIED ABNORMAL FINDINGS OF BLOOD CHEMISTRY Status: Acute Priority: Medium Current Visit: Yes (5) Neuropathy SNOMED Code(s): 178535245 ICD Code: G62.9 - POLYNEUROPATHY, UNSPECIFIED Status: Chronic Priority: Low Current Visit: No (6) Anxiety SNOMED Code(s): 06553450 ICD Code: F41.9 - ANXIETY DISORDER, UNSPECIFIED Status: Acute Priority: Medium Current Visit: Yes (7) Sleep apnea SNOMED Code(s): 60252386 ICD Code: G47.30 - SLEEP APNEA, UNSPECIFIED Status: Chronic Priority: Medium Current Visit: No Qualifiers: Sleep apnea type: unspecified type Qualified Code(s): G47.30 - Sleep apnea , unspecified (8) Thrombocytopenia SNOMED Code(s): 601931185 ICD Code: D69.6 - THROMBOCYTOPENIA, UNSPECIFIED Status: Acute Priority: Medium Current Visit: Yes (9) Macrocytic anemia SNOMED Code(s): 50765582 ICD Code: D53.9 - NUTRITIONAL ANEMIA, UNSPECIFIED Status: Acute Priority : Medium Current Visit: Yes - Patient Summary/Data Operative Procedure(s) Performed: None Complications: None Consults: Consultations 06/17/17 19:48 Consult to Case Management [CONS] Routine Consult to Physician [CONS] Routine Consult to Job Compositor [CONS] Routine 06/17/17 20:01 Consult for Substance Abuse [CONS] Routine 06/21/17 18:44 Consult to Spiritual Care [CONS] Routine Labs Pending at D/C: None Recommended Follow-up Testing/Procedures: Follow up with PCP, Amalia Guillen when completed treatment Planned Operative Procedure(s) after DC: None Hospital Course: I/P: Acute ETOH Withdrawal Symptoms/DT--stable - CIWA protocol Q1HR - Topamax/Seroquel - Hydralzine and IVP BB for HR/BP control - Ativan for Abortive Seizure and Withdrawal Symptoms - Tele-psych and SA consult Alcohol Abuse - Acute on Chronic - He reports he wakes up early and throughout the night to drink - Reports 1/2 gallon of whiskey and 15 beers per day +/- - CIWA Protocol as above - SA consult - ETOH 0.36 in ED Elevated LFTs--improved -2/2 ETOH abuse as above -Monitor--repeat pror to discharge are with significant decrease in AST/ALT levels Thrombocytopenia -Platelets 69,000 -Likely 2/2 ETOH abuse, liver damage -Monitor Macrocyctic anemia--on going treatment -Cont thiamine and MVI Chronic: HTN - Home meds and PRN BB, Hydralizine as ordered Asthma - Home inhalers and PRN Duonebs COPD - Home inhalers GERD - Home PPI Prostate Disorder Chronic back pain - PRN meds Gout Neuropathy - Home meds Anxiety - Meds as ordered Plan: MS desir MVI, Folic, Acid and Thiamine CIWA protocol Resume home meds Replace electrolytes Ativan for Abortive Seizure and Withdrawal Symptoms Scheduled Librium with parameters Aspiration/Seizure Precautions SW/CM for d/c planning SA/Psych consult DVT/PE prophylaxis - SCDs; Patient is thrombocytopenic GI Prophylaxis: Home PPI Decrease fluid rate JENNIFER---completed/LORETTA--completed, needs inpatient rehab- DC is pending IP psych admission/transfer. MS desir with 1:1 LOS>96 hours for IP psych--completed/SA eval are pending; hopeful DC to [place] today. Code Status: Full Code; PCP: SHUKRI Robertson in [place] - Patient Instructions Diet: Heart Healthy Diet, Drink 8-10+ Glasses/Day, No Alcoholic Beverages Activity: As Tolerated Driving: Do Not Drive Showering/Bathing: May Shower Notify Provider of: Fever, Increased Pain, Nausea and/or Vomiting - Discharge Plan Prescriptions/Med Rec: Multivitamins,Therapeutic [Thera] 1 each PO DAILY #30 tablet QUEtiapine [SEROquel] 75 mg PO BEDTIME #30 tablet Thiamine [Vitamin B-1] 100 mg PO DAILY #30 tablet Home Medications: Home Meds Albuterol [Ventolin HFA] 2 puff IH Q4H PRN 04/14/17 [History] Allopurinol [Zyloprim] 300 mg PO DAILY 04/14/17 [History] Apixaban [Eliquis] 5 mg PO BID 04/14/17 [History] Aspirin 162 mg PO DAILY 04/14/17 [History] Calcium Citrate/Vitamin D3 [Calcium Citrate-Vit D3 Caplet] 3 tab PO DAILY [History] Doxazosin [Cardura] 2 mg PO BEDTIME 04/14/17 [History] Escitalopram [Lexapro] 20 mg PO DAILY 04/14/17 [History] Fluticasone/Vilanterol [Breo Ellipta 200-25 Mcg INH] 1 puff IH DAILY 04/14/17 [ History] Folic Acid 1 mg PO DAILY 04/14/17 [History] Furosemide [Lasix] 40 mg PO BID 04/14/17 [History] Gabapentin [Neurontin] 1,200 mg PO TID 04/14/17 [History] Metoprolol Succinate 100 mg PO DAILY 04/14/17 [History] Nitroglycerin [Nitrostat] 0.4 mg SL Q5M PRN 04/14/17 [History] Omeprazole 20 mg PO DAILY 04/14/17 [History] Thiamine Mononitrate [Vitamin B-1] 100 mg PO BEDTIME 04/14/17 [History] Multivitamins,Therapeutic [Thera] 1 each PO DAILY #30 tablet 06/23/17 [Rx] QUEtiapine [SEROquel] 75 mg PO BEDTIME #30 tablet 06/23/17 [Rx] Thiamine [Vitamin B-1] 100 mg PO DAILY #30 tablet 06/23/17 [Rx] Patient Handouts: Alcohol Use Disorder, Chemical Dependency, Delirium Tremens, Gipr-er-Ddos, Alcohol Abuse and Nutrition, Finding Treatment for Addiction Referrals: Amalia Guillen NP [Primary Care Provider] - - Discharge Summary/Plan Comment DC Time >30 min.: Yes (40 min) - General Info Date of Service: 06/23/17 Admission Dx/Problem (Free Text: Admission Diagnosis/Problem Admission Diagnosis/Problem Alcohol withdrawal delirium Plans DC to inpatient rehab today; doing well otherwise, quiet this morning but does answer yes/no questions appropriately. Denies c/o pain or other concerns. Functional Status: Reports: Pain Controlled, Tolerating Diet, Ambulating, Urinating. Denies: New Symptoms - Review of Systems General: Reports: No Symptoms HEENT: Reports: No Symptoms Pulmonary: Reports: No Symptoms Cardiovascular: Reports: No Symptoms Gastrointestinal: Reports: No Symptoms Genitourinary: Reports: No Symptoms Musculoskeletal: Reports: No Symptoms Neurological: Reports: No Symptoms - Patient Data Vitals - Most Recent: Last Vital Signs Temp 98.1 F 06/23/17 00:04 Pulse 83 06/23/17 08:00 Resp 16 06/23/17 00:04 BP 151/99 H 06/23/17 08:00 Pulse Ox 96 06/23/17 08:26 Weight - Most Recent: 285 lb 3.2 oz I&O - Last 24 hours: Intake & Output 06/22/17 06/23/17 06/23/17 22:59 06:59 14:59 Intake Total 1320 800 Output Total 200 1500 Balance 1120 -700 Med Orders - Current: Current Medications Acetaminophen (Tylenol) 650 mg PO Q4H PRN PRN Reason: Pain (Mild 1-3)/fever Hydrocodone Bitart/Acetaminophen ([place] 325-10 Mg) 1 tab PO Q4H PRN PRN Reason: Pain (moderate 3-7) Last Admin: 06/22/17 19:06 Dose: 1 tab Albuterol (Proventil Neb Soln) 1.25 mg NEB Q4HRRT PRN PRN Reason: SOB/wheezing Albuterol (Proventil Hfa) 0 gm INH Q4H PRN PRN Reason: Shortness of Breath Albuterol/Ipratropium (Duoneb 3.0-0.5 Mg/3 Ml) 3 ml NEB Q4H PRN PRN Reason: Shortness Of Breath/wheezing Last Admin: 06/18/17 15:17 Dose: 3 ml Allopurinol (Zyloprim) 300 mg PO DAILY PENDING SALE TO [facility] Last Admin: 06/23/17 08:00 Dose: 300 mg Apixaban (Eliquis) 5 mg PO BID PENDING S[facility] TO [facility] Last Admin: 06/23/17 08:00 Dose: 5 mg Chlordiazepoxide HCl (Librium) 25 mg PO TID PENDING S[facility] Last Admin: 06/23/17 08:00 Dose: 25 mg Citalopram Hydrobromide (Celexa) 40 mg PO DAILY PENDING SALE TO [facility] Last Admin: 06/23/17 08:01 Dose: 40 mg Clonidine HCl (Catapres) 0.1 mg PO Q4H PRN PRN Reason: Agitation Doxazosin Mesylate (Cardura) 2 mg PO BEDTIME PENDING SALE TO [facility] Last Admin: 06/22/17 23:26 Dose: 2 mg Folic Acid (Folic Acid) 1 mg PO DAILY PENDING SALE TO [facility] Last Admin: 06/23/17 08:01 Dose: 1 mg Furosemide (Lasix) 40 mg PO BIDDIURETIC PENDING SALE TO [facility] Last Admin: 06/23/17 06:20 Dose: 40 mg Gabapentin (Neurontin) 1,200 mg PO TID PENDING SALE [facility] Last Admin: 06/23/17 08:00 Dose: 1,200 mg Hydralazine HCl (Apresoline) 20 mg IVPUSH Q4H PRN PRN Reason: Hypertension Last Admin: 06/21/17 05:39 Dose: 20 mg Lorazepam (Ativan) 2 mg IVPUSH Q4H PRN PRN Reason: Seizures Lorazepam (Ativan) 0 mg IVPUSH Q1H PRN; Protocol PRN Reason: withdrawl Last Admin: 06/23/17 02:13 Dose: 1 mg Lorazepam (Ativan) 1 mg IVPUSH Q4H PRN PRN Reason: Anxiety Last Admin: 06/21/17 12:52 Dose: 1 mg Lorazepam (Ativan) 2 mg IVPUSH Q4H PRN PRN Reason: Seizures Metoprolol Tartrate (Lopressor) 5 mg IVPUSH Q4H PRN PRN Reason: Tachycardia Last Admin: 06/20/17 18:51 Dose: 5 mg Metoprolol Tartrate (Lopressor) 50 mg PO Q12HR PENDING SALE TO [facility] Last Admin: 06/23/17 08:00 Dose: 50 mg Miscellaneous Information (Remove Patch) 1 ea TRDERM Q7D PENDING SALE TO [facility] Mometasone Furoate/Formoterol Fumar (Dulera 200-5 Mcg) 0 puff IH BID PENDING SALE TO [facility] Last Admin: 06/23/17 08:25 Dose: 2 puff Multivitamins (Thera) 1 each PO DAILY PENDING SALE TO [facility] Last Admin: 06/23/17 08:00 Dose: 1 each Nitroglycerin (Nitrostat) 0.4 mg SL Q5M PRN PRN Reason: Chest Pain Ondansetron HCl (Zofran Odt) 4 mg PO Q6H PRN PRN Reason: nausea, able to take PO Ondansetron HCl (Zofran) 4 mg IV Q6H PRN PRN Reason: Nausea/Vomiting Last Admin: 06/20/17 18:48 Dose: 4 mg Pantoprazole Sodium (Protonix) 40 mg PO ACBREAKFAST PENDING SALE TO [facility] Last Admin: 06/23/17 06:20 Dose: 40 mg Quetiapine Fumarate (Seroquel) 75 mg PO BEDTIME PENDING SALE TO [facility] Last Admin: 06/22/17 21:48 Dose: 75 mg Temazepam (Restoril) 15 mg PO BEDTIME PRN PRN Reason: Sleep Last Admin: 06/22/17 21:49 Dose: 15 mg Thiamine HCl (Vitamin B-1) 100 mg PO DAILY PENDING SALE TO [facility] Last Admin: 06/23/17 08:00 Dose: 100 mg Topiramate (Topamax) 25 mg PO BID PENDING SALE TO [facility] Last Admin: 06/23/17 08:00 Dose: 25 mg Discontinued Medications Aspirin (Aspirin) 162 mg PO DAILY PENDING SALE TO [facility] Last Admin: 06/19/17 12:12 Dose: Not Given Chlordiazepoxide HCl (Librium) 100 mg PO ONETIME ONE Stop: 06/18/17 08:14 Last Admin: 06/18/17 08:22 Dose: 100 mg Chlordiazepoxide HCl (Librium) 25 mg PO Q8H PRN PRN Reason: Withdrawal Symptoms Last Admin: 06/19/17 10:20 Dose: 25 mg Chlordiazepoxide HCl (Librium) 50 mg PO ONETIME ONE Stop: 06/20/17 17:13 Last Admin: 06/20/17 17:32 Dose: 50 mg Clonidine HCl (Catapres Tts-2) 0.2 mg TRDERM ONETIME ONE Stop: 06/18/17 04:46 Last Admin: 06/18/17 04:53 Dose: 0.2 mg Clonidine HCl (Catapres) 0.2 mg PO ONETIME ONE Stop: 06/18/17 08:12 Last Admin: 06/18/17 08:23 Dose: 0.2 mg Folic Acid (Folic Acid) 1 mg PO DAILY MASOUD Last Admin: 06/21/17 08:48 Dose: Not Given Furosemide (Lasix) 40 mg PO BIDDIURETIC MASOUD Last Admin: 06/18/17 06:37 Dose: 40 mg Furosemide (Lasix) 10 mg IVPUSH NOW ONE Stop: 06/18/17 04:41 Last Admin: 06/18/17 04:55 Dose: 10 mg Furosemide (Lasix) 40 mg PO BID MASOUD Last Admin: 06/22/17 21:46 Dose: Not Given Hydralazine HCl (Apresoline) 10 mg IVPUSH Q6H PRN PRN Reason: Hypertension Last Admin: 06/18/17 06:29 Dose: 10 mg Sodium Chloride (Normal Saline) 1,000 mls @ 999 mls/hr IV ONETIME ONE Stop: 06/17/17 18:02 Last Admin: 06/17/17 17:34 Dose: 999 mls/hr Sodium Chloride (Normal Saline) 1,000 mls @ 250 mls/hr IV ONETIME ONE Stop: 06/17/17 22:59 Last Admin: 06/17/17 19:09 Dose: 250 mls/hr Sodium Chloride (Normal Saline) 1,000 mls @ 250 mls/hr IV ASDIRECTED MASOUD Stop: 06/19/17 03:14 Last Admin: 06/18/17 03:19 Dose: 250 mls/hr Sodium Chloride (Normal Saline) 1,000 mls @ 125 mls/hr IV ASDIRECTED PENDING SALE TO [facility] Last Admin: 06/18/17 21:31 Dose: 75 mls/hr Magnesium Sulfate 2 gm/ Premix 50 mls @ 25 mls/hr IV ONETIME ONE Stop: 06/18/17 15:28 Last Admin: 06/18/17 13:51 Dose: 25 mls/hr Sodium Chloride (Normal Saline) 1,000 mls @ 75 mls/hr IV ASDIRECTED PENDING SALE TO [facility] Last Admin: 06/20/17 04:53 Dose: 75 mls/hr Magnesium Sulfate 2 gm/ Premix 50 mls @ 25 mls/hr IV ONETIME ONE Stop: 06/19/17 13:38 Last Admin: 06/19/17 12:08 Dose: 25 mls/hr Lorazepam (Ativan) 1 mg IVPUSH ONETIME ONE Stop: 06/17/17 17:03 Last Admin: 06/17/17 17:33 Dose: 1 mg Metoprolol Tartrate (Lopressor) 5 mg IVPUSH Q4H PRN PRN Reason: Tachycardia Last Admin: 06/18/17 08:58 Dose: 5 mg Metoprolol Tartrate (Lopressor) 25 mg PO Q12HR PENDING SALE TO [facility] Non-Formulary Medication (Metoprolol Succinate) 100 mg PO DAILY PENDING SALE TO [facility] Last Admin: 06/19/17 12:12 Dose: Not Given Pneumococcal Polyvalent Vaccine (Pneumovax 23) 0.5 ml IM .ONCE ONE Stop: 06/17/17 20:20 Last Admin: 06/17/17 21:05 Dose: Not Given Potassium Chloride (Klor-Con M20) 40 meq PO BID PENDING SALE TO [facility] Stop: 06/20/17 21:01 Last Admin: 06/20/17 20:57 Dose: 40 meq Quetiapine Fumarate (Seroquel) 50 mg PO BEDTIME ONE Stop: 06/17/17 21:01 Last Admin: 06/17/17 21:05 Dose: 50 mg Quetiapine Fumarate (Seroquel) 25 mg PO BEDTIME PENDING SALE TO [facility] Last Admin: 06/20/17 20:56 Dose: 25 mg Quetiapine Fumarate (Seroquel) 25 mg PO ONETIME ONE Stop: 06/18/17 08:14 Last Admin: 06/18/17 08:23 Dose: 25 mg Quetiapine Fumarate (Seroquel) 25 mg PO DAILY PENDING SALE TO [facility] Last Admin: 06/21/17 08:47 Dose: 25 mg Thiamine HCl (Vitamin B-1) 100 mg PO BEDTIME PENDING SALE TO [facility] Topiramate (Topamax) 50 mg PO BEDTIME ONE Stop: 06/17/17 21:01 Last Admin: 06/17/17 21:04 Dose: 50 mg - Exam Quality Assessment: Reports: DVT Prophylaxis General: Reports: Alert, Cooperative, No Acute Distress HEENT: Reports: Pupils Equal, EOMI, Mucous Membr. Moist/[place] Neck: Reports: Supple Lungs: Reports: Clear to Auscultation, Normal Respiratory Effort, Decreased Breath Sounds (bases) Cardiovascular: Reports: Regular Rate, Regular Rhythm GI/Abdominal Exam: Normal Bowel Sounds, Soft, Non-Tender (Male) Exam: Deferred Rectal (Males) Exam: Deferred Back Exam: Reports: Normal Inspection Extremities: No Pedal Edema, Normal Capillary Refill Neurological: Reports: No New Focal Deficit Psy/Mental Status: Reports: Alert, Normal Affect, Normal Mood *Q Meaningful Use (DIS) - VTE *Q VTE Criteria *Q: - Stroke *Q Stroke Criteria *Q: - AMI *Q AMI Criteria *Q:
[2017-06-25] MEDS ORDERED: cloNIDine 0.2 MG/Day Transdermal Patch TRDERM SCH (08:00)
== END 2017-06-23 13:13 | DRG 897 ==
LOC: SUPCPDRO 16:35 → JD.ED 16:35 → JD.ICU 19:38 → JD.MS 06-21 09:53
PROVIDERS: ADMIT Internal Medicine; ATTEND Internal Medicine
PROC: HZ2ZZZZ Detoxification Services for Substance Abuse Treatment (ICD-10-PCS; principal; 2017-06-17)
DX: F10.231 Alcohol dependence with withdrawal delirium (principal); R45.851 Suicidal ideations; F32.2 Major depressive disorder, single episode, severe without psychotic features; F13.20 Sedative, hypnotic or anxiolytic dependence, uncomplicated; F11.20 Opioid dependence, uncomplicated; F15.20 Other stimulant dependence, uncomplicated; Y90.1 Blood alcohol level of 20-39 mg/100 ml; R79.89 Other specified abnormal findings of blood chemistry; I10 Essential (primary) hypertension; K21.9 Gastro-esophageal reflux disease without esophagitis; G89.29 Other chronic pain; M54.9 Dorsalgia, unspecified; F41.9 Anxiety disorder, unspecified; G62.9 Polyneuropathy, unspecified; N42.9 Disorder of prostate, unspecified; Z87.891 Personal history of nicotine dependence; G47.30 Sleep apnea, unspecified; J44.9 Chronic obstructive pulmonary disease, unspecified; D69.6 Thrombocytopenia, unspecified; M10.9 Gout, unspecified; F10.239 Alcohol dependence with withdrawal, unspecified; D53.9 Nutritional anemia, unspecified; R74.0 Nonspecific elevation of levels of transaminase and lactic acid dehydrogenase [LDH]; H54.7 Unspecified visual loss; Z79.01 Long term (current) use of anticoagulants; Z79.82 Long term (current) use of aspirin; Z79.899 Other long term (current) drug therapy
CPT/HCPCS: 36415; 80048; 80053; 80076; 80306; 81001; 83735; 84443; 85025; 93005; 93010; 94640; 94664; 94760; 94761; 96360; 96361; 96372; 99223; 99231; 99232; 99239; 99284; 99285-25; A9270-GY; G0480; J0360; J2060; J2405; J3475; J3490; J7040

== ENCOUNTER 2018-08-01 17:00 | Inpatient (IN) | payer OTHER ==
[2018-08-01] MEDS ORDERED: Sodium Chloride 0.9% 10 ML Syringe FLUSH PRN (17:32)
[2018-08-01] MEDS ORDERED: Sodium Chloride 0.9% 1,000 ML IV SCH (17:45)
[2018-08-01] MEDS ORDERED: LORazepam 2 MG/ML SDV IVPUSH ONE (18:45)
--- NOTE | 2018-08-01 18:48 | EDM.PDOCBH ---
ED HPI GENERAL MEDICAL PROBLEM - General Chief Complaint: Drug or Alcohol Abuse Stated Complaint: INTOXICATED AND WANTS TO DETOX Time Seen by Provider: 08/01/18 17:21 Source of Information: Reports: Patient, Family History Limitations: Reports: Intoxication - History of Present Illness INITIAL COMMENTS - FREE TEXT/NARRATIVE: The patient is brought by his son and daughter in law for detox. The patient is an alcoholic and he has been drinking heavily for the past 3 months. He has been drinking beer and whiskey. He last drank a few hours ago. He was sober for 10 months after he was admitted back in June in our ICU and detoxed and then he went to [place]. He has some nausea. He says he has some chest pain but no shortness of breath. He has no cough or fever. He has no diarrhea. His son is his power of regulatory attorney and he knows the patient needs help and wants to get him help. The patient is shaking. Onset: Gradual Duration: Week(s): Location: Reports: Chest Quality: Reports: Sharp Severity: Mild Improves with: Reports: None Worsens with: Reports: None Associated Symptoms: Reports: Chest Pain, Nausea/Vomiting. Denies: Fever/Chills , Headaches, Shortness of Breath - Related Data Allergies Allergy/AdvReac Type Severity Reaction Status Date / Time No Known Allergies Allergy Verified 08/01/18 17:14 Home Meds: Home Meds Albuterol [Ventolin HFA] 2 puff IH Q4H PRN 04/14/17 [History] Allopurinol [Zyloprim] 300 mg PO DAILY 04/14/17 [History] Apixaban [Eliquis] 5 mg PO BID 04/14/17 [History] Aspirin 162 mg PO DAILY 04/14/17 [History] Calcium Citrate/Vitamin D3 [Calcium Citrate-Vit D3 Caplet] 3 tab PO DAILY [History] Doxazosin [Cardura] 2 mg PO BEDTIME 04/14/17 [History] Escitalopram [Lexapro] 20 mg PO DAILY 04/14/17 [History] Fluticasone/Vilanterol [Breo Ellipta 200-25 Mcg INH] 1 puff IH DAILY 04/14/17 [ History] Folic Acid 1 mg PO DAILY 04/14/17 [History] Furosemide [Lasix] 40 mg PO BID 04/14/17 [History] Gabapentin [Neurontin] 1,200 mg PO TID 04/14/17 [History] Metoprolol Succinate 100 mg PO DAILY 04/14/17 [History] Nitroglycerin [Nitrostat] 0.4 mg SL Q5M PRN 04/14/17 [History] Omeprazole 20 mg PO DAILY 04/14/17 [History] Thiamine Mononitrate [Vitamin B-1] 100 mg PO BEDTIME 04/14/17 [History] Multivitamins,Therapeutic [Thera] 1 each PO DAILY #30 tablet 06/23/17 [Rx] QUEtiapine [SEROquel] 75 mg PO BEDTIME #30 tablet 06/23/17 [Rx] Thiamine [Vitamin B-1] 100 mg PO DAILY #30 tablet 06/23/17 [Rx] Past Medical History HEENT History: Reports: Impaired Vision Cardiovascular History: Reports: Hypertension Respiratory History: Reports: Asthma Gastrointestinal History: Reports: GERD, Hemorrhoids Genitourinary History: Reports: Prostate Disorder Musculoskeletal History: Reports: Back Pain, Chronic, Gout, Other (See Below) Other Musculoskeletal History: neuropathy Psychiatric History: Reports: Anxiety - Past Surgical History GI Surgical History: Reports: Bariatric Procedure, Colonoscopy, Polypectomy Social & Family History - Family History Family Medical History: Noncontributory - Tobacco Use Smoking Status *Q: Never Smoker - Caffeine Use Caffeine Use: Reports: None - Alcohol Use Days Per Week of Alcohol Use: 7 Number of Drinks Per Day: 12 Total Drinks Per Week: 84 - Recreational Drug Use Recreational Drug Use: No - Living Situation & Occupation Living situation: Reports: Single Occupation: Employed ED ROS GENERAL - Review of Systems Review Of Systems: See Below Constitutional: Reports: No Symptoms HEENT: Reports: No Symptoms Respiratory: Reports: No Symptoms Cardiovascular: Reports: Chest Pain Endocrine: Reports: No Symptoms GI/Abdominal: Reports: Nausea, Vomiting. Denies: Abdominal Pain : Reports: No Symptoms Musculoskeletal: Reports: No Symptoms Neurological: Reports: Other (shaking) ED EXAM, BEHAVIORAL HEALTH - Physical Exam Exam: See Below Exam Limited By: Intoxication General Appearance: Alert Ears: Normal External Exam Nose: Normal Inspection Head: Atraumatic, Normocephalic Neck: Normal Inspection Respiratory/Chest: No Respiratory Distress, Lungs Clear, Normal Breath Sounds Cardiovascular: Regular Rate, Rhythm, No Edema, No Murmur GI/Abdominal: Soft, Non-Tender, No Organomegaly, No Mass Back Exam: Normal Inspection Extremities: Normal Inspection Neurological: Alert, Other (slurred speech and shaking) COURSE, BEHAVIORAL HEALTH COMP - Course Vital Signs: Last Vital Signs Temp 97.8 F 08/01/18 17:11 Pulse 96 08/01/18 17:11 Resp 16 08/01/18 17:11 BP 186/113 H 08/01/18 17:11 Pulse Ox 96 08/01/18 17:11 Orders, Labs, Meds: Active Orders 24 hr Category Date Time Status Cardiac Monitoring [RC] . DIRECTED Care 08/01/18 17:32 Active EKG Documentation Completion [RC] STAT Care 08/01/18 17:33 Active Peripheral IV Care [RC] . DIRECTED Care 08/01/18 17:33 Active Chest 1V Frontal [CR] Stat Exams 08/01/18 17:33 Taken DRUG SCREEN, URINE [URCHEM] Stat Lab 08/01/18 18:11 Received Sodium Chloride 0.9% [Normal Saline] 1,000 ml Med 08/01/18 17:45 Active IV .BOLUS Sodium Chloride 0.9% [Saline Flush] Med 08/01/18 17:32 Active 10 ml FLUSH ASDIRECTED PRN Peripheral IV Insertion Adult [OM.PC] Stat Oth 08/01/18 17:32 Ordered Medication Orders Sodium Chloride (Normal Saline) 1,000 mls @ 1,000 mls/hr IV .BOLUS MASOUD Last Admin: 08/01/18 17:50 Dose: 1,000 mls/hr Sodium Chloride (Saline Flush) 10 ml FLUSH ASDIRECTED PRN PRN Reason: Keep Vein Open Last Admin: 08/01/18 17:49 Dose: 10 ml Laboratory Tests 08/01/18 08/01/18 08/01/18 Range/Units 17:35 17:35 17:35 WBC 6.29 (4.23-9.07) K/mm3 RBC 4.32 L (4.63-6.08) M/mm3 Hgb 15.7 (13.7-17.5) gm/L Hct 44.0 (40.1-51.0) % MCV 101.9 H (79.0-92.2) fl MCH 36.3 H (25.7-32.2) pg MCHC 35.7 H (32.2-35.5) g/dl RDW Std Deviation 52.5 H (35.1-43.9) fL Plt Count 120 L (163-337) K/mm3 MPV 10.2 (9.4-12.3) fl Neut % (Auto) 63.0 (34.0-67.9) % Lymph % (Auto) 22.1 (21.8-53.1) % [place] % (Auto) 9.1 (5.3-12.2) % Eos % (Auto) 4.9 (0.8-7.0) Baso % (Auto) 0.6 (0.1-1.2) % Neut # (Auto) 3.96 (1.78-5.38) K/mm3 Lymph # (Auto) 1.39 (1.32-3.57) K/mm3 [place] # (Auto) 0.57 (0.30-0.82) K/mm3 Eos # (Auto) 0.31 (0.04-0.54) K/mm3 Baso # (Auto) 0.04 (0.01-0.08) K/mm3 Manual Slide Review Abnormal smear Sodium 138 (136-145) mEq/L Potassium 4.8 (3.5-5.1) mEq/L Chloride 97 L (98-107) mEq/L Carbon Dioxide 23 (21-32) mEq/L Anion Gap 22.8 H (5-15) BUN 14 (7-18) mg/dL Creatinine 1.2 (0.7-1.3) mg/dL Est Cr Clr Drug Dosing 69.16 mL/min Estimated GFR (MDRD) > 60 (>60) mL/min BUN/Creatinine Ratio 11.7 L (14-18) Glucose 113 (80-115) mg/dL Calcium 9.2 (8.5-10.1) mg/dL Total Bilirubin 0.7 (0.2-1.0) mg/dL AST 132 H (15-37) U/L ALT 96 H (16-63) U/L Alkaline Phosphatase 70 (46-116) U/L Troponin I < 0.017 (0.00-0.056) ng/mL Total Protein 7.5 (6.4-8.2) g/dl Albumin 3.6 (3.4-5.0) g/dl Globulin 3.9 gm/dL Albumin/Globulin Ratio 0.9 L (1-2) Lipase 343 (73-393) U/L Ethyl Alcohol 0.28 (0.00) gm% Medications Generic Name Dose Route Start Last Admin Trade Name Freq PRN Reason Stop Dose Admin Sodium Chloride 1,000 mls @ 1,000 mls/hr 08/01/18 17:45 08/01/18 17:50 Normal Saline IV 1,000 mls/hr .BOLUS MASOUD Administration Sodium Chloride 10 ml 08/01/18 17:32 08/01/18 17:49 Saline Flush FLUSH 10 ml ASDIRECTED PRN Administration Keep Vein Open Re-Assessment/Re-Exam: I ordered an IV NS 1L bolus, zofran 4mg IV, EKG, CXR, labs. His EKG shows a NSR with no acute changes. His CXR looks good. His CBC looks good. His anion gap is elevate at 22.8. His AST is elevated at 132. His ALT is elevated at 96. His troponin is negative. His lipase is normal. His blood alcohol is elevated at 0.28. His is shaking so I gave him ativan 0.5mg IV. I feel he needs to be admitted. I called Dr Renee and he agreed to the admission to ICU. Departure - Departure Time of Disposition: 18:55 Disposition: Admitted As Inpatient 65 Condition: Serious Clinical Impression: Atypical chest pain, Elevated LFTs Alcohol dependence syndrome Qualifiers: Substance use status: with intoxication Complication of substance-induced condition: with unspecified complication Qualified Code(s): F10.229 - Alcohol dependence with intoxication, unspecified Alcohol withdrawal syndrome Qualifiers: Complication of substance-induced condition: with unspecified complication Qualified Code(s): F10.239 - Alcohol dependence with withdrawal, unspecified - Discharge Information Referrals: Amalia Guillen NP [Primary Care Provider] - - My Orders Last 24 Hours: My Active Orders 08/01/18 17:32 Cardiac Monitoring [RC] . DIRECTED Sodium Chloride 0.9% [Saline Flush] 10 ml FLUSH ASDIRECTED PRN Peripheral IV Insertion Adult [OM.PC] Stat 08/01/18 17:33 EKG Documentation Completion [RC] STAT Peripheral IV Care [RC] . DIRECTED Chest 1V Frontal [CR] Stat 08/01/18 17:45 Sodium Chloride 0.9% [Normal Saline] 1,000 ml IV .BOLUS 08/01/18 18:11 DRUG SCREEN, URINE [URCHEM] Stat - Assessment/Plan Last 24 Hours: My Active Orders 08/01/18 17:32 Cardiac Monitoring [RC] . DIRECTED Sodium Chloride 0.9% [Saline Flush] 10 ml FLUSH ASDIRECTED PRN Peripheral IV Insertion Adult [OM.PC] Stat 08/01/18 17:33 EKG Documentation Completion [RC] STAT Peripheral IV Care [RC] . DIRECTED Chest 1V Frontal [CR] Stat 08/01/18 17:45 Sodium Chloride 0.9% [Normal Saline] 1,000 ml IV .BOLUS 08/01/18 18:11 DRUG SCREEN, URINE [URCHEM] Stat
[2018-08-01] MEDS ORDERED: Ondansetron 4 MG/2 ML SDV IV PRN (20:25)
[2018-08-01] MEDS ORDERED: Bisacodyl 5 MG Tab PO PRN (20:25)
[2018-08-01] MEDS ORDERED: Albuterol/Ipratropium 3.0-0.5 MG/3 ML Neb Soln NEB PRN (20:25)
[2018-08-01] MEDS ORDERED: Metoprolol Tartrate 5 MG/5 ML SDV IVPUSH PRN (20:25)
[2018-08-01] MEDS ORDERED: Haloperidol Lactate 5 MG/ML SDV IM PRN (20:25)
[2018-08-01] MEDS ORDERED: Docusate Sodium 100 MG Cap PO PRN (20:25)
[2018-08-01] MEDS ORDERED: Thiamine 100 MG in Sodium Chloride 0.9% 50 ML IV ONE (20:25)
[2018-08-01] MEDS ORDERED: LORazepam 2 MG/ML SDV IVPUSH PRN (20:25)
[2018-08-01] MEDS ORDERED: Polyethylene Glycol 3350 Powder 17 GM Packet PO PRN (20:25)
[2018-08-01] MEDS ORDERED: cloNIDine 0.1 MG Tab PO PRN (20:25)
[2018-08-01] MEDS ORDERED: diphenhydrAMINE 50 MG/ML SDV IVPUSH ONE ×2 (20:34→20:58)
[2018-08-01] MEDS ORDERED: Labetalol 100 MG/20 ML MDV IVPUSH ONE (20:50)
[2018-08-01] MEDS ORDERED: Scopolamine 1.5 MG Transdermal Patch TRDERM ONE (20:58)
[2018-08-01] MEDS ORDERED: Topiramate 25 MG Tab PO SCH (21:00)
[2018-08-01] MEDS: HYDROmorphone 1 MG/ML Syringe IVPUSH PRN (21:04)
[2018-08-01] MEDS ORDERED: Thiamine 100 MG in Sodium Chloride 0.9% 100 ML IV ONE (21:15)
[2018-08-01] MEDS: chlordiazePOXIDE 25 MG Cap PO PRN (21:23)
[2018-08-01] MEDS: QUEtiapine 25 MG Tab PO SCH (21:24)
[2018-08-01] MEDS: hydrALAZINE 20 MG/ML SDV IVPUSH PRN (21:35)
--- NOTE | 2018-08-01 21:37 | PCM.SN ---
- Free Text/Narrative Note: Briefly seen and examined with son and son's girlfriend at bedside. He was sober for 8-10 months and did not start drinking until 3 months ago. He usually drinks 1 case of beer and 1L of whiskey a day. He lives with a roommate who is his enabler and recently another son from [place] who briefly visit to stay with him. He denies any auditory or visual hallucinations. His CIWAA score is 13 in the unit.
[2018-08-01] MEDS: NS + KCl 20mEq/L 1,000 ML IV SCH (22:25)
[2018-08-02] MEDS: LORazepam 2 MG/ML SDV IV PRN ×8 (00:27→18:45)
[2018-08-02] MEDS ORDERED: Pantoprazole 40 MG Vial IV ONE ×2 (00:33→20:25)
[2018-08-02] MEDS: hydrALAZINE 20 MG/ML SDV IVPUSH PRN ×2 (04:42→20:25)
[2018-08-02] MEDS: HYDROmorphone 1 MG/ML Syringe IVPUSH PRN ×2 (05:08→10:36)
[2018-08-02] MEDS: chlordiazePOXIDE 25 MG Cap PO PRN (05:13)
--- NOTE | 2018-08-02 06:32 | CR ---
Chest: Portable view of the chest was obtained. Comparison: Prior chest x-ray of 02/02/17. Stable nodule within the left lung is seen. No acute parenchymal change is appreciated. Heart is slightly enlarged. Tortuous thoracic aorta is seen. Bony structures are grossly intact. Incidentally noted are several old healed left-sided rib fractures. Impression: 1. Stable findings as noted above. Nothing acute is seen on portable chest x-ray. Diagnostic code #2
[2018-08-02] MEDS: NS + KCl 20mEq/L 1,000 ML IV SCH ×3 (06:41→23:04)
--- NOTE | 2018-08-02 06:52 | PCM.HP ---
H&P History of Present Illness - General Date of Service: 08/02/18 Admit Problem/Dx: Admission Diagnosis/Problem Admission Diagnosis/Problem Alcohol withdrawal syndrome Source of Information: Patient, Family, Old Records, Provider, RN Notes Reviewed History Limitations: Reports: Altered Mental Status, Intoxication, Other ( Withdrawal Symptoms) - History of Present Illness Initial Comments - Free Text/Narative: This is a 62 yo white male with past medical hx/o ETOH Use/Dependence, HTN, Asthma, GERD, Prostate Disorder, Back Pain, Gout, Peripheral Neuropathy, Anxiety , and Class II Obese who was brought in by his son and son's girlfriend for alcohol detoxification. He is a known alcoholic and has been heavily drinking for the past 3 months. No clear trigger for the acute onset but he has a room mate who drinks considerable amount of alcohol like him. His other son from [place] who also drinks alcohol, further fuels his alcoholism. He states, he has been sober for the past 8-10 months after his treatment in [place] in June last year for similar chief of complaint. According to his son he drinks a liter of whiskey and a case of beer daily. He also has a court hearing scheduled at the end of next month for DWI. Patient did report nausea, epigastric pain but no shortness of breath or chest pain. He denies any fever, or signs of systemic infection. However on presentation he exhibited significant tremors as well as profound sweating. His initial work up in ED shows a CBC remarkable for RBC of 4.32, MCV of 101.9, MCH of 36.9, MCHC of 35.7, RDW of 52.5, and Platelet of 120. His Chemistry is significant for Cl of 97, AG of 22.8, AST of 132, and ALT of 96. His Troponin and Lipase are wnl. His UDS are positive for Benzo and Opiates, likely consistent with medications he received in ED for initial treatment. Patient was admitted last night for alcohol withdrawal symptoms. He is full code. Abdomen Pain Score (Numeric/FACES): 10 - Related Data Allergies/Adverse Reactions: Allergies Allergy/AdvReac Type Severity Reaction Status Date / Time No Known Allergies Allergy Verified 08/01/18 22:22 Home Medications: Home Meds Albuterol [Ventolin HFA] 2 puff IH Q4H PRN 04/14/17 [History] Allopurinol [Zyloprim] 300 mg PO DAILY 04/14/17 [History] Apixaban [Eliquis] 5 mg PO BID 04/14/17 [History] Aspirin 162 mg PO DAILY 04/14/17 [History] Calcium Citrate/Vitamin D3 [Calcium Citrate-Vit D3 Caplet] 3 tab PO DAILY [History] Doxazosin [Cardura] 2 mg PO BEDTIME 04/14/17 [History] Escitalopram [Lexapro] 20 mg PO DAILY 04/14/17 [History] Fluticasone/Vilanterol [Breo Ellipta 200-25 Mcg INH] 1 puff IH DAILY 04/14/17 [ History] Folic Acid 1 mg PO DAILY 04/14/17 [History] Furosemide [Lasix] 40 mg PO BID 04/14/17 [History] Gabapentin [Neurontin] 1,200 mg PO TID 04/14/17 [History] Metoprolol Succinate 100 mg PO DAILY 04/14/17 [History] Nitroglycerin [Nitrostat] 0.4 mg SL Q5M PRN 04/14/17 [History] Omeprazole 20 mg PO DAILY 04/14/17 [History] Thiamine Mononitrate [Vitamin B-1] 100 mg PO BEDTIME 04/14/17 [History] Multivitamins,Therapeutic [Thera] 1 each PO DAILY #30 tablet 06/23/17 [Rx] QUEtiapine [SEROquel] 75 mg PO BEDTIME #30 tablet 06/23/17 [Rx] Thiamine [Vitamin B-1] 100 mg PO DAILY #30 tablet 06/23/17 [Rx] Past Medical History HEENT History: Reports: Impaired Vision Cardiovascular History: Reports: Hypertension Respiratory History: Reports: Asthma Gastrointestinal History: Reports: GERD, Hemorrhoids Genitourinary History: Reports: Prostate Disorder Musculoskeletal History: Reports: Back Pain, Chronic, Gout, Other (See Below) Other Musculoskeletal History: neuropathy Neurological History: Reports: Other (See Below) Other Neuro History: neuropathy Psychiatric History: Reports: Anxiety - Past Surgical History HEENT Surgical History: Reports: Other (See Below) Other HEENT Surgeries/Procedures: missing teeth GI Surgical History: Reports: Bariatric Procedure, Colonoscopy, Polypectomy Social & Family History - Family History Family Medical History: Noncontributory - Tobacco Use Smoking Status *Q: Former Smoker Years of Tobacco use: 35 Used Tobacco, but Quit: Yes Month/Year Tobacco Last Used: 05/1979 Second Hand Smoke Exposure: No - Caffeine Use Caffeine Use: Reports: None - Alcohol Use Days Per Week of Alcohol Use: 7 Number of Drinks Per Day: 10 Total Drinks Per Week: 70 Date of Last Drink: 07/31/18 Time of Last Drink: 09:00 - Recreational Drug Use Recreational Drug Use: No - Living Situation & Occupation Living situation: Reports: Single Occupation: Employed H&P Review of Systems - Review of Systems: Review Of Systems: See Below General: Denies: Fever, Chills, Malaise, Weakness, Fatigue HEENT: Reports: No Symptoms Pulmonary: Denies: Shortness of Breath Cardiovascular: Denies: Chest Pain, Dyspnea on Exertion, Lightheadedness Gastrointestinal: Denies: Abdominal Pain, Nausea, Vomiting Genitourinary: Denies: No Symptoms, Frequency Musculoskeletal: Reports: No Symptoms Skin: Denies: Cyanosis, Mottled, Pallor, Diaphoresis, Bruising, Erythema Psychiatric: Denies: Confusion Neurological: Reports: Gait Disturbance. Denies: Confusion Hematologic/Lymphatic: Reports: No Symptoms Immunologic: Reports: No Symptoms Exam - Exam Exam: See Below - Vital Signs Vital Signs: Last Vital Signs Temp 36.9 C 08/02/18 04:00 Pulse 83 08/02/18 04:38 Resp 18 08/02/18 04:00 BP 154/99 H 08/02/18 05:56 Pulse Ox 97 08/02/18 05:56 Weight: 123.286 kg - Exam General: Alert, Oriented, Cooperative, Other (Obese) HEENT: Conjunctiva Clear, EACs Clear, EOMI, Hearing Intact, Mucosa Moist & [place] , Nares Patent, Normal Nasal Septum, Posterior Pharynx Clear, Pupils Equal, Pupils Reactive Neck: Supple, Trachea Midline Lungs: Normal Respiratory Effort, Decreased Breath Sounds Cardiovascular: Regular Rhythm, Tachycardia GI/Abdominal Exam: Normal Bowel Sounds, Soft, Non-Tender, No Organomegaly, No Distention, No Abnormal Bruit, Other (Obese) (Male) Exam: Deferred Rectal (Males) Exam: Deferred Back Exam: Normal Inspection, Decreased Range of Motion Extremities: Normal Inspection, Normal Range of Motion, Non-Tender, No Pedal Edema, Normal Capillary Refill, Other (some skin tattoos) Peripheral Pulses: 3+: Posterior Tibial (L), Posterior Tibial (R), Dorsalis Pedis (L), Dorsalis Pedis (R) Skin: Warm, Dry, Intact Neuro Extensive - Mental Status: Oriented x3, Normal Cognition, Memory Intact Neuro Extensive - Motor, Sensory, Reflexes: CN II-XII Intact (limited due to tremors and sedatin but grossly intact), Abnormal Gait Psychiatric: Alert, Normal Affect, Anxious, Withdrawal Symptoms. No: Suicidal Ideation, Homicidal Ideation, Hallucinations - Patient Data Lab Results Last 24 hrs: Laboratory Results - last 24 hr 08/01/18 08/01/18 08/01/18 Range/Units 17:35 17:35 17:35 WBC 6.29 (4.23-9.07) K/mm3 RBC 4.32 L (4.63-6.08) M/mm3 Hgb 15.7 (13.7-17.5) gm/L Hct 44.0 (40.1-51.0) % MCV 101.9 H (79.0-92.2) fl MCH 36.3 H (25.7-32.2) pg MCHC 35.7 H (32.2-35.5) g/dl RDW Std Deviation 52.5 H (35.1-43.9) fL Plt Count 120 L (163-337) K/mm3 MPV 10.2 (9.4-12.3) fl Neut % (Auto) 63.0 (34.0-67.9) % Lymph % (Auto) 22.1 (21.8-53.1) % Bates % (Auto) 9.1 (5.3-12.2) % Eos % (Auto) 4.9 (0.8-7.0) Baso % (Auto) 0.6 (0.1-1.2) % Neut # (Auto) 3.96 (1.78-5.38) K/mm3 Lymph # (Auto) 1.39 (1.32-3.57) K/mm3 Bates # (Auto) 0.57 (0.30-0.82) K/mm3 Eos # (Auto) 0.31 (0.04-0.54) K/mm3 Baso # (Auto) 0.04 (0.01-0.08) K/mm3 Manual Slide Review Abnormal smear Sodium 138 (136-145) mEq/L Potassium 4.8 (3.5-5.1) mEq/L Chloride 97 L (98-107) mEq/L Carbon Dioxide 23 (21-32) mEq/L Anion Gap 22.8 H (5-15) BUN 14 (7-18) mg/dL Creatinine 1.2 (0.7-1.3) mg/dL Est Cr Clr Drug Dosing 69.16 mL/min Estimated GFR (MDRD) > 60 (>60) mL/min BUN/Creatinine Ratio 11.7 L (14-18) Glucose 113 (80-115) mg/dL Calcium 9.2 (8.5-10.1) mg/dL Total Bilirubin 0.7 (0.2-1.0) mg/dL AST 132 H (15-37) U/L ALT 96 H (16-63) U/L Alkaline Phosphatase 70 (46-116) U/L Troponin I < 0.017 (0.00-0.056) ng/mL Total Protein 7.5 (6.4-8.2) g/dl Albumin 3.6 (3.4-5.0) g/dl Globulin 3.9 gm/dL Albumin/Globulin Ratio 0.9 L (1-2) Lipase 343 (73-393) U/L Urine Opiates Screen (XYHWAY=320) Ur Buprenorphine Scrn (CUTOFF=10) Ur Oxycodone Screen (VLI5IL=515) Urine Methadone Screen (NXJ8ZR=250) Ur Propoxyphene Screen (JTOBOG=538) Ur Barbiturates Screen (LTNVVP=837) Ur Tricyclics Screen (EKRVXJ=098) Ur Phencyclidine Scrn (CUTOFF=25) Ur Amphetamine Screen (FYBCCN=167) U Methamphetamines Scrn (YYZGOQ=032) U Benzodiazepines Scrn (QFJVPK=637) U Cocaine Metab Screen (VKGRHE=836) U Marijuana (THC) Screen (CUTOFF=50) Ethyl Alcohol 0.28 (0.00) gm% 08/01/18 08/02/18 Range/Units 18:11 05:16 WBC 5.09 (4.23-9.07) K/mm3 RBC 4.41 L (4.63-6.08) M/mm3 Hgb 15.3 (13.7-17.5) gm/L Hct 45.5 (40.1-51.0) % MCV 103.2 H (79.0-92.2) fl MCH 34.7 H (25.7-32.2) pg MCHC 33.6 (32.2-35.5) g/dl RDW Std Deviation 52.2 H (35.1-43.9) fL Plt Count 105 L (163-337) K/mm3 MPV 10.9 (9.4-12.3) fl Neut % (Auto) 64.2 (34.0-67.9) % Lymph % (Auto) 22.8 (21.8-53.1) % Bates % (Auto) 10.8 (5.3-12.2) % Eos % (Auto) 1.6 (0.8-7.0) Baso % (Auto) 0.4 (0.1-1.2) % Neut # (Auto) 3.27 (1.78-5.38) K/mm3 Lymph # (Auto) 1.16 L (1.32-3.57) K/mm3 Bates # (Auto) 0.55 (0.30-0.82) K/mm3 Eos # (Auto) 0.08 (0.04-0.54) K/mm3 Baso # (Auto) 0.02 (0.01-0.08) K/mm3 Manual Slide Review Sodium (136-145) mEq/L Potassium (3.5-5.1) mEq/L Chloride (98-107) mEq/L Carbon Dioxide (21-32) mEq/L Anion Gap (5-15) BUN (7-18) mg/dL Creatinine (0.7-1.3) mg/dL Est Cr Clr Drug Dosing mL/min Estimated GFR (MDRD) (>60) mL/min BUN/Creatinine Ratio (14-18) Glucose (80-115) mg/dL Calcium (8.5-10.1) mg/dL Total Bilirubin (0.2-1.0) mg/dL AST (15-37) U/L ALT (16-63) U/L Alkaline Phosphatase (46-116) U/L Troponin I (0.00-0.056) ng/mL Total Protein (6.4-8.2) g/dl Albumin (3.4-5.0) g/dl Globulin gm/dL Albumin/Globulin Ratio (1-2) Lipase (73-393) U/L Urine Opiates Screen Presumptive positive H (FTSIPI=271) Ur Buprenorphine Scrn Negative (CUTOFF=10) Ur Oxycodone Screen Negative (AJA3ZC=237) Urine Methadone Screen Negative (GKI1PX=999) Ur Propoxyphene Screen Negative (FBRRTH=021) Ur Barbiturates Screen Negative (ITVGEP=038) Ur Tricyclics Screen Negative (HCVUXQ=814) Ur Phencyclidine Scrn Negative (CUTOFF=25) Ur Amphetamine Screen Negative (ILDLWT=387) U Methamphetamines Scrn Negative (AJTLQM=590) U Benzodiazepines Scrn Presumptive positive H (JZEHSC=178) U Cocaine Metab Screen Negative (YIUPNT=876) U Marijuana (THC) Screen Negative (CUTOFF=50) Ethyl Alcohol (0.00) gm% Result Diagrams: 08/02/18 05:16 08/02/18 05:16 Problem List Initiated/Reviewed/Updated: Yes Orders Last 24hrs: Active Orders 24 hr Category Date Time Status Patient Status [ADT] Routine ADT 08/01/18 18:48 Active Antiembolic Devices [RC] PER UNIT ROUTINE Care 08/01/18 20:28 Active CIWAA Assessment [RC] Q1HR Care 08/01/18 20:26 Active Cardiac Monitoring [RC] CONTINUOUS Care 08/01/18 20:26 Active Height and Weight [RC] 0400 Care 08/01/18 20:25 Active Intake and Output [RC] 04,16 Care 08/01/18 20:26 Active Notify Provider Consults [RC] ASDIRECTED Care 08/01/18 20:30 Active Notify Provider [RC] PRN Care 08/01/18 20:26 Active Oxygen Therapy [RC] PRN Care 08/01/18 20:26 Active RT Aerosol Therapy [RC] ASDIRECTED Care 08/01/18 20:28 Active Up With Assistance [RC] ASDIRECTED Care 08/01/18 20:25 Active Up ad Rupali [RC] ASDIRECTED Care 08/01/18 20:25 Active VTE/DVT Education [RC] DAILY Care 08/01/18 20:26 Active Vital Signs [RC] Q4HR Care 08/01/18 20:26 Active Consult to Case Management/Printing Assistant [CONS] Cons 08/01/18 20:25 Active Routine Consult to Physician [CONS] Routine Cons 08/01/18 20:25 Active Consult to Spiritual Care [CONS] Routine Cons 08/01/18 20:25 Active Regular Diet [DIET] Diet 08/01/18 Dinner Active COMPREHENSIVE METABOLIC PN,CMP [CHEM] AM Lab 08/02/18 05:16 Received COMPREHENSIVE METABOLIC PN,CMP [CHEM] AM Lab 08/03/18 05:11 Ordered COMPREHENSIVE METABOLIC PN,CMP [CHEM] AM Lab 08/04/18 05:11 Ordered COMPREHENSIVE METABOLIC PN,CMP [CHEM] AM Lab 08/05/18 05:11 Ordered MAGNESIUM [CHEM] AM Lab 08/02/18 05:16 Received Albuterol/Ipratropium [DuoNeb 3.0-0.5 MG/3 ML] Med 08/01/18 20:25 Active 3 ml NEB Q4H PRN Bisacodyl [Dulcolax] Med 08/01/18 20:25 Active 5 mg PO DAILY PRN Docusate Sodium [Colace] Med 08/01/18 20:25 Active 100 mg PO BID PRN Docusate Sodium/Sennosides [Senna Plus] Med 08/01/18 20:25 Active 1 tab PO BID PRN Famotidine [Pepcid] Med 08/02/18 09:00 Active 20 mg PO Q12H Folic Acid Med 08/02/18 09:00 Active 1 mg PO DAILY HYDROmorphone [Dilaudid] Med 08/01/18 20:25 Active 0.25 mg IVPUSH Q2H PRN Haloperidol Lactate [Haldol] Med 08/01/18 20:25 Active 2 mg IM Q4H PRN LORazepam [Ativan] Med 08/01/18 20:25 Active 1 - 3 mg IV Q6H PRN LORazepam [Ativan] Med 08/01/18 20:25 Active 2 mg IVPUSH Q4H PRN Metoprolol Tartrate [Lopressor] Med 08/01/18 20:25 Active 5 mg IVPUSH Q4H PRN Multivitamins,Therapeutic [Thera] Med 08/02/18 09:00 Active 1 each PO DAILY NS + KCl 20mEq/L [Normal Saline with 20 mEq KCl] 1,000 Med 08/01/18 21:00 Active ml IV ASDIRECTED Ondansetron [Zofran] Med 08/01/18 20:25 Active 4 mg IV Q6H PRN Pharmacy to Dose - Magnesium R [Pharmacy to Dose - Med 08/01/18 20:30 Pending Magnesium Replacement] 1 dose .XX ASDIRECTED Pharmacy to Dose - Potassium R [Pharmacy to Dose - Med 08/01/18 20:30 Pending Potassium Replacement] 1 dose .XX ASDIRECTED Polyethylene Glycol 3350 [MiraLAX] Med 08/01/18 20:25 Active 17 gm PO DAILY PRN QUEtiapine [SEROquel] Med 08/01/18 21:00 Active 50 mg PO BEDTIME Remove Patch Med 08/04/18 21:00 Once 1 ea TRDERM ONETIME ONE Sodium Chloride 0.9% [Normal Saline] 1,000 ml Med 08/01/18 17:45 Active IV .BOLUS Sodium Chloride 0.9% [Saline Flush] Med 08/01/18 17:32 Active 10 ml FLUSH ASDIRECTED PRN Thiamine [Vitamin B-1] Med 08/02/18 09:00 Active 100 mg PO DAILY Topiramate [Topamax] Med 08/02/18 09:00 Active 25 mg PO BID chlordiazePOXIDE [Librium] Med 08/01/18 20:25 Active 50 mg PO Q6H PRN cloNIDine [Catapres] Med 08/01/18 20:25 Active 0.1 mg PO Q4H PRN hydrALAZINE [Apresoline] Med 08/01/18 20:25 Active 20 mg IVPUSH Q4H PRN Peripheral IV Insertion Adult [OM.PC] Stat Oth 08/01/18 17:32 Ordered Seizure Precautions [OM.PC] Routine Oth 08/01/18 20:25 Ordered Sequential Compression Device [OM.PC] Per Unit Routine Oth 08/01/18 20:26 Ordered Resuscitation Status Routine Resus Stat 08/01/18 20:25 Ordered Medication Orders Albuterol/Ipratropium (Duoneb 3.0-0.5 Mg/3 Ml) 3 ml NEB Q4H PRN PRN Reason: Shortness Of Breath/wheezing Bisacodyl (Dulcolax) 5 mg PO DAILY PRN PRN Reason: Constipation Chlordiazepoxide HCl (Librium) 50 mg PO Q6H PRN PRN Reason: Withdrawal Symptoms Last Admin: 08/02/18 05:13 Dose: 50 mg Admin: 08/01/18 21:23 Dose: 50 mg Clonidine HCl (Catapres) 0.1 mg PO Q4H PRN PRN Reason: Agitation Last Admin: 08/01/18 21:35 Dose: 0.1 mg Docusate Sodium (Colace) 100 mg PO BID PRN PRN Reason: Constipation Famotidine (Pepcid) 20 mg PO Q12H MASOUD Folic Acid (Folic Acid) 1 mg PO DAILY MASOUD Stop: 08/05/18 09:01 Haloperidol Lactate (Haldol) 2 mg IM Q4H PRN PRN Reason: Withdrawal Symptoms Hydralazine HCl (Apresoline) 20 mg IVPUSH Q4H PRN PRN Reason: Hypertension Last Admin: 08/02/18 04:42 Dose: 20 mg Admin: 08/01/18 21:35 Dose: 20 mg Hydromorphone HCl (Dilaudid) 0.25 mg IVPUSH Q2H PRN PRN Reason: Pain (severe 7-10) Last Admin: 08/02/18 05:08 Dose: 0.25 mg Admin: 08/01/18 21:04 Dose: 0.25 mg Sodium Chloride (Normal Saline) 1,000 mls @ 1,000 mls/hr IV .BOLUS MASOUD Last Admin: 08/01/18 17:50 Dose: 1,000 mls/hr Potassium Chloride/Sodium Chloride (Normal Saline With 20 Meq Kcl) 1,000 mls @ 125 mls/hr IV ASDIRECTED MASOUD Last Admin: 08/02/18 06:41 Dose: 125 mls/hr Infusion: 08/02/18 06:25 Dose: 125 mls/hr Admin: 08/01/18 22:25 Dose: 125 mls/hr Lorazepam (Ativan) 2 mg IVPUSH Q4H PRN PRN Reason: Seizures Lorazepam (Ativan) 1 - 3 mg IV Q6H PRN; Protocol PRN Reason: Withdrawal Symptoms Last Admin: 08/02/18 00:27 Dose: 1 mg Magnesium Sulfate (Pharmacy To Dose - Magnesium Replacement) 1 dose .XX ASDIRECTED [facility] Metoprolol Tartrate (Lopressor) 5 mg IVPUSH Q4H PRN PRN Reason: Tachycardia Miscellaneous Information (Remove Patch) 1 ea TRDERM ONETIME ONE Stop: 08/04/18 21:01 Multivitamins (Thera) 1 each PO DAILY MASOUD Stop: 08/05/18 09:01 Ondansetron HCl (Zofran) 4 mg IV Q6H PRN PRN Reason: Nausea/Vomiting Last Admin: 08/02/18 05:57 Dose: 4 mg Polyethylene Glycol (Miralax) 17 gm PO DAILY PRN PRN Reason: Constipation Potassium Chloride (Pharmacy To Dose - Potassium Replacement) 1 dose .XX ASDIRECTED [facility] Quetiapine Fumarate (Seroquel) 50 mg PO BEDTIME MASOUD Last Admin: 08/01/18 21:24 Dose: 50 mg Senna/Docusate Sodium (Senna Plus) 1 tab PO BID PRN PRN Reason: Constipation Sodium Chloride (Saline Flush) 10 ml FLUSH ASDIRECTED PRN PRN Reason: Keep Vein Open Last Admin: 08/01/18 17:49 Dose: 10 ml Thiamine HCl (Vitamin B-1) 100 mg PO DAILY [facility] Topiramate (Topamax) 25 mg PO BID [facility] Assessment/Plan Comment:: Assessment/Plan: Acute: ETOH Withdrawal Symptoms - Carries a hx/o heady drinking - Drinks at least 1L of whiskey and 1 case of beer a day per son - Triggers: unclear - Enablers: A room-mate and another from out of town - JR is 0.28 - CIWAA score is 9-13 - No visual or auditory hallucinations but significant tremors and diaphoresis on examinations - Wants to go to rehab - UDS consistent with drugs received in ED - SAC and Tele-psych consult when appropriate Transaminitis - 2/2 ETOH Abuse - AST 132; ALT 96 - Avoid Acetaminophen for now - IV fluids Chronic: ETOH Use/Dependence HTN Asthma GERD Prostate Disorder Back Pain Gout Peripheral Neuropathy Anxiety Class II Obese Plan: Admit to ICU for ETOH Detox Routine AM Labs CIWAA Protocol Folic Acid, MVI and Thiamine DVT and GI PPx SW/CM for d/c planning SAC and Tele-psych consult Seizure Precaution Additional orders as above Code status: DNR/DNI
[2018-08-02] MEDS: Famotidine 20 MG Tab PO SCH ×2 (08:27→20:24)
[2018-08-02] MEDS: Folic Acid 1 MG Tab PO SCH (08:27)
[2018-08-02] MEDS: Topiramate 25 MG Tab PO SCH ×2 (08:27→20:24)
[2018-08-02] MEDS: Multivitamins,Therapeutic Tab PO SCH (08:27)
[2018-08-02] MEDS: Thiamine 100 MG Tab PO SCH (08:27)
[2018-08-02] MEDS ORDERED: Magnesium Sulfate/Water 2 GM in Premix Bag 1 BAG IV ONE (09:00)
[2018-08-02] MEDS: chlordiazePOXIDE 25 MG Cap PO SCH ×3 (11:09→23:31)
[2018-08-02] MEDS: cloNIDine 0.1 MG Tab PO SCH ×2 (11:11→20:24)
[2018-08-02] MEDS: Metoprolol Tartrate 25 MG Tab PO SCH (12:21)
[2018-08-02] MEDS ORDERED: Haloperidol Lactate 5 MG/ML SDV IVPUSH STA (19:08)
[2018-08-02] MEDS: LORazepam 20 MG in Dextrose 5% in Water 90 ML IV SCH ×4 (19:56→23:00)
[2018-08-02] MEDS: QUEtiapine 25 MG Tab PO SCH (20:24)
[2018-08-03] MEDS: hydrALAZINE 20 MG/ML SDV IVPUSH PRN (00:22)
[2018-08-03] MEDS: Metoprolol Tartrate 25 MG Tab PO SCH ×2 (02:16→13:51)
[2018-08-03] MEDS ORDERED: Dextrose 5% in Water 100 ML ONE (02:39)
[2018-08-03] MEDS: LORazepam 20 MG in Dextrose 5% in Water 90 ML IV SCH ×2 (03:00)
[2018-08-03] MEDS: chlordiazePOXIDE 25 MG Cap PO SCH ×4 (06:13→23:04)
[2018-08-03] MEDS: NS + KCl 20mEq/L 1,000 ML IV SCH ×3 (07:00→23:28)
[2018-08-03] MEDS: Topiramate 25 MG Tab PO SCH ×2 (08:22→20:30)
[2018-08-03] MEDS: Famotidine 20 MG Tab PO SCH ×2 (08:23→20:29)
[2018-08-03] MEDS: Folic Acid 1 MG Tab PO SCH (08:23)
[2018-08-03] MEDS: Multivitamins,Therapeutic Tab PO SCH (08:23)
[2018-08-03] MEDS: Thiamine 100 MG Tab PO SCH (08:23)
[2018-08-03] MEDS: cloNIDine 0.1 MG Tab PO SCH ×2 (08:24→20:30)
[2018-08-03] MEDS: LORazepam 2 MG/ML SDV IV PRN ×5 (08:38→20:33)
[2018-08-03] MEDS ORDERED: LORazepam 20 MG in Dextrose 5% in Water 90 ML IV SCH ×2 (09:00)
[2018-08-03] MEDS: diazePAM 5 MG/ML-2ml Syringe IV SCH ×2 (15:45→23:03)
[2018-08-03] MEDS ORDERED: Haloperidol Lactate 5 MG/ML SDV ONE (16:27)
[2018-08-03] MEDS ORDERED: LORazepam 2 MG/ML SDV IVPUSH ONE (16:34)
[2018-08-03] MEDS: Nicotine 21 MG/24 Hr Patch TRDERM SCH (16:49)
--- NOTE | 2018-08-03 18:29 | PCM.PN ---
- General Info Date of Service: 08/03/18 Functional Status: Reports: Urinating - Review of Systems General: Reports: No Symptoms HEENT: Reports: No Symptoms Pulmonary: Reports: No Symptoms Cardiovascular: Reports: No Symptoms Gastrointestinal: Reports: No Symptoms Genitourinary: Reports: No Symptoms Musculoskeletal: Reports: No Symptoms Neurological: Reports: Confusion Psychiatric: Reports: Mood Lability, Anxiety, Agitation, Hallucinations - Patient Data Vitals - Most Recent: Last Vital Signs Temp 37.0 C 08/03/18 16:00 Pulse 81 08/03/18 16:00 Resp 18 08/03/18 16:00 BP 170/109 H 08/03/18 16:00 Pulse Ox 96 08/03/18 16:00 Weight - Most Recent: 123.377 kg I&O - Last 24 Hours: Intake & Output 08/03/18 08/03/18 08/03/18 06:59 14:59 22:59 Intake Total 1650 30 Output Total 1921 1621 500 Balance -461 -8249 -019 Lab Results Last 24 Hours: Laboratory Results - last 24 hr 08/03/18 Range/Units 04:50 Sodium 140 (136-145) mEq/L Potassium 3.5 (3.5-5.1) mEq/L Chloride 107 (98-107) mEq/L Carbon Dioxide 24 (21-32) mEq/L Anion Gap 12.5 (5-15) BUN 12 (7-18) mg/dL Creatinine 1.0 (0.7-1.3) mg/dL Est Cr Clr Drug Dosing 85.45 mL/min Estimated GFR (MDRD) > 60 (>60) mL/min BUN/Creatinine Ratio 12.0 L (14-18) Glucose 101 (80-115) mg/dL Calcium 8.5 (8.5-10.1) mg/dL Total Bilirubin 1.1 H (0.2-1.0) mg/dL AST 70 H (15-37) U/L ALT 70 H (16-63) U/L Alkaline Phosphatase 58 (46-116) U/L Total Protein 6.1 L (6.4-8.2) g/dl Albumin 2.9 L (3.4-5.0) g/dl Globulin 3.2 gm/dL Albumin/Globulin Ratio 0.9 L (1-2) Med Orders - Current: Current Medications Albuterol/Ipratropium (Duoneb 3.0-0.5 Mg/3 Ml) 3 ml NEB Q4H PRN PRN Reason: Shortness Of Breath/wheezing Bisacodyl (Dulcolax) 5 mg PO DAILY PRN PRN Reason: Constipation Chlordiazepoxide HCl (Librium) 75 mg PO Q6H [facility] Last Admin: 08/03/18 16:44 Dose: 75 mg Clonidine HCl (Catapres) 0.1 mg PO BID [facility] Last Admin: 08/03/18 08:24 Dose: 0.1 mg Diazepam (Valium) 5 mg IV Q8H [facility] Last Admin: 08/03/18 15:45 Dose: 5 mg Docusate Sodium (Colace) 100 mg PO BID PRN PRN Reason: Constipation Famotidine (Pepcid) 20 mg PO Q12H [facility] Last Admin: 08/03/18 08:23 Dose: 20 mg Folic Acid (Folic Acid) 1 mg PO DAILY [facility] Stop: 08/05/18 09:01 Last Admin: 08/03/18 08:23 Dose: 1 mg Haloperidol Lactate (Haldol) 2 mg IM Q4H PRN PRN Reason: Withdrawal Symptoms Last Admin: 08/02/18 21:20 Dose: 2 mg Haloperidol Lactate (Haldol) 5 mg IV TID@0000,0800,1600 [facility] Hydralazine HCl (Apresoline) 20 mg IVPUSH Q4H PRN PRN Reason: Hypertension Last Admin: 08/03/18 00:22 Dose: 20 mg Hydromorphone HCl (Dilaudid) 0.25 mg IVPUSH Q2H PRN PRN Reason: Pain (severe 7-10) Last Admin: 08/02/18 10:36 Dose: 0.25 mg Potassium Chloride/Sodium Chloride (Normal Saline With 20 Meq Kcl) 1,000 mls @ 125 mls/hr IV ASDIRECTED [facility] Last Admin: 08/03/18 16:27 Dose: 125 mls/hr Lorazepam 40 mg/ Sodium (Chloride) 40 mls @ 5 mls/hr IV ASDIRECTED [facility]; Protocol Last Titration: 08/03/18 17:11 Dose: 10 ml/hr, 10 mls/hr Lorazepam (Ativan) 2 mg IVPUSH Q4H PRN PRN Reason: Seizures Lorazepam (Ativan) 1 - 3 mg IV ASDIRECTED PRN; Protocol PRN Reason: Withdrawal Symptoms Last Admin: 08/03/18 15:19 Dose: 3 mg Metoprolol Tartrate (Lopressor) 5 mg IVPUSH Q4H PRN PRN Reason: Tachycardia Metoprolol Tartrate (Lopressor) 25 mg PO Q12H [facility] Last Admin: 08/03/18 13:51 Dose: 25 mg Miscellaneous Information (Remove Patch) 1 ea TRDERM ONETIME ONE Stop: 08/04/18 21:01 Miscellaneous Information (Remove Patch) 1 ea TRDERM DAILY [facility] Multivitamins (Thera) 1 each PO DAILY [facility] Stop: 08/05/18 09:01 Last Admin: 08/03/18 08:23 Dose: 1 each Nicotine (Habitrol) 21 mg TRDERM DAILY [facility] Last Admin: 08/03/18 16:49 Dose: 21 mg Ondansetron HCl (Zofran) 4 mg IV Q6H PRN PRN Reason: Nausea/Vomiting Last Admin: 08/02/18 05:57 Dose: 4 mg Polyethylene Glycol (Miralax) 17 gm PO DAILY PRN PRN Reason: Constipation Quetiapine Fumarate (Seroquel) 50 mg PO BEDTIME [facility] Last Admin: 08/02/18 20:24 Dose: 50 mg Senna/Docusate Sodium (Senna Plus) 1 tab PO BID PRN PRN Reason: Constipation Sodium Chloride (Saline Flush) 10 ml FLUSH ASDIRECTED PRN PRN Reason: Keep Vein Open Last Admin: 08/01/18 17:49 Dose: 10 ml Thiamine HCl (Vitamin B-1) 100 mg PO DAILY [facility] Last Admin: 08/03/18 08:23 Dose: 100 mg Topiramate (Topamax) 25 mg PO BID [facility] Last Admin: 08/03/18 08:22 Dose: 25 mg Discontinued Medications Chlordiazepoxide HCl (Librium) 50 mg PO Q6H PRN PRN Reason: Withdrawal Symptoms Last Admin: 08/02/18 05:13 Dose: 50 mg Clonidine HCl (Catapres) 0.1 mg PO Q4H PRN PRN Reason: Agitation Last Admin: 08/01/18 21:35 Dose: 0.1 mg Diphenhydramine HCl (Benadryl) 25 mg IVPUSH ONETIME ONE Stop: 08/01/18 20:35 Last Admin: 08/01/18 22:29 Dose: Not Given Diphenhydramine HCl (Benadryl) 50 mg IVPUSH ONETIME ONE Stop: 08/01/18 20:59 Last Admin: 08/01/18 21:07 Dose: 50 mg Haloperidol Lactate (Haldol) 4 mg IVPUSH STAT STA Stop: 08/02/18 19:09 Last Admin: 08/02/18 19:15 Dose: 4 mg Haloperidol Lactate (Haldol) Confirm Administered Dose 10 mg .ROUTE .STK-MED ONE Stop: 08/03/18 16:28 Last Admin: 08/03/18 16:35 Dose: 8 mg Sodium Chloride (Normal Saline) 1,000 mls @ 1,000 mls/hr IV .BOLUS [facility] Last Admin: 08/01/18 17:50 Dose: 1,000 mls/hr Thiamine HCl 100 mg/ Sodium (Chloride) 101 mls @ 200 mls/hr IV ONETIME ONE Stop: 08/01/18 21:45 Last Admin: 08/01/18 21:04 Dose: 200 mls/hr Magnesium Sulfate 2 gm/ Premix 50 mls @ 25 mls/hr IV ONETIME ONE Stop: 08/02/18 10:59 Last Admin: 08/02/18 09:23 Dose: 25 mls/hr Lorazepam 20 mg/ Sodium (Chloride) 100 mls @ 5 mls/hr IV ASDIRECTED [facility] Lorazepam 20 mg/ Dextrose/ (Water) 100 mls @ 5 mls/hr IV ASDIRECTED [facility] Last Infusion: 08/03/18 05:30 Dose: 15 mls/hr Dextrose/Water (Dextrose 5% In Water) Confirm Administered Dose 100 mls @ as directed .ROUTE .STK-MED ONE Stop: 08/03/18 02:40 Last Admin: 08/03/18 03:03 Dose: Not Given Lorazepam 20 mg/ Dextrose/ (Water) 100 mls @ 25 mls/hr IV ASDIRECTED [facility] Stop: 08/03/18 13:15 Last Admin: 08/03/18 08:55 Dose: 25 mls/hr Labetalol HCl (Normodyne) 10 mg IVPUSH ONETIME ONE; Protocol Stop: 08/01/18 20:51 Last Admin: 08/01/18 22:29 Dose: Not Given Lorazepam (Ativan) 0.5 mg IVPUSH ONETIME ONE Stop: 08/01/18 18:46 Last Admin: 08/01/18 18:49 Dose: 0.5 mg Lorazepam (Ativan) 1 - 3 mg IV Q6H PRN; Protocol PRN Reason: Withdrawal Symptoms Last Admin: 08/02/18 08:27 Dose: 2 mg Lorazepam (Ativan) 6 mg IVPUSH ONETIME ONE Stop: 08/03/18 16:35 Last Admin: 08/03/18 16:51 Dose: 6 mg Magnesium Sulfate (Pharmacy To Dose - Magnesium Replacement) 0 dose .XX ASDIRECTED PRN PRN Reason: RX TO WATCH MAG LEVELS Pantoprazole Sodium (Protonix Iv) 40 mg IV ONETIME ONE Stop: 08/02/18 20:26 Pantoprazole Sodium (Protonix Iv) 40 mg IV ONETIME ONE Stop: 08/02/18 00:34 Last Admin: 08/02/18 00:41 Dose: 40 mg Potassium Chloride (Pharmacy To Dose - Potassium Replacement) 0 dose .XX ASDIRECTED PRN PRN Reason: RX TO WATCH K LEVELS Scopolamine (Transderm-Scop) 1.5 mg TRDERM ONETIME ONE Stop: 08/01/18 20:59 Last Admin: 08/01/18 21:29 Dose: 1.5 mg Topiramate (Topamax) 50 mg PO BEDTIME [facility] Last Admin: 08/01/18 21:25 Dose: 50 mg - Exam Quality Assessment: Supplemental Oxygen, DVT Prophylaxis General: Alert, Oriented, Mild Distress HEENT: Pupils Equal, Pupils Reactive, EOMI Neck: Trachea Midline, No JVD Lungs: Normal Respiratory Effort GI/Abdominal Exam: Normal Bowel Sounds, Soft, Non-Tender, No Organomegaly, No Distention Back Exam: Normal Inspection Extremities: Normal Inspection, Non-Tender, Normal Capillary Refill Skin: Warm Neurological: Normal Speech Psy/Mental Status: Labile Mood, Anxious, Agitated, Withdrawal Symptoms - Problem List Review Problem List Initiated/Reviewed/Updated: Yes - My Orders Last 24 Hours: My Active Orders 08/02/18 17:40 Urinary Catheter Assessment [RC] Q4HR 08/02/18 17:45 Insert Alberts Catheter [Insert Urinary Catheter] [OM.PC] Q24H 08/03/18 13:15 LORazepam 40 mg Sodium Chloride 0.9% [Normal Saline] 20 ml IV ASDIRECTED 08/03/18 15:00 diazePAM [Valium] 5 mg IV Q8H 08/03/18 16:45 Nicotine [Habitrol] 21 mg TRDERM DAILY 08/03/18 17:56 Nrsg Assess: Aidan-S.Dest Rest [RC] Q1H 08/03/18 Breakfast NPO Now [Nothing per Oral Now Diet] [DIET] 08/04/18 00:00 Haloperidol Lactate [Haldol] 5 mg IV TID@0000,0800,1600 - Plan Plan:: Assessment/Plan: Acute: ETOH Withdrawal Symptoms - Carries a hx/o heavy drinking - Drinks at least 1L of whiskey and 1 case of beer a day per son - Triggers: unclear - Enablers: A room-mate and another from out of town - JR is 0.28 - CIWAA score is 20-27 - Auditory hallucinations - Wants to go to rehab - UDS consistent with drugs received in ED - SAC and Tele-psych consult when appropriate Ativan gtt, start at 5 mg Transaminitis - 2/2 ETOH Abuse - AST 132; ALT 96 - Avoid Acetaminophen for now - IV fluids Chronic: ETOH Use/Dependence HTN Asthma GERD Prostate Disorder Back Pain Gout Peripheral Neuropathy Anxiety Class II Obese Plan: Admit to ICU for ETOH Detox Routine AM Labs CIWAA Protocol Folic Acid, MVI and Thiamine DVT and GI PPx SW/CM for d/c planning SAC and Tele-psych consult Seizure Precaution Additional orders as above Code status: DNR/DNI
[2018-08-03] MEDS: QUEtiapine 25 MG Tab PO SCH (20:29)
[2018-08-04] MEDS: hydrALAZINE 20 MG/ML SDV IVPUSH PRN ×2 (01:11→08:46)
[2018-08-04] MEDS: Haloperidol Lactate 5 MG/ML SDV IV SCH ×3 (01:11→16:04)
[2018-08-04] MEDS: Metoprolol Tartrate 25 MG Tab PO SCH ×2 (01:13→13:58)
[2018-08-04] MEDS: chlordiazePOXIDE 25 MG Cap PO SCH ×5 (05:47→22:04)
[2018-08-04] MEDS: LORazepam 2 MG/ML SDV IV PRN ×7 (05:49→23:42)
[2018-08-04] MEDS: diazePAM 5 MG/ML-2ml Syringe IV SCH ×3 (06:32→21:55)
[2018-08-04] MEDS: NS + KCl 20mEq/L 1,000 ML IV SCH ×2 (07:56→16:04)
[2018-08-04] MEDS: Famotidine 20 MG Tab PO SCH ×2 (08:51→20:14)
[2018-08-04] MEDS: Folic Acid 1 MG Tab PO SCH (08:51)
[2018-08-04] MEDS: Multivitamins,Therapeutic Tab PO SCH (08:51)
[2018-08-04] MEDS: cloNIDine 0.1 MG Tab PO SCH ×2 (08:51→20:14)
[2018-08-04] MEDS: Thiamine 100 MG Tab PO SCH (08:52)
[2018-08-04] MEDS: Topiramate 25 MG Tab PO SCH ×2 (08:52→20:14)
[2018-08-04] MEDS: NICOTINE PATCH REMOVAL TRDERM SCH (11:29)
[2018-08-04] MEDS: Nicotine 21 MG/24 Hr Patch TRDERM SCH (11:29)
[2018-08-04] MEDS: Haloperidol Lactate 5 MG/ML SDV IVPUSH SCH (17:25)
[2018-08-04] MEDS ORDERED: Sodium Chloride 0.45% 1,000 ML IV SCH (19:00)
--- NOTE | 2018-08-04 19:04 | PCM.PN ---
- General Info Date of Service: 08/04/18 Functional Status: Reports: Urinating - Review of Systems General: Reports: Weakness HEENT: Reports: No Symptoms Pulmonary: Reports: No Symptoms Cardiovascular: Reports: No Symptoms Gastrointestinal: Reports: No Symptoms Genitourinary: Reports: No Symptoms Musculoskeletal: Reports: No Symptoms Skin: Reports: No Symptoms Neurological: Reports: Confusion Psychiatric: Reports: Confusion, Anxiety, Agitation, Hallucinations - Patient Data Vitals - Most Recent: Last Vital Signs Temp 36.4 C 08/04/18 16:00 Pulse 87 08/04/18 13:54 Resp 18 08/04/18 16:00 BP 139/81 08/04/18 16:00 Pulse Ox 94 L 08/04/18 16:00 Weight - Most Recent: 121.835 kg I&O - Last 24 Hours: Intake & Output 08/04/18 08/04/18 08/04/18 06:59 14:59 22:59 Intake Total 1620 1547 Output Total 1400 1575 525 Balance 220 -1575 1022 Lab Results Last 24 Hours: Laboratory Results - last 24 hr 08/04/18 Range/Units 05:20 Sodium 143 (136-145) mEq/L Potassium 3.5 (3.5-5.1) mEq/L Chloride 110 H (98-107) mEq/L Carbon Dioxide 20 L (21-32) mEq/L Anion Gap 16.5 H (5-15) BUN 9 (7-18) mg/dL Creatinine 1.0 (0.7-1.3) mg/dL Est Cr Clr Drug Dosing 85.45 mL/min Estimated GFR (MDRD) > 60 (>60) mL/min BUN/Creatinine Ratio 9.0 L (14-18) Glucose 96 (80-115) mg/dL Calcium 8.7 (8.5-10.1) mg/dL Total Bilirubin 0.9 (0.2-1.0) mg/dL AST 56 H (15-37) U/L ALT 64 H (16-63) U/L Alkaline Phosphatase 59 (46-116) U/L Total Protein 6.5 (6.4-8.2) g/dl Albumin 2.9 L (3.4-5.0) g/dl Globulin 3.6 gm/dL Albumin/Globulin Ratio 0.8 L (1-2) Med Orders - Current: Current Medications Albuterol/Ipratropium (Duoneb 3.0-0.5 Mg/3 Ml) 3 ml NEB Q4H PRN PRN Reason: Shortness Of Breath/wheezing Bisacodyl (Dulcolax) 5 mg PO DAILY PRN PRN Reason: Constipation Chlordiazepoxide HCl (Librium) 75 mg PO Q6H [facility] Last Admin: 08/04/18 16:53 Dose: 75 mg Clonidine HCl (Catapres) 0.1 mg PO BID [facility] Last Admin: 08/04/18 08:51 Dose: Not Given Diazepam (Valium) 15 mg IV Q8H [facility] [place] Last Admin: 08/04/18 14:46 Dose: 15 mg Docusate Sodium (Colace) 100 mg PO BID PRN PRN Reason: Constipation Famotidine (Pepcid) 20 mg PO Q12H [facility] [place] Last Admin: 08/04/18 08:51 Dose: Not Given Folic Acid (Folic Acid) 1 mg PO DAILY [facility] [place] Stop: 08/05/18 09:01 Last Admin: 08/04/18 08:51 Dose: Not Given Haloperidol Lactate (Haldol) 2 mg IM Q4H PRN PRN Reason: Withdrawal Symptoms Last Admin: 08/02/18 21:20 Dose: 2 mg Haloperidol Lactate (Haldol) 8 mg IVPUSH Q8H [facility] [place] Last Admin: 08/04/18 17:25 Dose: 8 mg Hydralazine HCl (Apresoline) 20 mg IVPUSH Q4H PRN PRN Reason: Hypertension Last Admin: 08/04/18 08:46 Dose: 20 mg Hydromorphone HCl (Dilaudid) 0.25 mg IVPUSH Q2H PRN PRN Reason: Pain (severe 7-10) Last Admin: 08/02/18 10:36 Dose: 0.25 mg Potassium Chloride/Sodium Chloride (Normal Saline With 20 Meq Kcl) 1,000 mls @ 125 mls/hr IV ASDIRECTED [facility] [place] Last Admin: 08/04/18 16:04 Dose: 125 mls/hr Lorazepam 40 mg/ Sodium (Chloride) 40 mls @ 5 mls/hr IV ASDIRECTED [facility] [place]; Protocol Last Admin: 08/04/18 16:52 Dose: 10 ml/hr, 10 mls/hr Lorazepam (Ativan) 2 mg IVPUSH Q4H PRN PRN Reason: Seizures Lorazepam (Ativan) 1 - 3 mg IV ASDIRECTED PRN; Protocol PRN Reason: Withdrawal Symptoms Last Admin: 08/04/18 18:19 Dose: 2 mg Metoprolol Tartrate (Lopressor) 5 mg IVPUSH Q4H PRN PRN Reason: Tachycardia Last Admin: 08/04/18 13:54 Dose: 5 mg Metoprolol Tartrate (Lopressor) 25 mg PO Q12H [facility] [place] Last Admin: 08/04/18 13:58 Dose: Not Given Miscellaneous Information (Remove Patch) 1 ea TRDERM ONETIME ONE Stop: 08/04/18 21:01 Miscellaneous Information (Remove Patch) 1 ea TRDERM DAILY [facility] [place] Last Admin: 08/04/18 11:29 Dose: 1 ea Multivitamins (Thera) 1 each PO DAILY [facility] [place] Stop: 08/05/18 09:01 Last Admin: 08/04/18 08:51 Dose: Not Given Nicotine (Habitrol) 21 mg TRDERM DAILY [facility] [place] Last Admin: 08/04/18 11:29 Dose: Not Given Ondansetron HCl (Zofran) 4 mg IV Q6H PRN PRN Reason: Nausea/Vomiting Last Admin: 08/02/18 05:57 Dose: 4 mg Polyethylene Glycol (Miralax) 17 gm PO DAILY PRN PRN Reason: Constipation Quetiapine Fumarate (Seroquel) 50 mg PO BEDTIME [facility] [place] Last Admin: 08/03/18 20:29 Dose: 50 mg Senna/Docusate Sodium (Senna Plus) 1 tab PO BID PRN PRN Reason: Constipation Sodium Chloride (Saline Flush) 10 ml FLUSH ASDIRECTED PRN PRN Reason: Keep Vein Open Last Admin: 08/01/18 17:49 Dose: 10 ml Thiamine HCl (Vitamin B-1) 100 mg PO DAILY [facility] [place] Last Admin: 08/04/18 08:52 Dose: Not Given Topiramate (Topamax) 25 mg PO BID [facility] [place] Last Admin: 08/04/18 08:52 Dose: Not Given Discontinued Medications Chlordiazepoxide HCl (Librium) 50 mg PO Q6H PRN PRN Reason: Withdrawal Symptoms Last Admin: 08/02/18 05:13 Dose: 50 mg Clonidine HCl (Catapres) 0.1 mg PO Q4H PRN PRN Reason: Agitation Last Admin: 08/01/18 21:35 Dose: 0.1 mg Diazepam (Valium) 5 mg IV Q8H [facility] Last Admin: 08/04/18 06:32 Dose: 5 mg Diphenhydramine HCl (Benadryl) 25 mg IVPUSH ONETIME ONE Stop: 08/01/18 20:35 Last Admin: 08/01/18 22:29 Dose: Not Given Diphenhydramine HCl (Benadryl) 50 mg IVPUSH ONETIME ONE Stop: 08/01/18 20:59 Last Admin: 08/01/18 21:07 Dose: 50 mg Haloperidol Lactate (Haldol) 4 mg IVPUSH STAT STA Stop: 08/02/18 19:09 Last Admin: 08/02/18 19:15 Dose: 4 mg Haloperidol Lactate (Haldol) Confirm Administered Dose 10 mg .ROUTE .STK-MED ONE Stop: 08/03/18 16:28 Last Admin: 08/03/18 16:35 Dose: 8 mg Haloperidol Lactate (Haldol) 5 mg IV TID@0000,0800,1600 [facility] [place] Last Admin: 08/04/18 16:04 Dose: 5 mg Sodium Chloride (Normal Saline) 1,000 mls @ 1,000 mls/hr IV .BOLUS [facility] Last Admin: 08/01/18 17:50 Dose: 1,000 mls/hr Thiamine HCl 100 mg/ Sodium (Chloride) 101 mls @ 200 mls/hr IV ONETIME ONE Stop: 08/01/18 21:45 Last Admin: 08/01/18 21:04 Dose: 200 mls/hr Magnesium Sulfate 2 gm/ Premix 50 mls @ 25 mls/hr IV ONETIME ONE Stop: 08/02/18 10:59 Last Admin: 08/02/18 09:23 Dose: 25 mls/hr Lorazepam 20 mg/ Sodium (Chloride) 100 mls @ 5 mls/hr IV ASDIRECTED [facility] Lorazepam 20 mg/ Dextrose/ (Water) 100 mls @ 5 mls/hr IV ASDIRECTED [facility] Last Infusion: 08/03/18 05:30 Dose: 15 mls/hr Dextrose/Water (Dextrose 5% In Water) Confirm Administered Dose 100 mls @ as directed .ROUTE .STK-MED ONE Stop: 08/03/18 02:40 Last Admin: 08/03/18 03:03 Dose: Not Given Lorazepam 20 mg/ Dextrose/ (Water) 100 mls @ 25 mls/hr IV ASDIRECTED [facility] Stop: 08/03/18 13:15 Last Admin: 08/03/18 08:55 Dose: 25 mls/hr Labetalol HCl (Normodyne) 10 mg IVPUSH ONETIME ONE; Protocol Stop: 08/01/18 20:51 Last Admin: 08/01/18 22:29 Dose: Not Given Lorazepam (Ativan) 0.5 mg IVPUSH ONETIME ONE Stop: 08/01/18 18:46 Last Admin: 08/01/18 18:49 Dose: 0.5 mg Lorazepam (Ativan) 1 - 3 mg IV Q6H PRN; Protocol PRN Reason: Withdrawal Symptoms Last Admin: 08/02/18 08:27 Dose: 2 mg Lorazepam (Ativan) 6 mg IVPUSH ONETIME ONE Stop: 08/03/18 16:35 Last Admin: 08/03/18 16:51 Dose: 6 mg Magnesium Sulfate (Pharmacy To Dose - Magnesium Replacement) 0 dose .XX ASDIRECTED PRN PRN Reason: RX TO WATCH MAG LEVELS Pantoprazole Sodium (Protonix Iv) 40 mg IV ONETIME ONE Stop: 08/02/18 20:26 Pantoprazole Sodium (Protonix Iv) 40 mg IV ONETIME ONE Stop: 08/02/18 00:34 Last Admin: 08/02/18 00:41 Dose: 40 mg Potassium Chloride (Pharmacy To Dose - Potassium Replacement) 0 dose .XX ASDIRECTED PRN PRN Reason: RX TO WATCH K LEVELS Scopolamine (Transderm-Scop) 1.5 mg TRDERM ONETIME ONE Stop: 08/01/18 20:59 Last Admin: 08/01/18 21:29 Dose: 1.5 mg Topiramate (Topamax) 50 mg PO BEDTIME [facility] Last Admin: 08/01/18 21:25 Dose: 50 mg - Exam Quality Assessment: Urine Catheter, DVT Prophylaxis General: Sedated HEENT: Pupils Equal, Pupils Reactive Neck: Trachea Midline, No JVD Lungs: Normal Respiratory Effort Cardiovascular: Regular Rate, Regular Rhythm GI/Abdominal Exam: Normal Bowel Sounds, Soft, Non-Tender, No Organomegaly, No Distention (Male) Exam: Deferred Back Exam: Normal Inspection Extremities: Non-Tender, Normal Capillary Refill Skin: Warm Neurological: No New Focal Deficit Psy/Mental Status: Withdrawal Symptoms - Problem List Review Problem List Initiated/Reviewed/Updated: Yes - My Orders Last 24 Hours: My Active Orders 08/03/18 18:36 Nrsg Assess: AleksandraS.Dest Rest [RC] .PRN 08/04/18 14:32 diazePAM [Valium] 15 mg IV Q8H 08/04/18 18:00 Haloperidol Lactate [Haldol] 8 mg IVPUSH Q8H 08/04/18 18:36 Nrsg Assess:Aidan/S.Dest Reasse [RC] Q24H 08/04/18 19:00 Sodium Chloride 0.45% @ 100 MLS/HR(1,000ml) Sodium Chloride 0.45% 1,000 ml IV ASDIRECTED - Plan Plan:: Assessment/Plan: Acute: ETOH Withdrawal Symptoms - Carries a hx/o heavy drinking - Drinks at least 1L of whiskey and 1 case of beer a day per son - Triggers: unclear - Enablers: A room-mate and another from out of town - JR is 0.28 - CIWAA score is 20-27 - Auditory hallucinations - Wants to go to rehab - UDS consistent with drugs received in ED - SAC and Tele-psych consult when appropriate HALDOL/ATIVAN USE FOR ACUTE ETOH WITHDRAWAL/CHRONIC DEPENDENCE WITH SEVERE AGITATION, UNABLE TO REDIRECT. Transaminitis - 2/2 ETOH Abuse - AST 132; ALT 96 - Avoid Acetaminophen for now - IV fluids Chronic: ETOH Use/Dependence HTN Asthma GERD Prostate Disorder Back Pain Gout Peripheral Neuropathy Anxiety Class II Obese Plan: Admit to ICU for ETOH Detox Routine AM Labs CIWAA Protocol Folic Acid, MVI and Thiamine DVT and GI PPx SW/CM for d/c planning SAC and Tele-psych consult Seizure Precaution Additional orders as above Code status: DNR/DNI
[2018-08-04] MEDS: QUEtiapine 25 MG Tab PO SCH (20:14)
[2018-08-04] MEDS: HYDROmorphone 1 MG/ML Syringe IVPUSH PRN (22:05)
[2018-08-05] MEDS: hydrALAZINE 20 MG/ML SDV IVPUSH PRN ×4 (01:03→21:11)
[2018-08-05] MEDS: Metoprolol Tartrate 25 MG Tab PO SCH ×2 (02:06→13:05)
[2018-08-05] MEDS: Haloperidol Lactate 5 MG/ML SDV IVPUSH SCH ×3 (02:19→18:48)
[2018-08-05] MEDS: LORazepam 2 MG/ML SDV IV PRN ×2 (02:57→03:55)
[2018-08-05] MEDS: chlordiazePOXIDE 25 MG Cap PO SCH ×3 (06:01→17:04)
[2018-08-05] MEDS: diazePAM 5 MG/ML-2ml Syringe IV SCH ×2 (06:01→13:52)
[2018-08-05] MEDS: Famotidine 20 MG Tab PO SCH ×3 (09:25→20:45)
[2018-08-05] MEDS: Topiramate 25 MG Tab PO SCH ×3 (09:25→20:45)
[2018-08-05] MEDS: Folic Acid 1 MG Tab PO SCH ×2 (09:25→15:12)
[2018-08-05] MEDS: Thiamine 100 MG Tab PO SCH ×2 (09:25→11:14)
[2018-08-05] MEDS: Multivitamins,Therapeutic Tab PO SCH (09:26)
[2018-08-05] MEDS: cloNIDine 0.1 MG Tab PO SCH ×3 (09:26→20:45)
[2018-08-05] MEDS ORDERED: Potassium Chloride 10 MEQ/5 ML SDV IV SCH (10:00)
[2018-08-05] MEDS: Nicotine 21 MG/24 Hr Patch TRDERM SCH (10:25)
[2018-08-05] MEDS: NICOTINE PATCH REMOVAL TRDERM SCH (10:26)
[2018-08-05] MEDS: Potassium Chloride 10 MEQ in Premix Bag 1 BAG IV SCH ×4 (11:06→14:12)
[2018-08-05] MEDS: Sodium Chloride 0.45% 1,000 ML IV SCH (11:30)
[2018-08-05] MEDS: HYDROmorphone 1 MG/ML Syringe IVPUSH PRN ×3 (14:20→21:12)
[2018-08-05] MEDS: LORazepam 80 MG in Sodium Chloride 0.9% 40 ML IV SCH (15:22)
--- NOTE | 2018-08-05 15:40 | PCM.PN ---
- General Info Date of Service: 08/05/18 Functional Status: Reports: Urinating - Review of Systems General: Reports: Weakness HEENT: Reports: No Symptoms Pulmonary: Reports: No Symptoms Cardiovascular: Reports: No Symptoms Gastrointestinal: Reports: No Symptoms Genitourinary: Reports: No Symptoms Musculoskeletal: Reports: No Symptoms Skin: Reports: No Symptoms Neurological: Reports: No Symptoms Psychiatric: Reports: Mood Lability, Agitation, Hallucinations - Patient Data Vitals - Most Recent: Last Vital Signs Temp 37.2 C 08/05/18 12:00 Pulse 87 08/05/18 12:00 Resp 28 H 08/05/18 12:00 BP 157/98 H 08/05/18 12:00 Pulse Ox 96 08/05/18 12:00 Weight - Most Recent: 119.431 kg I&O - Last 24 Hours: Intake & Output 08/05/18 08/05/18 08/05/18 06:59 14:59 22:59 Intake Total 1470 Output Total 1100 650 300 Balance 370 -650 -300 Lab Results Last 24 Hours: Laboratory Results - last 24 hr 08/05/18 Range/Units 05:20 Sodium 143 (136-145) mEq/L Potassium 3.4 L (3.5-5.1) mEq/L Chloride 110 H (98-107) mEq/L Carbon Dioxide 20 L (21-32) mEq/L Anion Gap 16.4 H (5-15) BUN 9 (7-18) mg/dL Creatinine 1.1 (0.7-1.3) mg/dL Est Cr Clr Drug Dosing 77.31 mL/min Estimated GFR (MDRD) > 60 (>60) mL/min BUN/Creatinine Ratio 8.2 L (14-18) Glucose 100 (80-115) mg/dL Calcium 9.1 (8.5-10.1) mg/dL Total Bilirubin 1.0 (0.2-1.0) mg/dL AST 43 H (15-37) U/L ALT 58 (16-63) U/L Alkaline Phosphatase 63 (46-116) U/L Total Protein 6.9 (6.4-8.2) g/dl Albumin 3.1 L (3.4-5.0) g/dl Globulin 3.8 gm/dL Albumin/Globulin Ratio 0.8 L (1-2) Med Orders - Current: Current Medications Albuterol/Ipratropium (Duoneb 3.0-0.5 Mg/3 Ml) 3 ml NEB Q4H PRN PRN Reason: Shortness Of Breath/wheezing Bisacodyl (Dulcolax) 5 mg PO DAILY PRN PRN Reason: Constipation Chlordiazepoxide HCl (Librium) 75 mg PO Q6H [facility] Last Admin: 08/05/18 11:13 Dose: Not Given Clonidine HCl (Catapres) 0.1 mg PO BID [facility] Last Admin: 08/05/18 11:14 Dose: Not Given Diazepam (Valium) 15 mg IV Q8H [facility] Last Admin: 08/05/18 13:52 Dose: Not Given Docusate Sodium (Colace) 100 mg PO BID PRN PRN Reason: Constipation Famotidine (Pepcid) 20 mg PO Q12H [facility] Last Admin: 08/05/18 11:14 Dose: Not Given Haloperidol Lactate (Haldol) 8 mg IVPUSH Q8H [facility] Last Admin: 08/05/18 11:04 Dose: 8 mg Hydralazine HCl (Apresoline) 20 mg IVPUSH Q4H PRN PRN Reason: Hypertension Last Admin: 08/05/18 13:05 Dose: 20 mg Hydromorphone HCl (Dilaudid) 0.25 mg IVPUSH Q2H PRN PRN Reason: Pain (severe 7-10) Last Admin: 08/04/18 22:05 Dose: 0.25 mg Lorazepam 40 mg/ Sodium (Chloride) 40 mls @ 5 mls/hr IV ASDIRECTED [facility]; Protocol Stop: 08/05/18 16:00 Last Titration: 08/05/18 11:14 Dose: 7 ml/hr, 7 mls/hr Sodium Chloride (Sodium Chloride 0.45%) 1,000 mls @ 75 mls/hr IV ASDIRECTED [facility] Last Admin: 08/05/18 11:30 Dose: 75 mls/hr Lorazepam 80 mg/ Sodium (Chloride) 80 mls @ 7 mls/hr IV TITRATE [facility] Last Admin: 08/05/18 15:22 Dose: 7 mls/hr Lorazepam (Ativan) 2 mg IVPUSH Q4H PRN PRN Reason: Seizures Lorazepam (Ativan) 1 - 3 mg IV ASDIRECTED PRN; Protocol PRN Reason: Withdrawal Symptoms Last Admin: 08/05/18 03:55 Dose: 3 mg Metoprolol Tartrate (Lopressor) 5 mg IVPUSH Q4H PRN PRN Reason: Tachycardia Last Admin: 08/04/18 13:54 Dose: 5 mg Metoprolol Tartrate (Lopressor) 25 mg PO Q12H [facility] Last Admin: 08/05/18 13:05 Dose: Not Given Miscellaneous Information (Remove Patch) 1 ea TRDERM DAILY [facility] Last Admin: 08/05/18 10:26 Dose: Not Given Nicotine (Habitrol) 21 mg TRDERM DAILY [facility] Last Admin: 08/05/18 10:25 Dose: 21 mg Ondansetron HCl (Zofran) 4 mg IV Q6H PRN PRN Reason: Nausea/Vomiting Last Admin: 08/02/18 05:57 Dose: 4 mg Polyethylene Glycol (Miralax) 17 gm PO DAILY PRN PRN Reason: Constipation Quetiapine Fumarate (Seroquel) 50 mg PO BEDTIME [facility] Last Admin: 08/04/18 20:14 Dose: 50 mg Senna/Docusate Sodium (Senna Plus) 1 tab PO BID PRN PRN Reason: Constipation Sodium Chloride (Saline Flush) 10 ml FLUSH ASDIRECTED PRN PRN Reason: Keep Vein Open Last Admin: 08/01/18 17:49 Dose: 10 ml Thiamine HCl (Vitamin B-1) 100 mg PO DAILY [facility] Last Admin: 08/05/18 11:14 Dose: Not Given Topiramate (Topamax) 25 mg PO BID [facility] Last Admin: 08/05/18 11:14 Dose: Not Given Discontinued Medications Chlordiazepoxide HCl (Librium) 50 mg PO Q6H PRN PRN Reason: Withdrawal Symptoms Last Admin: 08/02/18 05:13 Dose: 50 mg Clonidine HCl (Catapres) 0.1 mg PO Q4H PRN PRN Reason: Agitation Last Admin: 08/01/18 21:35 Dose: 0.1 mg Diazepam (Valium) 5 mg IV Q8H [facility] Last Admin: 08/04/18 06:32 Dose: 5 mg Diphenhydramine HCl (Benadryl) 25 mg IVPUSH ONETIME ONE Stop: 08/01/18 20:35 Last Admin: 08/01/18 22:29 Dose: Not Given Diphenhydramine HCl (Benadryl) 50 mg IVPUSH ONETIME ONE Stop: 08/01/18 20:59 Last Admin: 08/01/18 21:07 Dose: 50 mg Folic Acid (Folic Acid) 1 mg PO DAILY [facility] Stop: 08/05/18 09:01 Last Admin: 08/05/18 15:12 Dose: Not Given Haloperidol Lactate (Haldol) 2 mg IM Q4H PRN PRN Reason: Withdrawal Symptoms Last Admin: 08/02/18 21:20 Dose: 2 mg Haloperidol Lactate (Haldol) 4 mg IVPUSH STAT STA Stop: 08/02/18 19:09 Last Admin: 08/02/18 19:15 Dose: 4 mg Haloperidol Lactate (Haldol) Confirm Administered Dose 10 mg .ROUTE .STK-MED ONE Stop: 08/03/18 16:28 Last Admin: 08/03/18 16:35 Dose: 8 mg Haloperidol Lactate (Haldol) 5 mg IV TID@0000,0800,1600 [facility] Last Admin: 08/04/18 16:04 Dose: 5 mg Sodium Chloride (Normal Saline) 1,000 mls @ 1,000 mls/hr IV .BOLUS [facility] Last Admin: 08/01/18 17:50 Dose: 1,000 mls/hr Potassium Chloride/Sodium Chloride (Normal Saline With 20 Meq Kcl) 1,000 mls @ 125 mls/hr IV ASDIRECTED [facility] Last Admin: 08/04/18 16:04 Dose: 125 mls/hr Thiamine HCl 100 mg/ Sodium (Chloride) 101 mls @ 200 mls/hr IV ONETIME ONE Stop: 08/01/18 21:45 Last Admin: 08/01/18 21:04 Dose: 200 mls/hr Magnesium Sulfate 2 gm/ Premix 50 mls @ 25 mls/hr IV ONETIME ONE Stop: 08/02/18 10:59 Last Admin: 08/02/18 09:23 Dose: 25 mls/hr Lorazepam 20 mg/ Sodium (Chloride) 100 mls @ 5 mls/hr IV ASDIRECTED [facility] Lorazepam 20 mg/ Dextrose/ (Water) 100 mls @ 5 mls/hr IV ASDIRECTED [facility] Last Infusion: 08/03/18 05:30 Dose: 15 mls/hr Dextrose/Water (Dextrose 5% In Water) Confirm Administered Dose 100 mls @ as directed .ROUTE .STK-MED ONE Stop: 08/03/18 02:40 Last Admin: 08/03/18 03:03 Dose: Not Given Lorazepam 20 mg/ Dextrose/ (Water) 100 mls @ 25 mls/hr IV ASDIRECTED [facility] Stop: 08/03/18 13:15 Last Admin: 08/03/18 08:55 Dose: 25 mls/hr Sodium Chloride (Sodium Chloride 0.45%) 1,000 mls @ 100 mls/hr IV ASDIRECTED [facility] Stop: 08/05/18 01:00 Last Infusion: 08/05/18 05:00 Dose: 75 mls/hr Potassium Chloride 10 meq/ (Premix) 100 mls @ 100 mls/hr IV Q1H [facility] Stop: 08/05/18 14:59 Last Admin: 08/05/18 14:12 Dose: 100 mls/hr Labetalol HCl (Normodyne) 10 mg IVPUSH ONETIME ONE; Protocol Stop: 08/01/18 20:51 Last Admin: 08/01/18 22:29 Dose: Not Given Lorazepam (Ativan) 0.5 mg IVPUSH ONETIME ONE Stop: 08/01/18 18:46 Last Admin: 08/01/18 18:49 Dose: 0.5 mg Lorazepam (Ativan) 1 - 3 mg IV Q6H PRN; Protocol PRN Reason: Withdrawal Symptoms Last Admin: 08/02/18 08:27 Dose: 2 mg Lorazepam (Ativan) 6 mg IVPUSH ONETIME ONE Stop: 08/03/18 16:35 Last Admin: 08/03/18 16:51 Dose: 6 mg Magnesium Sulfate (Pharmacy To Dose - Magnesium Replacement) 0 dose .XX ASDIRECTED PRN PRN Reason: RX TO WATCH MAG LEVELS Miscellaneous Information (Remove Patch) 1 ea TRDERM ONETIME ONE Stop: 08/04/18 21:01 Last Admin: 08/04/18 20:17 Dose: Not Given Multivitamins (Thera) 1 each PO DAILY [facility] Stop: 08/05/18 09:01 Last Admin: 08/05/18 09:26 Dose: 1 each Pantoprazole Sodium (Protonix Iv) 40 mg IV ONETIME ONE Stop: 08/02/18 20:26 Pantoprazole Sodium (Protonix Iv) 40 mg IV ONETIME ONE Stop: 08/02/18 00:34 Last Admin: 08/02/18 00:41 Dose: 40 mg Potassium Chloride (Pharmacy To Dose - Potassium Replacement) 0 dose .XX ASDIRECTED PRN PRN Reason: RX TO WATCH K LEVELS Potassium Chloride (Potassium Chloride) 40 meq IV DAILY [facility] Last Admin: 08/05/18 11:56 Dose: Not Given Scopolamine (Transderm-Scop) 1.5 mg TRDERM ONETIME ONE Stop: 08/01/18 20:59 Last Admin: 08/01/18 21:29 Dose: 1.5 mg Topiramate (Topamax) 50 mg PO BEDTIME [facility] Last Admin: 08/01/18 21:25 Dose: 50 mg - Exam Quality Assessment: DVT Prophylaxis General: Sedated HEENT: Pupils Equal, Pupils Reactive Neck: Trachea Midline, No JVD Lungs: Normal Respiratory Effort Cardiovascular: Regular Rate GI/Abdominal Exam: Normal Bowel Sounds, Soft, Non-Tender, No Organomegaly, No Distention (Male) Exam: Deferred Back Exam: Normal Inspection Extremities: Normal Inspection, Non-Tender, Normal Capillary Refill Skin: Warm Neurological: No New Focal Deficit Psy/Mental Status: Withdrawal Symptoms - Problem List Review Problem List Initiated/Reviewed/Updated: Yes - My Orders Last 24 Hours: My Active Orders 08/04/18 18:00 Haloperidol Lactate [Haldol] 8 mg IVPUSH Q8H 08/04/18 18:36 Nrsg Assess:Viol/S.Dest Reasse [RC] .PRN 08/05/18 01:00 Sodium Chloride 0.45% 1,000 ml IV ASDIRECTED 08/05/18 15:30 LORazepam 80 mg Sodium Chloride 0.9% [Normal Saline] 40 ml IV TITRATE - Plan Plan:: Assessment/Plan: Acute: ETOH Withdrawal Symptoms - Carries a hx/o heavy drinking - Drinks at least 1L of whiskey and 1 case of beer a day per son - Triggers: unclear - Enablers: A room-mate and another from out of town - JR is 0.28 - CIWAA score is 20-27 - Auditory hallucinations - Wants to go to rehab - UDS consistent with drugs received in ED - SAC and Tele-psych consult when appropriate HALDOL/ATIVAN USE FOR ACUTE ETOH WITHDRAWAL/CHRONIC DEPENDENCE WITH SEVERE AGITATION, UNABLE TO REDIRECT. Transaminitis - 2/2 ETOH Abuse - AST 132; ALT 96 - Avoid Acetaminophen for now - IV fluids Chronic: ETOH Use/Dependence HTN Asthma GERD Prostate Disorder Back Pain Gout Peripheral Neuropathy Anxiety Class II Obese Plan: Admit to ICU for ETOH Detox Routine AM Labs CIWAA Protocol Folic Acid, MVI and Thiamine DVT and GI PPx SW/CM for d/c planning SAC and Tele-psych consult Seizure Precaution Additional orders as above Code status: DNR/DNI LOS>96 hours, severe detox from ETOH.
[2018-08-05] MEDS: QUEtiapine 25 MG Tab PO SCH (20:45)
[2018-08-06] MEDS: chlordiazePOXIDE 25 MG Cap PO SCH ×5 (00:01→22:00)
[2018-08-06] MEDS: diazePAM 5 MG/ML-2ml Syringe IV SCH ×2 (00:01→05:37)
[2018-08-06] MEDS: Metoprolol Tartrate 25 MG Tab PO SCH ×2 (00:05→14:24)
[2018-08-06] MEDS: Sodium Chloride 0.45% 1,000 ML IV SCH ×2 (00:24→14:24)
[2018-08-06] MEDS: hydrALAZINE 20 MG/ML SDV IVPUSH PRN ×2 (01:17→19:53)
[2018-08-06] MEDS: LORazepam 80 MG in Sodium Chloride 0.9% 40 ML IV SCH (02:49)
[2018-08-06] MEDS: Haloperidol Lactate 5 MG/ML SDV IVPUSH SCH ×2 (02:49→10:49)
[2018-08-06] MEDS: Nicotine 21 MG/24 Hr Patch TRDERM SCH (10:39)
[2018-08-06] MEDS: cloNIDine 0.1 MG Tab PO SCH ×2 (10:43→20:00)
[2018-08-06] MEDS: Famotidine 20 MG Tab PO SCH ×2 (10:43→19:59)
[2018-08-06] MEDS: Topiramate 25 MG Tab PO SCH ×2 (10:44→19:59)
[2018-08-06] MEDS: Thiamine 100 MG Tab PO SCH (10:44)
[2018-08-06] MEDS: NICOTINE PATCH REMOVAL TRDERM SCH (10:44)
[2018-08-06] MEDS ORDERED: diazePAM 5 MG/ML-2ml Syringe IV PRN (14:31)
[2018-08-06] MEDS ORDERED: Haloperidol Lactate 5 MG/ML SDV IVPUSH PRN (14:33)
--- NOTE | 2018-08-06 18:41 | PCM.PN ---
- General Info Date of Service: 08/06/18 Functional Status: Reports: Urinating - Review of Systems General: Reports: Weakness HEENT: Reports: No Symptoms Pulmonary: Reports: No Symptoms Cardiovascular: Reports: No Symptoms Gastrointestinal: Reports: No Symptoms Genitourinary: Reports: Burning (with Alberts) Musculoskeletal: Reports: No Symptoms Skin: Reports: No Symptoms Neurological: Reports: Confusion Psychiatric: Reports: Mood Lability, Agitation - Patient Data Vitals - Most Recent: Last Vital Signs Temp 37.1 C 08/06/18 16:00 Pulse 81 08/06/18 16:00 Resp 20 08/06/18 16:00 BP 155/88 H 08/06/18 16:00 Pulse Ox 97 08/06/18 16:00 Weight - Most Recent: 119.068 kg I&O - Last 24 Hours: Intake & Output 08/06/18 08/06/18 08/06/18 06:59 14:59 22:59 Intake Total 926 1115 Output Total 320 900 30 Balance 606 -900 1085 Med Orders - Current: Current Medications Hydrocodone Bitart/Acetaminophen ([place] 325-5 Mg) 1 tab PO Q6H PRN PRN Reason: Pain/Fever Albuterol/Ipratropium (Duoneb 3.0-0.5 Mg/3 Ml) 3 ml NEB Q4H PRN PRN Reason: Shortness Of Breath/wheezing Bisacodyl (Dulcolax) 5 mg PO DAILY PRN PRN Reason: Constipation Chlordiazepoxide HCl (Librium) 75 mg PO Q6H [facility] Last Admin: 08/06/18 16:33 Dose: 75 mg Clonidine HCl (Catapres) 0.1 mg PO BID [facility] Last Admin: 08/06/18 10:43 Dose: 0.1 mg Diazepam (Valium) 15 mg IV BID PRN PRN Reason: detox Docusate Sodium (Colace) 100 mg PO BID PRN PRN Reason: Constipation Famotidine (Pepcid) 20 mg PO Q12H [facility] Last Admin: 08/06/18 10:43 Dose: 20 mg Haloperidol Lactate (Haldol) 8 mg IVPUSH Q8H PRN PRN Reason: detox Hydralazine HCl (Apresoline) 20 mg IVPUSH Q4H PRN PRN Reason: Hypertension Last Admin: 08/06/18 01:17 Dose: 20 mg Hydromorphone HCl (Dilaudid) 0.25 mg IVPUSH Q2H PRN PRN Reason: Pain (severe 7-10) Last Admin: 08/05/18 21:12 Dose: 0.25 mg Sodium Chloride (Sodium Chloride 0.45%) 1,000 mls @ 75 mls/hr IV ASDIRECTED [facility] Last Admin: 08/06/18 14:24 Dose: 75 mls/hr Lorazepam 80 mg/ Sodium (Chloride) 80 mls @ 7 mls/hr IV TITRATE [facility] Last Infusion: 08/06/18 07:44 Dose: 1 mls/hr Lorazepam (Ativan) 2 mg IVPUSH Q4H PRN PRN Reason: Seizures Lorazepam (Ativan) 1 - 3 mg IV ASDIRECTED PRN; Protocol PRN Reason: Withdrawal Symptoms Last Admin: 08/05/18 03:55 Dose: 3 mg Metoprolol Tartrate (Lopressor) 5 mg IVPUSH Q4H PRN PRN Reason: Tachycardia Last Admin: 08/04/18 13:54 Dose: 5 mg Metoprolol Tartrate (Lopressor) 25 mg PO Q12H [facility] Last Admin: 08/06/18 14:24 Dose: 25 mg Miscellaneous Information (Remove Patch) 1 ea TRDERM DAILY [facility] Last Admin: 08/06/18 10:44 Dose: 1 ea Nicotine (Habitrol) 21 mg TRDERM DAILY [facility] Last Admin: 08/06/18 10:39 Dose: 21 mg Ondansetron HCl (Zofran) 4 mg IV Q6H PRN PRN Reason: Nausea/Vomiting Last Admin: 08/02/18 05:57 Dose: 4 mg Polyethylene Glycol (Miralax) 17 gm PO DAILY PRN PRN Reason: Constipation Quetiapine Fumarate (Seroquel) 50 mg PO BEDTIME [facility] Last Admin: 08/05/18 20:45 Dose: Not Given Senna/Docusate Sodium (Senna Plus) 1 tab PO BID PRN PRN Reason: Constipation Sodium Chloride (Saline Flush) 10 ml FLUSH ASDIRECTED PRN PRN Reason: Keep Vein Open Last Admin: 08/01/18 17:49 Dose: 10 ml Thiamine HCl (Vitamin B-1) 100 mg PO DAILY [facility] Last Admin: 08/06/18 10:44 Dose: 100 mg Topiramate (Topamax) 25 mg PO BID [facility] Last Admin: 08/06/18 10:44 Dose: 25 mg Discontinued Medications Chlordiazepoxide HCl (Librium) 50 mg PO Q6H PRN PRN Reason: Withdrawal Symptoms Last Admin: 08/02/18 05:13 Dose: 50 mg Clonidine HCl (Catapres) 0.1 mg PO Q4H PRN PRN Reason: Agitation Last Admin: 08/01/18 21:35 Dose: 0.1 mg Diazepam (Valium) 5 mg IV Q8H [facility] Last Admin: 08/04/18 06:32 Dose: 5 mg Diazepam (Valium) 15 mg IV Q8H [facility] Last Admin: 08/06/18 05:37 Dose: Not Given Diphenhydramine HCl (Benadryl) 25 mg IVPUSH ONETIME ONE Stop: 08/01/18 20:35 Last Admin: 08/01/18 22:29 Dose: Not Given Diphenhydramine HCl (Benadryl) 50 mg IVPUSH ONETIME ONE Stop: 08/01/18 20:59 Last Admin: 08/01/18 21:07 Dose: 50 mg Folic Acid (Folic Acid) 1 mg PO DAILY [facility] Stop: 08/05/18 09:01 Last Admin: 08/05/18 15:12 Dose: Not Given Haloperidol Lactate (Haldol) 2 mg IM Q4H PRN PRN Reason: Withdrawal Symptoms Last Admin: 08/02/18 21:20 Dose: 2 mg Haloperidol Lactate (Haldol) 4 mg IVPUSH STAT STA Stop: 08/02/18 19:09 Last Admin: 08/02/18 19:15 Dose: 4 mg Haloperidol Lactate (Haldol) Confirm Administered Dose 10 mg .ROUTE .STK-MED ONE Stop: 08/03/18 16:28 Last Admin: 08/03/18 16:35 Dose: 8 mg Haloperidol Lactate (Haldol) 5 mg IV TID@0000,0800,1600 [facility] Last Admin: 08/04/18 16:04 Dose: 5 mg Haloperidol Lactate (Haldol) 8 mg IVPUSH Q8H [facility] Last Admin: 08/06/18 10:49 Dose: Not Given Sodium Chloride (Normal Saline) 1,000 mls @ 1,000 mls/hr IV .BOLUS [facility] Last Admin: 08/01/18 17:50 Dose: 1,000 mls/hr Potassium Chloride/Sodium Chloride (Normal Saline With 20 Meq Kcl) 1,000 mls @ 125 mls/hr IV ASDIRECTED [facility] Last Admin: 08/04/18 16:04 Dose: 125 mls/hr Thiamine HCl 100 mg/ Sodium (Chloride) 101 mls @ 200 mls/hr IV ONETIME ONE Stop: 08/01/18 21:45 Last Admin: 08/01/18 21:04 Dose: 200 mls/hr Magnesium Sulfate 2 gm/ Premix 50 mls @ 25 mls/hr IV ONETIME ONE Stop: 08/02/18 10:59 Last Admin: 08/02/18 09:23 Dose: 25 mls/hr Lorazepam 20 mg/ Sodium (Chloride) 100 mls @ 5 mls/hr IV ASDIRECTED [facility] Lorazepam 20 mg/ Dextrose/ (Water) 100 mls @ 5 mls/hr IV ASDIRECTED [facility] Last Infusion: 08/03/18 05:30 Dose: 15 mls/hr Dextrose/Water (Dextrose 5% In Water) Confirm Administered Dose 100 mls @ as directed .ROUTE .STK-MED ONE Stop: 08/03/18 02:40 Last Admin: 08/03/18 03:03 Dose: Not Given Lorazepam 20 mg/ Dextrose/ (Water) 100 mls @ 25 mls/hr IV ASDIRECTED [facility] Stop: 08/03/18 13:15 Last Admin: 08/03/18 08:55 Dose: 25 mls/hr Lorazepam 40 mg/ Sodium (Chloride) 40 mls @ 5 mls/hr IV ASDIRECTED [facility]; Protocol Stop: 08/05/18 16:00 Last Titration: 08/05/18 11:14 Dose: 7 ml/hr, 7 mls/hr Sodium Chloride (Sodium Chloride 0.45%) 1,000 mls @ 100 mls/hr IV ASDIRECTED [facility] Stop: 08/05/18 01:00 Last Infusion: 08/05/18 05:00 Dose: 75 mls/hr Potassium Chloride 10 meq/ (Premix) 100 mls @ 100 mls/hr IV Q1H [facility] Stop: 08/05/18 14:59 Last Admin: 08/05/18 14:12 Dose: 100 mls/hr Labetalol HCl (Normodyne) 10 mg IVPUSH ONETIME ONE; Protocol Stop: 08/01/18 20:51 Last Admin: 08/01/18 22:29 Dose: Not Given Lorazepam (Ativan) 0.5 mg IVPUSH ONETIME ONE Stop: 08/01/18 18:46 Last Admin: 08/01/18 18:49 Dose: 0.5 mg Lorazepam (Ativan) 1 - 3 mg IV Q6H PRN; Protocol PRN Reason: Withdrawal Symptoms Last Admin: 08/02/18 08:27 Dose: 2 mg Lorazepam (Ativan) 6 mg IVPUSH ONETIME ONE Stop: 08/03/18 16:35 Last Admin: 08/03/18 16:51 Dose: 6 mg Magnesium Sulfate (Pharmacy To Dose - Magnesium Replacement) 0 dose .XX ASDIRECTED PRN PRN Reason: RX TO WATCH MAG LEVELS Miscellaneous Information (Remove Patch) 1 ea TRDERM ONETIME ONE Stop: 08/04/18 21:01 Last Admin: 08/04/18 20:17 Dose: Not Given Multivitamins (Thera) 1 each PO DAILY [facility] Stop: 08/05/18 09:01 Last Admin: 08/05/18 09:26 Dose: 1 each Pantoprazole Sodium (Protonix Iv) 40 mg IV ONETIME ONE Stop: 08/02/18 20:26 Pantoprazole Sodium (Protonix Iv) 40 mg IV ONETIME ONE Stop: 08/02/18 00:34 Last Admin: 08/02/18 00:41 Dose: 40 mg Potassium Chloride (Pharmacy To Dose - Potassium Replacement) 0 dose .XX ASDIRECTED PRN PRN Reason: RX TO WATCH K LEVELS Potassium Chloride (Potassium Chloride) 40 meq IV DAILY [facility] Last Admin: 08/05/18 11:56 Dose: Not Given Scopolamine (Transderm-Scop) 1.5 mg TRDERM ONETIME ONE Stop: 08/01/18 20:59 Last Admin: 08/01/18 21:29 Dose: 1.5 mg Topiramate (Topamax) 50 mg PO BEDTIME [facility] Last Admin: 08/01/18 21:25 Dose: 50 mg - Exam Quality Assessment: Urine Catheter, DVT Prophylaxis General: No Acute Distress, Sedated HEENT: Pupils Equal, Pupils Reactive, EOMI Neck: No JVD Lungs: Normal Respiratory Effort Cardiovascular: Regular Rate, Regular Rhythm GI/Abdominal Exam: Normal Bowel Sounds, Soft, Non-Tender, No Organomegaly, No Distention (Male) Exam: Deferred Back Exam: Normal Inspection Extremities: Normal Inspection, Non-Tender, Normal Capillary Refill Skin: Warm Wound/Incisions: Healing Well Neurological: No New Focal Deficit Psy/Mental Status: Anxious - Problem List Review Problem List Initiated/Reviewed/Updated: Yes - My Orders Last 24 Hours: My Active Orders 08/06/18 14:31 diazePAM [Valium] 15 mg IV BID PRN 08/06/18 14:33 Haloperidol Lactate [Haldol] 8 mg IVPUSH Q8H PRN 08/06/18 14:55 Acetaminophen/HYDROcodone [[place] 325-5 MG] 1 tab PO Q6H PRN 08/06/18 Dinner Clear Liquid Diet [DIET] - Plan Plan:: Assessment/Plan: Acute: ETOH Withdrawal Symptoms - Carries a hx/o heavy drinking - Drinks at least 1L of whiskey and 1 case of beer a day per son - Triggers: unclear - Enablers: A room-mate and another from out of town - JR is 0.28 - CIWAA score is 20-27 - Auditory hallucinations - Wants to go to rehab - UDS consistent with drugs received in ED - SAC and Tele-psych consult when appropriate HALDOL/ATIVAN USE FOR ACUTE ETOH WITHDRAWAL/CHRONIC DEPENDENCE WITH SEVERE AGITATION, UNABLE TO REDIRECT--taper off. Resume oral meds. Transaminitis - 2/2 ETOH Abuse - AST 132; ALT 96 - Avoid Acetaminophen for now - IV fluids Chronic: ETOH Use/Dependence HTN Asthma GERD Prostate Disorder Back Pain Gout Peripheral Neuropathy Anxiety Class II Obese Plan: Admit to ICU for ETOH Detox Routine AM Labs CIWAA Protocol Folic Acid, MVI and Thiamine DVT and GI PPx SW/CM for d/c planning SAC and Tele-psych consult Seizure Precaution Additional orders as above Code status: DNR/DNI DC Alberts if off Ativan drip LOS>96 hours, severe detox from ETOH.
[2018-08-06] MEDS: Acetaminophen/HYDROcodone 325-5 MG Tab PO PRN (19:54)
[2018-08-06] MEDS: QUEtiapine 25 MG Tab PO SCH (19:59)
[2018-08-07] MEDS: Sodium Chloride 0.45% 1,000 ML IV SCH (04:10)
[2018-08-07] MEDS: chlordiazePOXIDE 25 MG Cap PO SCH ×4 (04:23→22:00)
[2018-08-07] MEDS: Metoprolol Tartrate 25 MG Tab PO SCH ×2 (09:13→20:16)
[2018-08-07] MEDS: Famotidine 20 MG Tab PO SCH ×2 (09:14→20:43)
[2018-08-07] MEDS: Topiramate 25 MG Tab PO SCH ×2 (09:15→20:15)
[2018-08-07] MEDS: Thiamine 100 MG Tab PO SCH (09:15)
[2018-08-07] MEDS: cloNIDine 0.1 MG Tab PO SCH ×2 (09:15→20:14)
[2018-08-07] MEDS: Nicotine 21 MG/24 Hr Patch TRDERM SCH (09:26)
[2018-08-07] MEDS: NICOTINE PATCH REMOVAL TRDERM SCH (09:28)
--- NOTE | 2018-08-07 12:00 | CONS ---
CONSULTING PHYSICIAN: Walter Narvaez MD DATE OF CONSULTATION: 08/07/2018 This is a 60-minute inpatient telemedicine event. Site where the services are provided is [facility] in [place], [place]. Site where the services are provided from our office is in [facility]. Length of time for this 60-minute inpatient telemedicine event is 60 minutes. IDENTIFICATION: The patient is a 62-year-old male, who is admitted to the inpatient MICU at [facility]. He is seen for psychiatric consultation per the request of staff attending, Dr. Caruso and her treatment team. CHIEF COMPLAINT: "Got a little bit too carried away with my drinking." HISTORY OF PRESENT ILLNESS: The patient is a 62-year-old male, who was admitted to the [facility] Intensive Care Unit on 08/01/2018 for complications from heavy drinking and alcohol withdrawal. Evidently, the patient came in with a BAL of greater than 0.3. He is currently detoxing and he notes "I have been through this before" in terms of drinking heavily and ended up in the hospital. He states that so far as his drinking is concerned, "I am done with drinking" going forward. He states "I do have depression" history, but he is denying depression now. He states that the drinking has been the issue for him. He denies any suicidal or homicidal. He denies any psychotic, delusional, or paranoid symptoms. 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 He is alert and oriented x2 to person and place, but not to date and he does acknowledge he is having a poor memory as he gets through his detox, but he is denying any psychotic, delusional, or paranoid symptoms at this point in time. MEDICATIONS: Prior to admission: 1. Seroquel 100 mg at bedtime. 2. Xanax p.r.n. 3. Lexapro. 4. Cardura. 5. Neurontin. It should be noted the patient is not taking the Lexapro or the Xanax while on the unit. ALLERGIES: No known drug allergies. PAST MEDICAL HISTORY: The patient reports status post cardiac surgery in the past. He also has reported that he has a history of diabetes and has received insulin for this condition. REVIEW OF SYSTEMS: Aside from cardiovascular and endocrine, all other major organ systems are negative at this point in time for acute difficulties or complications. FAMILY PSYCHIATRIC AND CD HISTORY: None reported. PAST PSYCHIATRIC AND CD HISTORY: The patient is denying any previous psychiatric hospitalizations. Does report at least 1 chemical dependency treatment in the past. He has also been to AA in the past. He states that he has a long history of sobriety when he was going to . He had about 8 months of sobriety. He is denying any suicide attempts or self-injurious behavior history and he is not reporting any other medications besides the Seroquel, Lexapro, and Xanax. Past psychiatric diagnosis is depression. SOCIAL HISTORY: The patient states he is born and raised in [place] and he states [place], [place] is where he most recently has been living. He has been living in [place] for about 7 years. He lives in [place], [place]. He works out in the [employer]. He states he is . His is back in [place], [place]. He has 3 children, 8 grandkids, and states his children are pretty upset with him because of his heavy drinking. He denies any prior service. He states he has had a DUI and he is currently on probation for this incident. He states he was raised a [employer]. MENTAL STATUS EXAM: The patient is a 62-year-old disheveled white male, in no apparent distress. Speech is of increased latency of response, short in duration of utterance. Psychomotor activity is within normal limits. There are no abnormal motor movements or tics observed. Gait and station are not observed. This patient is seated in chair for the purposes of the telemedicine consult. The patient is cognitively oriented x2 to person and place, but not to date and thinks it is 08/09/2018 when asked. Mood is tired. Affect is cooperative overall for the purposes of the inpatient consult. There is no behavioral or stated evidence of acute suicidal or homicidal ideation or acute psychotic, delusional, or paranoid symptoms. Thought processes are slow. There are some memory deficits. There are no manic symptoms or loose associations evident. Judgment and insight do appear impaired at the moment. Motivation for help appears fair. VITALS: At the time of presentation, 139/83, 74, 18, and 36.7 degrees. IMPRESSION: [place] I: 1. Alcohol dependence, F10.20. 2. History of depression, F32. [place] II: None. [place] III: 1. Status post cardiac surgery in the past. 2. Reported history of diabetes that is insulin dependent. [place] IV: Severe. [place] V: 50 to 55. PLAN: 1. Sobriety. 2. AA rep to visit the patient while on unit. 3. Pastoral guidance. 4. CD consult. 5. I do recommend that the patient be transferred to inpatient CD treatment when medically stabilized given the severity of his clinical presentation and the damage that he had done to himself with his drinking. 6. Seroquel 50 mg at bedtime for clarity of thought. 7. Topamax 25 mg b.i.d. for seizure prophylaxis while on unit. 8. Librium 75 mg t.i.d. for withdrawal symptoms. 9. Ativan per [facility] protocol, also for withdrawal. 10.Folic acid supplementation. 11.Thiamine supplementation. 12.Other medications as dosed and prescribed by the patient's inpatient primary medical treatment team. 13.We will continue follow up with the patient on an as-needed basis while he remains on the inpatient MICU at [facility]. 14.We will follow up with the patient sooner if any complications in the interim. 15.Crisis plan is in place. CHRISTOPHER /[id number]
--- NOTE | 2018-08-07 16:41 | PCM.PN ---
- General Info Date of Service: 08/07/18 Functional Status: Reports: Tolerating Diet, Urinating - Review of Systems General: Reports: Weakness HEENT: Reports: No Symptoms Pulmonary: Reports: No Symptoms Cardiovascular: Reports: No Symptoms Gastrointestinal: Reports: No Symptoms Genitourinary: Reports: No Symptoms Musculoskeletal: Reports: No Symptoms Skin: Reports: No Symptoms Neurological: Reports: Confusion Psychiatric: Reports: No Symptoms - Patient Data Vitals - Most Recent: Last Vital Signs Temp 37.1 C 08/07/18 16:00 Pulse 83 08/07/18 16:00 Resp 18 08/07/18 16:00 BP 113/76 08/07/18 16:00 Pulse Ox 98 08/07/18 16:00 Weight - Most Recent: 118.569 kg I&O - Last 24 Hours: Intake & Output 08/07/18 08/07/18 08/07/18 06:59 14:59 22:59 Intake Total 1091 240 750 Output Total 100 Balance 1091 240 650 Lab Results Last 24 Hours: Laboratory Results - last 24 hr 08/07/18 08/07/18 Range/Units 11:07 11:07 WBC 7.70 (4.23-9.07) K/mm3 RBC 4.06 L (4.63-6.08) M/mm3 Hgb 14.6 (13.7-17.5) gm/L Hct 42.3 (40.1-51.0) % MCV 104.2 H (79.0-92.2) fl MCH 36.0 H (25.7-32.2) pg MCHC 34.5 (32.2-35.5) g/dl RDW Std Deviation 51.4 H (35.1-43.9) fL Plt Count 84 L (163-337) K/mm3 MPV 10.9 (9.4-12.3) fl Neut % (Auto) 66.6 (34.0-67.9) % Lymph % (Auto) 10.8 L (21.8-53.1) % Nolan % (Auto) 19.7 H (5.3-12.2) % Eos % (Auto) 2.2 (0.8-7.0) Baso % (Auto) 0.4 (0.1-1.2) % Neut # (Auto) 5.13 (1.78-5.38) K/mm3 Lymph # (Auto) 0.83 L (1.32-3.57) K/mm3 Nolan # (Auto) 1.52 H (0.30-0.82) K/mm3 Eos # (Auto) 0.17 (0.04-0.54) K/mm3 Baso # (Auto) 0.03 (0.01-0.08) K/mm3 Manual Slide Review Abnormal smear Magnesium 2.2 (1.8-2.4) mg/dl Med Orders - Current: Current Medications Hydrocodone Bitart/Acetaminophen ([place] 325-5 Mg) 1 tab PO Q6H PRN PRN Reason: Pain/Fever Last Admin: 08/06/18 19:54 Dose: 1 tab Albuterol/Ipratropium (Duoneb 3.0-0.5 Mg/3 Ml) 3 ml NEB Q4H PRN PRN Reason: Shortness Of Breath/wheezing Bisacodyl (Dulcolax) 5 mg PO DAILY PRN PRN Reason: Constipation Chlordiazepoxide HCl (Librium) 75 mg PO Q6H [facility] Last Admin: 08/07/18 16:06 Dose: 75 mg Clonidine HCl (Catapres) 0.1 mg PO BID [facility] Last Admin: 08/07/18 09:15 Dose: 0.1 mg Diazepam (Valium) 15 mg IV BID PRN PRN Reason: detox Docusate Sodium (Colace) 100 mg PO BID PRN PRN Reason: Constipation Famotidine (Pepcid) 20 mg PO Q12H [facility] Last Admin: 08/07/18 09:14 Dose: 20 mg Haloperidol Lactate (Haldol) 8 mg IVPUSH Q8H PRN PRN Reason: detox Hydralazine HCl (Apresoline) 20 mg IVPUSH Q4H PRN PRN Reason: Hypertension Last Admin: 08/06/18 19:53 Dose: 20 mg Hydromorphone HCl (Dilaudid) 0.25 mg IVPUSH Q2H PRN PRN Reason: Pain (severe 7-10) Last Admin: 08/05/18 21:12 Dose: 0.25 mg Sodium Chloride (Sodium Chloride 0.45%) 1,000 mls @ 75 mls/hr IV ASDIRECTED [facility] Last Admin: 08/07/18 04:10 Dose: 75 mls/hr Lorazepam 80 mg/ Sodium (Chloride) 80 mls @ 7 mls/hr IV TITRATE [facility] Last Infusion: 08/06/18 07:44 Dose: 1 mls/hr Lorazepam (Ativan) 2 mg IVPUSH Q4H PRN PRN Reason: Seizures Lorazepam (Ativan) 1 - 3 mg IV ASDIRECTED PRN; Protocol PRN Reason: Withdrawal Symptoms Last Admin: 08/05/18 03:55 Dose: 3 mg Metoprolol Tartrate (Lopressor) 5 mg IVPUSH Q4H PRN PRN Reason: Tachycardia Last Admin: 08/04/18 13:54 Dose: 5 mg Metoprolol Tartrate (Lopressor) 25 mg PO BID [facility] Last Admin: 08/07/18 09:13 Dose: 25 mg Miscellaneous Information (Remove Patch) 1 ea TRDERM DAILY [facility] Last Admin: 08/07/18 09:28 Dose: Not Given Nicotine (Habitrol) 21 mg TRDERM DAILY [facility] Last Admin: 08/07/18 09:26 Dose: Not Given Ondansetron HCl (Zofran) 4 mg IV Q6H PRN PRN Reason: Nausea/Vomiting Last Admin: 08/02/18 05:57 Dose: 4 mg Polyethylene Glycol (Miralax) 17 gm PO DAILY PRN PRN Reason: Constipation Quetiapine Fumarate (Seroquel) 50 mg PO BEDTIME [facility] Last Admin: 08/06/18 19:59 Dose: 50 mg Senna/Docusate Sodium (Senna Plus) 1 tab PO BID PRN PRN Reason: Constipation Sodium Chloride (Saline Flush) 10 ml FLUSH ASDIRECTED PRN PRN Reason: Keep Vein Open Last Admin: 08/01/18 17:49 Dose: 10 ml Thiamine HCl (Vitamin B-1) 100 mg PO DAILY [facility] Last Admin: 08/07/18 09:15 Dose: 100 mg Topiramate (Topamax) 25 mg PO BID [facility] Last Admin: 08/07/18 09:15 Dose: 25 mg Discontinued Medications Chlordiazepoxide HCl (Librium) 50 mg PO Q6H PRN PRN Reason: Withdrawal Symptoms Last Admin: 08/02/18 05:13 Dose: 50 mg Clonidine HCl (Catapres) 0.1 mg PO Q4H PRN PRN Reason: Agitation Last Admin: 08/01/18 21:35 Dose: 0.1 mg Diazepam (Valium) 5 mg IV Q8H [facility] Last Admin: 08/04/18 06:32 Dose: 5 mg Diazepam (Valium) 15 mg IV Q8H [facility] Last Admin: 08/06/18 05:37 Dose: Not Given Diphenhydramine HCl (Benadryl) 25 mg IVPUSH ONETIME ONE Stop: 08/01/18 20:35 Last Admin: 08/01/18 22:29 Dose: Not Given Diphenhydramine HCl (Benadryl) 50 mg IVPUSH ONETIME ONE Stop: 08/01/18 20:59 Last Admin: 08/01/18 21:07 Dose: 50 mg Folic Acid (Folic Acid) 1 mg PO DAILY [facility] Stop: 08/05/18 09:01 Last Admin: 08/05/18 15:12 Dose: Not Given Haloperidol Lactate (Haldol) 2 mg IM Q4H PRN PRN Reason: Withdrawal Symptoms Last Admin: 08/02/18 21:20 Dose: 2 mg Haloperidol Lactate (Haldol) 4 mg IVPUSH STAT STA Stop: 08/02/18 19:09 Last Admin: 08/02/18 19:15 Dose: 4 mg Haloperidol Lactate (Haldol) Confirm Administered Dose 10 mg .ROUTE .STK-MED ONE Stop: 08/03/18 16:28 Last Admin: 08/03/18 16:35 Dose: 8 mg Haloperidol Lactate (Haldol) 5 mg IV TID@0000,0800,1600 [facility] Last Admin: 08/04/18 16:04 Dose: 5 mg Haloperidol Lactate (Haldol) 8 mg IVPUSH Q8H [facility] Last Admin: 08/06/18 10:49 Dose: Not Given Sodium Chloride (Normal Saline) 1,000 mls @ 1,000 mls/hr IV .BOLUS [facility] Last Admin: 08/01/18 17:50 Dose: 1,000 mls/hr Potassium Chloride/Sodium Chloride (Normal Saline With 20 Meq Kcl) 1,000 mls @ 125 mls/hr IV ASDIRECTED [facility] Last Admin: 08/04/18 16:04 Dose: 125 mls/hr Thiamine HCl 100 mg/ Sodium (Chloride) 101 mls @ 200 mls/hr IV ONETIME ONE Stop: 08/01/18 21:45 Last Admin: 08/01/18 21:04 Dose: 200 mls/hr Magnesium Sulfate 2 gm/ Premix 50 mls @ 25 mls/hr IV ONETIME ONE Stop: 08/02/18 10:59 Last Admin: 08/02/18 09:23 Dose: 25 mls/hr Lorazepam 20 mg/ Sodium (Chloride) 100 mls @ 5 mls/hr IV ASDIRECTED [facility] Lorazepam 20 mg/ Dextrose/ (Water) 100 mls @ 5 mls/hr IV ASDIRECTED [facility] Last Infusion: 08/03/18 05:30 Dose: 15 mls/hr Dextrose/Water (Dextrose 5% In Water) Confirm Administered Dose 100 mls @ as directed .ROUTE .STK-MED ONE Stop: 08/03/18 02:40 Last Admin: 08/03/18 03:03 Dose: Not Given Lorazepam 20 mg/ Dextrose/ (Water) 100 mls @ 25 mls/hr IV ASDIRECTED [facility] Stop: 08/03/18 13:15 Last Admin: 08/03/18 08:55 Dose: 25 mls/hr Lorazepam 40 mg/ Sodium (Chloride) 40 mls @ 5 mls/hr IV ASDIRECTED [facility]; Protocol Stop: 08/05/18 16:00 Last Titration: 08/05/18 11:14 Dose: 7 ml/hr, 7 mls/hr Sodium Chloride (Sodium Chloride 0.45%) 1,000 mls @ 100 mls/hr IV ASDIRECTED [facility] Stop: 08/05/18 01:00 Last Infusion: 08/05/18 05:00 Dose: 75 mls/hr Potassium Chloride 10 meq/ (Premix) 100 mls @ 100 mls/hr IV Q1H [facility] Stop: 08/05/18 14:59 Last Admin: 08/05/18 14:12 Dose: 100 mls/hr Labetalol HCl (Normodyne) 10 mg IVPUSH ONETIME ONE; Protocol Stop: 08/01/18 20:51 Last Admin: 08/01/18 22:29 Dose: Not Given Lorazepam (Ativan) 0.5 mg IVPUSH ONETIME ONE Stop: 08/01/18 18:46 Last Admin: 08/01/18 18:49 Dose: 0.5 mg Lorazepam (Ativan) 1 - 3 mg IV Q6H PRN; Protocol PRN Reason: Withdrawal Symptoms Last Admin: 08/02/18 08:27 Dose: 2 mg Lorazepam (Ativan) 6 mg IVPUSH ONETIME ONE Stop: 08/03/18 16:35 Last Admin: 08/03/18 16:51 Dose: 6 mg Magnesium Sulfate (Pharmacy To Dose - Magnesium Replacement) 0 dose .XX ASDIRECTED PRN PRN Reason: RX TO WATCH MAG LEVELS Metoprolol Tartrate (Lopressor) 25 mg PO Q12H [facility] Last Admin: 08/06/18 14:24 Dose: 25 mg Miscellaneous Information (Remove Patch) 1 ea TRDERM ONETIME ONE Stop: 08/04/18 21:01 Last Admin: 08/04/18 20:17 Dose: Not Given Multivitamins (Thera) 1 each PO DAILY [facility] Stop: 08/05/18 09:01 Last Admin: 08/05/18 09:26 Dose: 1 each Pantoprazole Sodium (Protonix Iv) 40 mg IV ONETIME ONE Stop: 08/02/18 20:26 Pantoprazole Sodium (Protonix Iv) 40 mg IV ONETIME ONE Stop: 08/02/18 00:34 Last Admin: 08/02/18 00:41 Dose: 40 mg Potassium Chloride (Pharmacy To Dose - Potassium Replacement) 0 dose .XX ASDIRECTED PRN PRN Reason: RX TO WATCH K LEVELS Potassium Chloride (Potassium Chloride) 40 meq IV DAILY [facility] Last Admin: 08/05/18 11:56 Dose: Not Given Scopolamine (Transderm-Scop) 1.5 mg TRDERM ONETIME ONE Stop: 08/01/18 20:59 Last Admin: 08/01/18 21:29 Dose: 1.5 mg Topiramate (Topamax) 50 mg PO BEDTIME [facility] Last Admin: 08/01/18 21:25 Dose: 50 mg - Exam Quality Assessment: DVT Prophylaxis General: Alert, Oriented, Cooperative, No Acute Distress HEENT: Pupils Equal, Pupils Reactive, EOMI Neck: Trachea Midline, No JVD Lungs: Normal Respiratory Effort Cardiovascular: Regular Rate, Regular Rhythm GI/Abdominal Exam: Normal Bowel Sounds, Soft, Non-Tender, No Organomegaly, No Distention (Male) Exam: Deferred Back Exam: Normal Inspection Extremities: Normal Inspection, Non-Tender, Normal Capillary Refill Skin: Warm Neurological: No New Focal Deficit Psy/Mental Status: Alert, Anxious - Problem List Review Problem List Initiated/Reviewed/Updated: Yes - My Orders Last 24 Hours: My Active Orders 08/07/18 09:00 Metoprolol Tartrate [Lopressor] 25 mg PO BID 08/07/18 11:30 CXR [Chest 1V Frontal] [CR] Routine 08/07/18 15:57 Patient Status [ADT] Routine 08/07/18 Breakfast Heart Healthy Diet [DIET] 08/08/18 05:00 CBC WITH AUTO DIFF [HEME] DAILY CMP [COMPREHENSIVE METABOLIC PN,CMP] [CHEM] DAILY MAGNESIUM [CHEM] DAILY 08/09/18 05:00 CBC WITH AUTO DIFF [HEME] DAILY CMP [COMPREHENSIVE METABOLIC PN,CMP] [CHEM] DAILY MAGNESIUM [CHEM] DAILY 08/10/18 05:00 CBC WITH AUTO DIFF [HEME] DAILY CMP [COMPREHENSIVE METABOLIC PN,CMP] [CHEM] DAILY MAGNESIUM [CHEM] DAILY 08/11/18 05:00 CBC WITH AUTO DIFF [HEME] DAILY CMP [COMPREHENSIVE METABOLIC PN,CMP] [CHEM] DAILY MAGNESIUM [CHEM] DAILY - Plan Plan:: Assessment/Plan: Acute: ETOH Withdrawal Symptoms - Carries a hx/o heavy drinking - Drinks at least 1L of whiskey and 1 case of beer a day per son - Triggers: unclear - Enablers: A room-mate and another from out of town - JR is 0.28 - CIWAA score - Auditory hallucinations - Wants to go to rehab - UDS consistent with drugs received in ED - SAC and Tele-psych consult when appropriate HALDOL/ATIVAN USE FOR ACUTE ETOH WITHDRAWAL/CHRONIC DEPENDENCE WITH SEVERE AGITATION, UNABLE TO REDIRECT--taper off. Resume oral meds, Librium 75 mg TID scheduled. Improved CIWAs. Transaminitis - 2/2 ETOH Abuse - AST 132; ALT 96 - Avoid Acetaminophen for now - IV fluids Chronic: ETOH Use/Dependence HTN Asthma GERD Prostate Disorder Back Pain Gout Peripheral Neuropathy Anxiety Class II Obese Plan: Ok to transfer to [place] with tele, off of Ativan drip [facility] [place] Routine AM Labs CIWAA Protocol Folic Acid, MVI and Thiamine DVT and GI PPx SW/CM for d/c planning SAC and Tele-psych consult Seizure Precaution Additional orders as above Code status: DNR/DNI DC [facility] if off Ativan drip LOS>96 hours, severe detox from ETOH.
[2018-08-07] MEDS: LORazepam 2 MG/ML SDV IV PRN (20:09)
[2018-08-07] MEDS: QUEtiapine 25 MG Tab PO SCH (20:15)
[2018-08-08] MEDS: LORazepam 2 MG/ML SDV IV PRN ×11 (00:47→23:21)
[2018-08-08] MEDS: chlordiazePOXIDE 25 MG Cap PO SCH ×4 (04:37→20:34)
--- NOTE | 2018-08-08 08:05 | CR ---
Chest: Portable view of the chest was obtained. Comparison: Prior chest x-ray of 08/01/18. Heart size is normal. Tortuous thoracic aorta is seen. Minimal linear density noted within the left base most likely due to slight atelectasis. Lungs otherwise are clear. Bony structures are unremarkable. Impression: 1. Minimal left basilar atelectasis. Nothing acute is otherwise seen on portable chest x-ray. Diagnostic code #2 I agree with preliminary report from [facility], finalized on 08/07/18, 2:06 PM Central Time
[2018-08-08] MEDS: Nicotine 21 MG/24 Hr Patch TRDERM SCH (09:39)
[2018-08-08] MEDS: Metoprolol Tartrate 25 MG Tab PO SCH ×2 (09:40→20:34)
[2018-08-08] MEDS: NICOTINE PATCH REMOVAL TRDERM SCH (09:41)
[2018-08-08] MEDS: Topiramate 25 MG Tab PO SCH (09:41)
[2018-08-08] MEDS: cloNIDine 0.1 MG Tab PO SCH ×2 (09:41→20:35)
[2018-08-08] MEDS: Famotidine 20 MG Tab PO SCH ×2 (09:41→20:35)
[2018-08-08] MEDS: Thiamine 100 MG Tab PO SCH (09:41)
[2018-08-08] MEDS ORDERED: Magnesium Hydroxide 400 MG/5 ML Susp 30 ML Cup PO ONE (10:00)
--- NOTE | 2018-08-08 16:10 | PCM.PN ---
- General Info Date of Service: 08/08/18 Functional Status: Reports: Urinating - Review of Systems General: Reports: No Symptoms HEENT: Reports: No Symptoms Pulmonary: Reports: No Symptoms Cardiovascular: Reports: No Symptoms Gastrointestinal: Reports: No Symptoms Genitourinary: Reports: No Symptoms Musculoskeletal: Reports: No Symptoms Skin: Reports: No Symptoms Neurological: Reports: Confusion Psychiatric: Reports: Confusion, Anxiety - Patient Data Vitals - Most Recent: Last Vital Signs Temp 36.4 C 08/08/18 07:47 Pulse 70 08/08/18 11:45 Resp 14 08/08/18 11:45 BP 99/70 08/08/18 11:45 Pulse Ox 97 08/08/18 11:45 Weight - Most Recent: 119.113 kg I&O - Last 24 Hours: Intake & Output 08/08/18 08/08/18 08/08/18 06:59 14:59 22:59 Intake Total 550 480 Balance 550 480 Med Orders - Current: Current Medications Hydrocodone Bitart/Acetaminophen ([place] 325-5 Mg) 1 tab PO Q6H PRN PRN Reason: Pain/Fever Last Admin: 08/06/18 19:54 Dose: 1 tab Albuterol/Ipratropium (Duoneb 3.0-0.5 Mg/3 Ml) 3 ml NEB Q4H PRN PRN Reason: Shortness Of Breath/wheezing Bisacodyl (Dulcolax) 5 mg PO DAILY PRN PRN Reason: Constipation Chlordiazepoxide HCl (Librium) 75 mg PO Q6H [facility] Last Admin: 08/08/18 11:43 Dose: 75 mg Clonidine HCl (Catapres) 0.1 mg PO BID [facility] Last Admin: 08/08/18 09:41 Dose: 0.1 mg Diazepam (Valium) 15 mg IV BID PRN PRN Reason: detox Docusate Sodium (Colace) 100 mg PO BID PRN PRN Reason: Constipation Famotidine (Pepcid) 20 mg PO Q12H [facility] Last Admin: 08/08/18 09:41 Dose: 20 mg Haloperidol Lactate (Haldol) 8 mg IVPUSH Q8H PRN PRN Reason: detox Hydralazine HCl (Apresoline) 20 mg IVPUSH Q4H PRN PRN Reason: Hypertension Last Admin: 08/06/18 19:53 Dose: 20 mg Hydromorphone HCl (Dilaudid) 0.25 mg IVPUSH Q2H PRN PRN Reason: Pain (severe 7-10) Last Admin: 08/05/18 21:12 Dose: 0.25 mg Lorazepam (Ativan) 2 mg IVPUSH Q4H PRN PRN Reason: Seizures Lorazepam (Ativan) 1 - 3 mg IV ASDIRECTED PRN; Protocol PRN Reason: Withdrawal Symptoms Last Admin: 08/08/18 15:37 Dose: 1 mg Metoprolol Tartrate (Lopressor) 5 mg IVPUSH Q4H PRN PRN Reason: Tachycardia Last Admin: 08/04/18 13:54 Dose: 5 mg Metoprolol Tartrate (Lopressor) 25 mg PO BID [facility] Last Admin: 08/08/18 09:40 Dose: 25 mg Miscellaneous Information (Remove Patch) 1 ea TRDERM DAILY [facility] Last Admin: 08/08/18 09:41 Dose: Not Given Nicotine (Habitrol) 21 mg TRDERM DAILY [facility] Last Admin: 08/08/18 09:39 Dose: 21 mg Ondansetron HCl (Zofran) 4 mg IV Q6H PRN PRN Reason: Nausea/Vomiting Last Admin: 08/02/18 05:57 Dose: 4 mg Polyethylene Glycol (Miralax) 17 gm PO DAILY PRN PRN Reason: Constipation Quetiapine Fumarate (Seroquel) 50 mg PO BEDTIME [facility] Last Admin: 08/07/18 20:15 Dose: 50 mg Senna/Docusate Sodium (Senna Plus) 1 tab PO BID PRN PRN Reason: Constipation Sodium Chloride (Saline Flush) 10 ml FLUSH ASDIRECTED PRN PRN Reason: Keep Vein Open Last Admin: 08/01/18 17:49 Dose: 10 ml Thiamine HCl (Vitamin B-1) 100 mg PO DAILY [facility] Last Admin: 08/08/18 09:41 Dose: 100 mg Topiramate (Topamax) 25 mg PO BID [facility] Last Admin: 08/08/18 09:41 Dose: 25 mg Discontinued Medications Chlordiazepoxide HCl (Librium) 50 mg PO Q6H PRN PRN Reason: Withdrawal Symptoms Last Admin: 08/02/18 05:13 Dose: 50 mg Clonidine HCl (Catapres) 0.1 mg PO Q4H PRN PRN Reason: Agitation Last Admin: 08/01/18 21:35 Dose: 0.1 mg Diazepam (Valium) 5 mg IV Q8H [facility] Last Admin: 08/04/18 06:32 Dose: 5 mg Diazepam (Valium) 15 mg IV Q8H [facility] Last Admin: 08/06/18 05:37 Dose: Not Given Diphenhydramine HCl (Benadryl) 25 mg IVPUSH ONETIME ONE Stop: 08/01/18 20:35 Last Admin: 08/01/18 22:29 Dose: Not Given Diphenhydramine HCl (Benadryl) 50 mg IVPUSH ONETIME ONE Stop: 08/01/18 20:59 Last Admin: 08/01/18 21:07 Dose: 50 mg Folic Acid (Folic Acid) 1 mg PO DAILY [facility] Stop: 08/05/18 09:01 Last Admin: 08/05/18 15:12 Dose: Not Given Haloperidol Lactate (Haldol) 2 mg IM Q4H PRN PRN Reason: Withdrawal Symptoms Last Admin: 08/02/18 21:20 Dose: 2 mg Haloperidol Lactate (Haldol) 4 mg IVPUSH STAT STA Stop: 08/02/18 19:09 Last Admin: 08/02/18 19:15 Dose: 4 mg Haloperidol Lactate (Haldol) Confirm Administered Dose 10 mg .ROUTE .STK-MED ONE Stop: 08/03/18 16:28 Last Admin: 08/03/18 16:35 Dose: 8 mg Haloperidol Lactate (Haldol) 5 mg IV TID@0000,0800,1600 [facility] Last Admin: 08/04/18 16:04 Dose: 5 mg Haloperidol Lactate (Haldol) 8 mg IVPUSH Q8H [facility] Last Admin: 08/06/18 10:49 Dose: Not Given Sodium Chloride (Normal Saline) 1,000 mls @ 1,000 mls/hr IV .BOLUS [facility] Last Admin: 08/01/18 17:50 Dose: 1,000 mls/hr Potassium Chloride/Sodium Chloride (Normal Saline With 20 Meq Kcl) 1,000 mls @ 125 mls/hr IV ASDIRECTED [facility] Last Admin: 08/04/18 16:04 Dose: 125 mls/hr Thiamine HCl 100 mg/ Sodium (Chloride) 101 mls @ 200 mls/hr IV ONETIME ONE Stop: 08/01/18 21:45 Last Admin: 08/01/18 21:04 Dose: 200 mls/hr Magnesium Sulfate 2 gm/ Premix 50 mls @ 25 mls/hr IV ONETIME ONE Stop: 08/02/18 10:59 Last Admin: 08/02/18 09:23 Dose: 25 mls/hr Lorazepam 20 mg/ Sodium (Chloride) 100 mls @ 5 mls/hr IV ASDIRECTED [facility] Lorazepam 20 mg/ Dextrose/ (Water) 100 mls @ 5 mls/hr IV ASDIRECTED [facility] Last Infusion: 08/03/18 05:30 Dose: 15 mls/hr Dextrose/Water (Dextrose 5% In Water) Confirm Administered Dose 100 mls @ as directed .ROUTE .STK-MED ONE Stop: 08/03/18 02:40 Last Admin: 08/03/18 03:03 Dose: Not Given Lorazepam 20 mg/ Dextrose/ (Water) 100 mls @ 25 mls/hr IV ASDIRECTED [facility] Stop: 08/03/18 13:15 Last Admin: 08/03/18 08:55 Dose: 25 mls/hr Lorazepam 40 mg/ Sodium (Chloride) 40 mls @ 5 mls/hr IV ASDIRECTED [facility]; Protocol Stop: 08/05/18 16:00 Last Titration: 08/05/18 11:14 Dose: 7 ml/hr, 7 mls/hr Sodium Chloride (Sodium Chloride 0.45%) 1,000 mls @ 100 mls/hr IV ASDIRECTED [facility] Stop: 08/05/18 01:00 Last Infusion: 08/05/18 05:00 Dose: 75 mls/hr Sodium Chloride (Sodium Chloride 0.45%) 1,000 mls @ 75 mls/hr IV ASDIRECTED [facility] Last Admin: 08/07/18 04:10 Dose: 75 mls/hr Potassium Chloride 10 meq/ (Premix) 100 mls @ 100 mls/hr IV Q1H [facility] Stop: 08/05/18 14:59 Last Admin: 08/05/18 14:12 Dose: 100 mls/hr Lorazepam 80 mg/ Sodium (Chloride) 80 mls @ 7 mls/hr IV TITRATE [facility] Last Infusion: 08/06/18 07:44 Dose: 1 mls/hr Labetalol HCl (Normodyne) 10 mg IVPUSH ONETIME ONE; Protocol Stop: 08/01/18 20:51 Last Admin: 08/01/18 22:29 Dose: Not Given Lorazepam (Ativan) 0.5 mg IVPUSH ONETIME ONE Stop: 08/01/18 18:46 Last Admin: 08/01/18 18:49 Dose: 0.5 mg Lorazepam (Ativan) 1 - 3 mg IV Q6H PRN; Protocol PRN Reason: Withdrawal Symptoms Last Admin: 08/02/18 08:27 Dose: 2 mg Lorazepam (Ativan) 6 mg IVPUSH ONETIME ONE Stop: 08/03/18 16:35 Last Admin: 08/03/18 16:51 Dose: 6 mg Magnesium Sulfate (Pharmacy To Dose - Magnesium Replacement) 0 dose .XX ASDIRECTED PRN PRN Reason: RX TO WATCH MAG LEVELS Metoprolol Tartrate (Lopressor) 25 mg PO Q12H [facility] Last Admin: 08/06/18 14:24 Dose: 25 mg Miscellaneous Information (Remove Patch) 1 ea TRDERM ONETIME ONE Stop: 08/04/18 21:01 Last Admin: 08/04/18 20:17 Dose: Not Given Multivitamins (Thera) 1 each PO DAILY [facility] Stop: 08/05/18 09:01 Last Admin: 08/05/18 09:26 Dose: 1 each Pantoprazole Sodium (Protonix Iv) 40 mg IV ONETIME ONE Stop: 08/02/18 20:26 Pantoprazole Sodium (Protonix Iv) 40 mg IV ONETIME ONE Stop: 08/02/18 00:34 Last Admin: 08/02/18 00:41 Dose: 40 mg Potassium Chloride (Pharmacy To Dose - Potassium Replacement) 0 dose .XX ASDIRECTED PRN PRN Reason: RX TO WATCH K LEVELS Potassium Chloride (Potassium Chloride) 40 meq IV DAILY [facility] Last Admin: 08/05/18 11:56 Dose: Not Given Scopolamine (Transderm-Scop) 1.5 mg TRDERM ONETIME ONE Stop: 08/01/18 20:59 Last Admin: 08/01/18 21:29 Dose: 1.5 mg Topiramate (Topamax) 50 mg PO BEDTIME [facility] Last Admin: 08/01/18 21:25 Dose: 50 mg - Exam Quality Assessment: DVT Prophylaxis General: Sedated HEENT: Pupils Equal, Pupils Reactive, EOMI Neck: Trachea Midline, No JVD Lungs: Normal Respiratory Effort Cardiovascular: Regular Rate, Regular Rhythm GI/Abdominal Exam: Normal Bowel Sounds, Soft, Non-Tender, No Organomegaly, No Distention (Male) Exam: Deferred Back Exam: Normal Inspection Extremities: Normal Inspection, Non-Tender, Normal Capillary Refill Skin: Warm Neurological: No New Focal Deficit Psy/Mental Status: Anxious, Withdrawal Symptoms - Problem List Review Problem List Initiated/Reviewed/Updated: Yes - My Orders Last 24 Hours: My Active Orders 08/07/18 15:57 Patient Status [ADT] Routine 08/08/18 05:00 CBC WITH AUTO DIFF [HEME] DAILY CMP [COMPREHENSIVE METABOLIC PN,CMP] [CHEM] DAILY MAGNESIUM [CHEM] DAILY 08/08/18 12:53 Consult to Occupational Therapy [OT Evaluation and Treatment] [CONS] Routine PT Evaluation and Treatment [CONS] Routine 08/09/18 05:00 CBC WITH AUTO DIFF [HEME] DAILY CMP [COMPREHENSIVE METABOLIC PN,CMP] [CHEM] DAILY MAGNESIUM [CHEM] DAILY 08/10/18 05:00 CBC WITH AUTO DIFF [HEME] DAILY CMP [COMPREHENSIVE METABOLIC PN,CMP] [CHEM] DAILY MAGNESIUM [CHEM] DAILY 08/11/18 05:00 CBC WITH AUTO DIFF [HEME] DAILY CMP [COMPREHENSIVE METABOLIC PN,CMP] [CHEM] DAILY MAGNESIUM [CHEM] DAILY - Plan Plan:: Assessment/Plan: Acute: ETOH Withdrawal Symptoms - Carries a hx/o heavy drinking - Drinks at least 1L of whiskey and 1 case of beer a day per son - Triggers: unclear - Enablers: A room-mate and another from out of town - JR is 0.28 - CIWAA score - Auditory hallucinations - Wants to go to rehab - UDS consistent with drugs received in ED - SAC and Tele-psych consult when appropriate HALDOL/ATIVAN USE FOR ACUTE ETOH WITHDRAWAL/CHRONIC DEPENDENCE WITH SEVERE AGITATION, UNABLE TO REDIRECT--taper off. Resume oral meds, Librium 75 mg TID scheduled. Improved CIWAs. Transaminitis - 2/2 ETOH Abuse - AST 132; ALT 96 - Avoid Acetaminophen for now - IV fluids Chronic: ETOH Use/Dependence HTN Asthma GERD Prostate Disorder Back Pain Gout Peripheral Neuropathy Anxiety Class II Obese Plan: Ok to transfer to [place] with tele, off of Ativan ip DC [place] Routine AM Labs CIWAA Protocol Folic Acid, MVI and Thiamine DVT and GI PPx SW/CM for d/c planning SAC and Tele-psych consult Seizure Precaution Additional orders as above Code status: DNR/DNI DC [place] if off Ativan drip LOS>96 hours, severe detox from ETOH.
[2018-08-08] MEDS ORDERED: QUEtiapine 25 MG Tab PO SCH (21:00)
[2018-08-08] MEDS ORDERED: LORazepam 2 MG/ML SDV IVPUSH ONE (21:02)
[2018-08-09] MEDS: Acetaminophen/HYDROcodone 325-5 MG Tab PO PRN ×3 (00:14→17:21)
[2018-08-09] MEDS: LORazepam 2 MG/ML SDV IV PRN ×7 (00:40→20:49)
[2018-08-09] MEDS ORDERED: Topiramate 25 MG Tab PO SCH (05:00)
[2018-08-09] MEDS: chlordiazePOXIDE 25 MG Cap PO SCH ×3 (06:44→20:12)
--- NOTE | 2018-08-09 07:02 | CT ---
Head CT Technique: Multiple axial sections through the brain were obtained. Intravenous contrast was not utilized. Comparison: No prior intracranial imaging. Findings: Ventricles along with basal cisterns and sulci over the convexities are mildly prominent. 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 Minimal basal ganglia calcification is seen. Very slight low density is noted within portions of the periventricular white matter compatible with minimal small vessel ischemic demyelination change. No other abnormal parenchymal densities are seen. No evidence of intracranial hemorrhage. No midline shift or mass effect is seen. Bone window settings were reviewed which show no acute calvarial abnormality. Visualized sinuses are clear. Impression: 1. Nothing acute is appreciated on noncontrast head CT study. Incidental findings as noted above. Diagnostic code #2 I agree with preliminary report from [facility], finalized on 08/09/18, 6:51 AM Central Time
[2018-08-09] MEDS: NICOTINE PATCH REMOVAL TRDERM SCH (09:22)
[2018-08-09] MEDS: Nicotine 21 MG/24 Hr Patch TRDERM SCH (09:22)
[2018-08-09] MEDS: cloNIDine 0.1 MG Tab PO SCH ×2 (09:25→20:13)
[2018-08-09] MEDS: Famotidine 20 MG Tab PO SCH ×2 (09:25→20:12)
[2018-08-09] MEDS: Metoprolol Tartrate 25 MG Tab PO SCH ×2 (09:25→20:13)
[2018-08-09] MEDS: Thiamine 100 MG Tab PO SCH (09:25)
[2018-08-09] MEDS: Enoxaparin 30 MG/0.3 ML Syringe SUBCUT SCH (09:26)
--- NOTE | 2018-08-09 16:35 | PCM.PN ---
- General Info Date of Service: 08/09/18 Subjective Update: Remains confused and labile. Functional Status: Reports: Urinating - Review of Systems General: Reports: No Symptoms HEENT: Reports: No Symptoms Pulmonary: Reports: No Symptoms Cardiovascular: Reports: No Symptoms Gastrointestinal: Reports: No Symptoms Genitourinary: Reports: No Symptoms Musculoskeletal: Reports: No Symptoms Skin: Reports: No Symptoms Neurological: Reports: Confusion Psychiatric: Reports: Confusion, Mood Lability, Anxiety, Agitation, Hallucinations - Patient Data Vitals - Most Recent: Last Vital Signs Temp 36.4 C 08/09/18 14:22 Pulse 77 08/09/18 09:25 Resp 20 08/09/18 14:22 BP 103/60 08/09/18 14:22 Pulse Ox 96 08/09/18 09:06 Weight - Most Recent: 119.249 kg I&O - Last 24 Hours: Intake & Output 08/09/18 08/09/18 08/09/18 06:59 14:59 22:59 Intake Total 200 900 600 Output Total 450 425 Balance -250 900 175 Lab Results Last 24 Hours: Laboratory Results - last 24 hr 08/09/18 08/09/18 Range/Units 06:27 06:27 WBC 5.56 (4.23-9.07) K/mm3 RBC 4.19 L (4.63-6.08) M/mm3 Hgb 14.6 (13.7-17.5) gm/L Hct 44.2 (40.1-51.0) % MCV 105.5 H (79.0-92.2) fl MCH 34.8 H (25.7-32.2) pg MCHC 33.0 (32.2-35.5) g/dl RDW Std Deviation 50.6 H (35.1-43.9) fL Plt Count 102 L (163-337) K/mm3 MPV 11.0 (9.4-12.3) fl Neut % (Auto) 49.3 (34.0-67.9) % Lymph % (Auto) 21.2 L (21.8-53.1) % [place] % (Auto) 24.8 H (5.3-12.2) % Eos % (Auto) 3.6 (0.8-7.0) Baso % (Auto) 0.9 (0.1-1.2) % Neut # (Auto) 2.74 (1.78-5.38) K/mm3 Lymph # (Auto) 1.18 L (1.32-3.57) K/mm3 [place] # (Auto) 1.38 H (0.30-0.82) K/mm3 Eos # (Auto) 0.20 (0.04-0.54) K/mm3 Baso # (Auto) 0.05 (0.01-0.08) K/mm3 Manual Slide Review Abnormal smear Sodium 141 (136-145) mEq/L Potassium 3.5 (3.5-5.1) mEq/L Chloride 108 H (98-107) mEq/L Carbon Dioxide 21 (21-32) mEq/L Anion Gap 15.5 H (5-15) BUN 25 H (7-18) mg/dL Creatinine 1.2 (0.7-1.3) mg/dL Est Cr Clr Drug Dosing 71.21 mL/min Estimated GFR (MDRD) > 60 (>60) mL/min BUN/Creatinine Ratio 20.8 H (14-18) Glucose 85 (80-115) mg/dL Calcium 8.9 (8.5-10.1) mg/dL Magnesium 2.0 (1.8-2.4) mg/dl Total Bilirubin 0.4 (0.2-1.0) mg/dL AST 21 (15-37) U/L ALT 27 (16-63) U/L Alkaline Phosphatase 53 (46-116) U/L Total Protein 6.6 (6.4-8.2) g/dl Albumin 2.9 L (3.4-5.0) g/dl Globulin 3.7 gm/dL Albumin/Globulin Ratio 0.8 L (1-2) Med Orders - Current: Current Medications Hydrocodone Bitart/Acetaminophen ([place] 325-5 Mg) 1 tab PO Q6H PRN PRN Reason: Pain/Fever Last Admin: 08/09/18 09:25 Dose: 1 tab Albuterol/Ipratropium (Duoneb 3.0-0.5 Mg/3 Ml) 3 ml NEB Q4H PRN PRN Reason: Shortness Of Breath/wheezing Bisacodyl (Dulcolax) 5 mg PO DAILY PRN PRN Reason: Constipation Chlordiazepoxide HCl (Librium) 75 mg PO Q8H [facility] Last Admin: 08/09/18 11:40 Dose: 75 mg Clonidine HCl (Catapres) 0.1 mg PO BID [facility] Last Admin: 08/09/18 09:25 Dose: 0.1 mg Diazepam (Valium) 15 mg IV BID PRN PRN Reason: detox/anxiety Last Admin: 08/08/18 22:28 Dose: 15 mg Docusate Sodium (Colace) 100 mg PO BID PRN PRN Reason: Constipation Enoxaparin Sodium (Lovenox) 30 mg SUBCUT Q24H [facility] Last Admin: 08/09/18 09:26 Dose: 30 mg Famotidine (Pepcid) 20 mg PO Q12H [facility] Last Admin: 08/09/18 09:25 Dose: 20 mg Haloperidol Lactate (Haldol) 8 mg IVPUSH Q8H PRN PRN Reason: restlessness/severe detox Last Admin: 08/08/18 19:44 Dose: 8 mg Hydralazine HCl (Apresoline) 20 mg IVPUSH Q4H PRN PRN Reason: Hypertension Last Admin: 08/06/18 19:53 Dose: 20 mg Hydromorphone HCl (Dilaudid) 0.25 mg IVPUSH Q2H PRN PRN Reason: Pain (severe 7-10) Last Admin: 08/05/18 21:12 Dose: 0.25 mg Lorazepam (Ativan) 2 mg IVPUSH Q4H PRN PRN Reason: Seizures Lorazepam (Ativan) 1 - 3 mg IV ASDIRECTED PRN; Protocol PRN Reason: Withdrawal Symptoms Last Admin: 08/09/18 14:16 Dose: 1 mg Metoprolol Tartrate (Lopressor) 5 mg IVPUSH Q4H PRN PRN Reason: Tachycardia Last Admin: 08/04/18 13:54 Dose: 5 mg Metoprolol Tartrate (Lopressor) 25 mg PO BID [facility] Last Admin: 08/09/18 09:25 Dose: 25 mg Miscellaneous Information (Remove Patch) 1 ea TRDERM DAILY [facility] Last Admin: 08/09/18 09:22 Dose: 1 ea Nicotine (Habitrol) 21 mg TRDERM DAILY [facility] Last Admin: 08/09/18 09:22 Dose: 21 mg Ondansetron HCl (Zofran) 4 mg IV Q6H PRN PRN Reason: Nausea/Vomiting Last Admin: 08/02/18 05:57 Dose: 4 mg Polyethylene Glycol (Miralax) 17 gm PO DAILY PRN PRN Reason: Constipation Quetiapine Fumarate (Seroquel) 100 mg PO BEDTIME [facility] Senna/Docusate Sodium (Senna Plus) 1 tab PO BID PRN PRN Reason: Constipation Sodium Chloride (Saline Flush) 10 ml FLUSH ASDIRECTED PRN PRN Reason: Keep Vein Open Last Admin: 08/01/18 17:49 Dose: 10 ml Thiamine HCl (Vitamin B-1) 100 mg PO DAILY [facility] Last Admin: 08/09/18 09:25 Dose: 100 mg Topiramate (Topamax) 50 mg PO Q12H [facility] Discontinued Medications Chlordiazepoxide HCl (Librium) 50 mg PO Q6H PRN PRN Reason: Withdrawal Symptoms Last Admin: 08/02/18 05:13 Dose: 50 mg Chlordiazepoxide HCl (Librium) 75 mg PO Q6H [facility] Last Admin: 08/08/18 17:49 Dose: 75 mg Clonidine HCl (Catapres) 0.1 mg PO Q4H PRN PRN Reason: Agitation Last Admin: 08/01/18 21:35 Dose: 0.1 mg Diazepam (Valium) 5 mg IV Q8H [facility] Last Admin: 08/04/18 06:32 Dose: 5 mg Diazepam (Valium) 15 mg IV Q8H [facility] Last Admin: 08/06/18 05:37 Dose: Not Given Diphenhydramine HCl (Benadryl) 25 mg IVPUSH ONETIME ONE Stop: 08/01/18 20:35 Last Admin: 08/01/18 22:29 Dose: Not Given Diphenhydramine HCl (Benadryl) 50 mg IVPUSH ONETIME ONE Stop: 08/01/18 20:59 Last Admin: 08/01/18 21:07 Dose: 50 mg Folic Acid (Folic Acid) 1 mg PO DAILY [facility] Stop: 08/05/18 09:01 Last Admin: 08/05/18 15:12 Dose: Not Given Haloperidol Lactate (Haldol) 2 mg IM Q4H PRN PRN Reason: Withdrawal Symptoms Last Admin: 08/02/18 21:20 Dose: 2 mg Haloperidol Lactate (Haldol) 4 mg IVPUSH STAT STA Stop: 08/02/18 19:09 Last Admin: 08/02/18 19:15 Dose: 4 mg Haloperidol Lactate (Haldol) Confirm Administered Dose 10 mg .ROUTE .STK-MED ONE Stop: 08/03/18 16:28 Last Admin: 08/03/18 16:35 Dose: 8 mg Haloperidol Lactate (Haldol) 5 mg IV TID@0000,0800,1600 [facility] Last Admin: 08/04/18 16:04 Dose: 5 mg Haloperidol Lactate (Haldol) 8 mg IVPUSH Q8H [facility] Last Admin: 08/06/18 10:49 Dose: Not Given Sodium Chloride (Normal Saline) 1,000 mls @ 1,000 mls/hr IV .BOLUS [facility] Last Admin: 08/01/18 17:50 Dose: 1,000 mls/hr Potassium Chloride/Sodium Chloride (Normal Saline With 20 Meq Kcl) 1,000 mls @ 125 mls/hr IV ASDIRECTED [facility] Last Admin: 08/04/18 16:04 Dose: 125 mls/hr Thiamine HCl 100 mg/ Sodium (Chloride) 101 mls @ 200 mls/hr IV ONETIME ONE Stop: 08/01/18 21:45 Last Admin: 08/01/18 21:04 Dose: 200 mls/hr Magnesium Sulfate 2 gm/ Premix 50 mls @ 25 mls/hr IV ONETIME ONE Stop: 08/02/18 10:59 Last Admin: 08/02/18 09:23 Dose: 25 mls/hr Lorazepam 20 mg/ Sodium (Chloride) 100 mls @ 5 mls/hr IV ASDIRECTED [facility] Lorazepam 20 mg/ Dextrose/ (Water) 100 mls @ 5 mls/hr IV ASDIRECTED [facility] Last Infusion: 08/03/18 05:30 Dose: 15 mls/hr Dextrose/Water (Dextrose 5% In Water) Confirm Administered Dose 100 mls @ as directed .ROUTE .STK-MED ONE Stop: 08/03/18 02:40 Last Admin: 08/03/18 03:03 Dose: Not Given Lorazepam 20 mg/ Dextrose/ (Water) 100 mls @ 25 mls/hr IV ASDIRECTED [facility] Stop: 08/03/18 13:15 Last Admin: 08/03/18 08:55 Dose: 25 mls/hr Lorazepam 40 mg/ Sodium (Chloride) 40 mls @ 5 mls/hr IV ASDIRECTED [facility]; Protocol Stop: 08/05/18 16:00 Last Titration: 08/05/18 11:14 Dose: 7 ml/hr, 7 mls/hr Sodium Chloride (Sodium Chloride 0.45%) 1,000 mls @ 100 mls/hr IV ASDIRECTED [facility] Stop: 08/05/18 01:00 Last Infusion: 08/05/18 05:00 Dose: 75 mls/hr Sodium Chloride (Sodium Chloride 0.45%) 1,000 mls @ 75 mls/hr IV ASDIRECTED [facility] Last Admin: 08/07/18 04:10 Dose: 75 mls/hr Potassium Chloride 10 meq/ (Premix) 100 mls @ 100 mls/hr IV Q1H [facility] Stop: 08/05/18 14:59 Last Admin: 08/05/18 14:12 Dose: 100 mls/hr Lorazepam 80 mg/ Sodium (Chloride) 80 mls @ 7 mls/hr IV TITRATE [facility] Last Infusion: 08/06/18 07:44 Dose: 1 mls/hr Labetalol HCl (Normodyne) 10 mg IVPUSH ONETIME ONE; Protocol Stop: 08/01/18 20:51 Last Admin: 08/01/18 22:29 Dose: Not Given Lorazepam (Ativan) 0.5 mg IVPUSH ONETIME ONE Stop: 08/01/18 18:46 Last Admin: 08/01/18 18:49 Dose: 0.5 mg Lorazepam (Ativan) 1 - 3 mg IV Q6H PRN; Protocol PRN Reason: Withdrawal Symptoms Last Admin: 08/02/18 08:27 Dose: 2 mg Lorazepam (Ativan) 6 mg IVPUSH ONETIME ONE Stop: 08/03/18 16:35 Last Admin: 08/03/18 16:51 Dose: 6 mg Lorazepam (Ativan) 6 mg IVPUSH ONETIME ONE Stop: 08/08/18 21:03 Last Admin: 08/08/18 21:02 Dose: 6 mg Magnesium Sulfate (Pharmacy To Dose - Magnesium Replacement) 0 dose .XX ASDIRECTED PRN PRN Reason: RX TO WATCH MAG LEVELS Metoprolol Tartrate (Lopressor) 25 mg PO Q12H [facility] Last Admin: 08/06/18 14:24 Dose: 25 mg Miscellaneous Information (Remove Patch) 1 ea TRDERM ONETIME ONE Stop: 08/04/18 21:01 Last Admin: 08/04/18 20:17 Dose: Not Given Multivitamins (Thera) 1 each PO DAILY [facility] Stop: 08/05/18 09:01 Last Admin: 08/05/18 09:26 Dose: 1 each Pantoprazole Sodium (Protonix Iv) 40 mg IV ONETIME ONE Stop: 08/02/18 20:26 Pantoprazole Sodium (Protonix Iv) 40 mg IV ONETIME ONE Stop: 08/02/18 00:34 Last Admin: 08/02/18 00:41 Dose: 40 mg Potassium Chloride (Pharmacy To Dose - Potassium Replacement) 0 dose .XX ASDIRECTED PRN PRN Reason: RX TO WATCH K LEVELS Potassium Chloride (Potassium Chloride) 40 meq IV DAILY [facility] Last Admin: 08/05/18 11:56 Dose: Not Given Quetiapine Fumarate (Seroquel) 50 mg PO BEDTIME [facility] Last Admin: 08/07/18 20:15 Dose: 50 mg Quetiapine Fumarate (Seroquel) 100 mg PO BEDTIME [facility] Last Admin: 08/08/18 20:35 Dose: 100 mg Scopolamine (Transderm-Scop) 1.5 mg TRDERM ONETIME ONE Stop: 08/01/18 20:59 Last Admin: 08/01/18 21:29 Dose: 1.5 mg Topiramate (Topamax) 25 mg PO BID [facility] Last Admin: 08/08/18 09:41 Dose: 25 mg Topiramate (Topamax) 50 mg PO BEDTIME [facility] Last Admin: 08/01/18 21:25 Dose: 50 mg Topiramate (Topamax) 50 mg PO BID [facility] Last Admin: 08/09/18 06:45 Dose: 50 mg - Exam Quality Assessment: DVT Prophylaxis General: Sedated HEENT: Pupils Equal, Pupils Reactive, EOMI Neck: Trachea Midline, No JVD Lungs: Normal Respiratory Effort Cardiovascular: Regular Rate, Regular Rhythm GI/Abdominal Exam: Normal Bowel Sounds, Soft, Non-Tender, No Organomegaly, No Distention (Male) Exam: Deferred Back Exam: Normal Inspection Extremities: Normal Inspection, Non-Tender, Normal Capillary Refill Skin: Warm Wound/Incisions: Erythema Psy/Mental Status: Labile Mood, Agitated, Hallucinations, Withdrawal Symptoms - Problem List Review Problem List Initiated/Reviewed/Updated: Yes - My Orders Last 24 Hours: My Active Orders 08/08/18 20:00 chlordiazePOXIDE [Librium] 75 mg PO Q8H 08/09/18 09:00 Enoxaparin [Lovenox] 30 mg SUBCUT Q24H 08/09/18 15:30 AMMONIA VENOUS [CHEM] Routine 08/09/18 17:00 Topiramate [Topamax] 50 mg PO Q12H 08/09/18 21:00 QUEtiapine [SEROquel] 100 mg PO BEDTIME 08/10/18 05:00 CBC WITH AUTO DIFF [HEME] DAILY CMP [COMPREHENSIVE METABOLIC PN,CMP] [CHEM] DAILY MAGNESIUM [CHEM] DAILY 08/11/18 05:00 CBC WITH AUTO DIFF [HEME] DAILY CMP [COMPREHENSIVE METABOLIC PN,CMP] [CHEM] DAILY MAGNESIUM [CHEM] DAILY - Plan Plan:: Assessment/Plan: Acute: ETOH Withdrawal Symptoms - Carries a hx/o heavy drinking - Drinks at least 1L of whiskey and 1 case of beer a day per son - Triggers: unclear - Enablers: A room-mate and another from out of town - JR is 0.28 - CIWAA score - Auditory hallucinations - Wants to go to rehab - UDS consistent with drugs received in ED - SAC and Tele-psych consult when appropriate HALDOL/ATIVAN USE FOR ACUTE ETOH WITHDRAWAL/CHRONIC DEPENDENCE WITH SEVERE AGITATION, UNABLE TO REDIRECT--taper off. Resume oral meds, Librium 75 mg TID scheduled. Improved CIWAs. Transaminitis - 2/2 ETOH Abuse - AST 132; ALT 96 - Avoid Acetaminophen for now - IV fluids Chronic: ETOH Use/Dependence HTN Asthma GERD Prostate Disorder Back Pain Gout Peripheral Neuropathy Anxiety Class II Obese Plan: Ok to transfer to [place] with tele, off of Ativan drip DC [place] Routine AM Labs CIWAA Protocol Folic Acid, MVI and Thiamine DVT and GI PPx SW/CM for d/c planning SAC and Tele-psych consult Seizure Precaution Additional orders as above Code status: DNR/DNI DC [place] if off Ativan drip LOS>96 hours, severe detox from ETOH.
[2018-08-09] MEDS ORDERED: Morphine 2 MG/ML Syringe IVPUSH ONE ×2 (17:20→20:00)
[2018-08-09] MEDS: Topiramate 25 MG Tab PO SCH (17:21)
[2018-08-09] MEDS ORDERED: LORazepam 1 MG Tab PO ONE (17:45)
[2018-08-09] MEDS: QUEtiapine 100 MG Tab PO SCH (20:12)
[2018-08-09] MEDS: Pantoprazole 40 MG Vial IVPUSH SCH (20:37)
--- NOTE | 2018-08-09 20:48 | PCM.SN ---
- Free Text/Narrative Note: Start: 2020 Stop: 2034 IV start requested by anesthesia. 20 gauge to right inner wrist, times 2 attempts. Patient tolerated well. Flushed with 10ml's of normal saline, site intact, and great blood return noted.
[2018-08-10] MEDS: LORazepam 2 MG/ML SDV IV PRN ×6 (02:58→21:01)
[2018-08-10] MEDS: Topiramate 25 MG Tab PO SCH ×2 (04:59→16:16)
[2018-08-10] MEDS: chlordiazePOXIDE 25 MG Cap PO SCH ×3 (04:59→19:31)
[2018-08-10] MEDS: Enoxaparin 30 MG/0.3 ML Syringe SUBCUT SCH (09:27)
[2018-08-10] MEDS: cloNIDine 0.1 MG Tab PO SCH ×3 (09:29→20:34)
[2018-08-10] MEDS: Thiamine 100 MG Tab PO SCH (09:29)
[2018-08-10] MEDS: Metoprolol Tartrate 25 MG Tab PO SCH ×3 (09:29→20:34)
[2018-08-10] MEDS: Nicotine 21 MG/24 Hr Patch TRDERM SCH (09:32)
[2018-08-10] MEDS: Famotidine 20 MG Tab PO SCH (09:33)
[2018-08-10] MEDS: NICOTINE PATCH REMOVAL TRDERM SCH (09:33)
[2018-08-10] MEDS: Pantoprazole 40 MG Vial IVPUSH SCH (09:35)
--- NOTE | 2018-08-10 16:10 | PCM.PN ---
- General Info Date of Service: 08/10/18 Functional Status: Reports: Pain Controlled, Urinating - Review of Systems General: Reports: No Symptoms HEENT: Reports: No Symptoms Pulmonary: Reports: No Symptoms Cardiovascular: Reports: No Symptoms Gastrointestinal: Reports: No Symptoms Genitourinary: Reports: No Symptoms Musculoskeletal: Reports: No Symptoms Skin: Reports: No Symptoms Neurological: Reports: Confusion Psychiatric: Reports: Confusion, Anxiety, Agitation - Patient Data Vitals - Most Recent: Last Vital Signs Temp 37.5 C 08/10/18 12:31 Pulse 76 08/10/18 12:31 Resp 20 08/10/18 12:31 BP 105/70 08/10/18 12:31 Pulse Ox 95 08/10/18 12:31 Weight - Most Recent: 117.934 kg I&O - Last 24 Hours: Intake & Output 08/10/18 08/10/18 08/10/18 06:59 14:59 22:59 Intake Total 500 240 Output Total 100 Balance 400 240 Lab Results Last 24 Hours: Laboratory Results - last 24 hr 08/09/18 08/09/18 08/10/18 Range/Units 15:30 17:55 06:35 WBC 6.94 (4.23-9.07) K/mm3 RBC 4.23 L (4.63-6.08) M/mm3 Hgb 14.8 (13.7-17.5) gm/L Hct 45.2 (40.1-51.0) % MCV 106.9 H (79.0-92.2) fl MCH 35.0 H (25.7-32.2) pg MCHC 32.7 (32.2-35.5) g/dl RDW Std Deviation 51.4 H (35.1-43.9) fL Plt Count 148 L (163-337) K/mm3 MPV 11.1 (9.4-12.3) fl Neut % (Auto) 59.9 (34.0-67.9) % Lymph % (Auto) 16.4 L (21.8-53.1) % [place]ink[place] % (Auto) 20.3 H (5.3-12.2) % Eos % (Auto) 2.4 (0.8-7.0) Baso % (Auto) 0.9 (0.1-1.2) % Neut # (Auto) 4.15 (1.78-5.38) K/mm3 Lymph # (Auto) 1.14 L (1.32-3.57) K/mm3 [place]inkler # (Auto) 1.41 H (0.30-0.82) K/mm3 Eos # (Auto) 0.17 (0.04-0.54) K/mm3 Baso # (Auto) 0.06 (0.01-0.08) K/mm3 Manual Slide Review Abnormal smear Sodium (136-145) mEq/L Potassium (3.5-5.1) mEq/L Chloride (98-107) mEq/L Carbon Dioxide (21-32) mEq/L Anion Gap (5-15) BUN (7-18) mg/dL Creatinine (0.7-1.3) mg/dL Est Cr Clr Drug Dosing mL/min Estimated GFR (MDRD) (>60) mL/min BUN/Creatinine Ratio (14-18) Glucose (80-115) mg/dL Calcium (8.5-10.1) mg/dL Magnesium (1.8-2.4) mg/dl Total Bilirubin (0.2-1.0) mg/dL AST (15-37) U/L ALT (16-63) U/L Alkaline Phosphatase (46-116) U/L Ammonia 11 (11-32) umol/L Troponin I < 0.017 (0.00-0.056) ng/mL Total Protein (6.4-8.2) g/dl Albumin (3.4-5.0) g/dl Globulin gm/dL Albumin/Globulin Ratio (1-2) 08/10/18 Range/Units 06:35 WBC (4.23-9.07) K/mm3 RBC (4.63-6.08) M/mm3 Hgb (13.7-17.5) gm/L Hct (40.1-51.0) % MCV (79.0-92.2) fl MCH (25.7-32.2) pg MCHC (32.2-35.5) g/dl RDW Std Deviation (35.1-43.9) fL Plt Count (163-337) K/mm3 MPV (9.4-12.3) fl Neut % (Auto) (34.0-67.9) % Lymph % (Auto) (21.8-53.1) % Wink[place] % (Auto) (5.3-12.2) % Eos % (Auto) (0.8-7.0) Baso % (Auto) (0.1-1.2) % Neut # (Auto) (1.78-5.38) K/mm3 Lymph # (Auto) (1.32-3.57) K/mm3 Winkler # (Auto) (0.30-0.82) K/mm3 Eos # (Auto) (0.04-0.54) K/mm3 Baso # (Auto) (0.01-0.08) K/mm3 Manual Slide Review Sodium 142 (136-145) mEq/L Potassium 3.6 (3.5-5.1) mEq/L Chloride 107 (98-107) mEq/L Carbon Dioxide 22 (21-32) mEq/L Anion Gap 16.6 H (5-15) BUN 23 H (7-18) mg/dL Creatinine 1.4 H (0.7-1.3) mg/dL Est Cr Clr Drug Dosing 61.03 mL/min Estimated GFR (MDRD) 51 (>60) mL/min BUN/Creatinine Ratio 16.4 (14-18) Glucose 92 (80-115) mg/dL Calcium 9.4 (8.5-10.1) mg/dL Magnesium 2.1 (1.8-2.4) mg/dl Total Bilirubin 0.6 (0.2-1.0) mg/dL AST 18 (15-37) U/L ALT 31 (16-63) U/L Alkaline Phosphatase 56 (46-116) U/L Ammonia (11-32) umol/L Troponin I (0.00-0.056) ng/mL Total Protein 7.4 (6.4-8.2) g/dl Albumin 3.2 L (3.4-5.0) g/dl Globulin 4.2 gm/dL Albumin/Globulin Ratio 0.8 L (1-2) Med Orders - Current: Current Medications Hydrocodone Bitart/Acetaminophen ([place] 325-5 Mg) 1 tab PO Q6H PRN PRN Reason: Pain/Fever Last Admin: 08/09/18 17:21 Dose: 1 tab Albuterol/Ipratropium (Duoneb 3.0-0.5 Mg/3 Ml) 3 ml NEB Q4H PRN PRN Reason: Shortness Of Breath/wheezing Bisacodyl (Dulcolax) 5 mg PO DAILY PRN PRN Reason: Constipation Chlordiazepoxide HCl (Librium) 75 mg PO Q8H [facility] Last Admin: 08/10/18 12:40 Dose: 75 mg Clonidine HCl (Catapres) 0.1 mg PO BID [facility] Last Admin: 08/10/18 09:29 Dose: 0.1 mg Diazepam (Valium) 15 mg IV BID PRN PRN Reason: detox/anxiety Last Admin: 08/08/18 22:28 Dose: 15 mg Docusate Sodium (Colace) 100 mg PO BID PRN PRN Reason: Constipation Enoxaparin Sodium (Lovenox) 30 mg SUBCUT Q24H [facility] Last Admin: 08/10/18 09:27 Dose: 30 mg Famotidine (Pepcid) 20 mg PO Q12H [facility] Haloperidol Lactate (Haldol) 8 mg IVPUSH Q8H PRN PRN Reason: restlessness/severe detox Last Admin: 08/08/18 19:44 Dose: 8 mg Hydralazine HCl (Apresoline) 20 mg IVPUSH Q4H PRN PRN Reason: Hypertension Last Admin: 08/06/18 19:53 Dose: 20 mg Hydromorphone HCl (Dilaudid) 0.25 mg IVPUSH Q2H PRN PRN Reason: Pain (severe 7-10) Last Admin: 08/05/18 21:12 Dose: 0.25 mg Lorazepam (Ativan) 2 mg IVPUSH Q4H PRN PRN Reason: Seizures Lorazepam (Ativan) 1 - 3 mg IV ASDIRECTED PRN; Protocol PRN Reason: Withdrawal Symptoms Last Admin: 08/10/18 09:34 Dose: 1 mg Metoprolol Tartrate (Lopressor) 5 mg IVPUSH Q4H PRN PRN Reason: Tachycardia Last Admin: 08/04/18 13:54 Dose: 5 mg Metoprolol Tartrate (Lopressor) 25 mg PO BID [facility] Last Admin: 08/10/18 09:29 Dose: 25 mg Miscellaneous Information (Remove Patch) 1 ea TRDERM DAILY [facility] Last Admin: 08/10/18 09:33 Dose: 1 ea Nicotine (Habitrol) 21 mg TRDERM DAILY [facility] Last Admin: 08/10/18 09:32 Dose: 21 mg Ondansetron HCl (Zofran) 4 mg IV Q6H PRN PRN Reason: Nausea/Vomiting Last Admin: 08/02/18 05:57 Dose: 4 mg Polyethylene Glycol (Miralax) 17 gm PO DAILY PRN PRN Reason: Constipation Quetiapine Fumarate (Seroquel) 100 mg PO BEDTIME [facility] Last Admin: 08/09/18 20:12 Dose: 100 mg Senna/Docusate Sodium (Senna Plus) 1 tab PO BID PRN PRN Reason: Constipation Sodium Chloride (Saline Flush) 10 ml FLUSH ASDIRECTED PRN PRN Reason: Keep Vein Open Last Admin: 08/01/18 17:49 Dose: 10 ml Thiamine HCl (Vitamin B-1) 100 mg PO DAILY [facility] Last Admin: 08/10/18 09:29 Dose: 100 mg Topiramate (Topamax) 50 mg PO Q12H [facility] Last Admin: 08/10/18 04:59 Dose: 50 mg Discontinued Medications Chlordiazepoxide HCl (Librium) 50 mg PO Q6H PRN PRN Reason: Withdrawal Symptoms Last Admin: 08/02/18 05:13 Dose: 50 mg Chlordiazepoxide HCl (Librium) 75 mg PO Q6H [facility] Last Admin: 08/08/18 17:49 Dose: 75 mg Clonidine HCl (Catapres) 0.1 mg PO Q4H PRN PRN Reason: Agitation Last Admin: 08/01/18 21:35 Dose: 0.1 mg Diazepam (Valium) 5 mg IV Q8H [facility] Last Admin: 08/04/18 06:32 Dose: 5 mg Diazepam (Valium) 15 mg IV Q8H [facility] Last Admin: 08/06/18 05:37 Dose: Not Given Diphenhydramine HCl (Benadryl) 25 mg IVPUSH ONETIME ONE Stop: 08/01/18 20:35 Last Admin: 08/01/18 22:29 Dose: Not Given Diphenhydramine HCl (Benadryl) 50 mg IVPUSH ONETIME ONE Stop: 08/01/18 20:59 Last Admin: 08/01/18 21:07 Dose: 50 mg Famotidine (Pepcid) 20 mg PO Q12H [facility] Last Admin: 08/10/18 09:33 Dose: Not Given Folic Acid (Folic Acid) 1 mg PO DAILY [facility] Stop: 08/05/18 09:01 Last Admin: 08/05/18 15:12 Dose: Not Given Haloperidol Lactate (Haldol) 2 mg IM Q4H PRN PRN Reason: Withdrawal Symptoms Last Admin: 08/02/18 21:20 Dose: 2 mg Haloperidol Lactate (Haldol) 4 mg IVPUSH STAT STA Stop: 08/02/18 19:09 Last Admin: 08/02/18 19:15 Dose: 4 mg Haloperidol Lactate (Haldol) Confirm Administered Dose 10 mg .ROUTE .STK-MED ONE Stop: 08/03/18 16:28 Last Admin: 08/03/18 16:35 Dose: 8 mg Haloperidol Lactate (Haldol) 5 mg IV TID@0000,0800,1600 [facility] Last Admin: 08/04/18 16:04 Dose: 5 mg Haloperidol Lactate (Haldol) 8 mg IVPUSH Q8H [facility] Last Admin: 08/06/18 10:49 Dose: Not Given Sodium Chloride (Normal Saline) 1,000 mls @ 1,000 mls/hr IV .BOLUS [facility] Last Admin: 08/01/18 17:50 Dose: 1,000 mls/hr Potassium Chloride/Sodium Chloride (Normal Saline With 20 Meq Kcl) 1,000 mls @ 125 mls/hr IV ASDIRECTED [facility] Last Admin: 08/04/18 16:04 Dose: 125 mls/hr Thiamine HCl 100 mg/ Sodium (Chloride) 101 mls @ 200 mls/hr IV ONETIME ONE Stop: 08/01/18 21:45 Last Admin: 08/01/18 21:04 Dose: 200 mls/hr Magnesium Sulfate 2 gm/ Premix 50 mls @ 25 mls/hr IV ONETIME ONE Stop: 08/02/18 10:59 Last Admin: 08/02/18 09:23 Dose: 25 mls/hr Lorazepam 20 mg/ Sodium (Chloride) 100 mls @ 5 mls/hr IV ASDIRECTED [facility] Lorazepam 20 mg/ Dextrose/ (Water) 100 mls @ 5 mls/hr IV ASDIRECTED [facility] Last Infusion: 08/03/18 05:30 Dose: 15 mls/hr Dextrose/Water (Dextrose 5% In Water) Confirm Administered Dose 100 mls @ as directed .ROUTE .STK-MED ONE Stop: 08/03/18 02:40 Last Admin: 08/03/18 03:03 Dose: Not Given Lorazepam 20 mg/ Dextrose/ (Water) 100 mls @ 25 mls/hr IV ASDIRECTED [facility] Stop: 08/03/18 13:15 Last Admin: 08/03/18 08:55 Dose: 25 mls/hr Lorazepam 40 mg/ Sodium (Chloride) 40 mls @ 5 mls/hr IV ASDIRECTED [facility]; Protocol Stop: 08/05/18 16:00 Last Titration: 08/05/18 11:14 Dose: 7 ml/hr, 7 mls/hr Sodium Chloride (Sodium Chloride 0.45%) 1,000 mls @ 100 mls/hr IV ASDIRECTED [facility] Stop: 08/05/18 01:00 Last Infusion: 08/05/18 05:00 Dose: 75 mls/hr Sodium Chloride (Sodium Chloride 0.45%) 1,000 mls @ 75 mls/hr IV ASDIRECTED [facility] Last Admin: 08/07/18 04:10 Dose: 75 mls/hr Potassium Chloride 10 meq/ (Premix) 100 mls @ 100 mls/hr IV Q1H [facility] Stop: 08/05/18 14:59 Last Admin: 08/05/18 14:12 Dose: 100 mls/hr Lorazepam 80 mg/ Sodium (Chloride) 80 mls @ 7 mls/hr IV TITRATE [facility] Last Infusion: 08/06/18 07:44 Dose: 1 mls/hr Labetalol HCl (Normodyne) 10 mg IVPUSH ONETIME ONE; Protocol Stop: 08/01/18 20:51 Last Admin: 08/01/18 22:29 Dose: Not Given Lorazepam (Ativan) 0.5 mg IVPUSH ONETIME ONE Stop: 08/01/18 18:46 Last Admin: 08/01/18 18:49 Dose: 0.5 mg Lorazepam (Ativan) 1 - 3 mg IV Q6H PRN; Protocol PRN Reason: Withdrawal Symptoms Last Admin: 08/02/18 08:27 Dose: 2 mg Lorazepam (Ativan) 6 mg IVPUSH ONETIME ONE Stop: 08/03/18 16:35 Last Admin: 08/03/18 16:51 Dose: 6 mg Lorazepam (Ativan) 6 mg IVPUSH ONETIME ONE Stop: 08/08/18 21:03 Last Admin: 08/08/18 21:02 Dose: 6 mg Lorazepam (Ativan) 1 mg PO ONETIME ONE Stop: 08/09/18 17:46 Last Admin: 08/09/18 17:52 Dose: 1 mg Magnesium Sulfate (Pharmacy To Dose - Magnesium Replacement) 0 dose .XX ASDIRECTED PRN PRN Reason: RX TO WATCH MAG LEVELS Metoprolol Tartrate (Lopressor) 25 mg PO Q12H [facility] Last Admin: 08/06/18 14:24 Dose: 25 mg Miscellaneous Information (Remove Patch) 1 ea TRDERM ONETIME ONE Stop: 08/04/18 21:01 Last Admin: 08/04/18 20:17 Dose: Not Given Morphine Sulfate (Morphine) 1 mg IVPUSH ONETIME ONE Stop: 08/09/18 17:21 Last Admin: 08/09/18 20:37 Dose: 1 mg Morphine Sulfate (Morphine) 1 mg IVPUSH ONETIME ONE Stop: 08/09/18 20:01 Last Admin: 08/09/18 20:38 Dose: Not Given Multivitamins (Thera) 1 each PO DAILY [facility] Stop: 08/05/18 09:01 Last Admin: 08/05/18 09:26 Dose: 1 each Pantoprazole Sodium (Protonix Iv) 40 mg IV ONETIME ONE Stop: 08/02/18 20:26 Pantoprazole Sodium (Protonix Iv) 40 mg IV ONETIME ONE Stop: 08/02/18 00:34 Last Admin: 08/02/18 00:41 Dose: 40 mg Pantoprazole Sodium (Protonix Iv) 40 mg IVPUSH BID [facility] Last Admin: 08/10/18 09:35 Dose: 40 mg Potassium Chloride (Pharmacy To Dose - Potassium Replacement) 0 dose .XX ASDIRECTED PRN PRN Reason: RX TO WATCH K LEVELS Potassium Chloride (Potassium Chloride) 40 meq IV DAILY [facility] Last Admin: 08/05/18 11:56 Dose: Not Given Quetiapine Fumarate (Seroquel) 50 mg PO BEDTIME [facility] Last Admin: 08/07/18 20:15 Dose: 50 mg Quetiapine Fumarate (Seroquel) 100 mg PO BEDTIME [facility] Last Admin: 08/08/18 20:35 Dose: 100 mg Scopolamine (Transderm-Scop) 1.5 mg TRDERM ONETIME ONE Stop: 08/01/18 20:59 Last Admin: 08/01/18 21:29 Dose: 1.5 mg Topiramate (Topamax) 25 mg PO BID [facility] Last Admin: 08/08/18 09:41 Dose: 25 mg Topiramate (Topamax) 50 mg PO BEDTIME [facility] Last Admin: 08/01/18 21:25 Dose: 50 mg Topiramate (Topamax) 50 mg PO BID [facility] Last Admin: 08/09/18 06:45 Dose: 50 mg - Exam Quality Assessment: DVT Prophylaxis General: Lethargic HEENT: Pupils Equal, Pupils Reactive, EOMI Neck: Trachea Midline, No JVD Lungs: Normal Respiratory Effort Cardiovascular: Regular Rate, Regular Rhythm GI/Abdominal Exam: Normal Bowel Sounds, Soft, Non-Tender, No Organomegaly, No Distention (Male) Exam: Deferred Back Exam: Normal Inspection Extremities: Normal Inspection, Non-Tender, Normal Capillary Refill Skin: Warm Neurological: No New Focal Deficit Psy/Mental Status: Anxious, Withdrawal Symptoms - Problem List Review Problem List Initiated/Reviewed/Updated: Yes - My Orders Last 24 Hours: My Active Orders 08/09/18 17:00 Topiramate [Topamax] 50 mg PO Q12H 08/09/18 17:19 EKG 12 Lead [EK] Stat 08/09/18 21:00 QUEtiapine [SEROquel] 100 mg PO BEDTIME 08/11/18 05:00 CBC WITH AUTO DIFF [HEME] DAILY CMP [COMPREHENSIVE METABOLIC PN,CMP] [CHEM] DAILY MAGNESIUM [CHEM] DAILY - Plan Plan:: Assessment/Plan: Acute: ETOH Withdrawal Symptoms - Carries a hx/o heavy drinking - Drinks at least 1L of whiskey and 1 case of beer a day per son - Triggers: unclear - Enablers: A room-mate and another from out of town - JR is 0.28 - CIWAA score - Auditory hallucinations - Wants to go to rehab - UDS consistent with drugs received in ED - SAC and Tele-psych consult when appropriate HALDOL/ATIVAN USE FOR ACUTE ETOH WITHDRAWAL/CHRONIC DEPENDENCE WITH SEVERE AGITATION, UNABLE TO REDIRECT--taper off. Resume oral meds, Librium 75 mg TID scheduled. Improved CIWAs. Transaminitis - 2/2 ETOH Abuse - AST 132; ALT 96 - Avoid Acetaminophen for now - IV fluids Chronic: ETOH Use/Dependence HTN Asthma GERD Prostate Disorder Back Pain Gout Peripheral Neuropathy Anxiety Class II Obese Plan: Ok to transfer to [place] with tele, off of Ativan drip DC [place] Routine AM Labs CIWAA Protocol Folic Acid, MVI and Thiamine DVT and GI PPx SW/CM for d/c planning SAC and Tele-psych consult Seizure Precaution Additional orders as above Code status: DNR/DNI DC [place] if off Ativan drip LOS>96 hours, severe detox from ETOH.
[2018-08-10] MEDS ORDERED: Haloperidol Lactate 5 MG/ML SDV IVPUSH PRN (16:12)
[2018-08-10] MEDS ORDERED: diazePAM 5 MG/ML-2ml Syringe IV PRN (16:12)
[2018-08-10] MEDS: Acetaminophen/HYDROcodone 325-5 MG Tab PO PRN (16:15)
[2018-08-10] MEDS: QUEtiapine 100 MG Tab PO SCH ×2 (19:30→20:35)
[2018-08-11] MEDS: chlordiazePOXIDE 25 MG Cap PO SCH ×2 (05:36→11:57)
[2018-08-11] MEDS: Topiramate 25 MG Tab PO SCH ×2 (05:36→15:59)
[2018-08-11] MEDS ORDERED: Bisacodyl 10 MG Supp RECTAL PRN (05:38)
[2018-08-11] MEDS: Metoprolol Tartrate 25 MG Tab PO SCH ×2 (08:49→20:39)
[2018-08-11] MEDS: Thiamine 100 MG Tab PO SCH (08:49)
[2018-08-11] MEDS: cloNIDine 0.1 MG Tab PO SCH (08:50)
[2018-08-11] MEDS: Acetaminophen/HYDROcodone 325-5 MG Tab PO PRN (08:50)
[2018-08-11] MEDS: Enoxaparin 30 MG/0.3 ML Syringe SUBCUT SCH (08:51)
[2018-08-11] MEDS: Famotidine 20 MG Tab PO SCH ×2 (08:51→20:41)
[2018-08-11] MEDS: Nicotine 21 MG/24 Hr Patch TRDERM SCH (08:57)
[2018-08-11] MEDS: NICOTINE PATCH REMOVAL TRDERM SCH (08:59)
--- NOTE | 2018-08-11 09:10 | PCM.PN ---
- General Info Date of Service: 08/11/18 Admission Dx/Problem (Free Text): Admission Diagnosis/Problem Admission Diagnosis/Problem Alcohol withdrawal syndrome Subjective Update: Remains confused and labile. Functional Status: Reports: Tolerating Diet, Ambulating, Urinating. Denies: Pain Controlled, New Symptoms - Review of Systems General: Denies: Fever, Chills HEENT: Reports: No Symptoms Pulmonary: Denies: Shortness of Breath Cardiovascular: Denies: Chest Pain, Dyspnea on Exertion, Lightheadedness Gastrointestinal: Denies: Abdominal Pain, Decreased Appetite, Nausea, Vomiting Genitourinary: Reports: No Symptoms Musculoskeletal: Reports: No Symptoms Skin: Denies: Cyanosis, Diaphoresis, Bruising Neurological: Reports: Gait Disturbance Psychiatric: Reports: Agitation. Denies: No Symptoms, Anxiety, Suicidal Ideation, Homicidal Ideation Systems Review Comment:: No significant overnight issues. He rested well last night. He reports left shoulder pain with hx/o recent fall. His CIWAA is pretty much in the low range. His vitals and morning labs are fairly unremarkable. - Patient Data Vitals - Most Recent: Last Vital Signs Temp 36.9 C 08/10/18 23:01 Pulse 78 08/11/18 08:49 Resp 24 H 08/10/18 23:01 BP 120/78 08/11/18 08:50 Pulse Ox 91 L 08/10/18 23:01 Weight - Most Recent: 118.206 kg I&O - Last 24 Hours: Intake & Output 08/10/18 08/11/18 08/11/18 22:59 06:59 14:59 Intake Total 690 500 Output Total 50 Balance 640 500 Lab Results Last 24 Hours: Laboratory Results - last 24 hr 08/11/18 08/11/18 Range/Units 06:35 06:35 WBC 7.75 (4.23-9.07) K/mm3 RBC 4.12 L (4.63-6.08) M/mm3 Hgb 14.5 (13.7-17.5) gm/L Hct 43.9 (40.1-51.0) % MCV 106.6 H (79.0-92.2) fl MCH 35.2 H (25.7-32.2) pg MCHC 33.0 (32.2-35.5) g/dl RDW Std Deviation 51.1 H (35.1-43.9) fL Plt Count 158 L (163-337) K/mm3 MPV 10.6 (9.4-12.3) fl Neut % (Auto) 63.6 (34.0-67.9) % Lymph % (Auto) 13.9 L (21.8-53.1) % Bath % (Auto) 19.7 H (5.3-12.2) % Eos % (Auto) 1.8 (0.8-7.0) Baso % (Auto) 0.9 (0.1-1.2) % Neut # (Auto) 4.92 (1.78-5.38) K/mm3 Lymph # (Auto) 1.08 L (1.32-3.57) K/mm3 Bath # (Auto) 1.53 H (0.30-0.82) K/mm3 Eos # (Auto) 0.14 (0.04-0.54) K/mm3 Baso # (Auto) 0.07 (0.01-0.08) K/mm3 Sodium 139 (136-145) mEq/L Potassium 3.6 (3.5-5.1) mEq/L Chloride 106 (98-107) mEq/L Carbon Dioxide 22 (21-32) mEq/L Anion Gap 14.6 (5-15) BUN 21 H (7-18) mg/dL Creatinine 1.2 (0.7-1.3) mg/dL Est Cr Clr Drug Dosing 71.21 mL/min Estimated GFR (MDRD) > 60 (>60) mL/min BUN/Creatinine Ratio 17.5 (14-18) Glucose 99 (80-115) mg/dL Calcium 9.2 (8.5-10.1) mg/dL Magnesium 2.1 (1.8-2.4) mg/dl Total Bilirubin 0.5 (0.2-1.0) mg/dL AST 14 L (15-37) U/L ALT 25 (16-63) U/L Alkaline Phosphatase 52 (46-116) U/L Total Protein 6.9 (6.4-8.2) g/dl Albumin 3.0 L (3.4-5.0) g/dl Globulin 3.9 gm/dL Albumin/Globulin Ratio 0.8 L (1-2) Med Orders - Current: Current Medications Hydrocodone Bitart/Acetaminophen ([place] 325-5 Mg) 1 tab PO Q6H PRN PRN Reason: Pain/Fever Last Admin: 08/11/18 08:50 Dose: 1 tab Albuterol/Ipratropium (Duoneb 3.0-0.5 Mg/3 Ml) 3 ml NEB Q4H PRN PRN Reason: Shortness Of Breath/wheezing Bisacodyl (Dulcolax) 5 mg PO DAILY PRN PRN Reason: Constipation Bisacodyl (Dulcolax) 10 mg RECTAL DAILY PRN PRN Reason: Constipation Last Admin: 08/11/18 06:20 Dose: 10 mg Chlordiazepoxide HCl (Librium) 75 mg PO Q8H [facility] Last Admin: 08/11/18 05:36 Dose: 75 mg Clonidine HCl (Catapres) 0.1 mg PO BID [facility] Last Admin: 08/11/18 08:50 Dose: 0.1 mg Diazepam (Valium) 8 mg IV BID PRN PRN Reason: detox/anxiety Docusate Sodium (Colace) 100 mg PO BID PRN PRN Reason: Constipation Enoxaparin Sodium (Lovenox) 30 mg SUBCUT Q24H [facility] Last Admin: 08/11/18 08:51 Dose: 30 mg Famotidine (Pepcid) 20 mg PO Q12H [facility] Last Admin: 08/11/18 08:51 Dose: 20 mg Haloperidol Lactate (Haldol) 6 mg IVPUSH Q8H PRN PRN Reason: restlessness/severe detox Hydralazine HCl (Apresoline) 20 mg IVPUSH Q4H PRN PRN Reason: Hypertension Last Admin: 08/06/18 19:53 Dose: 20 mg Lorazepam (Ativan) 1 - 3 mg IV ASDIRECTED PRN; Protocol PRN Reason: Withdrawal Symptoms Last Admin: 08/10/18 21:01 Dose: 1 mg Metoprolol Tartrate (Lopressor) 5 mg IVPUSH Q4H PRN PRN Reason: Tachycardia Last Admin: 08/04/18 13:54 Dose: 5 mg Metoprolol Tartrate (Lopressor) 25 mg PO BID [facility] Last Admin: 08/11/18 08:49 Dose: 25 mg Miscellaneous Information (Remove Patch) 1 ea TRDERM DAILY [facility] Last Admin: 08/11/18 08:59 Dose: 1 ea Nicotine (Habitrol) 21 mg TRDERM DAILY [facility] Last Admin: 08/11/18 08:57 Dose: 21 mg Ondansetron HCl (Zofran) 4 mg IV Q6H PRN PRN Reason: Nausea/Vomiting Last Admin: 08/02/18 05:57 Dose: 4 mg Polyethylene Glycol (Miralax) 17 gm PO DAILY PRN PRN Reason: Constipation Quetiapine Fumarate (Seroquel) 100 mg PO BEDTIME [facility] Last Admin: 08/10/18 20:35 Dose: Not Given Senna/Docusate Sodium (Senna Plus) 1 tab PO BID PRN PRN Reason: Constipation Sodium Chloride (Saline Flush) 10 ml FLUSH ASDIRECTED PRN PRN Reason: Keep Vein Open Last Admin: 08/01/18 17:49 Dose: 10 ml Thiamine HCl (Vitamin B-1) 100 mg PO DAILY [facility] Last Admin: 08/11/18 08:49 Dose: 100 mg Topiramate (Topamax) 50 mg PO Q12H [facility] Last Admin: 08/11/18 05:36 Dose: 50 mg Discontinued Medications Chlordiazepoxide HCl (Librium) 50 mg PO Q6H PRN PRN Reason: Withdrawal Symptoms Last Admin: 08/02/18 05:13 Dose: 50 mg Chlordiazepoxide HCl (Librium) 75 mg PO Q6H [facility] Last Admin: 08/08/18 17:49 Dose: 75 mg Clonidine HCl (Catapres) 0.1 mg PO Q4H PRN PRN Reason: Agitation Last Admin: 08/01/18 21:35 Dose: 0.1 mg Diazepam (Valium) 5 mg IV Q8H [facility] Last Admin: 08/04/18 06:32 Dose: 5 mg Diazepam (Valium) 15 mg IV Q8H [facility] Last Admin: 08/06/18 05:37 Dose: Not Given Diazepam (Valium) 15 mg IV BID PRN PRN Reason: detox/anxiety Last Admin: 08/08/18 22:28 Dose: 15 mg Diphenhydramine HCl (Benadryl) 25 mg IVPUSH ONETIME ONE Stop: 08/01/18 20:35 Last Admin: 08/01/18 22:29 Dose: Not Given Diphenhydramine HCl (Benadryl) 50 mg IVPUSH ONETIME ONE Stop: 08/01/18 20:59 Last Admin: 08/01/18 21:07 Dose: 50 mg Famotidine (Pepcid) 20 mg PO Q12H [facility] Last Admin: 08/10/18 09:33 Dose: Not Given Folic Acid (Folic Acid) 1 mg PO DAILY [facility] Stop: 08/05/18 09:01 Last Admin: 08/05/18 15:12 Dose: Not Given Haloperidol Lactate (Haldol) 2 mg IM Q4H PRN PRN Reason: Withdrawal Symptoms Last Admin: 08/02/18 21:20 Dose: 2 mg Haloperidol Lactate (Haldol) 4 mg IVPUSH STAT STA Stop: 08/02/18 19:09 Last Admin: 08/02/18 19:15 Dose: 4 mg Haloperidol Lactate (Haldol) Confirm Administered Dose 10 mg .ROUTE .STK-MED ONE Stop: 08/03/18 16:28 Last Admin: 08/03/18 16:35 Dose: 8 mg Haloperidol Lactate (Haldol) 5 mg IV TID@0000,0800,1600 [facility] Last Admin: 08/04/18 16:04 Dose: 5 mg Haloperidol Lactate (Haldol) 8 mg IVPUSH Q8H [facility] Last Admin: 08/06/18 10:49 Dose: Not Given Haloperidol Lactate (Haldol) 8 mg IVPUSH Q8H PRN PRN Reason: restlessness/severe detox Last Admin: 08/08/18 19:44 Dose: 8 mg Hydromorphone HCl (Dilaudid) 0.25 mg IVPUSH Q2H PRN PRN Reason: Pain (severe 7-10) Last Admin: 08/05/18 21:12 Dose: 0.25 mg Sodium Chloride (Normal Saline) 1,000 mls @ 1,000 mls/hr IV .BOLUS [facility] Last Admin: 08/01/18 17:50 Dose: 1,000 mls/hr Potassium Chloride/Sodium Chloride (Normal Saline With 20 Meq Kcl) 1,000 mls @ 125 mls/hr IV ASDIRECTED [facility] Last Admin: 08/04/18 16:04 Dose: 125 mls/hr Thiamine HCl 100 mg/ Sodium (Chloride) 101 mls @ 200 mls/hr IV ONETIME ONE Stop: 08/01/18 21:45 Last Admin: 08/01/18 21:04 Dose: 200 mls/hr Magnesium Sulfate 2 gm/ Premix 50 mls @ 25 mls/hr IV ONETIME ONE Stop: 08/02/18 10:59 Last Admin: 08/02/18 09:23 Dose: 25 mls/hr Lorazepam 20 mg/ Sodium (Chloride) 100 mls @ 5 mls/hr IV ASDIRECTED [facility] Lorazepam 20 mg/ Dextrose/ (Water) 100 mls @ 5 mls/hr IV ASDIRECTED [facility] Last Infusion: 08/03/18 05:30 Dose: 15 mls/hr Dextrose/Water (Dextrose 5% In Water) Confirm Administered Dose 100 mls @ as directed .ROUTE .STK-MED ONE Stop: 08/03/18 02:40 Last Admin: 08/03/18 03:03 Dose: Not Given Lorazepam 20 mg/ Dextrose/ (Water) 100 mls @ 25 mls/hr IV ASDIRECTED [facility] Stop: 08/03/18 13:15 Last Admin: 08/03/18 08:55 Dose: 25 mls/hr Lorazepam 40 mg/ Sodium (Chloride) 40 mls @ 5 mls/hr IV ASDIRECTED [facility]; Protocol Stop: 08/05/18 16:00 Last Titration: 08/05/18 11:14 Dose: 7 ml/hr, 7 mls/hr Sodium Chloride (Sodium Chloride 0.45%) 1,000 mls @ 100 mls/hr IV ASDIRECTED [facility] Stop: 08/05/18 01:00 Last Infusion: 08/05/18 05:00 Dose: 75 mls/hr Sodium Chloride (Sodium Chloride 0.45%) 1,000 mls @ 75 mls/hr IV ASDIRECTED [facility] Last Admin: 08/07/18 04:10 Dose: 75 mls/hr Potassium Chloride 10 meq/ (Premix) 100 mls @ 100 mls/hr IV Q1H [facility] Stop: 08/05/18 14:59 Last Admin: 08/05/18 14:12 Dose: 100 mls/hr Lorazepam 80 mg/ Sodium (Chloride) 80 mls @ 7 mls/hr IV TITRATE [facility] Last Infusion: 08/06/18 07:44 Dose: 1 mls/hr Labetalol HCl (Normodyne) 10 mg IVPUSH ONETIME ONE; Protocol Stop: 08/01/18 20:51 Last Admin: 08/01/18 22:29 Dose: Not Given Lorazepam (Ativan) 0.5 mg IVPUSH ONETIME ONE Stop: 08/01/18 18:46 Last Admin: 08/01/18 18:49 Dose: 0.5 mg Lorazepam (Ativan) 2 mg IVPUSH Q4H PRN PRN Reason: Seizures Lorazepam (Ativan) 1 - 3 mg IV Q6H PRN; Protocol PRN Reason: Withdrawal Symptoms Last Admin: 08/02/18 08:27 Dose: 2 mg Lorazepam (Ativan) 6 mg IVPUSH ONETIME ONE Stop: 08/03/18 16:35 Last Admin: 08/03/18 16:51 Dose: 6 mg Lorazepam (Ativan) 6 mg IVPUSH ONETIME ONE Stop: 08/08/18 21:03 Last Admin: 08/08/18 21:02 Dose: 6 mg Lorazepam (Ativan) 1 mg PO ONETIME ONE Stop: 08/09/18 17:46 Last Admin: 08/09/18 17:52 Dose: 1 mg Magnesium Sulfate (Pharmacy To Dose - Magnesium Replacement) 0 dose .XX ASDIRECTED PRN PRN Reason: RX TO WATCH MAG LEVELS Metoprolol Tartrate (Lopressor) 25 mg PO Q12H [facility] Last Admin: 08/06/18 14:24 Dose: 25 mg Miscellaneous Information (Remove Patch) 1 ea TRDERM ONETIME ONE Stop: 08/04/18 21:01 Last Admin: 08/04/18 20:17 Dose: Not Given Morphine Sulfate (Morphine) 1 mg IVPUSH ONETIME ONE Stop: 08/09/18 17:21 Last Admin: 08/09/18 20:37 Dose: 1 mg Morphine Sulfate (Morphine) 1 mg IVPUSH ONETIME ONE Stop: 08/09/18 20:01 Last Admin: 08/09/18 20:38 Dose: Not Given Multivitamins (Thera) 1 each PO DAILY [facility] Stop: 08/05/18 09:01 Last Admin: 08/05/18 09:26 Dose: 1 each Pantoprazole Sodium (Protonix Iv) 40 mg IV ONETIME ONE Stop: 08/02/18 20:26 Pantoprazole Sodium (Protonix Iv) 40 mg IV ONETIME ONE Stop: 08/02/18 00:34 Last Admin: 08/02/18 00:41 Dose: 40 mg Pantoprazole Sodium (Protonix Iv) 40 mg IVPUSH BID [facility] Last Admin: 08/10/18 09:35 Dose: 40 mg Potassium Chloride (Pharmacy To Dose - Potassium Replacement) 0 dose .XX ASDIRECTED PRN PRN Reason: RX TO WATCH K LEVELS Potassium Chloride (Potassium Chloride) 40 meq IV DAILY [facility] Last Admin: 08/05/18 11:56 Dose: Not Given Quetiapine Fumarate (Seroquel) 50 mg PO BEDTIME [facility] Last Admin: 08/07/18 20:15 Dose: 50 mg Quetiapine Fumarate (Seroquel) 100 mg PO BEDTIME [facility] Last Admin: 08/08/18 20:35 Dose: 100 mg Scopolamine (Transderm-Scop) 1.5 mg TRDERM ONETIME ONE Stop: 08/01/18 20:59 Last Admin: 08/01/18 21:29 Dose: 1.5 mg Topiramate (Topamax) 25 mg PO BID [facility] Last Admin: 08/08/18 09:41 Dose: 25 mg Topiramate (Topamax) 50 mg PO BEDTIME [facility] Last Admin: 08/01/18 21:25 Dose: 50 mg Topiramate (Topamax) 50 mg PO BID [facility] Last Admin: 08/09/18 06:45 Dose: 50 mg - Exam General: Alert, Cooperative, No Acute Distress, Other (Obese) HEENT: Pupils Equal, Pupils Reactive, EOMI, Mucous Membr. Moist/[place] Neck: Supple, Trachea Midline, No JVD Lungs: Clear to Auscultation, Normal Respiratory Effort Cardiovascular: Regular Rate, Regular Rhythm GI/Abdominal Exam: Normal Bowel Sounds, Soft, Non-Tender, No Organomegaly, No Distention, No Abnormal Bruit, No Mass, Other (midline surgical scar) (Male) Exam: Deferred Back Exam: Normal Inspection, Decreased Range of Motion Extremities: Normal Inspection, Normal Range of Motion, Non-Tender, No Pedal Edema, Normal Capillary Refill Skin: Warm, Dry, Intact Neurological: No New Focal Deficit Psy/Mental Status: Alert, Normal Affect, Anxious. No: Agitated, Suicidal Ideation, Homicidal Ideation, Hallucinations, Withdrawal Symptoms - Problem List Review Problem List Initiated/Reviewed/Updated: Yes - My Orders Last 24 Hours: My Active Orders 08/11/18 09:00 Famotidine [Pepcid] 20 mg PO Q12H - Plan Plan:: Assessment/Plan: Acute: Anxiety with Sedation and Agitation - Uncontrolled pain; contributory - Resume home medications - Discontinue Ativan, Valium and Clonidine - I strongly believe at this point, he is done detoxing; instead he is heavily sedated and agitated - Discontinue CIWAA but Continue 1:1 Care due to Considerable agitation - Patient is reasonable when I talk to him this morning - Awaiting Papito Low consult Left Shoulder Pain - Had a hx/o recent fall - PE: Good Active and Passive ROM; no pain with movement - Plain imaging study report reads: nothing acute is appreciated - Resume home dose narcotic Constipation - Last BM on the 07 of August - PRN bowel prep S/p ETOH Withdrawal Symptoms - Carries a hx/o heavy drinking - Drinks at least 1L of whiskey and 1 case of beer a day per son - Triggers: unclear - Enablers: A room-mate and another from out of town - JR is 0.28 - CIWAA score now in the low range - No more auditory hallucinations - Wants to go home today - UDS consistent with drugs received in ED - Tele-psych consult; Dr. Narvaez recommends: AA Rep, Pastoral Guidance CD consult and inpatient treatment S/p Transaminitis - 2/2 ETOH Abuse - AST 132; ALT 96 - Avoid Acetaminophen for now - IV fluids Chronic: ETOH Use/Dependence HTN Asthma GERD Prostate Disorder Back Pain Gout Peripheral Neuropathy Anxiety Class II Obese Plan: He looks fairly stable Discontinue routine AM Labs and CIWAA Protocol Continue 1:1 due to Agitation Discontinue Folic Acid, MVI and Thiamine DVT and GI PPx SW/CM for d/c planning Awaiting SAC consult Additional orders as above Code status: DNR/DNI Discharge pending SAC eval
[2018-08-11] MEDS ORDERED: Acetaminophen/HYDROcodone 325-5 MG Tab PO PRN (12:25)
[2018-08-11] MEDS ORDERED: ALPRAZolam 0.5 MG Tab PO PRN (12:25)
[2018-08-11] MEDS ORDERED: HYDROmorphone 1 MG/ML Syringe IVPUSH PRN (12:28)
--- NOTE | 2018-08-11 12:38 | CR ---
Chest: Portable view of the chest was obtained centered to the left side, right side of the chest was not included. Comparison: Previous chest x-ray of 08/07/18. Old rib fractures are seen within the left chest. Calcified granuloma is noted within the left chest as well as calcified left hilar lymph nodes. Other visualized lungs are clear. Heart size appears within normal limits for portable technique. Tortuous thoracic aorta is seen. Impression: 1. Findings which are felt to be incidental as noted above. Nothing acute is appreciated on this limited chest x-ray. Diagnostic code #2
[2018-08-11] MEDS ORDERED: Gabapentin 600 MG Tab PO SCH (15:00)
[2018-08-11] MEDS ORDERED: hydrALAZINE 20 MG/ML SDV IVPUSH PRN (18:01)
[2018-08-11] MEDS ORDERED: Metoprolol Tartrate 5 MG/5 ML SDV IVPUSH PRN (18:01)
[2018-08-11] MEDS: Lactulose Soln 10 GM/15 ML 30 ML UD Cup PO SCH (18:09)
[2018-08-11] MEDS: Potassium Chloride 20 MEQ Tab.ER PO SCH ×2 (18:35→22:08)
[2018-08-11] MEDS: Doxazosin 2 MG Tab PO SCH (20:41)
[2018-08-11] MEDS: Gabapentin 300 MG Cap PO SCH (20:41)
[2018-08-11] MEDS: QUEtiapine 100 MG Tab PO SCH (20:41)
[2018-08-11] MEDS ORDERED: QUEtiapine 100 MG Tab PO SCH (21:00)
[2018-08-11] MEDS: guaiFENesin/Dextromethorphan 100-10 MG/5 ML Soln 5 ML Cup PO PRN (23:52)
[2018-08-12] MEDS: guaiFENesin/Dextromethorphan 100-10 MG/5 ML Soln 5 ML Cup PO PRN (05:02)
[2018-08-12] MEDS: Topiramate 25 MG Tab PO SCH ×2 (05:02→17:50)
[2018-08-12] MEDS: Lactulose Soln 10 GM/15 ML 30 ML UD Cup PO SCH (05:05)
--- NOTE | 2018-08-12 08:04 | CR ---
Chest: Frontal view of the chest was obtained utilizing portable technique. Comparison: Prior chest x-ray of 08/07/18. Stable granuloma is noted within the left mid lung as well as left upper lung. Lung markings are mildly increased believed to be accentuated from portable technique. No acute parenchymal change is seen. Heart size and mediastinum are stable. Bony structures show several old left-sided rib fractures which appear stable. No acute osseous abnormality is definitely seen. Electrostimulating device appears to be present within the lower thoracic and upper lumbar spine. Impression: 1. Incidental findings. Nothing acute is suspected. Diagnostic code #2
[2018-08-12] MEDS ORDERED: Folic Acid 1 MG Tab PO SCH (09:00)
[2018-08-12] MEDS: Metoprolol Tartrate 25 MG Tab PO SCH ×2 (09:55→21:25)
[2018-08-12] MEDS: Enoxaparin 30 MG/0.3 ML Syringe SUBCUT SCH (09:56)
[2018-08-12] MEDS: Famotidine 20 MG Tab PO SCH ×2 (09:57→21:21)
[2018-08-12] MEDS: Gabapentin 300 MG Cap PO SCH ×3 (09:57→21:21)
[2018-08-12] MEDS: ESCITALOPRAM 40 MG PO SCH (09:58)
[2018-08-12] MEDS: Allopurinol 300 MG Tab PO SCH (09:58)
[2018-08-12] MEDS: Nicotine 21 MG/24 Hr Patch TRDERM SCH (10:00)
[2018-08-12] MEDS: NICOTINE PATCH REMOVAL TRDERM SCH (10:05)
--- NOTE | 2018-08-12 11:56 | PCM.PN ---
- General Info Date of Service: 08/12/18 Admission Dx/Problem (Free Text): Admission Diagnosis/Problem Admission Diagnosis/Problem Alcohol withdrawal syndrome Subjective Update: Remains confused and labile. Functional Status: Reports: Pain Controlled, Tolerating Diet, Ambulating, Urinating. Denies: New Symptoms - Review of Systems General: Denies: Fever, Weakness, Fatigue, Malaise, Chills HEENT: Reports: No Symptoms Pulmonary: Denies: Shortness of Breath Cardiovascular: Denies: Chest Pain, Dyspnea on Exertion, Lightheadedness Gastrointestinal: Denies: Abdominal Pain, Nausea, Vomiting Genitourinary: Reports: No Symptoms Musculoskeletal: Reports: No Symptoms Skin: Reports: No Symptoms Neurological: Reports: Pre-Existing Deficit, Difficulty Walking, Weakness, Gait Disturbance. Denies: Confusion Psychiatric: Denies: Confusion, Depression, Anxiety, Agitation, Hallucinations, Suicidal Ideation Systems Review Comment:: No significant overnight or acute issues. He rested well and doing relatively well. He has no new complaints. - Patient Data Vitals - Most Recent: Last Vital Signs Temp 36.6 C 08/12/18 03:53 Pulse 73 08/12/18 09:55 Resp 20 08/12/18 03:53 BP 115/77 08/12/18 09:55 Pulse Ox 94 L 08/12/18 03:53 Weight - Most Recent: 119.748 kg I&O - Last 24 Hours: Intake & Output 08/11/18 08/12/18 08/12/18 22:59 06:59 14:59 Intake Total 400 400 720 Output Total 650 500 Balance -250 -100 720 Med Orders - Current: Current Medications Hydrocodone Bitart/Acetaminophen ([place] 325-5 Mg) 2 tab PO Q6H PRN PRN Reason: Pain Last Admin: 08/11/18 15:29 Dose: 2 tab Albuterol/Ipratropium (Duoneb 3.0-0.5 Mg/3 Ml) 3 ml NEB Q4H PRN PRN Reason: Shortness Of Breath/wheezing Allopurinol (Zyloprim) 300 mg PO DAILY MASOUD Last Admin: 08/12/18 09:58 Dose: 300 mg Alprazolam (Xanax) 0.5 mg PO QID PRN PRN Reason: Anxiety Last Admin: 08/11/18 13:38 Dose: 0.5 mg Bisacodyl (Dulcolax) 5 mg PO DAILY PRN PRN Reason: Constipation Last Admin: 08/11/18 13:38 Dose: 5 mg Bisacodyl (Dulcolax) 10 mg RECTAL DAILY PRN PRN Reason: Constipation Last Admin: 08/11/18 06:20 Dose: 10 mg Docusate Sodium (Colace) 100 mg PO BID PRN PRN Reason: Constipation Doxazosin Mesylate (Cardura) 2 mg PO BEDTIME [facility] Last Admin: 08/11/18 20:41 Dose: 2 mg Enoxaparin Sodium (Lovenox) 30 mg SUBCUT Q24H [facility] Last Admin: 08/12/18 09:56 Dose: 30 mg Famotidine (Pepcid) 20 mg PO Q12H [facility] Last Admin: 08/12/18 09:57 Dose: 20 mg Gabapentin (Neurontin) 300 mg PO TID [facility] Last Admin: 08/12/18 09:57 Dose: 300 mg Guaifenesin/Phenylephrine HCl (Robitussin Dm) 10 ml PO Q4H PRN PRN Reason: Cough Last Admin: 08/12/18 05:02 Dose: 10 ml Haloperidol Lactate (Haldol) 6 mg IVPUSH Q8H PRN PRN Reason: restlessness/severe detox Hydralazine HCl (Apresoline) 20 mg IVPUSH Q4H PRN PRN Reason: Hypertension Last Admin: 08/06/18 19:53 Dose: 20 mg Hydralazine HCl (Apresoline) 20 mg IVPUSH Q4H PRN PRN Reason: Hypertension Hydromorphone HCl (Dilaudid) 1 mg IVPUSH Q4H PRN PRN Reason: Pain (severe 7-10) Magnesium Sulfate (Pharmacy To Dose - Magnesium Replacement) 1 dose .XX ASDIRECTED PRN PRN Reason: PHARMACY TO WATCH MAG LEVELS Metoprolol Tartrate (Lopressor) 5 mg IVPUSH Q4H PRN PRN Reason: Tachycardia Last Admin: 08/04/18 13:54 Dose: 5 mg Metoprolol Tartrate (Lopressor) 25 mg PO BID [facility] Last Admin: 08/12/18 09:55 Dose: 25 mg Metoprolol Tartrate (Lopressor) 5 mg IVPUSH Q4H PRN PRN Reason: Tachycardia Miscellaneous Information (Remove Patch) 1 ea FANY DAILY [facility] Last Admin: 08/12/18 10:05 Dose: 1 ea Nicotine (Habitrol) 21 mg TRDERM DAILY [facility] Last Admin: 08/12/18 10:00 Dose: Not Given Ondansetron HCl (Zofran) 4 mg IV Q6H PRN PRN Reason: Nausea/Vomiting Last Admin: 08/02/18 05:57 Dose: 4 mg Escitalopram 40 Mg ( Patient's Own Med) 40 each PO DAILY [facility] Last Admin: 08/12/18 09:58 Dose: Not Given Polyethylene Glycol (Miralax) 17 gm PO DAILY PRN PRN Reason: Constipation Last Admin: 08/11/18 13:38 Dose: 17 gm Potassium Chloride (Pharmacy To Dose - Potassium Replacement) 1 dose .XX ASDIRECTED PRN PRN Reason: PHARMACY TO WATCH K LEVELS Quetiapine Fumarate (Seroquel) 100 mg PO BEDTIME [facility] Last Admin: 08/11/18 20:41 Dose: 100 mg Senna/Docusate Sodium (Senna Plus) 1 tab PO BID PRN PRN Reason: Constipation Sodium Chloride (Saline Flush) 10 ml FLUSH ASDIRECTED PRN PRN Reason: Keep Vein Open Last Admin: 08/01/18 17:49 Dose: 10 ml Topiramate (Topamax) 25 mg PO Q12H [facility] Last Admin: 08/12/18 05:02 Dose: 25 mg Discontinued Medications Hydrocodone Bitart/Acetaminophen ([place] 325-5 Mg) 1 tab PO Q6H PRN PRN Reason: Pain/Fever Last Admin: 08/11/18 08:50 Dose: 1 tab Chlordiazepoxide HCl (Librium) 50 mg PO Q6H PRN PRN Reason: Withdrawal Symptoms Last Admin: 08/02/18 05:13 Dose: 50 mg Chlordiazepoxide HCl (Librium) 75 mg PO Q6H [facility] Last Admin: 08/08/18 17:49 Dose: 75 mg Chlordiazepoxide HCl (Librium) 75 mg PO Q8H [facility] Last Admin: 08/11/18 11:57 Dose: 75 mg Clonidine HCl (Catapres) 0.1 mg PO Q4H PRN PRN Reason: Agitation Last Admin: 08/01/18 21:35 Dose: 0.1 mg Clonidine HCl (Catapres) 0.1 mg PO BID [facility] Last Admin: 08/11/18 08:50 Dose: 0.1 mg Diazepam (Valium) 5 mg IV Q8H [facility] Last Admin: 08/04/18 06:32 Dose: 5 mg Diazepam (Valium) 15 mg IV Q8H [facility] Last Admin: 08/06/18 05:37 Dose: Not Given Diazepam (Valium) 15 mg IV BID PRN PRN Reason: detox/anxiety Last Admin: 08/08/18 22:28 Dose: 15 mg Diazepam (Valium) 8 mg IV BID PRN PRN Reason: detox/anxiety Diphenhydramine HCl (Benadryl) 25 mg IVPUSH ONETIME ONE Stop: 08/01/18 20:35 Last Admin: 08/01/18 22:29 Dose: Not Given Diphenhydramine HCl (Benadryl) 50 mg IVPUSH ONETIME ONE Stop: 08/01/18 20:59 Last Admin: 08/01/18 21:07 Dose: 50 mg Famotidine (Pepcid) 20 mg PO Q12H [facility] Last Admin: 08/10/18 09:33 Dose: Not Given Folic Acid (Folic Acid) 1 mg PO DAILY [facility] Stop: 08/05/18 09:01 Last Admin: 08/05/18 15:12 Dose: Not Given Folic Acid (Folic Acid) 1 mg PO DAILY [facility] Gabapentin (Neurontin) 1,200 mg PO TID [facility] Last Admin: 08/11/18 15:29 Dose: 1,200 mg Haloperidol Lactate (Haldol) 2 mg IM Q4H PRN PRN Reason: Withdrawal Symptoms Last Admin: 08/02/18 21:20 Dose: 2 mg Haloperidol Lactate (Haldol) 4 mg IVPUSH STAT STA Stop: 08/02/18 19:09 Last Admin: 08/02/18 19:15 Dose: 4 mg Haloperidol Lactate (Haldol) Confirm Administered Dose 10 mg .ROUTE .STK-MED ONE Stop: 08/03/18 16:28 Last Admin: 08/03/18 16:35 Dose: 8 mg Haloperidol Lactate (Haldol) 5 mg IV TID@0000,0800,1600 [facility] Last Admin: 08/04/18 16:04 Dose: 5 mg Haloperidol Lactate (Haldol) 8 mg IVPUSH Q8H [facility] Last Admin: 08/06/18 10:49 Dose: Not Given Haloperidol Lactate (Haldol) 8 mg IVPUSH Q8H PRN PRN Reason: restlessness/severe detox Last Admin: 08/08/18 19:44 Dose: 8 mg Hydromorphone HCl (Dilaudid) 0.25 mg IVPUSH Q2H PRN PRN Reason: Pain (severe 7-10) Last Admin: 08/05/18 21:12 Dose: 0.25 mg Sodium Chloride (Normal Saline) 1,000 mls @ 1,000 mls/hr IV .BOLUS MASOUD Last Admin: 08/01/18 17:50 Dose: 1,000 mls/hr Potassium Chloride/Sodium Chloride (Normal Saline With 20 Meq Kcl) 1,000 mls @ 125 mls/hr IV ASDIRECTED [facility] Last Admin: 08/04/18 16:04 Dose: 125 mls/hr Thiamine HCl 100 mg/ Sodium (Chloride) 101 mls @ 200 mls/hr IV ONETIME ONE Stop: 08/01/18 21:45 Last Admin: 08/01/18 21:04 Dose: 200 mls/hr Magnesium Sulfate 2 gm/ Premix 50 mls @ 25 mls/hr IV ONETIME ONE Stop: 08/02/18 10:59 Last Admin: 08/02/18 09:23 Dose: 25 mls/hr Lorazepam 20 mg/ Sodium (Chloride) 100 mls @ 5 mls/hr IV ASDIRECTED MASOUD Lorazepam 20 mg/ Dextrose/ (Water) 100 mls @ 5 mls/hr IV ASDIRECTED [facility]OU[facility] Last Infusion: 08/03/18 05:30 Dose: 15 mls/hr Dextrose/Water (Dextrose 5% In Water) Confirm Administered Dose 100 mls @ as directed .ROUTE .STK-MED ONE Stop: 08/03/18 02:40 Last Admin: 08/03/18 03:03 Dose: Not Given Lorazepam 20 mg/ Dextrose/ (Water) 100 mls @ 25 mls/hr IV ASDIRECTED [facility]OU[facility] Stop: 08/03/18 13:15 Last Admin: 08/03/18 08:55 Dose: 25 mls/hr Lorazepam 40 mg/ Sodium (Chloride) 40 mls @ 5 mls/hr IV ASDIRECTED MASOUD; Protocol Stop: 08/05/18 16:00 Last Titration: 08/05/18 11:14 Dose: 7 ml/hr, 7 mls/hr Sodium Chloride (Sodium Chloride 0.45%) 1,000 mls @ 100 mls/hr IV ASDIRECTED MASOUD Stop: 08/05/18 01:00 Last Infusion: 08/05/18 05:00 Dose: 75 mls/hr Sodium Chloride (Sodium Chloride 0.45%) 1,000 mls @ 75 mls/hr IV ASDIRECTED [facility]OUD Last Admin: 08/07/18 04:10 Dose: 75 mls/hr Potassium Chloride 10 meq/ (Premix) 100 mls @ 100 mls/hr IV Q1H [facility] Stop: 08/05/18 14:59 Last Admin: 08/05/18 14:12 Dose: 100 mls/hr Lorazepam 80 mg/ Sodium (Chloride) 80 mls @ 7 mls/hr IV TITRATE [facility] Last Infusion: 08/06/18 07:44 Dose: 1 mls/hr Labetalol HCl (Normodyne) 10 mg IVPUSH ONETIME ONE; Protocol Stop: 08/01/18 20:51 Last Admin: 08/01/18 22:29 Dose: Not Given Lactulose (Cephulac) 30 gm PO BID@0600,1400 [facility] Stop: 08/12/18 06:01 Last Admin: 08/12/18 05:05 Dose: 30 gm Lorazepam (Ativan) 0.5 mg IVPUSH ONETIME ONE Stop: 08/01/18 18:46 Last Admin: 08/01/18 18:49 Dose: 0.5 mg Lorazepam (Ativan) 2 mg IVPUSH Q4H PRN PRN Reason: Seizures Lorazepam (Ativan) 1 - 3 mg IV Q6H PRN; Protocol PRN Reason: Withdrawal Symptoms Last Admin: 08/02/18 08:27 Dose: 2 mg Lorazepam (Ativan) 1 - 3 mg IV ASDIRECTED PRN; Protocol PRN Reason: Withdrawal Symptoms Last Admin: 08/10/18 21:01 Dose: 1 mg Lorazepam (Ativan) 6 mg IVPUSH ONETIME ONE Stop: 08/03/18 16:35 Last Admin: 08/03/18 16:51 Dose: 6 mg Lorazepam (Ativan) 6 mg IVPUSH ONETIME ONE Stop: 08/08/18 21:03 Last Admin: 08/08/18 21:02 Dose: 6 mg Lorazepam (Ativan) 1 mg PO ONETIME ONE Stop: 08/09/18 17:46 Last Admin: 08/09/18 17:52 Dose: 1 mg Magnesium Sulfate (Pharmacy To Dose - Magnesium Replacement) 0 dose .XX ASDIRECTED PRN PRN Reason: RX TO WATCH MAG LEVELS Metoprolol Tartrate (Lopressor) 25 mg PO Q12H [facility] Last Admin: 08/06/18 14:24 Dose: 25 mg Miscellaneous Information (Remove Patch) 1 ea TRDERM ONETIME ONE Stop: 08/04/18 21:01 Last Admin: 08/04/18 20:17 Dose: Not Given Morphine Sulfate (Morphine) 1 mg IVPUSH ONETIME ONE Stop: 08/09/18 17:21 Last Admin: 08/09/18 20:37 Dose: 1 mg Morphine Sulfate (Morphine) 1 mg IVPUSH ONETIME ONE Stop: 08/09/18 20:01 Last Admin: 08/09/18 20:38 Dose: Not Given Multivitamins (Thera) 1 each PO DAILY [facility] Stop: 08/05/18 09:01 Last Admin: 08/05/18 09:26 Dose: 1 each Pantoprazole Sodium (Protonix Iv) 40 mg IV ONETIME ONE Stop: 08/02/18 20:26 Pantoprazole Sodium (Protonix Iv) 40 mg IV ONETIME ONE Stop: 08/02/18 00:34 Last Admin: 08/02/18 00:41 Dose: 40 mg Pantoprazole Sodium (Protonix Iv) 40 mg IVPUSH BID [facility] Last Admin: 08/10/18 09:35 Dose: 40 mg Potassium Chloride (Pharmacy To Dose - Potassium Replacement) 0 dose .XX ASDIRECTED PRN PRN Reason: RX TO WATCH K LEVELS Potassium Chloride (Potassium Chloride) 40 meq IV DAILY [facility] Last Admin: 08/05/18 11:56 Dose: Not Given Potassium Chloride (Klor-Con M20) 40 meq PO Q4H [facility] Stop: 08/11/18 22:31 Last Admin: 08/11/18 22:08 Dose: 40 meq Quetiapine Fumarate (Seroquel) 50 mg PO BEDTIME [facility] Last Admin: 08/07/18 20:15 Dose: 50 mg Quetiapine Fumarate (Seroquel) 100 mg PO BEDTIME [facility] Last Admin: 08/08/18 20:35 Dose: 100 mg Quetiapine Fumarate (Seroquel) 100 mg PO BEDTIME [facility] Scopolamine (Transderm-Scop) 1.5 mg TRDERM ONETIME ONE Stop: 08/01/18 20:59 Last Admin: 08/01/18 21:29 Dose: 1.5 mg Thiamine HCl (Vitamin B-1) 100 mg PO DAILY [facility] Last Admin: 08/11/18 08:49 Dose: 100 mg Topiramate (Topamax) 25 mg PO BID [facility] Last Admin: 08/08/18 09:41 Dose: 25 mg Topiramate (Topamax) 50 mg PO BEDTIME [facility] Last Admin: 08/01/18 21:25 Dose: 50 mg Topiramate (Topamax) 50 mg PO BID [facility] Last Admin: 08/09/18 06:45 Dose: 50 mg Topiramate (Topamax) 50 mg PO Q12H [facility] Last Admin: 08/11/18 15:59 Dose: 50 mg - Exam General: Alert, Oriented, Cooperative, No Acute Distress HEENT: Pupils Equal, Pupils Reactive, EOMI, Mucous Membr. Moist/[place] Neck: Supple Lungs: Normal Respiratory Effort, Decreased Breath Sounds Cardiovascular: Regular Rate, Regular Rhythm GI/Abdominal Exam: Normal Bowel Sounds, Soft, Non-Tender, No Organomegaly, No Distention, No Abnormal Bruit, No Mass (Male) Exam: Deferred Back Exam: Normal Inspection, Decreased Range of Motion Extremities: Normal Inspection, Normal Range of Motion, Non-Tender, No Pedal Edema, Normal Capillary Refill Peripheral Pulses: 2+: Dorsalis Pedis (L), Dorsalis Pedis (R) Skin: Warm, Dry, Intact Neurological: No New Focal Deficit. No: Normal Gait Psy/Mental Status: Alert, Normal Affect, Normal Mood - Problem List Review Problem List Initiated/Reviewed/Updated: Yes - My Orders Last 24 Hours: My Active Orders 08/11/18 12:25 ALPRAZolam [Xanax] 0.5 mg PO QID PRN Acetaminophen/HYDROcodone [[place] 325-5 MG] 2 tab PO Q6H PRN 08/11/18 12:28 HYDROmorphone [Dilaudid] 1 mg IVPUSH Q4H PRN 08/11/18 18:01 Metoprolol Tartrate [Lopressor] 5 mg IVPUSH Q4H PRN hydrALAZINE [Apresoline] 20 mg IVPUSH Q4H PRN 08/11/18 18:15 Pharmacy to Dose - Magnesium R [Pharmacy to Dose - Magnesium Replacement] 1 dose .XX ASDIRECTED PRN Pharmacy to Dose - Potassium R [Pharmacy to Dose - Potassium Replacement] 1 dose .XX ASDIRECTED PRN 08/11/18 21:00 Doxazosin [Cardura] 2 mg PO BEDTIME Gabapentin [Neurontin] 300 mg PO TID 08/11/18 23:43 Dextromethorphan/guaiFENesin [Robitussin DM] 10 ml PO Q4H PRN 08/11/18 Dinner Regular Diet [DIET] 08/12/18 05:00 Topiramate [Topamax] 25 mg PO Q12H 08/12/18 09:00 Allopurinol [Zyloprim] 300 mg PO DAILY Patient's Own Medication [Ptom] 40 each PO DAILY - Plan Plan:: Assessment/Plan: Acute: Anxiety S/p Agitation - Uncontrolled pain; contributory - Discontinue 1:1 Care - Papito Low recommends inpatient treatment Resolved: S/p Left Shoulder Pain - Had a hx/o recent fall - PE: Good Active and Passive ROM; no pain with movement - Plain imaging study report reads: nothing acute is appreciated - Resume home dose narcotic S/p Constipation - Last BM on the 07 of August - PRN bowel prep S/p ETOH Withdrawal Symptoms - Carries a hx/o heavy drinking - Drinks at least 1L of whiskey and 1 case of beer a day per son - Triggers: unclear - Enablers: A room-mate and another from out of town - JR is 0.28 - CIWAA score now in the low range - No more auditory hallucinations - Wants to go home today - UDS consistent with drugs received in ED - Tele-psych consult; Dr. Narvaez recommends: AA Rep, Pastoral Guidance CD consult and inpatient treatment S/p Transaminitis - 2/2 ETOH Abuse - AST 132; ALT 96 - Avoid Acetaminophen for now - IV fluids Chronic: ETOH Use/Dependence HTN Asthma GERD Prostate Disorder Back Pain Gout Peripheral Neuropathy Anxiety Class II Obese Plan: He remains clinically stable DVT and GI PPx SW/CM for d/c planning Awaiting [facility] eval and recommendations Additional orders as above Code status: DNR/DNI Discharge pending [facility] evny
--- NOTE | 2018-08-12 15:04 | CONS ---
CONSULTING PHYSICIAN: Papito Low LAC DATE OF CONSULTATION: 08/12/2018 TIME: 1:32 p.m. The patient is a 62-year-old male admitted to [facility] ICU on 08/01/2018 for complications from alcohol dependence and withdrawal. An alcohol and drug evaluation were requested by his medical treatment team. SOURCE OF INFORMATION: Hospital records, staff report, background research, prescription drug monitoring report and a KANU to include the patient's granddaughter in the evaluation. HISTORY OF PRESENT ILLNESS: The patient is a 62-year-old male with a past history of chronic severe alcohol dependence, who presents to [facility] with complications from alcohol dependence and withdrawal. The patient experienced multiple days of serious alcohol withdrawal with perceptual disturbance. The patient reports to the ED that he drinks a liter of whiskey and a case of beer a day for the past 5 or 6 months. The patient was recently hospitalized at [facility] in June 2017 for alcohol dependence and withdrawal and was subsequently committed to the [facility] for substance abuse treatment. The patient reports that he was able to stay sober for about 8 months until he decided to start drinking again. The patient reports that he made that decision because he lives with an alcoholic roommate and he just "gave in". The patient's son reports that he owns the house, they live in, and it has been difficult for him to remove the patient's roommate. The patient has continued drinking further complicated his medical condition as he has a history of HTN, asthma, GERD, prostate disorder, back pain, gout, peripheral neuropathy, and anxiety. 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 The patient's alcohol and drug evaluation have not changed remarkably since his last evaluation on 06/17/2017. PSYCHOSOCIAL HISTORY: The patient states he was born and raised in [place] by his biological parents, were both . His father 16 years ago and his mother 11 years ago. He has 1 brother, who lives in [place]. The patient reports that he has a 10th grade education and was at age 17. They were for 27 years and the patient reports that 7 years before they decided to get a divorce, his became disabled with MS and after depleting all of their income treating that disease, they were for financial reasons enabling this date to care for his . The patient states that they consider themselves still and he states they have been for 44 years. His is in a alf in [place]. However, the patient goes back and forth to visit her. He states he moved to [place] in 2010 to work for his son to continue receiving an income. He has a [place] in [place] that his son lives in. He has 2 sons, 1 lives who in [place] and 1 who lives in [place]. His younger son is an alcoholic and his older son owns a [employer] company in the [place]. 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 He was recently terminated because of his drinking. MEDICAL HISTORY: The patient reports that he had gastric bypass surgery about 16 years ago, and has painful neuropathy in his feet that he believes requires opiates and he also has gout. A prescription drug monitoring report was pulled indicating that he has been consistently prescribed hydrocodone/acetaminophen 10/325; 112/28, gabapentin 600 mg 180/30, and alprazolam 0.5 mg 60/30. This report goes back to 2016. The patient reports though he began using opiates 12 years ago for his neuropathy and states "I cannot take the pain, I can never stop taking opiates because the pain is so bad." MENTAL HEALTH HISTORY: The patient reports that he suffers from ADHD and insomnia. His prescription drug monitoring report indicates he is prescribed alprazolam 0.5 mg, 60/30 by SHUKRI Robertson in [place] in [place]. 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 He is not been treated currently for this condition. However, his son states that he suffers from this mental illness. SUBSTANCE ABUSE HISTORY: The patient reports that he began drinking beer at 7 years old and has been drinking throughout his life. About 16 years ago, he had gastric bypass surgery and quit drinking for 2 years. He started again because he thought he could and states, "over the years, I drank a little more and little more and little more and it went from 6 to 7 beers to 6 to 7 shots of whiskey every day to a half gallon of Alfredo Hdez and 5 or 6 beers." At age 39, he began to use methamphetamine and states he smoked every day for 5 years. He would buy a pound at a time and supply his whole construction crew because it helps some work more. He states he smoked all day and all night every day, joint to about 3-4 g of methamphetamine per day. After 5 years, he was arrested and charged with felony possession and [facility] He was parole then revoked for a weapons charge. He is currently on 27 years of probation. He states he has not smoked methamphetamine since age 44 and has no desire to ever use it again. However, he does believe that his methamphetamine addiction crossed over to opiates, benzodiazepines, and alcohol. He states that he cannot quit using opiates or alprazolam because he will not be able to function without them. The patient also reports he quit smoking cigarettes 20 years ago. Currently since 2010, he states he drank before work and at lunch and he would have 2-3 beers after work. He would typically drink at least a case a week and 175 mL every 4 days. He states this was fairly consistent up until last year when he started drinking all day and all night and states he would sleep, wake up at midnight and began a ritual of beer and a shot and beer and a shot and beer and a shot. However, he can up the amounts, but the combination is always the same. He wakes up at 3:00 a.m., 6:00 a.m. sleeps in between and drinks the rest of the day. He was admitted to [facility] in June 2017 and was committed to the [facility] for substance abuse treatment. The patient reports that he was able to stay sober for about 8 months so and then he decided to start drinking again, and he has been drinking a liter of whiskey and a case of beer daily since that time. The patient's last drink was prior to admission. During the patient's hospital stay, he has experienced severe alcohol withdrawals with perceptual disturbance. The patient reports that his father was an alcoholic, who was diagnosed with liver cirrhosis and from drinking. He says he is just like his father. The patient has many grand children that he loves; however, he is unable to make a choice to stop drinking to spend his remaining time with them and presents in stage IV alcoholism. DIAGNOSES: The patient meets DSM-5 criteria for the following diagnosis: 1. F10.20, alcohol use disorder, severe. 2. F10.232, alcohol withdrawal with perceptual disturbance. 3. F13.20, sedative hypnotic or anxiolytic use disorder, severe. 4. F11.20, Iatrogenic pseudo-opioid use disorder, severe. 5. F17.200, tobacco use disorder, severe in sustained full remission. 6. F15.200, amphetamine use disorder, severe, methamphetamine type in sustained full remission. ASAM DIMENSIONS: Dimension 1: Score 3. Patient tolerates and mariela with withdrawal discomfort poorly. He presents with severe intoxication such that the client is danger to himself or others and displays severe signs and symptoms of withdrawals. Dimension 2: Score 3. The patient tolerates and mariela poorly with physical problems and has poor general health and neglects medical problems without seeking active assistance. The patient has multiple medical issues. Dimension 3: Score 2. The patient has difficulty with impulse control and lacks coping skills. He has difficulty functioning in significant life areas and has a mental health diagnosis given to him by the [facility] in [place]. Substance induced schizophrenia, ADHD, and insomnia. Dimension 4: Score 3. The patient has minimal awareness of addiction or mental health disorder and is minimally cooperative. Dimension 5: Score 4. The patient has little recognition and understanding of relapse and recidivism issues and displays high vulnerability for further substance use due to mental health problems. He has no coping skills to arrest due to his mental health or addiction illness or prevent relapse. Dimension 6: Score 3+. The patient is not engaged in structured meaningful activity and is living with an alcoholic drinking joann. He has significant criminal justice involvement. However, his family is very supportive. The patient appears to be in stage IV addiction, manifesting with avail of denial of the negative consequences of his substance use. He has been abusing substances since he was 7 years old and it appears that despite significant life and medical consequences, he continues to drink and use prescribed medications in combination. A letter was sent from Dr. Shady GALVAN, to his primary physician, Amalia WATT at the [facility] on 11/20/2017, notifying her of the patient's serious in combination use of prescription medication and alcohol. In reviewing the patient's prescription drug monitoring report, it appears that Ms. Guillen made no changes to the patient's prescription regiment. The patient is currently taking approximately 4 10/325 hydrocodone-acetaminophen; 6 gabapentin 600 mg and 2 alprazolam 0.5 mg and drinking a liter of whiskey and a case of beer daily. A letter was drafted by Dr. Renee and sent to SHUKRI Robertson at the [facility] again on 08/12/2018, alerting her to this serious in combination use. On the positive side, after the patient's release from the [facility] in July 2017, he was able to stay sober for approximately 8 months. The patient is now agreeing to be committed again as he requires professional intervention to achieve and maintain sobriety as well as medical and supervision and KANU was signed to talk to the patient's son and he reports that the family is desperate for intervention once again. The patient's medical treatment team was consulted and all are in agreement that the most beneficial safe discharge plan may be to [facility] for medical stabilization and substance abuse treatment. The patient meets ASAM criteria for level 3.7, medically monitored inpatient treatment. RECOMMENDATION: Level 3.7, medically monitored inpatient treatment on a petition for involuntary commitment to the [facility]. [facility] /[id number]
--- NOTE | 2018-08-12 19:03 | CT ---
Head CT Technique: Multiple axial sections through the brain were obtained. Intravenous contrast was not utilized. Comparison: Prior head CT study of 08/09/18. Findings: Ventricles along with basal cisterns and sulci over the convexities are mildly prominent. Minimal diminished density is noted within the periventricular white matter compatible with minimal small vessel ischemic demyelination change. Several old lacunar infarcts are noted within the basal ganglia which appears stable. No other abnormal parenchymal densities are seen. No evidence of intracranial hemorrhage. No midline shift or mass effect is seen. Bone window settings shows atherosclerotic calcification within the carotid siphon. Visualized sinuses are clear. No acute calvarial abnormality is seen. Impression: 1. Senescent changes as noted above. Findings remain stable from previous head CT. 2. Nothing acute is appreciated on noncontrast head CT exam. Diagnostic code #2
[2018-08-12] MEDS: QUEtiapine 100 MG Tab PO SCH (21:21)
[2018-08-12] MEDS: Doxazosin 2 MG Tab PO SCH (21:25)
[2018-08-13] MEDS: Topiramate 25 MG Tab PO SCH (05:10)
[2018-08-13] MEDS: Enoxaparin 30 MG/0.3 ML Syringe SUBCUT SCH (09:32)
[2018-08-13] MEDS: Gabapentin 300 MG Cap PO SCH (09:32)
[2018-08-13] MEDS: Famotidine 20 MG Tab PO SCH (09:33)
[2018-08-13] MEDS: Metoprolol Tartrate 25 MG Tab PO SCH (09:33)
[2018-08-13] MEDS: Allopurinol 300 MG Tab PO SCH (09:33)
[2018-08-13] MEDS: NICOTINE PATCH REMOVAL TRDERM SCH (09:34)
[2018-08-13] MEDS: Nicotine 21 MG/24 Hr Patch TRDERM SCH (09:34)
[2018-08-13] MEDS: ESCITALOPRAM 40 MG PO SCH (09:34)
--- NOTE | 2018-08-13 11:42 | PCM.DCSUM1 ---
Discharge Summary - Hospital Course HPI Initial Comments: This is a 62 yo white male with past medical hx/o ETOH Use/Dependence, HTN, Asthma, GERD, Prostate Disorder, Back Pain, Gout, Peripheral Neuropathy, Anxiety , and Class II Obese who was brought in by his son and son's girlfriend for alcohol detoxification. He is a known alcoholic and has been heavily drinking for the past 3 months. No clear trigger for the acute onset but he has a room mate who drinks considerable amount of alcohol like him. His other son from [place] who also drinks alcohol, further fuels his alcoholism. He states, he has been sober for the past 8-10 months after his treatment in [place] in June last year for similar chief of complaint. According to his son he drinks a liter of whiskey and a case of beer daily. He also has a court hearing scheduled at the end of next month for DWI. Patient did report nausea, epigastric pain but no shortness of breath or chest pain. He denies any fever, or signs of systemic infection. However on presentation he exhibited significant tremors as well as profound sweating. His initial work up in ED shows a CBC remarkable for RBC of 4.32, MCV of 101.9, MCH of 36.9, MCHC of 35.7, RDW of 52.5, and Platelet of 120. His Chemistry is significant for Cl of 97, AG of 22.8, AST of 132, and ALT of 96. His Troponin and Lipase are wnl. His UDS are positive for Benzo and Opiates, likely consistent with medications he received in ED for initial treatment. Patient was admitted last night for alcohol withdrawal symptoms. He is full code. Diagnosis: Stroke: No Modified Garfield Scale: No Symptoms at All Modified Bao Scale Score: 0 - Discharge Data Discharge Date: 08/13/18 Discharge Disposition: Home, Self-Care 01 Condition: Stable - Discharge Diagnosis/Problem(s) (1) Transaminitis SNOMED Code(s): 568003446, 177034052 ICD Code: R74.0 - NONSPEC ELEV OF LEVELS OF TRANSAMNS & LACTIC ACID DEHYDRGNSE Status: Resolved (2) Obesity (BMI 30.0-34.9) SNOMED Code(s): 931323789409760 ICD Code: E66.9 - OBESITY, UNSPECIFIED Status: Chronic (3) Constipation SNOMED Code(s): 22159762 ICD Code: K59.00 - CONSTIPATION, UNSPECIFIED Status: Resolved Qualifiers: Constipation type: drug induced constipation Qualified Code(s): K59.03 - Drug induced constipation (4) Osteoarth NOS-shlder SNOMED Code(s): 51624414 ICD Code: M19.019 - PRIMARY OSTEOARTHRITIS, UNSPECIFIED SHOULDER Status: Resolved Qualifiers: Osteoarthritis type: primary Laterality: left Qualified Code(s): M19.012 - Primary osteoarthritis, left shoulder (5) Alcohol withdrawal syndrome SNOMED Code(s): 590238077 ICD Code: F10.239 - ALCOHOL DEPENDENCE WITH WITHDRAWAL, UNSPECIFIED Status : Resolved Priority: High Qualifiers: Complication of substance-induced condition: with perceptual disturbance Qualified Code(s): F10.232 - Alcohol dependence with withdrawal with perceptual disturbance (6) Anxiety SNOMED Code(s): 76450760 ICD Code: F41.9 - ANXIETY DISORDER, UNSPECIFIED Status: Chronic Priority : Medium (7) Chronic back pain SNOMED Code(s): 099061425 ICD Code: M54.9 - DORSALGIA, UNSPECIFIED; G89.29 - OTHER CHRONIC PAIN Status: Chronic Priority: Low Qualifiers: Back pain location: back pain in unspecified location Back pain laterality : unspecified Qualified Code(s): M54.9 - Dorsalgia, unspecified; G89.29 - Other chronic pain; G89.29 - Other chronic pain (8) Neuropathy SNOMED Code(s): 988415238 ICD Code: G62.9 - POLYNEUROPATHY, UNSPECIFIED Status: Chronic Priority: Medium (9) Alcohol intoxication SNOMED Code(s): 10044530 ICD Code: F10.929 - ALCOHOL USE, UNSPECIFIED WITH INTOXICATION, UNSPECIFIED Status: Resolved Qualifiers: Complication of substance-induced condition: with delirium Qualified Code(s ): F10.921 - Alcohol use, unspecified with intoxication delirium - Patient Summary/Data Operative Procedure(s) Performed: None Complications: None Consults: Consultations 08/01/18 20:25 Consult to Case Management/Photostatic Copy Maker [CONS] Routine Consult to Physician [CONS] Routine Consult to Spiritual Care [CONS] Routine 08/08/18 12:53 Consult to Occupational Therapy [OT Evaluation and Treatment] [CONS] Routine PT Evaluation and Treatment [CONS] Routine Labs Pending at D/C: None Recommended Follow-up Testing/Procedures: None Planned Operative Procedure(s) after DC: None Hospital Course: Patient was primarily admitted for acute alcohol withdrawal. He carried a hx/o chronic alcoholism according to his family and had a JR level of 0.28 on presentation to the emergency department. His trigger was unclear but he had enablers that lives with him at home. He was brought over by his son for ETOH detoxification and for planned chemical rehabilitation once medically cleared. Patient received treatment in ED initially and then subsequently moved to the unit for further management. In the unit, he was placed on CIWAA protocol and he slowly improved on this regimen. At some point, he was also put on Ativan drip for additional control of his severe withdrawal by the previous attending provider. However, when I came back and took over care, I made further adjustment to his inpatient medications and his clinical status gradually improved. Tele-psych and SAC were consulted and both agreed for inpatient chemical treatment. [facility] also came in to screen him for placement and also recommended inpatient treatment to the [facility]. His hospital course was uncomplicated and the rest of his chronic medical illness remained stable during this admission. He did however had a witnessed fall but his basic work up to include head ct scan revealed not acute abnormal findings. Patient is now medically stable for transfer. He will be admitted under the services of Dr. Martinez at [place] for inpatient chemical treatment. He will leave the facility via ground as soon as transportation arrives. - Patient Instructions Diet: Heart Healthy Diet, Usual Diet as Tolerated Activity: As Tolerated Driving: Do Not Drive Showering/Bathing: May Shower Notify Provider of: Fever, Increased Pain, Nausea and/or Vomiting Other/Special Instructions: - Transfer to [facility] unders the services of Dr. Martinez, attending psychiatrist. - Follow up with PCP in 1 week after discharge from inpatient treatment - Discharge Plan *PRESCRIPTION DRUG MONITORING PROGRAM REVIEWED*: Not Applicable *COPY OF PRESCRIPTION DRUG MONITORING REPORT IN PATIENT JORGE LUIS: Not Applicable Home Medications: Home Meds Allopurinol [Zyloprim] 300 mg PO DAILY 04/14/17 [History] Doxazosin [Cardura] 2 mg PO BEDTIME 04/14/17 [History] Escitalopram [Lexapro] 40 mg PO DAILY 04/14/17 [History] Folic Acid 1 mg PO DAILY 04/14/17 [History] Gabapentin [Neurontin] 1,200 mg PO TID 04/14/17 [History] Omeprazole 20 mg PO DAILY 04/14/17 [History] ALPRAZolam [Xanax] 0.5 mg PO QID PRN 08/03/18 [History] Hydrocodone/Acetaminophen [Tendoy 5-325 Tablet] 10 - 650 mg PO Q6HR PRN 08/03/18 [History] QUEtiapine [SEROquel] 100 mg PO BEDTIME 08/03/18 [History] Patient Handouts: Alcohol Use Disorder, Alcohol Intoxication, [id number] Referrals: Amalia Guillen, TECHNICAL COMMUNICATOR [Primary Care Provider] - - Discharge Summary/Plan Comment DC Time >30 min.: No Discharge Summary/Plan Comment: Transfer to [facility] - General Info Date of Service: 08/13/18 Admission Dx/Problem (Free Text: Admission Diagnosis/Problem Admission Diagnosis/Problem Alcohol withdrawal syndrome Subjective Update: Remains confused and labile. Functional Status: Reports: Pain Controlled, Tolerating Diet, Ambulating, Urinating. Denies: New Symptoms - Review of Systems General: Denies: Fever, Fatigue, Malaise, Chills HEENT: Reports: No Symptoms Pulmonary: Denies: Shortness of Breath Cardiovascular: Reports: No Symptoms Gastrointestinal: Denies: Abdominal Pain, Decreased Appetite, Nausea, Vomiting Genitourinary: Reports: No Symptoms Musculoskeletal: Reports: No Symptoms Skin: Denies: Cyanosis, Mottled, Pallor, Diaphoresis, Bruising Neurological: Reports: Pre-Existing Deficit, Weakness, Gait Disturbance. Denies : Confusion, Dizziness, Headache Psychiatric: Denies: Anxiety, Hallucinations, Suicidal Ideation, Homicidal Ideation Systems Review Comment: No overnight or acute issues. He feels pretty good and wanting to leave the facility. He was no complaints this AM. - Patient Data Vitals - Most Recent: Last Vital Signs Temp 37.0 C 08/13/18 07:50 Pulse 70 08/13/18 09:33 Resp 20 08/13/18 07:50 BP 107/93 H 08/13/18 09:33 Pulse Ox 96 08/13/18 07:50 Weight - Most Recent: 119.437 kg I&O - Last 24 hours: Intake & Output 08/12/18 08/13/18 08/13/18 22:59 06:59 14:59 Intake Total 1740 400 360 Balance 1740 400 360 Med Orders - Current: Current Medications Hydrocodone Bitart/Acetaminophen (Tendoy 325-5 Mg) 2 tab PO Q6H PRN PRN Reason: Pain Last Admin: 08/11/18 15:29 Dose: 2 tab Albuterol/Ipratropium (Duoneb 3.0-0.5 Mg/3 Ml) 3 ml NEB Q4H PRN PRN Reason: Shortness Of Breath/wheezing Allopurinol (Zyloprim) 300 mg PO DAILY [facility] Last Admin: 08/13/18 09:33 Dose: 300 mg Alprazolam (Xanax) 0.5 mg PO QID PRN PRN Reason: Anxiety Last Admin: 08/11/18 13:38 Dose: 0.5 mg Bisacodyl (Dulcolax) 5 mg PO DAILY PRN PRN Reason: Constipation Last Admin: 08/11/18 13:38 Dose: 5 mg Bisacodyl (Dulcolax) 10 mg RECTAL DAILY PRN PRN Reason: Constipation Last Admin: 08/11/18 06:20 Dose: 10 mg Docusate Sodium (Colace) 100 mg PO BID PRN PRN Reason: Constipation Doxazosin Mesylate (Cardura) 2 mg PO BEDTIME [facility] Last Admin: 08/12/18 21:25 Dose: 2 mg Enoxaparin Sodium (Lovenox) 30 mg SUBCUT Q24H [facility] Last Admin: 08/13/18 09:32 Dose: 30 mg Famotidine (Pepcid) 20 mg PO Q12H [facility] Last Admin: 08/13/18 09:33 Dose: 20 mg Gabapentin (Neurontin) 300 mg PO TID [facility] Last Admin: 08/13/18 09:32 Dose: 300 mg Guaifenesin/Phenylephrine HCl (Robitussin Dm) 10 ml PO Q4H PRN PRN Reason: Cough Last Admin: 08/12/18 05:02 Dose: 10 ml Haloperidol Lactate (Haldol) 6 mg IVPUSH Q8H PRN PRN Reason: restlessness/severe detox Hydralazine HCl (Apresoline) 20 mg IVPUSH Q4H PRN PRN Reason: Hypertension Last Admin: 08/06/18 19:53 Dose: 20 mg Hydromorphone HCl (Dilaudid) 1 mg IVPUSH Q4H PRN PRN Reason: Pain (severe 7-10) Magnesium Sulfate (Pharmacy To Dose - Magnesium Replacement) 1 dose .XX ASDIRECTED PRN PRN Reason: PHARMACY TO WATCH MAG LEVELS Metoprolol Tartrate (Lopressor) 5 mg IVPUSH Q4H PRN PRN Reason: Tachycardia Last Admin: 08/04/18 13:54 Dose: 5 mg Metoprolol Tartrate (Lopressor) 25 mg PO BID [facility] Last Admin: 08/13/18 09:33 Dose: 25 mg Miscellaneous Information (Remove Patch) 1 ea TRDERM DAILY [facility] Last Admin: 08/13/18 09:34 Dose: Not Given Nicotine (Habitrol) 21 mg TRDERM DAILY [facility] Last Admin: 08/13/18 09:34 Dose: Not Given Ondansetron HCl (Zofran) 4 mg IV Q6H PRN PRN Reason: Nausea/Vomiting Last Admin: 08/02/18 05:57 Dose: 4 mg Escitalopram 40 Mg ( Patient's Own Med) 40 each PO DAILY [facility] Last Admin: 08/13/18 09:34 Dose: Not Given Polyethylene Glycol (Miralax) 17 gm PO DAILY PRN PRN Reason: Constipation Last Admin: 08/11/18 13:38 Dose: 17 gm Potassium Chloride (Pharmacy To Dose - Potassium Replacement) 1 dose .XX ASDIRECTED PRN PRN Reason: PHARMACY TO WATCH K LEVELS Quetiapine Fumarate (Seroquel) 100 mg PO BEDTIME [facility] Last Admin: 08/12/18 21:21 Dose: 100 mg Senna/Docusate Sodium (Senna Plus) 1 tab PO BID PRN PRN Reason: Constipation Sodium Chloride (Saline Flush) 10 ml FLUSH ASDIRECTED PRN PRN Reason: Keep Vein Open Last Admin: 08/01/18 17:49 Dose: 10 ml Topiramate (Topamax) 25 mg PO Q12H [facility] Last Admin: 08/13/18 05:10 Dose: 25 mg Discontinued Medications Hydrocodone Bitart/Acetaminophen (Tendoy 325-5 Mg) 1 tab PO Q6H PRN PRN Reason: Pain/Fever Last Admin: 08/11/18 08:50 Dose: 1 tab Chlordiazepoxide HCl (Librium) 50 mg PO Q6H PRN PRN Reason: Withdrawal Symptoms Last Admin: 08/02/18 05:13 Dose: 50 mg Chlordiazepoxide HCl (Librium) 75 mg PO Q6H [facility] Last Admin: 08/08/18 17:49 Dose: 75 mg Chlordiazepoxide HCl (Librium) 75 mg PO Q8H [facility] Last Admin: 08/11/18 11:57 Dose: 75 mg Clonidine HCl (Catapres) 0.1 mg PO Q4H PRN PRN Reason: Agitation Last Admin: 08/01/18 21:35 Dose: 0.1 mg Clonidine HCl (Catapres) 0.1 mg PO BID [facility] Last Admin: 08/11/18 08:50 Dose: 0.1 mg Diazepam (Valium) 5 mg IV Q8H [facility] Last Admin: 08/04/18 06:32 Dose: 5 mg Diazepam (Valium) 15 mg IV Q8H [facility] Last Admin: 08/06/18 05:37 Dose: Not Given Diazepam (Valium) 15 mg IV BID PRN PRN Reason: detox/anxiety Last Admin: 08/08/18 22:28 Dose: 15 mg Diazepam (Valium) 8 mg IV BID PRN PRN Reason: detox/anxiety Diphenhydramine HCl (Benadryl) 25 mg IVPUSH ONETIME ONE Stop: 08/01/18 20:35 Last Admin: 08/01/18 22:29 Dose: Not Given Diphenhydramine HCl (Benadryl) 50 mg IVPUSH ONETIME ONE Stop: 08/01/18 20:59 Last Admin: 08/01/18 21:07 Dose: 50 mg Famotidine (Pepcid) 20 mg PO Q12H [facility] Last Admin: 08/10/18 09:33 Dose: Not Given Folic Acid (Folic Acid) 1 mg PO DAILY [facility] Stop: 08/05/18 09:01 Last Admin: 08/05/18 15:12 Dose: Not Given Folic Acid (Folic Acid) 1 mg PO DAILY [facility] Gabapentin (Neurontin) 1,200 mg PO TID [facility] Last Admin: 08/11/18 15:29 Dose: 1,200 mg Haloperidol Lactate (Haldol) 2 mg IM Q4H PRN PRN Reason: Withdrawal Symptoms Last Admin: 08/02/18 21:20 Dose: 2 mg Haloperidol Lactate (Haldol) 4 mg IVPUSH STAT STA Stop: 08/02/18 19:09 Last Admin: 08/02/18 19:15 Dose: 4 mg Haloperidol Lactate (Haldol) Confirm Administered Dose 10 mg .ROUTE .STK-MED ONE Stop: 08/03/18 16:28 Last Admin: 08/03/18 16:35 Dose: 8 mg Haloperidol Lactate (Haldol) 5 mg IV TID@0000,0800,1600 [facility] Last Admin: 08/04/18 16:04 Dose: 5 mg Haloperidol Lactate (Haldol) 8 mg IVPUSH Q8H [facility] Last Admin: 08/06/18 10:49 Dose: Not Given Haloperidol Lactate (Haldol) 8 mg IVPUSH Q8H PRN PRN Reason: restlessness/severe detox Last Admin: 08/08/18 19:44 Dose: 8 mg Hydromorphone HCl (Dilaudid) 0.25 mg IVPUSH Q2H PRN PRN Reason: Pain (severe 7-10) Last Admin: 08/05/18 21:12 Dose: 0.25 mg Sodium Chloride (Normal Saline) 1,000 mls @ 1,000 mls/hr IV .BOLUS [facility] Last Admin: 08/01/18 17:50 Dose: 1,000 mls/hr Potassium Chloride/Sodium Chloride (Normal Saline With 20 Meq Kcl) 1,000 mls @ 125 mls/hr IV ASDIRECTED [facility] Last Admin: 08/04/18 16:04 Dose: 125 mls/hr Thiamine HCl 100 mg/ Sodium (Chloride) 101 mls @ 200 mls/hr IV ONETIME ONE Stop: 08/01/18 21:45 Last Admin: 08/01/18 21:04 Dose: 200 mls/hr Magnesium Sulfate 2 gm/ Premix 50 mls @ 25 mls/hr IV ONETIME ONE Stop: 08/02/18 10:59 Last Admin: 08/02/18 09:23 Dose: 25 mls/hr Lorazepam 20 mg/ Sodium (Chloride) 100 mls @ 5 mls/hr IV ASDIRECTED [facility] Lorazepam 20 mg/ Dextrose/ (Water) 100 mls @ 5 mls/hr IV ASDIRECTED [facility] Last Infusion: 08/03/18 05:30 Dose: 15 mls/hr Dextrose/Water (Dextrose 5% In Water) Confirm Administered Dose 100 mls @ as directed .ROUTE .STK-MED ONE Stop: 08/03/18 02:40 Last Admin: 08/03/18 03:03 Dose: Not Given Lorazepam 20 mg/ Dextrose/ (Water) 100 mls @ 25 mls/hr IV ASDIRECTED [facility] Stop: 08/03/18 13:15 Last Admin: 08/03/18 08:55 Dose: 25 mls/hr Lorazepam 40 mg/ Sodium (Chloride) 40 mls @ 5 mls/hr IV ASDIRECTED [facility]; Protocol Stop: 08/05/18 16:00 Last Titration: 08/05/18 11:14 Dose: 7 ml/hr, 7 mls/hr Sodium Chloride (Sodium Chloride 0.45%) 1,000 mls @ 100 mls/hr IV ASDIRECTED [facility] Stop: 08/05/18 01:00 Last Infusion: 08/05/18 05:00 Dose: 75 mls/hr Sodium Chloride (Sodium Chloride 0.45%) 1,000 mls @ 75 mls/hr IV ASDIRECTED [facility] Last Admin: 08/07/18 04:10 Dose: 75 mls/hr Potassium Chloride 10 meq/ (Premix) 100 mls @ 100 mls/hr IV Q1H [facility] Stop: 08/05/18 14:59 Last Admin: 08/05/18 14:12 Dose: 100 mls/hr Lorazepam 80 mg/ Sodium (Chloride) 80 mls @ 7 mls/hr IV TITRATE [facility] Last Infusion: 08/06/18 07:44 Dose: 1 mls/hr Labetalol HCl (Normodyne) 10 mg IVPUSH ONETIME ONE; Protocol Stop: 08/01/18 20:51 Last Admin: 08/01/18 22:29 Dose: Not Given Lactulose (Cephulac) 30 gm PO BID@0600,1400 [facility] Stop: 08/12/18 06:01 Last Admin: 08/12/18 05:05 Dose: 30 gm Lorazepam (Ativan) 0.5 mg IVPUSH ONETIME ONE Stop: 08/01/18 18:46 Last Admin: 08/01/18 18:49 Dose: 0.5 mg Lorazepam (Ativan) 2 mg IVPUSH Q4H PRN PRN Reason: Seizures Lorazepam (Ativan) 1 - 3 mg IV Q6H PRN; Protocol PRN Reason: Withdrawal Symptoms Last Admin: 08/02/18 08:27 Dose: 2 mg Lorazepam (Ativan) 1 - 3 mg IV ASDIRECTED PRN; Protocol PRN Reason: Withdrawal Symptoms Last Admin: 08/10/18 21:01 Dose: 1 mg Lorazepam (Ativan) 6 mg IVPUSH ONETIME ONE Stop: 08/03/18 16:35 Last Admin: 08/03/18 16:51 Dose: 6 mg Lorazepam (Ativan) 6 mg IVPUSH ONETIME ONE Stop: 08/08/18 21:03 Last Admin: 08/08/18 21:02 Dose: 6 mg Lorazepam (Ativan) 1 mg PO ONETIME ONE Stop: 08/09/18 17:46 Last Admin: 08/09/18 17:52 Dose: 1 mg Magnesium Sulfate (Pharmacy To Dose - Magnesium Replacement) 0 dose .XX ASDIRECTED PRN PRN Reason: RX TO WATCH MAG LEVELS Metoprolol Tartrate (Lopressor) 25 mg PO Q12H [facility] Last Admin: 08/06/18 14:24 Dose: 25 mg Miscellaneous Information (Remove Patch) 1 ea TRDERM ONETIME ONE Stop: 08/04/18 21:01 Last Admin: 08/04/18 20:17 Dose: Not Given Morphine Sulfate (Morphine) 1 mg IVPUSH ONETIME ONE Stop: 08/09/18 17:21 Last Admin: 08/09/18 20:37 Dose: 1 mg Morphine Sulfate (Morphine) 1 mg IVPUSH ONETIME ONE Stop: 08/09/18 20:01 Last Admin: 08/09/18 20:38 Dose: Not Given Multivitamins (Thera) 1 each PO DAILY [facility] Stop: 08/05/18 09:01 Last Admin: 08/05/18 09:26 Dose: 1 each Pantoprazole Sodium (Protonix Iv) 40 mg IV ONETIME ONE Stop: 08/02/18 20:26 Pantoprazole Sodium (Protonix Iv) 40 mg IV ONETIME ONE Stop: 08/02/18 00:34 Last Admin: 08/02/18 00:41 Dose: 40 mg Pantoprazole Sodium (Protonix Iv) 40 mg IVPUSH BID [facility] Last Admin: 08/10/18 09:35 Dose: 40 mg Potassium Chloride (Pharmacy To Dose - Potassium Replacement) 0 dose .XX ASDIRECTED PRN PRN Reason: RX TO WATCH K LEVELS Potassium Chloride (Potassium Chloride) 40 meq IV DAILY [facility] Last Admin: 08/05/18 11:56 Dose: Not Given Potassium Chloride (Klor-Con M20) 40 meq PO Q4H [facility] Stop: 08/11/18 22:31 Last Admin: 08/11/18 22:08 Dose: 40 meq Quetiapine Fumarate (Seroquel) 50 mg PO BEDTIME [facility] Last Admin: 08/07/18 20:15 Dose: 50 mg Quetiapine Fumarate (Seroquel) 100 mg PO BEDTIME [facility] Last Admin: 08/08/18 20:35 Dose: 100 mg Quetiapine Fumarate (Seroquel) 100 mg PO BEDTIME [facility] Scopolamine (Transderm-Scop) 1.5 mg TRDERM ONETIME ONE Stop: 08/01/18 20:59 Last Admin: 08/01/18 21:29 Dose: 1.5 mg Thiamine HCl (Vitamin B-1) 100 mg PO DAILY [facility] Last Admin: 08/11/18 08:49 Dose: 100 mg Topiramate (Topamax) 25 mg PO BID [facility] Last Admin: 08/08/18 09:41 Dose: 25 mg Topiramate (Topamax) 50 mg PO BEDTIME [facility] Last Admin: 08/01/18 21:25 Dose: 50 mg Topiramate (Topamax) 50 mg PO BID [facility] Last Admin: 08/09/18 06:45 Dose: 50 mg Topiramate (Topamax) 50 mg PO Q12H [facility] Last Admin: 08/11/18 15:59 Dose: 50 mg - Exam General: Reports: Alert, Cooperative, No Acute Distress, Other (Obese) HEENT: Reports: Pupils Equal, Pupils Reactive, Mucous Membr. Moist/[place]ck: Reports: Supple Lungs: Reports: Clear to Auscultation, Normal Respiratory Effort Cardiovascular: Reports: Regular Rate, Regular Rhythm GI/Abdominal Exam: Normal Bowel Sounds, Soft, Non-Tender, No Organomegaly, No Distention, No Abnormal Bruit (Male) Exam: Deferred Rectal (Males) Exam: Deferred Back Exam: Reports: Normal Inspection, Decreased Range of Motion Extremities: Normal Inspection, Normal Range of Motion, Non-Tender, No Pedal Edema, Normal Capillary Refill Skin: Reports: Warm, Dry, Intact Neurological: Reports: No New Focal Deficit Psy/Mental Status: Reports: Alert, Normal Affect, Normal Mood
[2018-08-13 14:50] VITALS: BP 104/75
== END 2018-08-13 14:35 | disposition home or self-care (01) | DRG 897 ==
LOC: JD.ED 17:00 → JD.ICU 18:48 → JD.MS 08-07 19:22
PROVIDERS: ADMIT Internal Medicine; ATTEND Internal Medicine
PROC: HZ2ZZZZ Detoxification Services for Substance Abuse Treatment (ICD-10-PCS; principal; 2018-08-02)
PROC: F07Z8ZZ Transfer Training Treatment (ICD-10-PCS; 2018-08-09)
PROC: F07M6ZZ Therapeutic Exercise Treatment of Musculoskeletal System - Whole Body (ICD-10-PCS; 2018-08-09)
PROC: F07Z9ZZ Gait Training/Functional Ambulation Treatment (ICD-10-PCS; 2018-08-09)
PROC: F08Z4ZZ Home Management Treatment (ICD-10-PCS; 2018-08-09)
DX: F10.230 Alcohol dependence with withdrawal, uncomplicated (principal); I10 Essential (primary) hypertension; J45.909 Unspecified asthma, uncomplicated; F10.221 Alcohol dependence with intoxication delirium; K21.9 Gastro-esophageal reflux disease without esophagitis; Z66 Do not resuscitate; M10.9 Gout, unspecified; F41.9 Anxiety disorder, unspecified; E66.9 Obesity, unspecified; H54.7 Unspecified visual loss; G89.29 Other chronic pain; M54.9 Dorsalgia, unspecified; E11.40 Type 2 diabetes mellitus with diabetic neuropathy, unspecified; K59.03 Drug induced constipation; M19.012 Primary osteoarthritis, left shoulder; Y90.0 Blood alcohol level of less than 20 mg/100 ml; Z79.82 Long term (current) use of aspirin; Z79.899 Other long term (current) drug therapy; Z87.891 Personal history of nicotine dependence; Z68.34 Body mass index [BMI] 34.0-34.9, adult
CPT/HCPCS: 36415; 51702; 70450; 70450-26; 71045; 71045-26; 73020-26-LT; 73020-LT; 80053; 80306; 82140; 83690; 83735; 84484; 85025; 93005; 93010; 96361; 96374; 97110-GP; 97116-GP; 97162-GP; 97165-GO; 97530-GP; 99284; 99285-25; A9270-GY; C9113; G0480; J0360; J1170; J1200; J1630; J1650; J2060; J2270; J2405; J3360; J3411; J3475; J3480; J3490; J7030; J7040; J7060

== ENCOUNTER 2020-04-04 12:17 | Emergency (ER) | payer MEDICARE, MEDICAID ==
[2020-04-04] MEDS ORDERED: Sodium Chloride 0.9% 1,000 ML IV ONE (13:28)
[2020-04-04] MEDS ORDERED: LORazepam 2 MG/ML SDV IVPUSH ONE (13:28)
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
[2020-04-04 15:47] VITALS: BP 140/88; PULSE 95
== END 2020-04-04 15:47 | disposition home or self-care (01) ==
LOC: JD.ED 12:17
DX: F10.230 Alcohol dependence with withdrawal, uncomplicated (principal); Z20.828 Contact with and (suspected) exposure to other viral communicable diseases; I10 Essential (primary) hypertension; J45.909 Unspecified asthma, uncomplicated; K21.9 Gastro-esophageal reflux disease without esophagitis; F41.9 Anxiety disorder, unspecified; M10.9 Gout, unspecified; Z79.899 Other long term (current) drug therapy; Z87.891 Personal history of nicotine dependence
CPT/HCPCS: 36415; 80307; 96374; 99285; J2060; J7030; U0002

== ENCOUNTER 2020-07-26 10:56 | Day surgery (SDC) | payer MEDICARE, MEDICAID ==
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
[~2020-07-26 10:56] MED LIST: Lactated Ringers 1,000 ML IV SCH; Lidocaine 1% 4 ML ONE; Lidocaine 1%/Sod Bicarbonate in NS 8.4% 1 ML Syringe IDERM PRN; Midazolam 1 MG/ML 2 ML SDV ONE; Ondansetron 4 MG/2 ML SDV ONE; Propofol 200 MG/20 ML SDV ONE; Scopolamine 1.5 MG Transdermal Patch TRDERM PRN; Sodium Chloride 0.9% 10 ML Syringe FLUSH PRN; fentaNYL 100 MCG/2 ML SDV ONE
[2020-07-26] MEDS ORDERED: Rocuronium 50 MG/5 ML Vial ONE (11:02)
[2020-07-26] MEDS ORDERED: Bupivacaine 0.5%/EPINEPHrine 1:200,000 50 ML MDV ONE (11:20)
[2020-07-26] MEDS ORDERED: ceFAZolin 1 GM Vial ONE (12:21)
[2020-07-26] MEDS ORDERED: fentaNYL 100 MCG/2 ML SDV ONE (12:25)
[2020-07-26] MEDS ORDERED: ePHEDrine 50 MG/ML SDV ONE (12:36)
[2020-07-26] MEDS ORDERED: Dexamethasone 4 MG/ML 5 ML MDV ONE (12:39)
[2020-07-26] MEDS ORDERED: Lactated Ringers 1,000 ML ONE (12:48)
[2020-07-26] MEDS ORDERED: Ketamine 500 mg/10 ML MDV ONE (12:51)
--- NOTE | 2020-07-26 13:53 | PCM.PRNOTE ---
- Free Text/Narrative Note: Date: 07/26/2020 Operation: open right inguinal hernia repair with mesh Surgeon: Eben Gutierrez MD Findings: moderate size reducible right inguinal hernia. Detailed Report: The patient was taken to the operating room and placed in supine position. Timeout was performed and general endotracheal anesthesia was initiated. Hair was clipped and the right groin was prepped and draped in usual sterile fashion. Prior to prepping and draping, the hernia was manually reduced with ease. A total of 10 cc 0.5% Marcaine with epinephrine was injected intradermally along the projection of the inguinal ligament. An additional 10 cc was injected in the subcutaneous tissue along the planned line of incision. A 7 cm incision was made along the line between the ASIS and the right pubic tubercle, overlying the external inguinal ring. Dissection was carried down through subcutaneous tissue with monopolar energy until the fibers of the external oblique aponeurosis were identified. The external ring was palpated. 10 cc of local anesthetic was injected deep to the roof of the inguinal canal. A small stab incision was made at this point with a 15 blade scalpel, and Metzenbaum scissors were passed along the projection of the ligament deep to the external fibers in order to separate the underlying cord structures from the aponeurosis. Scissors were used to open the fibers and parallel towards the external ring and up towards the ASIS. The cord structures were in view. Blunt dissection was performed circumferentially around the cord at the level of the external ring. A [place] clamp was placed around the cord structures and hernia sac and used to aid with dissection. Careful blunt dissection with DeBakey forceps was used to separate the peritoneal sac from cord structures. Once this was done, scissors were used to sharply open the sac. Finger was inserted into the sac and advanced proximally confirming placement in the intraperitoneal cavity. The distal portion of the sac from the point of incision was splayed open widely with scissors. The proximal part of the sac was suture-ligated with 3-0 Vicryl and the sac was amputated. Next, tension-free repair was completed with progrip permanent mesh. A 15 x 9 cm piece of mesh was cut to size. The inferomedial aspect was secured to Ponce's ligament with good inferior and medial overlap using Prolene suture. The inferolateral edge of the mesh was sewed to the shelving edge of the inguinal ligament for a distance of approximately 4 cm with running Prolene suture. A slit was cut in the mesh in order to permit passage of the cord structures. The superior leaflets of the mesh were laid flat deep to the external oblique aponeurosis. The internal ring was recreated by suturing the leaflets together with Prolene suture with enough space for passage of the cord without strangulation. A single medial stitch was placed through the mesh anchoring it to the internal oblique muscle. The external oblique aponeurotic fibers were then reapproximated with running Vicryl suture. Kalyan's fascia was closed over the fascial closure with interrupted Vicryl suture. The skin was closed with running subcuticular Vicryl suture and dressed with Dermabond. The patient tolerated the procedure well. At the conclusion of the case, the right testicle was palpable within the scrotum. The patient was extubated and transferred to the recovery room in good condition.
[2020-07-26] MEDS ORDERED: diphenhydrAMINE 50 MG/ML SDV IVPUSH PRN (13:55)
[2020-07-26] MEDS ORDERED: Ondansetron 4 MG/2 ML SDV IVPUSH PRN (13:55)
[2020-07-26] MEDS ORDERED: fentaNYL 100 MCG/2 ML SDV IVPUSH PRN (13:55)
--- NOTE | 2020-07-26 13:57 | PCM.POSTAN ---
POST ANESTHESIA ASSESSMENT - MENTAL STATUS Mental Status: Alert - VITAL SIGNS Vital Signs: Last Vital Signs Temp 36.6 C 07/26/20 13:48 Pulse 66 07/26/20 11:25 Resp 20 07/26/20 13:48 BP 119/93 H 07/26/20 13:48 Pulse Ox 96 07/26/20 13:48 - RESPIRATORY Respiratory Status: Respiratory Rate WNL, Airway Patent, O2 Saturation Stable - CARDIOVASCULAR CV Status: Pulse Rate WNL, Blood Pressure Stable - GASTROINTESTINAL GI Status: No Symptoms - PAIN Pain Score: 0 - POST OP HYDRATION Hydration Status: Adequate & Stable
--- NOTE | 2020-07-26 14:13 | PCM48HPAN ---
Post Anesthesia Note - EVALUATION WITHIN 48HRS OF ANESTHETIC Vital Signs in Normal Range: Yes Patient Participated in Evaluation: Yes Respiratory Function Stable: Yes Airway Patent: Yes Cardiovascular Function Stable: Yes Hydration Status Stable: Yes Pain Control Satisfactory: Yes Nausea and Vomiting Control Satisfactory: Yes Mental Status Recovered: Yes Vital Signs: Last Vital Signs Temp 36.6 C 07/26/20 13:48 Pulse 66 07/26/20 11:25 Resp 14 07/26/20 14:00 BP 150/86 H 07/26/20 14:00 Pulse Ox 96 07/26/20 14:00
[2020-07-26 14:59] VITALS: BP 135/82; PULSE 94
== END 2020-07-26 15:05 | disposition home or self-care (01) ==
LOC: JD.SDS 10:56
PROVIDERS: ATTEND Surgery
DX: K40.90 Unilateral inguinal hernia, without obstruction or gangrene, not specified as recurrent (principal); E66.9 Obesity, unspecified; I12.9 Hypertensive chronic kidney disease with stage 1 through stage 4 chronic kidney disease, or unspecified chronic kidney disease; N18.30 Chronic kidney disease, stage 3 unspecified; N17.9 Acute kidney failure, unspecified; Z01.812 Encounter for preprocedural laboratory examination; Z20.822 Contact with and (suspected) exposure to COVID-19; Z79.899 Other long term (current) drug therapy; Z98.890 Other specified postprocedural states; Z87.891 Personal history of nicotine dependence; Z68.32 Body mass index [BMI] 32.0-32.9, adult
CPT/HCPCS: 49505; A9270; C1781; J0690; J1100; J2250; J2405; J2704; J2710; J3010; J3490; J7120; 00830

== ENCOUNTER 2020-09-29 08:13 | Inpatient (IN) | payer MEDICARE, MEDICAID ==
[2020-09-29] MEDS ORDERED: Sodium Chloride 0.9% 10 ML Syringe FLUSH PRN (08:29)
[2020-09-29] MEDS ORDERED: LORazepam 2 MG/ML SDV IVPUSH ONE ×3 (08:30→11:52)
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
[2020-09-29] MEDS: Multivitamin Tab PO SCH (08:42)
[2020-09-29] MEDS ORDERED: Metoprolol Succinate 25 MG Tab.ER PO ONE (09:15)
[2020-09-29] MEDS ORDERED: Sodium Chloride 0.9% 1,000 ML IV SCH (09:45)
[2020-09-29] MEDS ORDERED: Doxazosin 2 MG Tab PO ONE (10:26)
[2020-09-29] MEDS ORDERED: Thiamine 100 MG Tab PO ONE (11:11)
[2020-09-29] MEDS ORDERED: Ketorolac 30 MG/ML SDV IM PRN (11:50)
[2020-09-29] MEDS ORDERED: Docusate Sodium 100 MG Cap PO PRN (11:50)
[2020-09-29] MEDS ORDERED: Ibuprofen 200 MG Tab PO PRN (11:50)
[2020-09-29] MEDS ORDERED: Ondansetron 4 MG Tab.DIS PO PRN (11:50)
[2020-09-29] MEDS ORDERED: LORazepam 1 MG Tab PO PRN (12:02)
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
[2020-09-29] MEDS: chlordiazePOXIDE 25 MG Cap PO SCH ×2 (13:52→20:06)
[2020-09-29] MEDS: Heparin Sodium 5,000 Units/ML Vial SUBCUT SCH ×2 (13:52→19:41)
[2020-09-29] MEDS: Folic Acid 1 MG Tab PO SCH (13:52)
[2020-09-29] MEDS: LORazepam 2 MG/ML SDV IVPUSH PRN ×10 (14:53→23:28)
[2020-09-29] MEDS: Sodium Chloride 0.9% 1,000 ML IV SCH (14:57)
[2020-09-29] MEDS ORDERED: Diltiazem 100 MG in Sodium Chloride 0.9% 100 ML IV SCH (15:15)
[2020-09-29] MEDS ORDERED: Haloperidol Lactate 5 MG/ML SDV IVPUSH ONE (15:20)
[2020-09-29] MEDS: Diazepam 5 MG Tab PO PRN ×2 (15:30→16:54)
[2020-09-29] MEDS: cloNIDine 0.1 MG Tab PO SCH (16:44)
[2020-09-29] MEDS: Enalaprilat 1.25 MG/ML SDV IVPUSH PRN (18:32)
[2020-09-29] MEDS ORDERED: Haloperidol Lactate 5 MG/ML SDV IVPUSH PRN (19:46)
[2020-09-29] MEDS ORDERED: Metoprolol Tartrate 25 MG Tab PO ONE (19:46)
[2020-09-29] MEDS: Temazepam 15 MG Cap PO PRN (20:06)
[2020-09-29] MEDS: Gabapentin 600 MG Tab PO SCH (20:06)
[2020-09-29] MEDS: Thiamine 100 MG Tab PO SCH (20:06)
[2020-09-30] MEDS: Sodium Chloride 0.9% 1,000 ML IV SCH ×2 (00:22→14:38)
[2020-09-30] MEDS: cloNIDine 0.1 MG Tab PO SCH ×3 (00:24→17:09)
[2020-09-30] MEDS: Enalaprilat 1.25 MG/ML SDV IVPUSH PRN (00:45)
[2020-09-30] MEDS: LORazepam 2 MG/ML SDV IVPUSH PRN ×4 (00:56→06:47)
[2020-09-30] MEDS: Heparin Sodium 5,000 Units/ML Vial SUBCUT SCH ×3 (03:03→20:01)
[2020-09-30] MEDS: Pantoprazole 40 MG Tab.CR PO SCH ×2 (04:50→05:23)
--- NOTE | 2020-09-30 07:01 | PCM.PN ---
- General Info Date of Service: 09/30/20 Admission Dx/Problem (Free Text): Admission Diagnosis/Problem Admission Diagnosis/Problem Alcohol withdrawal syndrome Subjective Update: The patient is a 64-year-old gentleman who was admitted yesterday secondary to acute alcohol withdrawals. Overnight the patient had required significant benzodiazepine as well as Haldol. The patient's CIWA score remains high today. The patient is somewhat lethargic today. His atrial fibrillation with RVR has been controlled with the use of the amiodarone. Functional Status: Reports: Pain Controlled - Review of Systems Systems Review Comment:: The patient's review of system is not reliable due to his lethargy from significant benzodiazepines as well as alcohol withdrawal. - Patient Data Vitals - Most Recent: Last Vital Signs Temp 36.1 C 09/30/20 04:00 Pulse 105 H 09/30/20 06:53 Resp 28 H 09/30/20 04:00 BP 98/77 09/30/20 06:53 Pulse Ox 98 09/30/20 04:00 Weight - Most Recent: 115.984 kg I&O - Last 24 Hours: Intake & Output 09/29/20 09/30/20 09/30/20 22:59 06:59 14:59 Intake Total 130 1141 Output Total 60 65 Balance -45$ 49Q Lab Results Last 24 Hours: Laboratory Results - last 24 hr 09/29/20 09/29/20 09/29/20 Range/Units 08:30 09:06 09:06 WBC Cancelled 8.50 Corrected WBC Cancelled RBC Cancelled 4.80 Hgb Cancelled 16.6 D Hct Cancelled 49.7 MCV Cancelled 103.5 H MCH Cancelled 34.6 H MCHC Cancelled 33.4 RDW Std Deviation Cancelled 51.5 H Plt Count Cancelled 141 L D MPV Cancelled 10.1 Neut % (Auto) Cancelled 80.0 H Lymph % (Auto) Cancelled 9.6 L [place] % (Auto) Cancelled 9.5 Eos % (Auto) Cancelled 0.4 L Baso % (Auto) Cancelled 0.4 Neut # (Auto) Cancelled 6.80 H Lymph # (Auto) Cancelled 0.82 L [place] # (Auto) Cancelled 0.81 Eos # (Auto) Cancelled 0.03 L Baso # (Auto) Cancelled 0.03 Manual Slide Review Cancelled Abnormal smear Sodium 145 (136-145) mEq/L Potassium 4.1 (3.5-5.1) mEq/L Chloride 106 (98-107) mEq/L Carbon Dioxide 23 (21-32) mEq/L Anion Gap 20.1 H (5-15) BUN 13 (7-18) mg/dL Creatinine 1.0 (0.7-1.3) mg/dL Est Cr Clr Drug Dosing 80.83 mL/min Estimated GFR (MDRD) > 60 (>60) mL/min BUN/Creatinine Ratio 13.0 L (14-18) Glucose 86 (70-99) mg/dL Calcium 8.8 (8.5-10.1) mg/dL Magnesium 1.9 (1.8-2.4) mg/dL Total Bilirubin 1.4 H (0.2-1.0) mg/dL AST 107 H (15-37) U/L ALT 109 H (16-63) U/L Alkaline Phosphatase 52 (46-116) U/L Total Protein 7.7 (6.4-8.2) g/dl Albumin 4.0 (3.4-5.0) g/dl Globulin 3.7 gm/dL Albumin/Globulin Ratio 1.1 (1-2) Lipase 300 (73-393) U/L SARS-CoV-2 RNA ([facility]MET) (NEGATIVE) 09/29/20 09/30/20 09/30/20 Range/Units 12:55 05:15 05:15 WBC 7.14 Corrected WBC RBC 4.56 L Hgb 16.1 Hct 47.4 MCV 103.9 H MCH 35.3 H MCHC 34.0 RDW Std Deviation 54.0 H Plt Count 111 L MPV 11.1 Neut % (Auto) 69.2 H Lymph % (Auto) 16.7 L [place] % (Auto) 12.2 Eos % (Auto) 1.5 Baso % (Auto) 0.3 Neut # (Auto) 4.94 Lymph # (Auto) 1.19 L [place] # (Auto) 0.87 H Eos # (Auto) 0.11 Baso # (Auto) 0.02 Manual Slide Review Sodium 145 (136-145) mEq/L Potassium 3.8 (3.5-5.1) mEq/L Chloride 109 H (98-107) mEq/L Carbon Dioxide 26 (21-32) mEq/L Anion Gap 13.8 (5-15) BUN 14 (7-18) mg/dL Creatinine 1.0 (0.7-1.3) mg/dL Est Cr Clr Drug Dosing 83.23 mL/min Estimated GFR (MDRD) > 60 (>60) mL/min BUN/Creatinine Ratio 14.0 (14-18) Glucose 115 H (70-99) mg/dL Calcium 8.4 L (8.5-10.1) mg/dL Magnesium 2.1 (1.8-2.4) mg/dL Total Bilirubin 2.1 H (0.2-1.0) mg/dL AST 87 H (15-37) U/L ALT 93 H (16-63) U/L Alkaline Phosphatase 43 L (46-116) U/L Total Protein 6.6 (6.4-8.2) g/dl Albumin 3.3 L (3.4-5.0) g/dl Globulin 3.3 gm/dL Albumin/Globulin Ratio 1.0 (1-2) Lipase (73-393) U/L SARS-CoV-2 RNA (AHMET) Negative (NEGATIVE) Med Orders - Current: Current Medications Allopurinol (Allopurinol 300 Mg Tab) 300 mg PO DAILY [facility] Buspirone HCl (Buspirone 15 Mg Tab) 15 mg PO DAILY [facility] Chlordiazepoxide HCl (Chlordiazepoxide 25 Mg Cap) 25 mg PO BID [facility] Last Admin: 09/29/20 20:06 Dose: 25 mg Documented by: Citalopram Hydrobromide (Citalopram 20 Mg Tab) 40 mg PO DAILY [facility] Clonidine HCl (Clonidine 0.1 Mg Tab) 0.3 mg PO Q8H [facility] Last Admin: 09/30/20 00:24 Dose: 0.3 mg Documented by: Diazepam (Diazepam 5 Mg Tab) 5 mg PO Q6H PRN PRN Reason: Withdrawal Symptoms Last Admin: 09/29/20 16:54 Dose: 5 mg Documented by: Docusate Sodium (Docusate Sodium 100 Mg Cap) 100 mg PO BID PRN PRN Reason: Constipation Doxazosin Mesylate (Doxazosin 2 Mg Tab) 2 mg PO DAILY [facility] Enalaprilat (Enalaprilat 1.25 Mg/Ml Sdv) 1.25 mg IVPUSH Q6H PRN PRN Reason: Hypertension Last Admin: 09/30/20 00:45 Dose: 1.25 mg Documented by: Folic Acid (Folic Acid 1 Mg Tab) 1 mg PO DAILY [facility] Last Admin: 09/29/20 13:52 Dose: 1 mg Documented by: Gabapentin (Gabapentin 600 Mg Tab) 600 mg PO BID [facility] Last Admin: 09/29/20 20:06 Dose: 600 mg Documented by: Haloperidol Lactate (Haloperidol Lactate 5 Mg/Ml Sdv) 5 mg IVPUSH Q6H PRN PRN Reason: Anxiety Heparin Sodium (Porcine) (Heparin Sodium 5,000 Units/Ml Vial) 5,000 units SUBCUT Q8H [facility] Last Admin: 09/30/20 03:03 Dose: 5,000 units Documented by: Sodium Chloride (Normal Saline) 1,000 mls @ 75 mls/hr IV ASDIRECTED [facility] Last Admin: 09/30/20 00:22 Dose: 75 mls/hr Documented by: Amiodarone HCl/Dextrose (Nexterone In Dextrose 360 Mg/200 Ml) 360 mg in 200 mls @ 16.7 mls/hr IV ASDIRECTED [facility]; Protocol Stop: 09/30/20 18:21 Last Admin: 09/30/20 00:22 Dose: 16.7 mls/hr Documented by: Ibuprofen (Ibuprofen 200 Mg Tab) 200 mg PO Q6H PRN PRN Reason: Pain (mild 1-3) Ketorolac Tromethamine (Ketorolac 30 Mg/Ml Sdv) 30 mg IM Q6H PRN PRN Reason: Pain (moderate 4-6) Lorazepam (Lorazepam 1 Mg Tab) 1 mg PO Q4H PRN PRN Reason: Withdrawal Symptoms Lorazepam (Lorazepam 2 Mg/Ml Sdv) 0 mg IVPUSH Q1H PRN; Protocol PRN Reason: detox Last Admin: 09/30/20 06:47 Dose: 2 mg Documented by: Metoprolol Tartrate (Metoprolol Tartrate 25 Mg Tab) 25 mg PO DAILY [facility] Multivitamins/Minerals/Vitamin C (Multivitamin Tab) 1 tab PO DAILY [facility] Last Admin: 09/29/20 08:42 Dose: 1 tab Documented by: Ondansetron HCl (Ondansetron 4 Mg Tab.Dis) 4 mg PO Q4H PRN PRN Reason: nausea, able to take PO Pantoprazole Sodium (Pantoprazole 40 Mg Tab.Cr) 40 mg PO ACBREAKFAST [facility] Last Admin: 09/30/20 05:23 Dose: Not Given Documented by: Sodium Chloride (Sodium Chloride 0.9% 10 Ml Syringe) 10 ml FLUSH ASDIRECTED PRN PRN Reason: Keep Vein Open Last Admin: 09/29/20 08:42 Dose: 10 ml Documented by: Temazepam (Temazepam 15 Mg Cap) 15 mg PO BEDTIME PRN PRN Reason: Sleep Last Admin: 09/29/20 20:06 Dose: 15 mg Documented by: Thiamine HCl (Thiamine 100 Mg Tab) 100 mg PO BEDTIME [facility] Last Admin: 09/29/20 20:06 Dose: 100 mg Documented by: Topiramate (Topiramate 25 Mg Tab) 25 mg PO DAILY [facility] Discontinued Medications Doxazosin Mesylate (Doxazosin 2 Mg Tab) 2 mg PO ONETIME ONE Stop: 09/29/20 10:27 Last Admin: 09/29/20 10:39 Dose: 2 mg Documented by: Haloperidol Lactate (Haloperidol Lactate 5 Mg/Ml Sdv) 5 mg IVPUSH ONETIME ONE Stop: 09/29/20 15:21 Last Admin: 09/29/20 15:25 Dose: 5 mg Documented by: Sodium Chloride (Normal Saline) 1,000 mls @ 999 mls/hr IV ASDIRECTED [facility] Last Admin: 09/29/20 09:50 Dose: 999 mls/hr Documented by: Diltiazem HCl 100 mg/ Sodium (Chloride) 100 mls @ 5 mls/hr IV TITRATE [facility]; Pr otocol Last Titration: 09/29/20 17:47 Dose: 20 mg/hr, 20 mls/hr Documented by: Amiodarone HCl/Dextrose (Nexterone In Dextrose 360 Mg/200 Ml) 360 mg in 200 mls @ 33.333 mls/hr IV ASDIRECTED [facility]; Protocol Last Admin: 09/29/20 18:21 Dose: 33.333 mls/hr Documented by: Amiodarone HCl/Dextrose (Nexterone In Dextrose 150 Mg/100 Ml) 100 mls @ 600 mls/hr IV .BOLUS ONE; Protocol Stop: 09/29/20 18:09 Last Admin: 09/29/20 18:05 Dose: 600 mls/hr Documented by: Lorazepam (Lorazepam 2 Mg/Ml Sdv) 2 mg IVPUSH ONETIME ONE Stop: 09/29/20 08:31 Last Admin: 09/29/20 08:42 Dose: 2 mg Documented by: Lorazepam (Lorazepam 2 Mg/Ml Sdv) 1 mg IVPUSH ONETIME ONE Stop: 09/29/20 10:26 Last Admin: 09/29/20 10:33 Dose: 1 mg Documented by: Lorazepam (Lorazepam 2 Mg/Ml Sdv) 2 mg IVPUSH ONETIME ONE Stop: 09/29/20 11:53 Last Admin: 09/29/20 11:56 Dose: 2 mg Documented by: Lorazepam (Lorazepam 2 Mg/Ml Sdv) 0 mg IVPUSH Q4H PRN; Protocol PRN Reason: detox Last Admin: 09/29/20 19:20 Dose: 2 mg Documented by: Metoprolol Succinate (Metoprolol Succinate 25 Mg Tab.Er) 25 mg PO ONETIME ONE Stop: 09/29/20 09:16 Last Admin: 09/29/20 09:29 Dose: 25 mg Documented by: Metoprolol Tartrate (Metoprolol Tartrate 25 Mg Tab) 25 mg PO ONETIME ONE Stop: 09/29/20 19:47 Last Admin: 09/29/20 19:53 Dose: 25 mg Documented by: Thiamine HCl (Thiamine 100 Mg Tab) 100 mg PO ONETIME ONE Stop: 09/29/20 11:12 Last Admin: 09/29/20 11:43 Dose: 100 mg Documented by: - Exam Quality Assessment: Urine Catheter. No: Supplemental Oxygen Urinary Catheter Total Time: 0Days 10Hours General: Alert, Cooperative, Lethargic. No: Oriented HEENT: Pupils Equal, Pupils Reactive. No: Mucous Membr. Moist/[place] (Dry) Neck: Supple, Trachea Midline Lungs: Clear to Auscultation, Normal Respiratory Effort Cardiovascular: Irregular Rhythm, Tachycardia GI/Abdominal Exam: Normal Bowel Sounds, Soft, Non-Tender, No Distention (Male) Exam: Deferred Back Exam: Normal Inspection, Full Range of Motion Extremities: Normal Inspection, No Pedal Edema Skin: Warm, Intact, Moist Neurological: No New Focal Deficit, Other (Tremors) Psy/Mental Status: Alert. No: Normal Affect, Normal Mood - Patient Data Lab Results Last 24 hrs: Laboratory Results - last 24 hr 09/29/20 09/29/20 09/29/20 Range/Units 08:30 09:06 09:06 WBC Cancelled 8.50 Corrected WBC Cancelled RBC Cancelled 4.80 Hgb Cancelled 16.6 D Hct Cancelled 49.7 MCV Cancelled 103.5 H MCH Cancelled 34.6 H MCHC Cancelled 33.4 RDW Std Deviation Cancelled 51.5 H Plt Count Cancelled 141 L D MPV Cancelled 10.1 Neut % (Auto) Cancelled 80.0 H Lymph % (Auto) Cancelled 9.6 L [place] % (Auto) Cancelled 9.5 Eos % (Auto) Cancelled 0.4 L Baso % (Auto) Cancelled 0.4 Neut # (Auto) Cancelled 6.80 H Lymph # (Auto) Cancelled 0.82 L [place] # (Auto) Cancelled 0.81 Eos # (Auto) Cancelled 0.03 L Baso # (Auto) Cancelled 0.03 Manual Slide Review Cancelled Abnormal smear Sodium 145 (136-145) mEq/L Potassium 4.1 (3.5-5.1) mEq/L Chloride 106 (98-107) mEq/L Carbon Dioxide 23 (21-32) mEq/L Anion Gap 20.1 H (5-15) BUN 13 (7-18) mg/dL Creatinine 1.0 (0.7-1.3) mg/dL Est Cr Clr Drug Dosing 80.83 mL/min Estimated GFR (MDRD) > 60 (>60) mL/min BUN/Creatinine Ratio 13.0 L (14-18) Glucose 86 (70-99) mg/dL Calcium 8.8 (8.5-10.1) mg/dL Magnesium 1.9 (1.8-2.4) mg/dL Total Bilirubin 1.4 H (0.2-1.0) mg/dL AST 107 H (15-37) U/L ALT 109 H (16-63) U/L Alkaline Phosphatase 52 (46-116) U/L Total Protein 7.7 (6.4-8.2) g/dl Albumin 4.0 (3.4-5.0) g/dl Globulin 3.7 gm/dL Albumin/Globulin Ratio 1.1 (1-2) Lipase 300 (73-393) U/L SARS-CoV-2 RNA ([facility]) (NEGATIVE) 09/29/20 09/30/20 09/30/20 Range/Units 12:55 05:15 05:15 WBC 7.14 Corrected WBC RBC 4.56 L Hgb 16.1 Hct 47.4 MCV 103.9 H MCH 35.3 H MCHC 34.0 RDW Std Deviation 54.0 H Plt Count 111 L MPV 11.1 Neut % (Auto) 69.2 H Lymph % (Auto) 16.7 L [place] % (Auto) 12.2 Eos % (Auto) 1.5 Baso % (Auto) 0.3 Neut # (Auto) 4.94 Lymph # (Auto) 1.19 L [place] # (Auto) 0.87 H Eos # (Auto) 0.11 Baso # (Auto) 0.02 Manual Slide Review Sodium 145 (136-145) mEq/L Potassium 3.8 (3.5-5.1) mEq/L Chloride 109 H (98-107) mEq/L Carbon Dioxide 26 (21-32) mEq/L Anion Gap 13.8 (5-15) BUN 14 (7-18) mg/dL Creatinine 1.0 (0.7-1.3) mg/dL Est Cr Clr Drug Dosing 83.23 mL/min Estimated GFR (MDRD) > 60 (>60) mL/min BUN/Creatinine Ratio 14.0 (14-18) Glucose 115 H (70-99) mg/dL Calcium 8.4 L (8.5-10.1) mg/dL Magnesium 2.1 (1.8-2.4) mg/dL Total Bilirubin 2.1 H (0.2-1.0) mg/dL AST 87 H (15-37) U/L ALT 93 H (16-63) U/L Alkaline Phosphatase 43 L (46-116) U/L Total Protein 6.6 (6.4-8.2) g/dl Albumin 3.3 L (3.4-5.0) g/dl Globulin 3.3 gm/dL Albumin/Globulin Ratio 1.0 (1-2) Lipase (73-393) U/L SARS-CoV-2 RNA ([facility]) Negative (NEGATIVE) Result Diagrams: 09/30/20 05:15 09/30/20 05:15 Sepsis Event Note - Evaluation Sepsis Screening Result: No Definite Risk - Focused Exam Vital Signs: Vital Signs Temp Pulse Pulse Resp BP BP Pulse Ox 09/30/20 06:53 105 H 98/77 09/30/20 06:00 105 H 91/63 09/30/20 05:00 96 108/68 09/30/20 04:00 36.1 C 93 28 H 101/70 98 09/30/20 03:00 73 108/63 09/30/20 02:00 100 106/56 L 09/30/20 01:00 103 H 134/73 09/30/20 00:45 161/134 H 09/30/20 00:24 161/134 H 09/30/20 00:00 36.1 C 135 H 25 H 161/134 H 96 09/29/20 23:00 135 H 132/84 09/29/20 22:00 103 H 130/71 09/29/20 21:00 36.1 C 108 H 30 H 168/71 H 95 09/29/20 20:00 36.1 C 140 H 30 H 158/117 H 98 09/29/20 19:53 139 H 155/114 H - Problem List & Annotations (1) A-fib SNOMED Code(s): 89317154 Code(s): I48.91 - UNSPECIFIED ATRIAL FIBRILLATION Status: Acute Priority: High Current Visit: Yes Qualifiers: Atrial fibrillation type: persistent (not longstanding) Qualified Code(s): I48.19 - Other persistent atrial fibrillation; I48.1 - Persistent atrial fibrillation Annotation/Comment:: With RVR (2) Alcohol withdrawal SNOMED Code(s): 921846310 Code(s): F10.239 - ALCOHOL DEPENDENCE WITH WITHDRAWAL, UNSPECIFIED Status: Acute Priority: High Current Visit: Yes Qualifiers: Complication of substance-induced condition: uncomplicated Qualified Code(s): F10.230 - Alcohol dependence with withdrawal, uncomplicated (3) HTN (hypertension) SNOMED Code(s): 21003897 Code(s): I10 - ESSENTIAL (PRIMARY) HYPERTENSION Status: Chronic Priority: Medium Current Visit: Yes Qualifiers: Hypertension type: essential hypertension Qualified Code(s): I10 - Essential (primary) hypertension (4) Alcohol dependence syndrome SNOMED Code(s): 22684689 Code(s): F10.20 - ALCOHOL DEPENDENCE, UNCOMPLICATED Status: Chronic Priority: Medium Current Visit: Yes Qualifiers: Substance use status: with intoxication Complication of substance-induced condition: with unspecified complication Qualified Code(s): F10.229 - Alcohol dependence with intoxication, unspecified (5) Neuropathy SNOMED Code(s): 952950426 Code(s): G62.9 - POLYNEUROPATHY, UNSPECIFIED Status: Chronic Priority: Medium Current Visit: Yes - Problem List Review Problem List Initiated/Reviewed/Updated: Yes - My Orders Last 24 Hours: My Active Orders 09/29/20 11:50 Up With Assistance [RC] ASDIRECTED Docusate Sodium [Colace] 100 mg PO BID PRN Ibuprofen [Motrin] 200 mg PO Q6H PRN Ketorolac [Toradol] 30 mg IM Q6H PRN Ondansetron [Zofran ODT] 4 mg PO Q4H PRN Temazepam [Restoril] 15 mg PO BEDTIME PRN Resuscitation Status Routine 09/29/20 11:51 Oxygen Therapy [RC] PRN VTE/DVT Education [RC] Vital Signs [RC] Q1HR 09/29/20 12:00 Folic Acid 1 mg PO DAILY Heparin Sodium 5,000 units SUBCUT Q8H Sodium Chloride 0.9% [Normal Saline] 1,000 ml IV ASDIRECTED chlordiazePOXIDE [Librium] 25 mg PO BID 09/29/20 12:02 CIWAA Assessment [RC] Q1HR LORazepam [Ativan] 1 mg PO Q4H PRN 09/29/20 14:32 EKG 12 Lead [EK] Stat 09/29/20 15:11 diazePAM [Valium.] 5 mg PO Q6H PRN 09/29/20 15:21 One To One Therapy [BH] Routine 09/29/20 15:22 Urinary Catheter Assessment [RC] Q4HR 09/29/20 15:30 [place] Catheter Insertion [Insert Urinary Catheter] [OM.PC] Q24H 09/29/20 Dinner Heart Healthy Diet [DIET] cloNIDine [Catapres] 0.3 mg PO Q8H 09/29/20 18:12 Enalaprilat [Vasotec IV] 1.25 mg IVPUSH Q6H PRN 09/29/20 19:46 Haloperidol Lactate [Haldol] 5 mg IVPUSH Q6H PRN 09/29/20 20:18 LORazepam [Ativan] See Protocol IVPUSH Q1H PRN 09/29/20 21:00 Gabapentin [Neurontin] 600 mg PO BID Thiamine [Vitamin B-1] 100 mg PO BEDTIME 09/30/20 00:22 Amiodarone In Dextrose,Iso-Osm [Nexterone in Dextrose 360 MG/200 ML] 360 mg in 200 ml IV ASDIRECTED 09/30/20 06:00 Pantoprazole [ProTONIX] 40 mg PO ACBREAKFAST 09/30/20 09:00 Citalopram [Celexa] 40 mg PO DAILY Doxazosin [Cardura] 2 mg PO DAILY Metoprolol Tartrate [Lopressor] 25 mg PO DAILY Topiramate [Topamax] 25 mg PO DAILY allopurinoL [Zyloprim] 300 mg PO DAILY busPIRone [Buspar] 15 mg PO DAILY - Assessment Assessment:: The patient is a 64-year-old gentleman who will remain in ICU due to his alcohol withdrawal. The patient has some improvement although due to the large doses of benzodiazepines and Haldol as he is somewhat altered. The patient is better controlled with his rate with the use of the amiodarone. This will be continued for now. The patient also will continue on the CIWA protocol as this is been rather high. The patient will have necessity of one-to-one sitter. Have also ordered repeat laboratories studies. The patient will be kept on telemetry to monitor his atrial fibrillation. Vital signs will continue to be monitored and his medications for his hypertension will be adjusted as necessary. The patient is more appropriate for inpatient alcohol dependency treatment after withdrawal symptoms have subsided. Based on the patient's history I suspect that the patient's prospects for continued sobriety are poor. - Plan Plan:: The patient is a 64-year-old gentleman who has been admitted to inpatient due to impending alcohol withdrawals. The patient will be kept on telemetry. I have also ordered CIWA protocol with Ativan to help assist with withdrawal symptoms. The patient will also be kept on telemetry. The patient does have a history of DTs however he has denied any seizure activity. The patient will have Librium 25 mg p.o. twice daily for his shaking. Patient does have a history of hypertension and I have reordered his antihypertensive medications. The patient will have regular diet as tolerated. I have also ordered repeat laboratory studies in the morning. The patient's magnesium will be monitored and replaced as necessary. The patient will also have a heart healthy diet as tolerated. DVT prophylaxis will be with the use of heparin 5000 units every 8 hours. He has been encouraged to ambulate. The patient should be appropriate for discharge in 1 to 2 days back to legal custody. Given the patient's past history and lack of a support system I suspect that the patient will have poor prospects for maintaining sobriety.
[2020-09-30] MEDS: Citalopram 20 MG Tab PO SCH (08:08)
[2020-09-30] MEDS: Topiramate 25 MG Tab PO SCH (08:08)
[2020-09-30] MEDS: Multivitamin Tab PO SCH (08:08)
[2020-09-30] MEDS: Metoprolol Tartrate 25 MG Tab PO SCH (08:08)
[2020-09-30] MEDS: busPIRone 15 MG Tab PO SCH (08:08)
[2020-09-30] MEDS: Gabapentin 600 MG Tab PO SCH ×2 (08:08→20:01)
[2020-09-30] MEDS: Doxazosin 2 MG Tab PO SCH (08:08)
[2020-09-30] MEDS: chlordiazePOXIDE 25 MG Cap PO SCH ×2 (08:09→20:01)
[2020-09-30] MEDS: Allopurinol 300 MG Tab PO SCH (08:09)
[2020-09-30] MEDS: Folic Acid 1 MG Tab PO SCH (08:09)
--- NOTE | 2020-09-30 09:42 | PCM.SN.2 ---
- Free Text/Narrative Note: The patient is a 64-year-old gentleman who had been heavily sedated due to severe DTs along with A. fib with RVR. The patient had been placed on amiodarone drip while in the intensive care unit. The nurse monitoring reported that the patient had spontaneously converted to normal sinus rhythm with rate control of about 60 to 70 bpm. The amiodarone drip was discontinued. The patient's blood pressure has been normal to low. I have ordered that the patient sedation be held to allow him to wake up properly.
[2020-09-30] MEDS ORDERED: Sodium Chloride 0.9% 1,000 ML IV ONE (16:53)
[2020-09-30] MEDS: Warfarin 5 MG Tab PO SCH (17:14)
[2020-09-30] MEDS: Temazepam 15 MG Cap PO PRN (20:01)
[2020-09-30] MEDS: Thiamine 100 MG Tab PO SCH (20:01)
[2020-09-30] MEDS: Diazepam 5 MG Tab PO PRN (21:35)
[2020-10-01] MEDS: cloNIDine 0.1 MG Tab PO SCH ×2 (00:30→08:02)
[2020-10-01] MEDS: Heparin Sodium 5,000 Units/ML Vial SUBCUT SCH ×3 (03:32→20:01)
[2020-10-01] MEDS: Diazepam 5 MG Tab PO PRN ×3 (03:32→20:02)
[2020-10-01] MEDS: Sodium Chloride 0.9% 1,000 ML IV SCH ×2 (03:32→19:57)
[2020-10-01] MEDS: Pantoprazole 40 MG Tab.CR PO SCH (05:08)
--- NOTE | 2020-10-01 07:16 | PCM.PN ---
- General Info Date of Service: 10/01/20 Admission Dx/Problem (Free Text): Admission Diagnosis/Problem Admission Diagnosis/Problem Alcohol withdrawal syndrome Subjective Update: The patient is a 64-year-old gentleman who had been admitted on September 29, 2020 for acute alcohol withdrawal. The patient had been admitted to the ICU and had been noted to have atrial fibrillation with RVR alternating between A. fib and normal sinus rhythm. The patient previously had been on amiodarone. He had required significant sedation to help with his acute withdrawal. Today the patient is more awake and alert. The patient says that he feels like he can go home. The patient has been tolerating his diet. He is denied any new pain. Functional Status: Reports: Pain Controlled, Tolerating Diet - Review of Systems General: Reports: Fatigue HEENT: Reports: No Symptoms Pulmonary: Reports: No Symptoms Cardiovascular: Reports: Palpitations Gastrointestinal: Reports: No Symptoms Genitourinary: Reports: No Symptoms Musculoskeletal: Reports: No Symptoms Skin: Reports: No Symptoms Neurological: Reports: Tremors Psychiatric: Reports: No Symptoms - Patient Data Vitals - Most Recent: Last Vital Signs Temp 36.2 C 10/01/20 04:00 Pulse 113 H 10/01/20 06:50 Resp 30 H 10/01/20 04:00 BP 143/113 H 10/01/20 06:50 Pulse Ox 93 L 10/01/20 04:00 Weight - Most Recent: 116.619 kg I&O - Last 24 Hours: Intake & Output 09/30/20 10/01/20 10/01/20 22:59 06:59 14:59 Intake Total 1874 2060 Output Total 34 50 Balance 154J 158< Lab Results Last 24 Hours: Laboratory Results - last 24 hr 09/30/20 10/01/20 10/01/20 Range/Units 09:54 05:38 05:38 WBC 7.86 (4.23-9.07) K/mm3 RBC 4.24 L (4.63-6.08) M/mm3 Hgb 14.9 (13.7-17.5) gm/dl Hct 45.3 (40.1-51.0) % MCV 106.8 H (79.0-92.2) fl MCH 35.1 H (25.7-32.2) pg MCHC 32.9 (32.2-35.5) g/dl RDW Std Deviation 53.6 H (35.1-43.9) fL Plt Count 91 L (163-337) K/mm3 MPV 11.0 (9.4-12.3) fl Neut % (Auto) 69.5 H (34.0-67.9) % Lymph % (Auto) 17.9 L (21.8-53.1) % [place] % (Auto) 8.1 (5.3-12.2) % Eos % (Auto) 3.9 (0.8-7.0) Baso % (Auto) 0.3 (0.1-1.2) % Neut # (Auto) 5.46 H (1.78-5.38) K/mm3 Lymph # (Auto) 1.41 (1.32-3.57) K/mm3 [place] # (Auto) 0.64 (0.30-0.82) K/mm3 Eos # (Auto) 0.31 (0.04-0.54) K/mm3 Baso # (Auto) 0.02 (0.01-0.08) K/mm3 Manual Slide Review Abnormal smear PT 10.9 (9.7-12.0) SECONDS INR 1.02 Sodium 146 H (136-145) mEq/L Potassium 3.5 (3.5-5.1) mEq/L Chloride 111 H (98-107) mEq/L Carbon Dioxide 26 (21-32) mEq/L Anion Gap 12.5 (5-15) BUN 15 (7-18) mg/dL Creatinine 1.0 (0.7-1.3) mg/dL Est Cr Clr Drug Dosing 83.23 mL/min Estimated GFR (MDRD) > 60 (>60) mL/min BUN/Creatinine Ratio 15.0 (14-18) Glucose 91 (70-99) mg/dL Calcium 7.9 L (8.5-10.1) mg/dL Magnesium 1.8 (1.8-2.4) mg/dL Total Bilirubin 1.0 (0.2-1.0) mg/dL AST 53 H (15-37) U/L ALT 75 H (16-63) U/L Alkaline Phosphatase 40 L (46-116) U/L Total Protein 6.0 L (6.4-8.2) g/dl Albumin 2.8 L (3.4-5.0) g/dl Globulin 3.2 gm/dL Albumin/Globulin Ratio 0.9 L (1-2) Med Orders - Current: Current Medications Allopurinol (Allopurinol 300 Mg Tab) 300 mg PO DAILY [facility] Last Admin: 09/30/20 08:09 Dose: 300 mg Documented by: Buspirone HCl (Buspirone 15 Mg Tab) 15 mg PO DAILY [facility] Last Admin: 09/30/20 08:08 Dose: 15 mg Documented by: Chlordiazepoxide HCl (Chlordiazepoxide 25 Mg Cap) 25 mg PO BID [facility] Last Admin: 09/30/20 20:01 Dose: 25 mg Documented by: Citalopram Hydrobromide (Citalopram 20 Mg Tab) 40 mg PO DAILY [facility] Last Admin: 09/30/20 08:08 Dose: 40 mg Documented by: Clonidine HCl (Clonidine 0.1 Mg Tab) 0.3 mg PO Q8H [facility] Last Admin: 10/01/20 00:30 Dose: Not Given Documented by: Diazepam (Diazepam 5 Mg Tab) 5 mg PO Q6H PRN PRN Reason: Withdrawal Symptoms Last Admin: 10/01/20 03:32 Dose: 5 mg Documented by: Docusate Sodium (Docusate Sodium 100 Mg Cap) 100 mg PO BID PRN PRN Reason: Constipation Doxazosin Mesylate (Doxazosin 2 Mg Tab) 2 mg PO DAILY [facility] Last Admin: 09/30/20 08:08 Dose: 2 mg Documented by: Enalaprilat (Enalaprilat 1.25 Mg/Ml Sdv) 1.25 mg IVPUSH Q6H PRN PRN Reason: Hypertension Last Admin: 09/30/20 00:45 Dose: 1.25 mg Documented by: Folic Acid (Folic Acid 1 Mg Tab) 1 mg PO DAILY [facility] Last Admin: 09/30/20 08:09 Dose: 1 mg Documented by: Gabapentin (Gabapentin 600 Mg Tab) 600 mg PO BID [facility] Last Admin: 09/30/20 20:01 Dose: 600 mg Documented by: Haloperidol Lactate (Haloperidol Lactate 5 Mg/Ml Sdv) 5 mg IVPUSH Q6H PRN PRN Reason: Anxiety Heparin Sodium (Porcine) (Heparin Sodium 5,000 Units/Ml Vial) 5,000 units SUBCUT Q8H [facility] Last Admin: 10/01/20 03:32 Dose: 5,000 units Documented by: Sodium Chloride (Normal Saline) 1,000 mls @ 75 mls/hr IV ASDIRECTED [facility] Last Admin: 10/01/20 03:32 Dose: 75 mls/hr Documented by: Amiodarone HCl/Dextrose (Nexterone In Dextrose 360 Mg/200 Ml) 360 mg in 200 mls @ 16.7 mls/hr IV ASDIRECTED [facility]; Protocol Last Admin: 10/01/20 03:32 Dose: 16.7 mls/hr Documented by: Ibuprofen (Ibuprofen 200 Mg Tab) 200 mg PO Q6H PRN PRN Reason: Pain (mild 1-3) Ketorolac Tromethamine (Ketorolac 30 Mg/Ml Sdv) 30 mg IM Q6H PRN PRN Reason: Pain (moderate 4-6) Lorazepam (Lorazepam 1 Mg Tab) 1 mg PO Q4H PRN PRN Reason: Withdrawal Symptoms Lorazepam (Lorazepam 2 Mg/Ml Sdv) 0 mg IVPUSH Q1H PRN; Protocol PRN Reason: detox Last Admin: 09/30/20 06:47 Dose: 2 mg Documented by: Metoprolol Tartrate (Metoprolol Tartrate 25 Mg Tab) 25 mg PO DAILY [facility] Last Admin: 09/30/20 08:08 Dose: 25 mg Documented by: Multivitamins/Minerals/Vitamin C (Multivitamin Tab) 1 tab PO DAILY [facility] Last Admin: 09/30/20 08:08 Dose: 1 tab Documented by: Ondansetron HCl (Ondansetron 4 Mg Tab.Dis) 4 mg PO Q4H PRN PRN Reason: nausea, able to take PO Pantoprazole Sodium (Pantoprazole 40 Mg Tab.Cr) 40 mg PO ACBREAKFAST [facility] Last Admin: 10/01/20 05:08 Dose: 40 mg Documented by: Sodium Chloride (Sodium Chloride 0.9% 10 Ml Syringe) 10 ml FLUSH ASDIRECTED PRN PRN Reason: Keep Vein Open Last Admin: 09/29/20 08:42 Dose: 10 ml Documented by: Temazepam (Temazepam 15 Mg Cap) 15 mg PO BEDTIME PRN PRN Reason: Sleep Last Admin: 09/30/20 20:01 Dose: 15 mg Documented by: Thiamine HCl (Thiamine 100 Mg Tab) 100 mg PO BEDTIME [facility] Last Admin: 09/30/20 20:01 Dose: 100 mg Documented by: Topiramate (Topiramate 25 Mg Tab) 25 mg PO DAILY [facility] Last Admin: 09/30/20 08:08 Dose: 25 mg Documented by: Warfarin Sodium (Warfarin 5 Mg Tab) 5 mg PO DAILY@1800 [place] Last Admin: 09/30/20 17:14 Dose: 5 mg Documented by: Discontinued Medications Doxazosin Mesylate (Doxazosin 2 Mg Tab) 2 mg PO ONETIME ONE Stop: 09/29/20 10:27 Last Admin: 09/29/20 10:39 Dose: 2 mg Documented by: Haloperidol Lactate (Haloperidol Lactate 5 Mg/Ml Sdv) 5 mg IVPUSH ONETIME ONE Stop: 09/29/20 15:21 Last Admin: 09/29/20 15:25 Dose: 5 mg Documented by: Sodium Chloride (Normal Saline) 1,000 mls @ 999 mls/hr IV ASDIRECTED [facility] Last Admin: 09/29/20 09:50 Dose: 999 mls/hr Documented by: Diltiazem HCl 100 mg/ Sodium (Chloride) 100 mls @ 5 mls/hr IV TITRATE [facility]; Protocol Last Titration: 09/29/20 17:47 Dose: 20 mg/hr, 20 mls/hr Documented by: Amiodarone HCl/Dextrose (Nexterone In Dextrose 360 Mg/200 Ml) 360 mg in 200 mls @ 33.333 mls/hr IV ASDIRECTED [facility]; Protocol Last Admin: 09/29/20 18:21 Dose: 33.333 mls/hr Documented by: Amiodarone HCl/Dextrose (Nexterone In Dextrose 150 Mg/100 Ml) 100 mls @ 600 mls/hr IV .BOLUS ONE; Protocol Stop: 09/29/20 18:09 Last Admin: 09/29/20 18:05 Dose: 600 mls/hr Documented by: Amiodarone HCl/Dextrose (Nexterone In Dextrose 360 Mg/200 Ml) 360 mg in 200 mls @ 16.7 mls/hr IV ASDIRECTED [facility]; Protocol Stop: 09/30/20 18:21 Last Infusion: 09/30/20 15:05 Dose: 16.7 mls/hr Documented by: Sodium Chloride (Normal Saline) 1,000 mls @ 999 mls/hr IV ONETIME ONE Stop: 09/30/20 17:53 Last Admin: 09/30/20 16:55 Dose: 999 mls/hr Documented by: Lorazepam (Lorazepam 2 Mg/Ml Sdv) 2 mg IVPUSH ONETIME ONE Stop: 09/29/20 08:31 Last Admin: 09/29/20 08:42 Dose: 2 mg Documented by: Lorazepam (Lorazepam 2 Mg/Ml Sdv) 1 mg IVPUSH ONETIME ONE Stop: 09/29/20 10:26 Last Admin: 09/29/20 10:33 Dose: 1 mg Documented by: Lorazepam (Lorazepam 2 Mg/Ml Sdv) 2 mg IVPUSH ONETIME ONE Stop: 09/29/20 11:53 Last Admin: 09/29/20 11:56 Dose: 2 mg Documented by: Lorazepam (Lorazepam 2 Mg/Ml Sdv) 0 mg IVPUSH Q4H PRN; Protocol PRN Reason: detox Last Admin: 09/29/20 19:20 Dose: 2 mg Documented by: Metoprolol Succinate (Metoprolol Succinate 25 Mg Tab.Er) 25 mg PO ONETIME ONE Stop: 09/29/20 09:16 Last Admin: 09/29/20 09:29 Dose: 25 mg Documented by: Metoprolol Tartrate (Metoprolol Tartrate 25 Mg Tab) 25 mg PO ONETIME ONE Stop: 09/29/20 19:47 Last Admin: 09/29/20 19:53 Dose: 25 mg Documented by: Thiamine HCl (Thiamine 100 Mg Tab) 100 mg PO ONETIME ONE Stop: 09/29/20 11:12 Last Admin: 09/29/20 11:43 Dose: 100 mg Documented by: - Exam Quality Assessment: Urine Catheter. No: Supplemental Oxygen Urinary Catheter Total Time: 1Days 9Hours General: Alert, Oriented, Cooperative HEENT: Pupils Equal, Pupils Reactive, EOMI, Mucous Membr. Moist/[place] Neck: Supple, Trachea Midline Lungs: Clear to Auscultation, Normal Respiratory Effort Cardiovascular: Irregular Rhythm, Tachycardia GI/Abdominal Exam: Normal Bowel Sounds, Soft, No Distention (Male) Exam: Deferred Back Exam: Normal Inspection, Full Range of Motion Extremities: Normal Inspection, No Pedal Edema Skin: Warm, Dry, Intact Neurological: No New Focal Deficit Psy/Mental Status: Alert, Normal Affect - Patient Data Lab Results Last 24 hrs: Laboratory Results - last 24 hr 09/30/20 10/01/20 10/01/20 Range/Units 09:54 05:38 05:38 WBC 7.86 (4.23-9.07) K/mm3 RBC 4.24 L (4.63-6.08) M/mm3 Hgb 14.9 (13.7-17.5) gm/dl Hct 45.3 (40.1-51.0) % MCV 106.8 H (79.0-92.2) fl MCH 35.1 H (25.7-32.2) pg MCHC 32.9 (32.2-35.5) g/dl RDW Std Deviation 53.6 H (35.1-43.9) fL Plt Count 91 L (163-337) K/mm3 MPV 11.0 (9.4-12.3) fl Neut % (Auto) 69.5 H (34.0-67.9) % Lymph % (Auto) 17.9 L (21.8-53.1) % [place] % (Auto) 8.1 (5.3-12.2) % Eos % (Auto) 3.9 (0.8-7.0) Baso % (Auto) 0.3 (0.1-1.2) % Neut # (Auto) 5.46 H (1.78-5.38) K/mm3 Lymph # (Auto) 1.41 (1.32-3.57) K/mm3 [place] # (Auto) 0.64 (0.30-0.82) K/mm3 Eos # (Auto) 0.31 (0.04-0.54) K/mm3 Baso # (Auto) 0.02 (0.01-0.08) K/mm3 Manual Slide Review Abnormal smear PT 10.9 (9.7-12.0) SECONDS INR 1.02 Sodium 146 H (136-145) mEq/L Potassium 3.5 (3.5-5.1) mEq/L Chloride 111 H (98-107) mEq/L Carbon Dioxide 26 (21-32) mEq/L Anion Gap 12.5 (5-15) BUN 15 (7-18) mg/dL Creatinine 1.0 (0.7-1.3) mg/dL Est Cr Clr Drug Dosing 83.23 mL/min Estimated GFR (MDRD) > 60 (>60) mL/min BUN/Creatinine Ratio 15.0 (14-18) Glucose 91 (70-99) mg/dL Calcium 7.9 L (8.5-10.1) mg/dL Magnesium 1.8 (1.8-2.4) mg/dL Total Bilirubin 1.0 (0.2-1.0) mg/dL AST 53 H (15-37) U/L ALT 75 H (16-63) U/L Alkaline Phosphatase 40 L (46-116) U/L Total Protein 6.0 L (6.4-8.2) g/dl Albumin 2.8 L (3.4-5.0) g/dl Globulin 3.2 gm/dL Albumin/Globulin Ratio 0.9 L (1-2) Result Diagrams: 10/01/20 05:38 10/01/20 05:38 Sepsis Event Note - Evaluation Sepsis Screening Result: No Definite Risk - Focused Exam Vital Signs: Vital Signs Temp Pulse Resp BP BP Pulse Ox 10/01/20 06:50 113 H 143/113 H 10/01/20 06:00 105 H 134/106 H 10/01/20 05:00 84 106/82 10/01/20 04:00 36.2 C 113 H 30 H 135/93 H 93 L 10/01/20 03:00 94 131/93 H 10/01/20 02:00 84 125/84 10/01/20 01:00 79 101/62 10/01/20 00:30 103/77 10/01/20 00:00 36.1 C 114 H 30 H 103/77 93 L 09/30/20 23:00 116 H 112/81 09/30/20 22:00 109 H 107/85 09/30/20 21:00 109 H 99/86 09/30/20 20:00 36.2 C 138 H 30 H 96/83 93 L - Problem List & Annotations (1) A-fib SNOMED Code(s): 62469212 Code(s): I48.91 - UNSPECIFIED ATRIAL FIBRILLATION Status: Acute Priority: High Current Visit: Yes Qualifiers: Atrial fibrillation type: paroxysmal Qualified Code(s): I48.0 - Paroxysmal atrial fibrillation Annotation/Comment:: With RVR (2) Alcohol withdrawal SNOMED Code(s): 794338995 Code(s): F10.239 - ALCOHOL DEPENDENCE WITH WITHDRAWAL, UNSPECIFIED Status: Acute Priority: High Current Visit: Yes Qualifiers: Complication of substance-induced condition: uncomplicated Qualified Code(s): F10.230 - Alcohol dependence with withdrawal, uncomplicated (3) HTN (hypertension) SNOMED Code(s): 21081515 Code(s): I10 - ESSENTIAL (PRIMARY) HYPERTENSION Status: Chronic Priority: Medium Current Visit: Yes Qualifiers: Hypertension type: essential hypertension Qualified Code(s): I10 - Essential (primary) hypertension (4) Alcohol dependence syndrome SNOMED Code(s): 56817376 Code(s): F10.20 - ALCOHOL DEPENDENCE, UNCOMPLICATED Status: Chronic Priority: Medium Current Visit: Yes Qualifiers: Substance use status: with intoxication Complication of substance-induced condition: with unspecified complication Qualified Code(s): F10.229 - Alcohol dependence with intoxication, unspecified (5) Neuropathy SNOMED Code(s): 458510862 Code(s): G62.9 - POLYNEUROPATHY, UNSPECIFIED Status: Chronic Priority: Medium Current Visit: Yes - Problem List Review Problem List Initiated/Reviewed/Updated: Yes - My Orders Last 24 Hours: My Active Orders 09/30/20 09:00 Citalopram [Celexa] 40 mg PO DAILY Doxazosin [Cardura] 2 mg PO DAILY Metoprolol Tartrate [Lopressor] 25 mg PO DAILY Topiramate [Topamax] 25 mg PO DAILY allopurinoL [Zyloprim] 300 mg PO DAILY busPIRone [Buspar] 15 mg PO DAILY 09/30/20 09:13 EKG 12 Lead [EK] Stat 09/30/20 18:00 Warfarin [Coumadin] 5 mg PO DAILY@1800 09/30/20 18:30 Amiodarone In Dextrose,Iso-Osm [Nexterone in Dextrose 360 MG/200 ML] 360 mg in 200 ml IV ASDIRECTED - Assessment Assessment:: The patient is a 64-year-old gentleman who will remain in ICU due to his alcohol withdrawal. The patient has some improvement although due to the large doses of benzodiazepines and Haldol as he is somewhat altered. The patient is better controlled with his rate with the use of the amiodarone. This will be continued for now. The patient also will continue on the CIWA protocol as this is been rather high. The patient will have necessity of one-to-one sitter. Have also ordered repeat laboratories studies. The patient will be kept on telemetry to monitor his atrial fibrillation. Vital signs will continue to be monitored and his medications for his hypertension will be adjusted as necessary. The patient is more appropriate for inpatient alcohol dependency treatment after withdrawal symptoms have subsided. Based on the patient's history I suspect that the patient's prospects for continued sobriety are poor. 10/01/2020 The patient is a 64-year-old gentleman who today still remains in the ICU. The patient will be kept on amiodarone drip due to his A. fib with RVR. The patient's other medications will be continued with regards to his heart rate. I have also ordered the patient's [place] catheter removed. Because of the paroxysmal atrial fibrillation the patient will be started on Coumadin. He is also noted to have thrombocytopenia and have ordered repeat laboratory tests for tomorrow. I have also advised the patient that he would not be safe to go home today. The patient has been hypertensive and has required IV Vasotec and this will be as needed as necessary for hypertensive excursions. The patient's diet will be continued as tolerated. 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 - Plan Plan:: The patient is a 64-year-old gentleman who has been admitted to inpatient due to impending alcohol withdrawals. The patient will be kept on telemetry. I have also ordered CIWA protocol with Ativan to help assist with withdrawal symptoms. The patient will also be kept on telemetry. The patient does have a history of DTs however he has denied any seizure activity. The patient will have Librium 25 mg p.o. twice daily for his shaking. Patient does have a history of hypertension and I have reordered his antihypertensive medications. The patient will have regular diet as tolerated. I have also ordered repeat laboratory studies in the morning. The patient's magnesium will be monitored and replaced as necessary. The patient will also have a heart healthy diet as tolerated. DVT prophylaxis will be with the use of heparin 5000 units every 8 hours. He meza s been encouraged to ambulate. The patient should be appropriate for discharge in 1 to 2 days back to legal custody. Given the patient's past history and lack of a support system I suspect that the patient will have poor prospects for maintaining sobriety.
[2020-10-01] MEDS: Gabapentin 600 MG Tab PO SCH ×2 (08:02→20:01)
[2020-10-01] MEDS: Metoprolol Tartrate 25 MG Tab PO SCH (08:02)
[2020-10-01] MEDS: Citalopram 20 MG Tab PO SCH (08:03)
[2020-10-01] MEDS: Allopurinol 300 MG Tab PO SCH (08:03)
[2020-10-01] MEDS: Folic Acid 1 MG Tab PO SCH (08:03)
[2020-10-01] MEDS: chlordiazePOXIDE 25 MG Cap PO SCH ×2 (08:03→20:01)
[2020-10-01] MEDS: Multivitamin Tab PO SCH (08:03)
[2020-10-01] MEDS: busPIRone 15 MG Tab PO SCH (08:03)
[2020-10-01] MEDS: Doxazosin 2 MG Tab PO SCH (08:03)
[2020-10-01] MEDS: Topiramate 25 MG Tab PO SCH (08:03)
[2020-10-01] MEDS: LORazepam 2 MG/ML SDV IVPUSH PRN ×3 (08:51→18:15)
--- NOTE | 2020-10-01 09:36 | PCM.SN.2 ---
- Free Text/Narrative Note: The patient is a 64-year-old gentleman who had been admitted secondary to acute alcohol withdrawal. Was called to bedside. The patient had been complaining of shortness of breath, chest pressure and weakness. The patient was also noted to be hypotensive with tachycardia. I have ordered an EKG, chest x-ray and tro ponin level. Will consider transfer of patient if troponin significantly elevated.
--- NOTE | 2020-10-01 10:17 | CR ---
Chest: Portable view of the chest was obtained. Comparison: Prior chest x-ray of 08/12/18. Heart size and mediastinum are normal. Prior chest x-ray showed a nodule within the left mid chest which is not seen most likely relating to obscuration from the left hilum. Lungs otherwise are clear with no acute parenchymal change. Several old left-sided rib fractures are noted. Degenerative spurring is noted within the spine. No acute osseous abnormality is appreciated. Impression: 1. Findings as noted above. 2. Nothing acute is appreciated on portable chest x-ray. Diagnostic code #2
[2020-10-01] MEDS ORDERED: Sodium Chloride 0.9% 1,000 ML IV ONE (10:23)
[2020-10-01] MEDS ORDERED: cloNIDine 0.1 MG Tab PO PRN (16:00)
[2020-10-01] MEDS: Warfarin 5 MG Tab PO SCH (18:16)
[2020-10-01] MEDS ORDERED: Metoprolol Tartrate 25 MG Tab PO ONE (18:40)
[2020-10-01] MEDS: Thiamine 100 MG Tab PO SCH (20:01)
[2020-10-01] MEDS: Temazepam 15 MG Cap PO PRN (22:30)
[2020-10-02] MEDS: Enalaprilat 1.25 MG/ML SDV IVPUSH PRN (04:25)
[2020-10-02] MEDS: Heparin Sodium 5,000 Units/ML Vial SUBCUT SCH (04:28)
[2020-10-02] MEDS: Pantoprazole 40 MG Tab.CR PO SCH (06:22)
[2020-10-02] MEDS ORDERED: Metoprolol Tartrate 50 MG Tab PO SCH (09:00)
[2020-10-02] MEDS: Citalopram 20 MG Tab PO SCH (09:08)
[2020-10-02] MEDS: Gabapentin 600 MG Tab PO SCH (09:08)
[2020-10-02] MEDS: chlordiazePOXIDE 25 MG Cap PO SCH (09:09)
[2020-10-02] MEDS: Topiramate 25 MG Tab PO SCH (09:09)
[2020-10-02] MEDS: Allopurinol 300 MG Tab PO SCH (09:09)
[2020-10-02] MEDS: busPIRone 15 MG Tab PO SCH (09:09)
[2020-10-02] MEDS: Multivitamin Tab PO SCH (09:09)
[2020-10-02] MEDS: Doxazosin 2 MG Tab PO SCH (09:11)
[2020-10-02 09:12] VITALS: PULSE 111
[2020-10-02] MEDS: Folic Acid 1 MG Tab PO SCH (09:12)
[2020-10-02] MEDS ORDERED: Enoxaparin 120 MG/0.8 ML Syringe SUBCUT ONE (11:00)
--- NOTE | 2020-10-02 12:23 | PCM.DCSUM1 ---
Discharge Summary - Hospital Course HPI Initial Comments: The patient was admitted secondary to acute alcohol withdrawal. Diagnosis: Stroke: No - Discharge Data Discharge Date: 10/02/20 Discharge Disposition: Home, Self-Care 01 Condition: Good - Referral to Home Health Primary Care Physician: Anna Hebert - Discharge Diagnosis/Problem(s) (1) A-fib SNOMED Code(s): 24563394 ICD Code: I48.91 - UNSPECIFIED ATRIAL FIBRILLATION Status: Chronic Priority: High Problem Details: With RVR Qualifiers: Atrial fibrillation type: paroxysmal Qualified Code(s): I48.0 - Paroxysmal atrial fibrillation (2) Alcohol withdrawal SNOMED Code(s): 865016976 ICD Code: F10.239 - ALCOHOL DEPENDENCE WITH WITHDRAWAL, UNSPECIFIED Status: Chronic Priority: High Qualifiers: Complication of substance-induced condition: uncomplicated Qualified Code(s): F10.230 - Alcohol dependence with withdrawal, uncomplicated (3) HTN (hypertension) SNOMED Code(s): 40534526 ICD Code: I10 - ESSENTIAL (PRIMARY) HYPERTENSION Status: Chronic Priority: Medium Qualifiers: Hypertension type: essential hypertension Qualified Code(s): I10 - Essential (primary) hypertension (4) Alcohol dependence syndrome SNOMED Code(s): 66550986 ICD Code: F10.20 - ALCOHOL DEPENDENCE, UNCOMPLICATED Status: Chronic Priority: Medium Qualifiers: Substance use status: with intoxication Complication of substance-induced condition: with unspecified complication Qualified Code(s): F10.229 - Alcohol dependence with intoxication, unspecified (5) Neuropathy SNOMED Code(s): 920130039 ICD Code: G62.9 - POLYNEUROPATHY, UNSPECIFIED Status: Chronic Priority: Medium - Patient Summary/Data Consults: Consultations 10/02/20 08:59 PT Evaluation and Treatment [CONS] Routine Hospital Course: The patient is a 64-year-old gentleman who was presented to the emergency department and admitted to acute hospitalization on September 29, 2020. The patient had been acutely intoxicated and was admitted secondary to impending withdrawal symptoms. The patient has a history of multiple instances of detoxification. The patient was placed in the intensive care unit placed on CIWA protocol with the use of Ativan and monitor very closely. The following day the patient had significant alteration in his mental status along with agitation which required heavy doses of benzodiazepines to keep this patient somewhat sedated. He was also noted to have episodes of atrial fibrillation with RVR which had required amiodarone to help control and convert. At one point in time on September 30, 2020 the patient had converted to normal sinus rhythm and his rate had been controlled. The patient also had been anticoagulated with the use of heparin. The patient had paroxysmal episodes of atrial fibrillation that have been difficult to control and he has been previously on beta-blockers and these were continued. At one point in time with the patient's severe alteration in his mental status he had been unable to take orally his beta-keila. The patient also had episodes of severe hypertension which had required the use of IV Vasotec to help control. He also had been placed on clonidine to help control his blood pressure and calm him as well. The following day the patient had been more awake. He was still in ICU and had been alternating between atrial fibrillation with RVR and normal sinus rhythm. The patient also had an episode where he had been complaining of severe chest heaviness and severe shortness of breath. The patient had a an EKG obtained which showed no abnormalities and normal sinus rhythm. Troponin was also obtained which showed to be nondetectable. The patient had a small fan on him which helped to improve his shortness of breath and relieve his chest pain. I had discussed this with the patient. Overall he was more awake and alert still had tremors and a relatively high CIWA score. The patient had continued to improve. By day of discharge the patient still had some tremors but he felt like he could go home. The patient had been eating well. And he had been recommended for inpatient alcohol treatment. The patient had refused this and he had been given information with regards to alcoholics anonymous. The patient had been also noted to have thrombocytopenia with his last blood count showing 87,000 platelet count. The patient also had been given instructions on how to use subcutaneous Lovenox at 120 mg/day for bridging due to him being started on Coumadin. I further explained that the Coumadin levels should have an INR between 2 and 3. The patient had been given this as he had essentially paroxysmal atrial fibrillation with RVR. The patient has been recommended to follow-up with his primary care physician, for Coumadin management, as well as cardiology. The patient has been tolerating his diet. The patient also has been walking well with a front wheel walker and he has been prescribed a front wheel walker to help him at home. The patient should not need this long-term. The patient had recovered sufficiently that he felt like he could go home safely. The patient is to have a regular diet as tolerated. He is also to have activity as tolerated. The patient has been discharged from acute hospitalization with the recommendations listed above. - Patient Instructions Diet: Heart Healthy Diet Activity: As Tolerated - Discharge Plan *PRESCRIPTION DRUG MONITORING PROGRAM REVIEWED*: No *COPY OF PRESCRIPTION DRUG MONITORING REPORT IN PATIENT JORGE LUIS: No Prescriptions/Med Rec: cloNIDine [Catapres] 0.3 mg PO Q8H PRN #90 tablet PRN Reason: Hypertension Warfarin [Coumadin] 5 mg PO DAILY@1800 #30 tablet Folic Acid 1 mg PO DAILY #30 tablet Metoprolol Tartrate [Lopressor] 50 mg PO Q12H #60 tablet Enoxaparin Sodium [Lovenox] 120 mg SQ DAILY #5 syringe Thiamine [Vitamin B-1] 100 mg PO BEDTIME #30 tablet Home Medications: Home Meds Allopurinol [Zyloprim] 300 mg PO DAILY 07/25/20 [History] Doxazosin Mesylate [Cardura] 2 mg PO DAILY 07/25/20 [History] Escitalopram Oxalate [Lexapro] 20 mg PO DAILY 07/25/20 [History] .Nf 1 tab PO DAILY 09/29/20 [History] Gabapentin [Neurontin] 600 mg PO BID 09/29/20 [History] Lansoprazole [Prevacid] 30 mg PO DAILY 09/29/20 [History] Rosuvastatin [Crestor] 20 mg PO DAILY 09/29/20 [History] Topiramate [Topamax] 25 mg PO DAILY 09/29/20 [History] busPIRone [Buspar] 15 mg PO DAILY 09/29/20 [History] Enoxaparin Sodium [Lovenox] 120 mg SQ DAILY #5 syringe 10/02/20 [Rx] Folic Acid 1 mg PO DAILY #30 tablet 10/02/20 [Rx] Metoprolol Tartrate [Lopressor] 50 mg PO Q12H #60 tablet 10/02/20 [Rx] Thiamine [Vitamin B-1] 100 mg PO BEDTIME #30 tablet 10/02/20 [Rx] Warfarin [Coumadin] 5 mg PO DAILY@1800 #30 tablet 10/02/20 [Rx] cloNIDine [Catapres] 0.3 mg PO Q8H PRN #90 tablet 10/02/20 [Rx] Oxygen Therapy Mode: Room Air Patient Handouts: Alcohol Withdrawal Syndrome, Enoxaparin injection, Hypertension, Adult, [id number] Forms: ED Department Discharge Referrals: Rudolph Noonan MD [Ordering Only Provider] - 10/23/20 1:00 pm (See note for address in [place] [address] [address] [facility] phone # [phone] Please arrive at 1 p.m. Central time appt is at 1:30 p.m.) Anna Hebert [Primary Care Provider] - 10/09/20 9:00 am (Please arrive at 9:00 for check in appt. time is 9:20) - Discharge Summary/Plan Comment DC Time >30 min.: Yes - General Info Date of Service: 10/02/20 Admission Dx/Problem (Free Text: Admission Diagnosis/Problem Admission Diagnosis/Problem Alcohol withdrawal syndrome Subjective Update: Doing well, feels weak but feels like he can go home. Functional Status: Reports: Pain Controlled, Tolerating Diet - Review of Systems General: Reports: No Symptoms HEENT: Reports: No Symptoms Pulmonary: Reports: No Symptoms Cardiovascular: Reports: No Symptoms Gastrointestinal: Reports: No Symptoms Genitourinary: Reports: No Symptoms Musculoskeletal: Reports: No Symptoms Skin: Reports: No Symptoms Neurological: Reports: No Symptoms Psychiatric: Reports: No Symptoms - Patient Data Vitals - Most Recent: Last Vital Signs Temp 37.0 C 10/02/20 11:24 Pulse 111 H 10/02/20 09:09 Resp 18 10/02/20 11:24 BP 139/92 H 10/02/20 11:24 Pulse Ox 96 10/02/20 11:24 Weight - Most Recent: 119.159 kg I&O - Last 24 hours: Intake & Output 10/01/20 10/02/20 10/02/20 22:59 06:59 14:59 Intake Total 3655 1335 200 Output Total 800 Balance 2855 1335 200 Lab Results - Last 24 hrs: Laboratory Results - last 24 hr 10/02/20 10/02/20 10/02/20 Range/Units 05:40 05:40 08:01 WBC 6.87 (4.23-9.07) K/mm3 RBC 4.05 L (4.63-6.08) M/mm3 Hgb 14.6 (13.7-17.5) gm/dl Hct 42.2 (40.1-51.0) % MCV 104.2 H (79.0-92.2) fl MCH 36.0 H (25.7-32.2) pg MCHC 34.6 (32.2-35.5) g/dl RDW Std Deviation 53.2 H (35.1-43.9) fL Plt Count 87 L (163-337) K/mm3 MPV 11.1 (9.4-12.3) fl Neut % (Auto) 63.2 (34.0-67.9) % Lymph % (Auto) 19.7 L (21.8-53.1) % Alexander % (Auto) 11.6 (5.3-12.2) % Eos % (Auto) 5.1 (0.8-7.0) Baso % (Auto) 0.3 (0.1-1.2) % Neut # (Auto) 4.34 (1.78-5.38) K/mm3 Lymph # (Auto) 1.35 (1.32-3.57) K/mm3 Alexander # (Auto) 0.80 (0.30-0.82) K/mm3 Eos # (Auto) 0.35 (0.04-0.54) K/mm3 Baso # (Auto) 0.02 (0.01-0.08) K/mm3 Manual Slide Review Abnormal smear PT 10.8 (9.7-12.0) SECONDS INR 1.01 Sodium 142 (136-145) mEq/L Potassium 4.2 (3.5-5.1) mEq/L Chloride 109 H (98-107) mEq/L Carbon Dioxide 23 (21-32) mEq/L Anion Gap 14.2 (5-15) BUN 17 (7-18) mg/dL Creatinine 0.8 (0.7-1.3) mg/dL Est Cr Clr Drug Dosing 104.04 mL/min Estimated GFR (MDRD) > 60 (>60) mL/min BUN/Creatinine Ratio 21.3 H (14-18) Glucose 89 (70-99) mg/dL Calcium 8.1 L (8.5-10.1) mg/dL Magnesium 1.8 (1.8-2.4) mg/dL Total Bilirubin 1.0 (0.2-1.0) mg/dL AST 40 H (15-37) U/L ALT 61 (16-63) U/L Alkaline Phosphatase 35 L (46-116) U/L Total Protein 6.0 L (6.4-8.2) g/dl Albumin 2.7 L (3.4-5.0) g/dl Globulin 3.3 gm/dL Albumin/Globulin Ratio 0.8 L (1-2) Med Orders - Current: Current Medications Allopurinol (Allopurinol 300 Mg Tab) 300 mg PO DAILY [facility] Last Admin: 10/02/20 09:09 Dose: 300 mg Documented by: Buspirone HCl (Buspirone 15 Mg Tab) 15 mg PO DAILY [facility] Last Admin: 10/02/20 09:09 Dose: 15 mg Documented by: Chlordiazepoxide HCl (Chlordiazepoxide 25 Mg Cap) 25 mg PO BID [facility] Last Admin: 10/02/20 09:09 Dose: 25 mg Documented by: Citalopram Hydrobromide (Citalopram 20 Mg Tab) 40 mg PO DAILY [facility] Last Admin: 10/02/20 09:08 Dose: 40 mg Documented by: Clonidine HCl (Clonidine 0.1 Mg Tab) 0.3 mg PO Q8H PRN PRN Reason: Hypertension Diazepam (Diazepam 5 Mg Tab) 5 mg PO Q6H PRN PRN Reason: Withdrawal Symptoms Last Admin: 10/01/20 20:02 Dose: 5 mg Documented by: Docusate Sodium (Docusate Sodium 100 Mg Cap) 100 mg PO BID PRN PRN Reason: Constipation Doxazosin Mesylate (Doxazosin 2 Mg Tab) 2 mg PO DAILY [facility] Last Admin: 10/02/20 09:11 Dose: 2 mg Documented by: Enalaprilat (Enalaprilat 1.25 Mg/Ml Sdv) 1.25 mg IVPUSH Q6H PRN PRN Reason: Hypertension Last Admin: 10/02/20 04:25 Dose: 1.25 mg Documented by: Folic Acid (Folic Acid 1 Mg Tab) 1 mg PO DAILY [facility] Last Admin: 10/02/20 09:12 Dose: 1 mg Documented by: Gabapentin (Gabapentin 600 Mg Tab) 600 mg PO BID [facility] Last Admin: 10/02/20 09:08 Dose: 600 mg Documented by: Haloperidol Lactate (Haloperidol Lactate 5 Mg/Ml Sdv) 5 mg IVPUSH Q6H PRN PRN Reason: Anxiety Ibuprofen (Ibuprofen 200 Mg Tab) 200 mg PO Q6H PRN PRN Reason: Pain (mild 1-3) Ketorolac Tromethamine (Ketorolac 30 Mg/Ml Sdv) 30 mg IM Q6H PRN PRN Reason: Pain (moderate 4-6) Last Admin: 10/01/20 23:39 Dose: 30 mg Documented by: Lorazepam (Lorazepam 1 Mg Tab) 1 mg PO Q4H PRN PRN Reason: Withdrawal Symptoms Last Admin: 10/01/20 22:31 Dose: 1 mg Documented by: Lorazepam (Lorazepam 2 Mg/Ml Sdv) 0 mg IVPUSH Q1H PRN; Protocol PRN Reason: detox Last Admin: 10/01/20 18:15 Dose: 1 mg Documented by: Metoprolol Tartrate (Metoprolol Tartrate 50 Mg Tab) 50 mg PO Q12H [facility] Last Admin: 10/02/20 09:09 Dose: 50 mg Documented by: Multivitamins/Minerals/Vitamin C (Multivitamin Tab) 1 tab PO DAILY [facility] Last Admin: 10/02/20 09:09 Dose: 1 tab Documented by: Ondansetron HCl (Ondansetron 4 Mg Tab.Dis) 4 mg PO Q4H PRN PRN Reason: nausea, able to take PO Pantoprazole Sodium (Pantoprazole 40 Mg Tab.Cr) 40 mg PO ACBREAKFAST [facility] Last Admin: 10/02/20 06:22 Dose: 40 mg Documented by: Sodium Chloride (Sodium Chloride 0.9% 10 Ml Syringe) 10 ml FLUSH ASDIRECTED PRN PRN Reason: Keep Vein Open Last Admin: 09/29/20 08:42 Dose: 10 ml Documented by: Temazepam (Temazepam 15 Mg Cap) 15 mg PO BEDTIME PRN PRN Reason: Sleep Last Admin: 10/01/20 22:30 Dose: 15 mg Documented by: Thiamine HCl (Thiamine 100 Mg Tab) 100 mg PO BEDTIME [facility] Last Admin: 10/01/20 20:01 Dose: 100 mg Documented by: Topiramate (Topiramate 25 Mg Tab) 25 mg PO DAILY [facility] Last Admin: 10/02/20 09:09 Dose: 25 mg Documented by: Warfarin Sodium (Warfarin 5 Mg Tab) 5 mg PO DAILY@1800 [facility] Last Admin: 10/01/20 18:16 Dose: 5 mg Documented by: Discontinued Medications Clonidine HCl (Clonidine 0.1 Mg Tab) 0.3 mg PO Q8H [facility] Last Admin: 10/01/20 08:02 Dose: 0.3 mg Documented by: Doxazosin Mesylate (Doxazosin 2 Mg Tab) 2 mg PO ONETIME ONE Stop: 09/29/20 10:27 Last Admin: 09/29/20 10:39 Dose: 2 mg Documented by: Enoxaparin Sodium (Enoxaparin 120 Mg/0.8 Ml Syringe) 120 mg SUBCUT ONETIME ONE Stop: 10/02/20 11:01 Last Admin: 10/02/20 11:16 Dose: 120 mg Documented by: Haloperidol Lactate (Haloperidol Lactate 5 Mg/Ml Sdv) 5 mg IVPUSH ONETIME ONE Stop: 09/29/20 15:21 Last Admin: 09/29/20 15:25 Dose: 5 mg Documented by: Heparin Sodium (Porcine) (Heparin Sodium 5,000 Units/Ml Vial) 5,000 units SUBCUT Q8H [facility] Last Admin: 10/02/20 04:28 Dose: 5,000 units Documented by: Sodium Chloride (Normal Saline) 1,000 mls @ 999 mls/hr IV ASDIRECTED [facility] Last Admin: 09/29/20 09:50 Dose: 999 mls/hr Documented by: Sodium Chloride (Normal Saline) 1,000 mls @ 75 mls/hr IV ASDIRECTED [facility] Last Admin: 10/01/20 19:57 Dose: 75 mls/hr Documented by: Diltiazem HCl 100 mg/ Sodium (Chloride) 100 mls @ 5 mls/hr IV TITRATE [facility]; Protocol Last Titration: 09/29/20 17:47 Dose: 20 mg/hr, 20 mls/hr Documented by: Amiodarone HCl/Dextrose (Nexterone In Dextrose 360 Mg/200 Ml) 360 mg in 200 mls @ 33.333 mls/hr IV ASDIRECTED [facility]; Protocol Last Admin: 09/29/20 18:21 Dose: 33.333 mls/hr Documented by: Amiodarone HCl/Dextrose (Nexterone In Dextrose 150 Mg/100 Ml) 100 mls @ 600 mls/hr IV .BOLUS ONE; Protocol Stop: 09/29/20 18:09 Last Admin: 09/29/20 18:05 Dose: 600 mls/hr Documented by: Amiodarone HCl/Dextrose (Nexterone In Dextrose 360 Mg/200 Ml) 360 mg in 200 mls @ 16.7 mls/hr IV ASDIRECTED [facility]; Protocol Stop: 09/30/20 18:21 Last Infusion: 09/30/20 15:05 Dose: 16.7 mls/hr Documented by: Sodium Chloride (Normal Saline) 1,000 mls @ 999 mls/hr IV ONETIME ONE Stop: 09/30/20 17:53 Last Admin: 09/30/20 16:55 Dose: 999 mls/hr Documented by: Amiodarone HCl/Dextrose (Nexterone In Dextrose 360 Mg/200 Ml) 360 mg in 200 mls @ 16.7 mls/hr IV ASDIRECTED MASOUD; Protocol Last Infusion: 10/01/20 09:29 Dose: 0 mls/hr Documented by: Sodium Chloride (Normal Saline) 1,000 mls @ 999 mls/hr IV ONETIME ONE Stop: 10/01/20 11:23 Last Admin: 10/01/20 10:56 Dose: 999 mls/hr Documented by: Lorazepam (Lorazepam 2 Mg/Ml Sdv) 2 mg IVPUSH ONETIME ONE Stop: 09/29/20 08:31 Last Admin: 09/29/20 08:42 Dose: 2 mg Documented by: Lorazepam (Lorazepam 2 Mg/Ml Sdv) 1 mg IVPUSH ONETIME ONE Stop: 09/29/20 10:26 Last Admin: 09/29/20 10:33 Dose: 1 mg Documented by: Lorazepam (Lorazepam 2 Mg/Ml Sdv) 2 mg IVPUSH ONETIME ONE Stop: 09/29/20 11:53 Last Admin: 09/29/20 11:56 Dose: 2 mg Documented by: Lorazepam (Lorazepam 2 Mg/Ml Sdv) 0 mg IVPUSH Q4H PRN; Protocol PRN Reason: detox Last Admin: 09/29/20 19:20 Dose: 2 mg Documented by: Metoprolol Succinate (Metoprolol Succinate 25 Mg Tab.Er) 25 mg PO ONETIME ONE Stop: 09/29/20 09:16 Last Admin: 09/29/20 09:29 Dose: 25 mg Documented by: Metoprolol Tartrate (Metoprolol Tartrate 25 Mg Tab) 25 mg PO DAILY [facility] Last Admin: 10/01/20 08:02 Dose: 25 mg Documented by: Metoprolol Tartrate (Metoprolol Tartrate 25 Mg Tab) 25 mg PO ONETIME ONE Stop: 09/29/20 19:47 Last Admin: 09/29/20 19:53 Dose: 25 mg Documented by: Metoprolol Tartrate (Metoprolol Tartrate 25 Mg Tab) 25 mg PO ONETIME ONE Stop: 10/01/20 18:41 Last Admin: 10/01/20 18:45 Dose: 25 mg Documented by: Thiamine HCl (Thiamine 100 Mg Tab) 100 mg PO ONETIME ONE Stop: 09/29/20 11:12 Last Admin: 09/29/20 11:43 Dose: 100 mg Documented by: - Exam Quality Assessment: Reports: DVT Prophylaxis. Denies: Supplemental Oxygen General: Reports: Alert, Oriented, Cooperative HEENT: Reports: Pupils Equal, Pupils Reactive, EOMI, Mucous Membr. Moist/[place] Neck: Reports: Supple, Trachea Midline Lungs: Reports: Clear to Auscultation, Normal Respiratory Effort Cardiovascular: Reports: Regular Rate, Regular Rhythm GI/Abdominal Exam: Normal Bowel Sounds, Soft, No Distention. No: Guarding, Rigid (Male) Exam: Deferred Rectal (Males) Exam: Deferred Back Exam: Reports: Normal Inspection, Full Range of Motion Extremities: Normal Inspection, Normal Range of Motion, No Pedal Edema Skin: Reports: Warm, Dry, Intact Neurological: Reports: No New Focal Deficit Psy/Mental Status: Reports: Alert, Normal Affect, Normal Mood
[2020-10-02 13:07] VITALS: BP 114/73
--- NOTE | 2020-10-07 17:16 | PCM.EKG ---
#1 Interpretation EKG Date: 09/30/20 Time: 04:55 Rhythm: Other (Sinus tachycardia) Rate (Beats/Min): 136 [place]: Normal P-Wave: Present QRS: Normal ST-T: Normal QT: Normal (Sinus tachycardia otherwise normal) #2 Interpretation EKG Date: 10/01/20 Rhythm: A-Fib Rate (Beats/Min): 72 [place]: Normal P-Wave: Absent QRS: Normal ST-T: Normal QT: Normal (Atrial fibrillation with rate control. No evidence of old infarct.) Comparison: Change From Previous EKG #3 Interpretation EKG Date: 09/29/20 Time: 14:38 Rhythm: A-Fib Rate (Beats/Min): 138 (Rapid ventricular response) [place]: Normal P-Wave: Absent QRS: Normal ST-T: Normal QT: Normal Comparison: Change From Previous EKG (Atrial fibrillation with RVR with single PVC) #4 Interpretation EKG Date: 09/30/20 Time: 09:06 Rhythm: NSR Rate (Beats/Min): 68 [place]: Normal P-Wave: Present QRS: Normal ST-T: Normal QT: Normal Comparison: Change From Previous EKG (Normal sinus rhythm, rate controlled)
== END 2020-10-02 15:03 | disposition home or self-care (01) | DRG 897 ==
LOC: JD.ED 08:13 → JD.MS 11:45 → UNDOADMIN 11:45 → JD.ICU 12:46 → JD.MS 12:46 → JD.ICU 14:35 → UNDODISIN 10-02 15:03
PROVIDERS: ADMIT Internal Medicine; ATTEND Internal Medicine
DX: F10.230 Alcohol dependence with withdrawal, uncomplicated (principal); I48.0 Paroxysmal atrial fibrillation; F10.229 Alcohol dependence with intoxication, unspecified; G62.9 Polyneuropathy, unspecified; F10.231 Alcohol dependence with withdrawal delirium; D69.6 Thrombocytopenia, unspecified; H54.7 Unspecified visual loss; J45.909 Unspecified asthma, uncomplicated; Z20.822 Contact with and (suspected) exposure to COVID-19; K21.9 Gastro-esophageal reflux disease without esophagitis; N40.0 Benign prostatic hyperplasia without lower urinary tract symptoms; E66.9 Obesity, unspecified; R41.82 Altered mental status, unspecified; F41.9 Anxiety disorder, unspecified; F32.9 Major depressive disorder, single episode, unspecified; M19.90 Unspecified osteoarthritis, unspecified site; M10.9 Gout, unspecified; G89.29 Other chronic pain; M54.9 Dorsalgia, unspecified; N18.30 Chronic kidney disease, stage 3 unspecified; I12.9 Hypertensive chronic kidney disease with stage 1 through stage 4 chronic kidney disease, or unspecified chronic kidney disease; Z98.84 Bariatric surgery status; Z79.899 Other long term (current) drug therapy; Z68.34 Body mass index [BMI] 34.0-34.9, adult
CPT/HCPCS: 36415; 80053; 83690; 83735; 85025; A9270 ×4; J2060 ×2; J7030; 51702; 71045; 71045-26; 84484; 85610; 93005; 96374; 96376; 97161-GP; 99222; 99232; 99233; 99239; 99285; 99285-25; J0282; J1630; J1644; J1650; J1885; J3490; U0002

== ENCOUNTER 2020-11-15 04:33 | Emergency (ER) | payer MEDICARE, MEDICAID ==
[2020-11-15 04:44] VITALS: BP 108/97; PULSE 87
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
--- NOTE | 2020-11-15 06:33 | CR ---
Chest: 2 views of the chest were obtained. Comparison: Prior chest x-ray of 10/01/20 and baseline chest x-ray of 06/24/12. Heart size is within normal limits. Upper mediastinum is within normal limits. Old healed left-sided rib fractures are noted. Minimal left basilar atelectasis is seen. Nodule is noted within the left mid lung which appears stable from old studies. Lungs otherwise are clear with no acute parenchymal change. Electrostimulating wires are seen terminating within the lower thoracic spine. Scattered disc space narrowing and endplate spurring are noted within the spine. Impression: 1. Multiple findings as noted above. 2. Nothing acute is seen. Diagnostic code #2
== END 2020-11-15 07:12 | disposition home or self-care (01) ==
LOC: JD.ED 04:33
DX: F10.20 Alcohol dependence, uncomplicated (principal); E87.3 Alkalosis; E87.2 Acidosis; R74.01 Elevation of levels of liver transaminase levels; I48.0 Paroxysmal atrial fibrillation; I10 Essential (primary) hypertension; E78.00 Pure hypercholesterolemia, unspecified; K21.9 Gastro-esophageal reflux disease without esophagitis; M10.9 Gout, unspecified; E66.9 Obesity, unspecified; Z68.33 Body mass index [BMI] 33.0-33.9, adult; Z87.891 Personal history of nicotine dependence; Z79.899 Other long term (current) drug therapy; Z79.01 Long term (current) use of anticoagulants; Z20.822 Contact with and (suspected) exposure to COVID-19; Y90.0 Blood alcohol level of less than 20 mg/100 ml
CPT/HCPCS: 36415; 36600; 71046; 80053; 80307; 82803; 83605; 83735; 83880; 84484; 85007; 85027; 85379; 85610; 85730; 87040; 93005; 99285; U0002; 93010; 99284

== ENCOUNTER 2021-01-01 14:24 | Emergency (ER) | payer OTHER, MEDICARE, MEDICAID ==
[2021-01-01] MEDS ORDERED: Sodium Chloride 0.9% 10 ML Syringe FLUSH PRN (14:54)
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
[2021-01-01] MEDS ORDERED: Acetaminophen 325 MG Tab PO STA (16:19)
[2021-01-01 17:52] VITALS: BP 145/106; PULSE 88
--- NOTE | 2021-01-01 19:45 | CR ---
Chest: Frontal view of the chest was obtained. Comparison: Prior chest x-ray of 11/15/20. Slight linear atelectasis is seen within the right lung base. Lungs otherwise are clear with no acute parenchymal change. Old left-sided rib fractures are noted. Mild scoliosis is noted within the spine with scattered degenerative change. Impression: 1. Mild linear atelectasis within the right lung base. 2. Other findings as noted above which are stable. 3. Nothing acute is otherwise seen. Diagnostic code #2 I agree with preliminary report from [facility], finalized on 01/01/21, 6:25 PM CDT, code 1
== END 2021-01-01 17:55 ==
LOC: JD.ED 14:24
DX: R07.89 Other chest pain (principal); I48.91 Unspecified atrial fibrillation; E78.00 Pure hypercholesterolemia, unspecified; I12.9 Hypertensive chronic kidney disease with stage 1 through stage 4 chronic kidney disease, or unspecified chronic kidney disease; N18.30 Chronic kidney disease, stage 3 unspecified; E66.9 Obesity, unspecified; Z68.30 Body mass index [BMI] 30.0-30.9, adult; Z79.01 Long term (current) use of anticoagulants; Z79.899 Other long term (current) drug therapy; Z20.822 Contact with and (suspected) exposure to COVID-19
CPT/HCPCS: 36415; 71045; 80053; 81003; 83735; 84443; 84484; 85025; 85379; 86140; 87635; 93005; 99285; A9270; 93010; 99283; U0002

== ENCOUNTER 2021-01-03 05:26 | Inpatient (IN) | payer MEDICARE, MEDICAID ==
[2021-01-03] MEDS ORDERED: Lactated Ringers 500 ML IV ONE (06:00)
[2021-01-03] MEDS ORDERED: Pantoprazole 40 MG Vial IVPUSH ONE (06:08)
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
--- NOTE | 2021-01-03 06:39 | CR ---
Chest: Frontal view of the chest was obtained. Comparison: Prior chest x-ray of 01/01/21. Heart size and mediastinum are within normal limits. Very slight scarring is now seen within the right lung base with decreased atelectasis occurring from prior study. Lungs show no acute parenchymal change. Old left-sided rib fractures are noted. Degenerative change is noted within the spine. Impression: 1. Findings as noted above. 2. Nothing acute is seen on frontal chest x-ray. Diagnostic code #2
[2021-01-03] MEDS ORDERED: Acetaminophen 325 MG Tab PO ONE ×2 (07:20→14:19)
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
[2021-01-03] MEDS ORDERED: Morphine 2 MG/ML SYRINGE IVPUSH PRN (08:16)
[2021-01-03] MEDS ORDERED: Iopamidol 612 MG/ML 50 ML SDV IVPUSH ONE (08:44)
[2021-01-03] MEDS ORDERED: Diatrizoate Meglumine/Diatrizoate Sodium 37% 120 ML Bottle PO ONE (08:44)
[2021-01-03] MEDS ORDERED: Iopamidol 612 MG/ML 100 ML Bottle IVPUSH ONE (08:44)
[2021-01-03] MEDS ORDERED: Sodium Chloride 0.9% 10 ML Syringe FLUSH PRN (08:44)
[2021-01-03] MEDS: Lactated Ringers 1,000 ML IV SCH ×3 (09:05→19:17)
--- NOTE | 2021-01-03 10:26 | CT ---
CT abdomen and pelvis Technique: Multiple axial sections were obtained from above the dome of the diaphragm inferiorly through the pubic symphysis. Intravenous and oral contrast were utilized. Delayed images were also obtained through the bladder. Reconstructed coronal and sagittal images were obtained. Comparison: No prior CT abdomen or pelvis study is available. Findings: Visualized lung bases show minimal densities most likely representing slight fibrosis. Coronary artery calcification is seen. Liver contains no focal parenchymal abnormality. Surgical clips are noted from prior cholecystectomy. Calcified granulomas are seen within the spleen. Spleen shows no enlargement. Adrenal glands show no nodule. Pancreas shows no discrete abnormality. Prior stomach surgery is noted. Kidneys show symmetric contrast enhancement. Two small cysts are noted within the left kidney with the largest measuring 2.0 cm. Cyst is noted within the lower right kidney measuring 8.0 cm. Delayed images show contrast within both distal ureters and within the bladder. Abdominal aorta shows atherosclerotic calcification which continues into the iliac vessels. No aneurysm is seen. There is an electrostimulating device implanted into the left back with intrathecal wires being seen extending into the spine. No retroperitoneal adenopathy or mesenteric abnormalities are noted. No pelvic mass or adenopathy is seen. Scattered diverticuli are seen within the sigmoid colon. No findings of diverticulitis are noted. Rectum is slightly dilated with stool. Appendix is felt to be visualized and is normal in size. Diffuse degenerative change is noted within the spine. Degenerative change is also noted within both sacroiliac joints. Impression: 1. Mild increased stool within the colon. Scattered sigmoid diverticuli are seen. 2. Cysts within the kidneys. 3. Other nonacute findings as noted above. 4. No definite acute abnormality is appreciated on CT study of the abdomen and pelvis. Diagnostic code #2
[2021-01-03] MEDS ORDERED: cloNIDine 0.1 MG Tab PO PRN (16:06)
[2021-01-03] MEDS: Pantoprazole 40 MG Vial IV SCH (17:10)
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
[2021-01-03] MEDS: Gabapentin 600 MG Tab PO SCH (20:00)
[2021-01-03] MEDS: busPIRone 15 MG Tab PO SCH (20:00)
[2021-01-03] MEDS: Metoprolol Tartrate 25 MG Tab PO SCH (20:00)
[2021-01-03] MEDS: Temazepam 15 MG Cap PO PRN (20:00)
[2021-01-03] MEDS: Acetaminophen 325 MG Tab PO PRN (20:28)
[2021-01-04] MEDS ORDERED: Polyethylene Glycol/Electrolytes 4,000 ML Bottle PO ONE (05:00)
[2021-01-04] MEDS: Pantoprazole 40 MG Vial IV SCH ×2 (05:09→20:06)
[2021-01-04] MEDS: Lactated Ringers 1,000 ML IV SCH ×2 (05:33→13:40)
--- NOTE | 2021-01-04 07:13 | PCM.PN ---
- General Info Date of Service: 01/04/21 Admission Dx/Problem (Free Text): Admission Diagnosis/Problem Admission Diagnosis/Problem GI bleed not requiring more than 4 units of blood in 24 hours, ICU, or surgery Subjective Update: The patient is a 65-year-old gentleman who had been admitted yesterday due to bloody, black tarry stools. The patient is currently n.p.o. for procedure as per surgery. The patient has reported that he has had no instances of further bleeding. The patient's primary concern was chest pain that is noncardiac in nature. Functional Status: Reports: Pain Controlled. Denies: Tolerating Diet - Review of Systems General: Reports: No Symptoms HEENT: Reports: No Symptoms Pulmonary: Reports: No Symptoms Cardiovascular: Reports: Chest Pain Gastrointestinal: Denies: Hematochezia, Melena Genitourinary: Reports: No Symptoms Musculoskeletal: Reports: No Symptoms Skin: Reports: No Symptoms Neurological: Reports: No Symptoms Psychiatric: Reports: No Symptoms - Patient Data Vitals - Most Recent: Last Vital Signs Temp 36.4 C 01/04/21 05:07 Pulse 56 L 01/04/21 05:07 Resp 18 01/04/21 05:07 BP 104/43 L 01/04/21 05:07 Pulse Ox 93 L 01/04/21 05:07 Weight - Most Recent: 109.679 kg I&O - Last 24 Hours: Intake & Output 01/03/21 01/04/21 01/04/21 22:59 06:59 14:59 Intake Total 716 1365 Output Total 450 700 Balance 266 665 Lab Results Last 24 Hours: Laboratory Results - last 24 hr 01/03/21 01/03/21 01/03/21 Range/Units 05:30 06:25 06:39 Hgb (13.7-17.5) gm/dl Hct (40.1-51.0) % Lactic Acid 1.1 (0.4-2.0) mmol/L Urine Color (Yellow) Urine Appearance (Clear) Urine pH (5.0-8.0) Ur Specific [place] (1.005-1.030) Urine Protein (Negative) Urine Glucose (UA) (Negative) Urine Ketones (Negative) Urine Occult Blood (Negative) Urine Nitrite (Negative) Urine Bilirubin (Negative) Urine Urobilinogen (0.2-1.0) Ur Leukocyte Esterase (Negative) SARS-CoV-2 RNA (AHMET) Negative (NEGATIVE) Blood Type AB POSITIVE Gel Antibody Screen Negative 01/03/21 01/03/21 Range/Units 07:15 16:40 Hgb 14.2 (13.7-17.5) gm/dl Hct 43.8 (40.1-51.0) % Lactic Acid (0.4-2.0) mmol/L Urine Color Yellow (Yellow) Urine Appearance Clear (Clear) Urine pH 6.0 (5.0-8.0) Ur Specific [place] 1.025 (1.005-1.030) Urine Protein Negative (Negative) Urine Glucose (UA) Negative (Negative) Urine Ketones Trace H (Negative) Urine Occult Blood Negative (Negative) Urine Nitrite Negative (Negative) Urine Bilirubin Negative (Negative) Urine Urobilinogen 0.2 (0.2-1.0) Ur Leukocyte Esterase Negative (Negative) SARS-CoV-2 RNA (AHMET) (NEGATIVE) Blood Type Gel Antibody Screen Med Orders - Current: Current Medications Acetaminophen (Acetaminophen 325 Mg Tab) 650 mg PO Q4H PRN PRN Reason: Chest Pain Last Admin: 01/03/21 20:28 Dose: 650 mg Documented by: Allopurinol (Allopurinol 300 Mg Tab) 300 mg PO DAILY [facility] Buspirone HCl (Buspirone 15 Mg Tab) 15 mg PO BID [facility] Last Admin: 01/03/21 20:00 Dose: 15 mg Documented by: Citalopram Hydrobromide (Citalopram 20 Mg Tab) 40 mg PO DAILY [facility] Clonidine HCl (Clonidine 0.1 Mg Tab) 0.3 mg PO Q8H PRN PRN Reason: Hypertension Folic Acid (Folic Acid 1 Mg Tab) 1 mg PO DAILY [facility] Gabapentin (Gabapentin 600 Mg Tab) 600 mg PO TID [facility] Last Admin: 01/03/21 20:00 Dose: 600 mg Documented by: Lactated Ringer's (Ringers, Lactated) 1,000 mls @ 125 mls/hr IV ASDIRECTED [facility] Last Admin: 01/04/21 05:33 Dose: 125 mls/hr Documented by: Magnesium Oxide (Magnesium Oxide 400 Mg Tab) 400 mg PO DAILY [facility] Metoprolol Tartrate (Metoprolol Tartrate 25 Mg Tab) 25 mg PO BID [facility] Last Admin: 01/03/21 20:00 Dose: 25 mg Documented by: Morphine Sulfate (Morphine 2 Mg/Ml Syringe) 2 mg IVPUSH Q2H PRN PRN Reason: Pain (severe 7-10) Stop: 01/04/21 08:19 Pantoprazole Sodium (Pantoprazole 40 Mg Vial) 40 mg IV Q12H [facility] Last Admin: 01/04/21 05:09 Dose: 40 mg Documented by: Sodium Chloride (Sodium Chloride 0.9% 10 Ml Syringe) 10 ml FLUSH ONETIME PRN PRN Reason: IV FLUSH Last Admin: 01/03/21 10:02 Dose: 10 ml Documented by: Temazepam (Temazepam 15 Mg Cap) 15 mg PO BEDTIME PRN PRN Reason: Insomnia Last Admin: 01/03/21 20:00 Dose: 15 mg Documented by: Thiamine HCl (Thiamine 100 Mg Tab) 100 mg PO DAILY [facility] Discontinued Medications Acetaminophen (Acetaminophen 325 Mg Tab) 650 mg PO NOW ONE Stop: 01/03/21 07:21 Last Admin: 01/03/21 07:29 Dose: 650 mg Documented by: Acetaminophen (Acetaminophen 325 Mg Tab) 650 mg PO NOW ONE Stop: 01/03/21 14:20 Last Admin: 01/03/21 14:25 Dose: 650 mg Documented by: Diatrizoate Meglum/Diatrizoate Sod (Diatrizoate Meglumine/Diatrizoate Sodium 37% 120 Ml Bottle) 120 ml PO ONETIME ONE Stop: 01/03/21 08:45 Last Admin: 01/03/21 10:02 Dose: 45 ml Documented by: Lactated Ringer's (Ringers, Lactated) 500 mls @ 999 mls/hr IV .BOLUS ONE Stop: 01/03/21 06:30 Last Admin: 01/03/21 06:13 Dose: 999 mls/hr Documented by: Iopamidol (Iopamidol 612 Mg/Ml 50 Ml Sdv) 50 ml IVPUSH ONETIME ONE Stop: 01/03/21 08:45 Last Admin: 01/03/21 10:02 Dose: 50 ml Documented by: Iopamidol (Iopamidol 612 Mg/Ml 100 Ml Bottle) 100 ml IVPUSH ONETIME ONE Stop: 01/03/21 08:45 Last Admin: 01/03/21 10:02 Dose: 100 ml Documented by: Pantoprazole Sodium (Pantoprazole 40 Mg Vial) 40 mg IVPUSH ONETIME ONE Stop: 01/03/21 06:09 Last Admin: 01/03/21 06:28 Dose: 40 mg Documented by: Polyethylene Glycol/Electrolytes (Polyethylene Glycol/Electrolytes 4,000 Ml Bottle) 4,000 ml PO ONETIME ONE Stop: 01/04/21 05:01 Last Admin: 01/04/21 05:08 Dose: 4,000 ml Documented by: - Exam Quality Assessment: No: Supplemental Oxygen, DVT Prophylaxis General: Alert, Oriented, Cooperative, No Acute Distress HEENT: Pupils Equal, Pupils Reactive, EOMI. No: Mucous Membr. Moist/[place] (Very dry) Neck: Supple, Trachea Midline Lungs: Clear to Auscultation, Normal Respiratory Effort Cardiovascular: Regular Rate, Regular Rhythm, Other (Bowel sounds heard in chest) GI/Abdominal Exam: Normal Bowel Sounds, Soft, Non-Tender, No Distention (Male) Exam: Deferred Back Exam: Normal Inspection, Full Range of Motion Extremities: Normal Inspection, Normal Range of Motion, No Pedal Edema Skin: Warm, Dry, Intact Neurological: No New Focal Deficit Psy/Mental Status: Alert, Normal Affect, Normal Mood - Patient Data Lab Results Last 24 hrs: Laboratory Results - last 24 hr 01/03/21 01/03/21 01/03/21 Range/Units 05:30 06:25 06:39 Hgb (13.7-17.5) gm/dl Hct (40.1-51.0) % Lactic Acid 1.1 (0.4-2.0) mmol/L Urine Color (Yellow) Urine Appearance (Clear) Urine pH (5.0-8.0) Ur Specific [place] (1.005-1.030) Urine Protein (Negative) Urine Glucose (UA) (Negative) Urine Ketones (Negative) Urine Occult Blood (Negative) Urine Nitrite (Negative) Urine Bilirubin (Negative) Urine Urobilinogen (0.2-1.0) Ur Leukocyte Esterase (Negative) SARS-CoV-2 RNA (AHMET) Negative (NEGATIVE) Blood Type AB POSITIVE Gel Antibody Screen Negative 01/03/21 01/03/21 Range/Units 07:15 16:40 Hgb 14.2 (13.7-17.5) gm/dl Hct 43.8 (40.1-51.0) % Lactic Acid (0.4-2.0) mmol/L Urine Color Yellow (Yellow) Urine Appearance Clear (Clear) Urine pH 6.0 (5.0-8.0) Ur Specific [place] 1.025 (1.005-1.030) Urine Protein Negative (Negative) Urine Glucose (UA) Negative (Negative) Urine Ketones Trace H (Negative) Urine Occult Blood Negative (Negative) Urine Nitrite Negative (Negative) Urine Bilirubin Negative (Negative) Urine Urobilinogen 0.2 (0.2-1.0) Ur Leukocyte Esterase Negative (Negative) SARS-CoV-2 RNA (AHMET) (NEGATIVE) Blood Type Gel Antibody Screen Result Diagrams: 01/04/21 06:38 01/04/21 06:38 Sepsis Event Note - Evaluation Sepsis Screening Result: No Definite Risk - Focused Exam Vital Signs: Vital Signs Temp Pulse Resp BP Pulse Ox 01/04/21 05:07 36.4 C 56 L 18 104/43 L 93 L 01/04/21 01:46 64 90 L 01/04/21 01:44 36.6 C 69 18 119/73 89 L 01/03/21 20:00 84 135/89 01/03/21 19:23 36.8 C 84 18 135/89 96 - Problem List & Annotations (1) GI bleed SNOMED Code(s): 12409072 Code(s): K92.2 - GASTROINTESTINAL HEMORRHAGE, UNSPECIFIED Status: Acute Priority: High Current Visit: Yes Qualifiers: GI bleed type/associated pathology: unspecified peptic ulcer Qualified Code(s): K27.4 - Chronic or unspecified peptic ulcer, site unspecified, with hemorrhage Annotation/Comment:: Low volume bleed not requiring transfusion (2) Atypical chest pain SNOMED Code(s): 774670529 Code(s): R07.89 - OTHER CHEST PAIN Status: Chronic Priority: Medium Current Visit: Yes Annotation/Comment:: Noncardiac in nature (3) Chronic alcoholism SNOMED Code(s): 0732295 Code(s): F10.20 - ALCOHOL DEPENDENCE, UNCOMPLICATED Status: Chronic Priority: Medium Current Visit: No (4) COPD (chronic obstructive pulmonary disease) SNOMED Code(s): 16974146 Code(s): J44.9 - CHRONIC OBSTRUCTIVE PULMONARY DISEASE, UNSPECIFIED Status: Chronic Priority: Medium Current Visit: Yes Qualifiers: COPD type: unspecified COPD Qualified Code(s): J44.9 - Chronic obstructive pulmonary disease, unspecified - Problem List Review Problem List Initiated/Reviewed/Updated: Yes - My Orders Last 24 Hours: My Active Orders 01/03/21 08:16 Oxygen Therapy [RC] PRN Up ad Rupali [RC] BID VTE/DVT Education [RC] DAILY Vital Signs [RC] Q4HR Morphine 2 mg IVPUSH Q2H PRN VTE Pharmacological Contraindications [AST] Per Unit Routine Resuscitation Status Routine 01/03/21 08:17 Cardiac Monitoring [RC] CONTINUOUS Sequential Compression Device [OM.PC] Per Unit Routine 01/03/21 08:22 Antiembolic Devices [RC] BID 01/03/21 08:44 Sodium Chloride 0.9% [Saline Flush] 10 ml FLUSH ONETIME PRN 01/03/21 09:48 Admission Status [Patient Status] [ADT] Routine 01/03/21 10:04 Consult to Physician [CONS] Routine 01/03/21 10:05 Notify Provider Consults [RC] ASDIRECTED 01/03/21 16:06 cloNIDine [Catapres] 0.3 mg PO Q8H PRN 01/03/21 Dinner Clear Liquid Diet [DIET] 01/03/21 18:00 Pantoprazole [ProTONIX IV] 40 mg IV Q12H 01/03/21 20:08 Acetaminophen [TylenoL] 650 mg PO Q4H PRN 01/03/21 21:00 Gabapentin [Neurontin] 600 mg PO TID Metoprolol Tartrate [Lopressor] 25 mg PO BID Temazepam [Restoril] 15 mg PO BEDTIME PRN busPIRone [Buspar] 15 mg PO BID 01/04/21 06:38 CBC WITH AUTO DIFF [HEME] AM COMPREHENSIVE METABOLIC PN,CMP [CHEM] AM 01/04/21 Breakfast NPO [Nothing Per Oral Diet] [DIET] 01/04/21 09:00 Citalopram [Celexa] 40 mg PO DAILY Folic Acid 1 mg PO DAILY Magnesium Oxide 400 mg PO DAILY Thiamine [Vitamin B-1] 100 mg PO DAILY allopurinoL [Zyloprim] 300 mg PO DAILY - Assessment Assessment:: The patient is a 65-year-old gentleman who is currently n.p.o. pending EGD and colonoscopy. Depending upon the results the patient will need to be restarted as soon as possible with his Eliquis. The patient has been on this secondary to atrial fibrillation. The patient has been in normal sinus rhythm. The patient also has had what appears to be a low volume bleed however repeat laboratory studies have been ordered for this afternoon and if his hemoglobin has remained stable and no stigmata of bleeding are found on procedure he may be appropriate for discharge today. The patient's diet will be restarted after procedure. DVT prophylaxis will continue with SCDs. - Plan Plan:: The patient is a 65-year-old gentleman who apparently has a low volume upper GI bleed has been admitted as an inpatient for hospitalization and work-up. The patient is kept n.p.o. Surgeon has been consulted. The patient's GI bleed has been complicated by what sounds like Britt-en-Y gastric bypass. I have ordered repeat hemoglobin and hematocrit as well as CBC for the morning. The patient's hemoglobin will be monitored closely and if his hemoglobin drops below 7.0 g/dL will consider transfusion. For now this may be considered a low volume bleed not requiring transfusion. The patient did have elevations of his BUN with a normal creatinine which does show evidence of digestion of blood products. The patient also has been incarcerated and has not had alcohol for approximately 1 month. His previous admission did show admission for alcohol withdrawal symptoms. The patient also has a history of COPD and nicotine dependence and will monitor his oxygen saturations and if his oxygen drops below 90% will consider titrating oxygen to keep his saturations around 92%. The patient will have his diet advanced if EGD is completed. The patient's Eliquis has been held and he is not on DVT prophylaxis except with the use of SCDs. The patient may be appropriate for discharge in 1 to 2 days depending upon need for blood transfusions.
[2021-01-04] MEDS: Metoprolol Tartrate 25 MG Tab PO SCH ×2 (08:12→20:12)
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
[2021-01-04] MEDS: Gabapentin 600 MG Tab PO SCH ×3 (11:43→20:15)
[2021-01-04] MEDS ORDERED: Lidocaine 1% 4 ML ONE (11:48)
[2021-01-04] MEDS ORDERED: Midazolam 1 MG/ML 2 ML SDV ONE (11:48)
[2021-01-04] MEDS ORDERED: fentaNYL 100 MCG/2 ML SDV ONE (11:48)
[2021-01-04] MEDS ORDERED: Propofol 200 MG/20 ML SDV ONE ×2 (11:48→16:48)
[2021-01-04] MEDS ORDERED: Lactated Ringers 1,000 ML ONE (11:48)
--- NOTE | 2021-01-04 17:27 | PCM48HPAN ---
Post Anesthesia Note - EVALUATION WITHIN 48HRS OF ANESTHETIC Vital Signs in Normal Range: Yes Patient Participated in Evaluation: Yes Respiratory Function Stable: Yes Airway Patent: Yes Cardiovascular Function Stable: Yes Hydration Status Stable: Yes Pain Control Satisfactory: Yes Nausea and Vomiting Control Satisfactory: Yes Mental Status Recovered: Yes (no complaintsj other than hungry.) Vital Signs: Last Vital Signs Temp 97.9 F 01/04/21 15:47 Pulse 79 01/04/21 15:47 Resp 20 01/04/21 15:47 BP 136/89 01/04/21 15:47 Pulse Ox 92 L 01/04/21 15:47 1720 118/77 94% 80 20 97.9 - COMMENTS/OBSERVATIONS Free Text/Narrative:: Was instructed not to get out of bed without help for a couple hours because he had sedation. Voices understanding
--- NOTE | 2021-01-04 17:31 | PCM.SN.2 ---
- Free Text/Narrative Note: EGD and Colonoscopy performed. EGD: healing marginal ulcer, about 2 cm noted at the GJ anastomosis. There was no stigmata of bleeding at this time. Otherwise normal exam. Colonoscopy: Non-bleeding diverticula. Otherwise normal exam. Recommendations - Stop NSAIDs - BID PPIs for 3 months - May restart Anticoagulation if Hgb remains stable - Repeat EGD in 3-6 months to check for ulcer healing.
[2021-01-04] MEDS: busPIRone 15 MG Tab PO SCH ×2 (17:47→20:10)
--- NOTE | 2021-01-04 18:10 | PROC ---
DATE OF OPERATION: 01/04/2021 SURGEON: Eve Ramachandran MD PREOPERATIVE DIAGNOSIS: Gastrointestinal bleeding. POSTOPERATIVE DIAGNOSIS: 1. Marginal ulcer. 2. Diverticulosis. PROCEDURES: 1. Esophagogastroduodenoscopy. 2. Colonoscopy. ESTIMATED BLOOD LOSS: None. ANESTHESIA: Monitored anesthesia care. COMPLICATIONS: None. INDICATIONS AND CONSENT: Mr. Fletcher is a 65-year-old male with hx of RNYGB 20 yrs ago who has been having black tarry stools for the past week. The patient presented to the emergency department. Hemoglobin was 14, but has dropped to 12 today. I saw the patient, talked and discussed about his issues. I did recommend EGD and colonoscopy. Patient is on Eliquis for atrial fibrillation. We discussed risks, benefits, and alternatives, and informed consent was obtained. DETAILS OF PROCEDURE: The patient was taken to the procedure room, placed in the left lateral decubitus position. Monitored anesthesia care was induced. Time-out was performed. We began with an EGD. Bite block was placed and EGD scope was placed into the mouth and taken to the esophagus. The esophagus was examined as we advanced the scope downwards and it was normal. The GE junction was at 39 cm. We entered into the pouch of the stomach, which appeared normal, and right at the GJ anastomosis, there was a 2-cm marginal ulcer that appeared to be healing and it was nonbleeding at this time. There was no stigmata of bleeding in this area. There was no any evidence of blood in the pouch. We went into the efferent limb. This appeared to also be normal. There was no stigmata of any bleeding here or any blood residual in the efferent limb. We advanced the scope as far down as we could, but could not reach the JJ anastomosis. Then, we withdrew and suctioned the area again. We reexamined all this area and withdrew the scope. Again, the marginal ulcer was noted without any bleeding and no other abnormalities. Air was suctioned out and this part of the procedure was concluded. Next, we paid attention to the colonoscopy. Perianal exam was normal. Digital rectal exam was normal. We put the scope and advanced all the way to the cecum. The appendiceal orifice and ileocecal valve were photographed. We started withdrawing the scope slowly examining the entirety of the colon. Prep was very good. There was no stigmata of bleeding from the cecum all the way out. There was diverticulosis that were nonbleeding. On retroflexion, the rectum was normal. This concluded the procedure. In summary, the patient has a nonbleeding marginal ulcer. It is possible that the patient has had bled from the marginal ulcer earlier before the patient presented to the hospital, but during this exam, there was no stigmata of bleeding at the marginal ulcer. Patient to be allowed to return to his room for recovery, and the patient will be discharged when hemoglobin is stable. MMODAL /[id number] WILLIE
[2021-01-04] MEDS: Magnesium Oxide 400 MG Tab PO SCH (20:08)
[2021-01-04] MEDS: Thiamine 100 MG Tab PO SCH (20:08)
[2021-01-04] MEDS: Allopurinol 300 MG Tab PO SCH (20:08)
[2021-01-04] MEDS: Folic Acid 1 MG Tab PO SCH (20:10)
[2021-01-04] MEDS: Citalopram 20 MG Tab PO SCH (20:10)
[2021-01-04] MEDS: Apixaban 5 MG Tab PO SCH (20:11)
[2021-01-04] MEDS: Acetaminophen 325 MG Tab PO PRN (20:46)
[2021-01-04] MEDS: Temazepam 15 MG Cap PO PRN (20:46)
[2021-01-05] MEDS: Pantoprazole 40 MG Vial IV SCH (05:02)
--- NOTE | 2021-01-05 07:37 | PCM.DCSUM1 ---
Discharge Summary - Hospital Course Free Text/Narrative:: The patient was admitted secondary to likely upper GI bleed. HPI Initial Comments: Upper GI bleed presenting with melanotic stools. Diagnosis: Stroke: No - Discharge Data Discharge Date: 01/05/21 Discharge Disposition: Home, Self-Care 01 Condition: Good - Referral to Home Health Primary Care Physician: Anna Hebert - Discharge Diagnosis/Problem(s) (1) GI bleed SNOMED Code(s): 05263267 ICD Code: K92.2 - GASTROINTESTINAL HEMORRHAGE, UNSPECIFIED Status: Resolved Priority: High Problem Details: Low volume bleed not requiring transfusion Qualifiers: GI bleed type/associated pathology: unspecified peptic ulcer Qualified Code(s): K27.4 - Chronic or unspecified peptic ulcer, site unspecified, with hemorrhage (2) Atypical chest pain SNOMED Code(s): 762634641 ICD Code: R07.89 - OTHER CHEST PAIN Status: Chronic Priority: Medium Problem Details: Noncardiac in nature (3) Chronic alcoholism SNOMED Code(s): 7833523 ICD Code: F10.20 - ALCOHOL DEPENDENCE, UNCOMPLICATED Status: Chronic Priority: Medium (4) COPD (chronic obstructive pulmonary disease) SNOMED Code(s): 19121733 ICD Code: J44.9 - CHRONIC OBSTRUCTIVE PULMONARY DISEASE, UNSPECIFIED Status: Chronic Priority: Medium Qualifiers: COPD type: unspecified COPD Qualified Code(s): J44.9 - Chronic obstructive pulmonary disease, unspecified - Patient Summary/Data Consults: Consultations 01/03/21 10:04 Consult to Physician [CONS] Routine Hospital Course: The patient is a 65-year-old gentleman who had presented to the emergency department out of concern for shortness of breath and inability to lie down without gasping for air as well as nonspecific chest pain. [facility]. The patient reports that he has had at least 4-5 bloody, maroon dark stools over the past 3 days. The patient has a significant history of severe alcohol abuse. He has not had alcohol in the past month. The patient's surgical history also includes what sounds like Britt-en-Y bypass around 20 years ago. The patient also admits to heavy use of NSAIDs and aspirin. He also has been taking Eliquis. The patient has had some nausea and vomiting. In the emergency department the patient was noted to have melanotic stools and was fecal occult positive. The patient's Eliquis and aspirin and NSAIDs were held. Dr. Horta, general surgeon was consulted with regards to the bleeding reports. The patient was started on IV Protonix 40 mg twice daily. The patient had been kept n.p.o. initially. His hemoglobin and hematocrit were monitored and were found to be stable throughout his entire hospitalization. The patient did not require blood transfusion. The patient also had an EGD and colonoscopy performed on January 04, 2021 by general surgeon. EGD was reported as a healing marginal ulcer about 2 cm from the GJ anastomosis. He had no stigmata of bleeding. The patient also did not have any bleeding diverticula. Patient tolerated the procedure well. Repeat laboratory studies on day of discharge showed that the patient's BUN had normalized and his hemoglobin had remained stable. The patient has been recommended to follow- up with his primary care physician, avoid alcohol, avoid NSAIDs or aspirin. Because the patient is a high stroke risk he was started on his Eliquis the day before discharge. 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 The patient otherwise has been hemodynamically stable. He has been on room air. He has been discharged from acute hospitalization with the recommendations listed above. - Patient Instructions Diet: Heart Healthy Diet Activity: As Tolerated Notify Provider of: Fever, Increased Pain - Discharge Plan *PRESCRIPTION DRUG MONITORING PROGRAM REVIEWED*: No *COPY OF PRESCRIPTION DRUG MONITORING REPORT IN PATIENT JORGE LUIS: No Prescriptions/Med Rec: RX: busPIRone [Buspar] 15 mg PO BID #20 RX: cloNIDine [Catapres] 0.3 mg PO Q8H PRN #40 tablet PRN Reason: Hypertension RX: Citalopram [Citalopram HBr] 40 mg PO DAILY #20 tablet RX: Apixaban [Eliquis] 5 mg PO BID #20 tablet RX: Apixaban [Eliquis] 5 mg PO BID #20 tab RX: Folic Acid 1 mg PO DAILY #10 tablet RX: Metoprolol Tartrate [Lopressor] 25 mg PO BID #20 tablet RX: Magnesium Oxide 400 mg PO DAILY #10 tablet RX: Gabapentin [Neurontin] 600 mg PO TID #12 tablet RX: Nitroglycerin 0.4 mg SL DAILY PRN #10 PRN Reason: Chest Pain RX: Omeprazole 2 tab PO DAILY #20 tab. RX: Thiamine [Vitamin B-1] 100 mg PO DAILY #10 tablet RX: Allopurinol [Zyloprim] 300 mg PO DAILY #10 Home Medications: Home Meds RX: Allopurinol [Zyloprim] 300 mg PO DAILY #10 01/05/21 [Rx] RX: Apixaban [Eliquis] 5 mg PO BID #20 tab 01/05/21 [Rx] RX: Apixaban [Eliquis] 5 mg PO BID #20 tablet 01/05/21 [Rx] RX: Citalopram [Citalopram HBr] 40 mg PO DAILY #20 tablet 01/05/21 [Rx] RX: Folic Acid 1 mg PO DAILY #10 tablet 01/05/21 [Rx] RX: Gabapentin [Neurontin] 600 mg PO TID #12 tablet 01/05/21 [Rx] RX: Magnesium Oxide 400 mg PO DAILY #10 tablet 01/05/21 [Rx] RX: Metoprolol Tartrate [Lopressor] 25 mg PO BID #20 tablet 01/05/21 [Rx] RX: Nitroglycerin 0.4 mg SL DAILY PRN #10 01/05/21 [Rx] RX: Omeprazole 2 tab PO DAILY #20 tab. 01/05/21 [Rx] RX: Thiamine [Vitamin B-1] 100 mg PO DAILY #10 tablet 01/05/21 [Rx] RX: busPIRone [Buspar] 15 mg PO BID #20 01/05/21 [Rx] RX: cloNIDine [Catapres] 0.3 mg PO Q8H PRN #40 tablet 01/05/21 [Rx] Oxygen Therapy Mode: Room Air Patient Handouts: Gastrointestinal Bleeding, [id number] Referrals: Rudolph Noonan MD [Ordering Only Provider] - (Keep your previously scheduled appointment with your garage hand.) Anna Hebert [Primary Care Provider] - 01/16/21 9:00 am (Please arrive at 8:40) - Discharge Summary/Plan Comment DC Time >30 min.: Yes Total # of Minutes for Discharge Time: 45 - General Info Date of Service: 01/05/21 Admission Dx/Problem (Free Text: Admission Diagnosis/Problem Admission Diagnosis/Problem GI bleed not requiring more than 4 units of blood in 24 hours, ICU, or surgery Subjective Update: The patient has denied any pain. He has had no further bloody stools. The patient says that he feels better. He feels like he can safely go home. Functional Status: Reports: Pain Controlled, Tolerating Diet - Review of Systems General: Reports: No Symptoms HEENT: Reports: No Symptoms Pulmonary: Reports: No Symptoms Cardiovascular: Reports: No Symptoms Gastrointestinal: Reports: No Symptoms Genitourinary: Reports: No Symptoms Musculoskeletal: Reports: No Symptoms Skin: Reports: No Symptoms Neurological: Reports: No Symptoms Psychiatric: Reports: No Symptoms - Patient Data Vitals - Most Recent: Last Vital Signs Temp 36.4 C 01/05/21 05:01 Pulse 70 01/05/21 05:01 Resp 18 01/05/21 05:01 BP 139/81 01/05/21 05:01 Pulse Ox 93 L 01/05/21 05:01 Weight - Most Recent: 109.588 kg I&O - Last 24 hours: Intake & Output 01/04/21 01/05/21 01/05/21 22:59 06:59 14:59 Intake Total 1420 Output Total 2 Balance 1418 Lab Results - Last 24 hrs: Laboratory Results - last 24 hr 01/04/21 01/05/21 01/05/21 Range/Units 06:38 05:25 05:25 WBC 3.73 L (4.23-9.07) K/mm3 RBC 3.36 L (4.63-6.08) M/mm3 Hgb 11.6 L (13.7-17.5) gm/dl Hct 36.9 L (40.1-51.0) % MCV 109.8 H (79.0-92.2) fl MCH 34.5 H (25.7-32.2) pg MCHC 31.4 L (32.2-35.5) g/dl RDW Std Deviation 55.6 H (35.1-43.9) fL Plt Count 135 L (163-337) K/mm3 MPV 10.7 (9.4-12.3) fl Neut % (Auto) 53.4 (34.0-67.9) % Lymph % (Auto) 27.9 (21.8-53.1) % [place] % (Auto) 13.4 H (5.3-12.2) % Eos % (Auto) 4.8 (0.8-7.0) Baso % (Auto) 0.5 (0.1-1.2) % Neut # (Auto) 1.99 (1.78-5.38) K/mm3 Lymph # (Auto) 1.04 L (1.32-3.57) K/mm3 [place] # (Auto) 0.50 (0.30-0.82) K/mm3 Eos # (Auto) 0.18 (0.04-0.54) K/mm3 Baso # (Auto) 0.02 (0.01-0.08) K/mm3 Sodium 146 H 147 H (136-145) mEq/L Potassium 4.1 4.1 (3.5-5.1) mEq/L Chloride 110 H 111 H (98-107) mEq/L Carbon Dioxide 30 30 (21-32) mEq/L Anion Gap 10.1 10.1 (5-15) BUN 18 14 (7-18) mg/dL Creatinine 0.9 0.9 (0.7-1.3) mg/dL Est Cr Clr Drug Dosing 88.62 88.62 mL/min Estimated GFR (MDRD) > 60 > 60 (>60) mL/min BUN/Creatinine Ratio 20.0 H 15.6 (14-18) Glucose 94 91 (70-99) mg/dL Calcium 8.6 8.4 L (8.5-10.1) mg/dL Total Bilirubin 0.4 (0.2-1.0) mg/dL AST 20 (15-37) U/L ALT 31 (16-63) U/L Alkaline Phosphatase 23 L (46-116) U/L Total Protein 6.0 L (6.4-8.2) g/dl Albumin 3.1 L (3.4-5.0) g/dl Globulin 2.9 gm/dL Albumin/Globulin Ratio 1.1 (1-2) HERB Results - Last 24 hrs: Microbiology 01/03/21 06:25 Blood Culture - Preliminary Blood - Venous - Lab Draw 01/03/21 06:30 Blood Culture - Preliminary Blood - Venous Med Orders - Current: Current Medications Acetaminophen (Acetaminophen 325 Mg Tab) 650 mg PO Q4H PRN PRN Reason: Chest Pain Last Admin: 01/04/21 20:46 Dose: 650 mg Documented by: Allopurinol (Allopurinol 300 Mg Tab) 300 mg PO DAILY [facility] Last Admin: 01/04/21 20:08 Dose: 300 mg Documented by: Apixaban (Apixaban 5 Mg Tab) 5 mg PO BID [facility] Last Admin: 01/04/21 20:11 Dose: 5 mg Documented by: Buspirone HCl (Buspirone 15 Mg Tab) 15 mg PO BID [facility] Last Admin: 01/04/21 20:10 Dose: 15 mg Documented by: Citalopram Hydrobromide (Citalopram 20 Mg Tab) 40 mg PO DAILY [facility] Last Admin: 01/04/21 20:10 Dose: 40 mg Documented by: Clonidine HCl (Clonidine 0.1 Mg Tab) 0.3 mg PO Q8H PRN PRN Reason: Hypertension Folic Acid (Folic Acid 1 Mg Tab) 1 mg PO DAILY [facility] Last Admin: 01/04/21 20:10 Dose: 1 mg Documented by: Gabapentin (Gabapentin 600 Mg Tab) 600 mg PO TID [facility] Last Admin: 01/04/21 20:15 Dose: Not Given Documented by: Magnesium Oxide (Magnesium Oxide 400 Mg Tab) 400 mg PO DAILY [facility] Last Admin: 01/04/21 20:08 Dose: 400 mg Documented by: Metoprolol Tartrate (Metoprolol Tartrate 25 Mg Tab) 25 mg PO BID [facility] Last Admin: 01/04/21 20:12 Dose: 25 mg Documented by: Pantoprazole Sodium (Pantoprazole 40 Mg Vial) 40 mg IV Q12H [facility] Last Admin: 01/05/21 05:02 Dose: 40 mg Documented by: Sodium Chloride (Sodium Chloride 0.9% 10 Ml Syringe) 10 ml FLUSH ONETIME PRN PRN Reason: IV FLUSH Last Admin: 01/03/21 10:02 Dose: 10 ml Documented by: Temazepam (Temazepam 15 Mg Cap) 15 mg PO BEDTIME PRN PRN Reason: Insomnia Last Admin: 01/04/21 20:46 Dose: 15 mg Documented by: Thiamine HCl (Thiamine 100 Mg Tab) 100 mg PO DAILY [facility] Last Admin: 01/04/21 20:08 Dose: 100 mg Documented by: Discontinued Medications Acetaminophen (Acetaminophen 325 Mg Tab) 650 mg PO NOW ONE Stop: 01/03/21 07:21 Last Admin: 01/03/21 07:29 Dose: 650 mg Documented by: Acetaminophen (Acetaminophen 325 Mg Tab) 650 mg PO NOW ONE Stop: 01/03/21 14:20 Last Admin: 01/03/21 14:25 Dose: 650 mg Documented by: Diatrizoate Meglum/Diatrizoate Sod (Diatrizoate Meglumine/Diatrizoate Sodium 37% 120 Ml Bottle) 120 ml PO ONETIME ONE Stop: 01/03/21 08:45 Last Admin: 01/03/21 10:02 Dose: 45 ml Documented by: Fentanyl (Fentanyl 100 Mcg/2 Ml Sdv) Confirm Administered Dose 100 mcg .ROUTE .STK-MED ONE Stop: 01/04/21 11:49 Lactated Ringer's (Ringers, Lactated) 500 mls @ 999 mls/hr IV .BOLUS ONE Stop: 01/03/21 06:30 Last Admin: 01/03/21 06:13 Dose: 999 mls/hr Documented by: Lactated Ringer's (Ringers, Lactated) 1,000 mls @ 125 mls/hr IV ASDIRECTED MASOUD Last Admin: 01/04/21 13:40 Dose: 125 mls/hr Documented by: Lidocaine HCl (Xylocaine-Mpf 1%) Confirm Administered Dose 4 mls @ as directed .ROUTE .STK-MED ONE Stop: 01/04/21 11:49 Lactated Ringer's (Ringers, Lactated) Confirm Administered Dose 1,000 mls @ as directed .ROUTE .STK-MED ONE Stop: 01/04/21 11:49 Iopamidol (Iopamidol 612 Mg/Ml 50 Ml Sdv) 50 ml IVPUSH ONETIME ONE Stop: 01/03/21 08:45 Last Admin: 01/03/21 10:02 Dose: 50 ml Documented by: Iopamidol (Iopamidol 612 Mg/Ml 100 Ml Bottle) 100 ml IVPUSH ONETIME ONE Stop: 01/03/21 08:45 Last Admin: 01/03/21 10:02 Dose: 100 ml Documented by: Midazolam HCl (Midazolam 1 Mg/Ml 2 Ml Sdv) Confirm Administered Dose 2 mg .ROUTE .STK-MED ONE Stop: 01/04/21 11:49 Morphine Sulfate (Morphine 2 Mg/Ml Syringe) 2 mg IVPUSH Q2H PRN PRN Reason: Pain (severe 7-10) Stop: 01/04/21 08:19 Pantoprazole Sodium (Pantoprazole 40 Mg Vial) 40 mg IVPUSH ONETIME ONE Stop: 01/03/21 06:09 Last Admin: 01/03/21 06:28 Dose: 40 mg Documented by: Polyethylene Glycol/Electrolytes (Polyethylene Glycol/Electrolytes 4,000 Ml Bottle) 4,000 ml PO ONETIME ONE Stop: 01/04/21 05:01 Last Admin: 01/04/21 05:08 Dose: 4,000 ml Documented by: Propofol (Propofol 200 Mg/20 Ml Sdv) Confirm Administered Dose 200 mg .ROUTE .STK-MED ONE Stop: 01/04/21 11:49 Propofol (Propofol 200 Mg/20 Ml Sdv) Confirm Administered Dose 200 mg .ROUTE .STK-MED ONE Stop: 01/04/21 16:49 - Exam Quality Assessment: Reports: DVT Prophylaxis. Denies: Supplemental Oxygen General: Reports: Alert, Oriented, Cooperative, No Acute Distress HEENT: Reports: Pupils Equal, Pupils Reactive, EOMI, Mucous Membr. Moist/[place] Neck: Reports: Supple, Trachea Midline Lungs: Reports: Clear to Auscultation, Normal Respiratory Effort Cardiovascular: Reports: Regular Rate, Regular Rhythm GI/Abdominal Exam: Normal Bowel Sounds, Soft, Non-Tender, No Distention (Male) Exam: Deferred Rectal (Males) Exam: Deferred Back Exam: Reports: Normal Inspection, Full Range of Motion Extremities: Normal Inspection, Normal Range of Motion, No Pedal Edema Skin: Reports: Warm, Dry, Intact Neurological: Reports: No New Focal Deficit, Normal Gait, Normal Speech, Normal Tone Psy/Mental Status: Reports: Alert, Normal Affect, Normal Mood *Q Meaningful Use (DIS) - VTE *Q VTE Pharmacological Contraindications *Q: Active Hemorrhage
[2021-01-05] MEDS: Magnesium Oxide 400 MG Tab PO SCH (08:17)
[2021-01-05] MEDS: busPIRone 15 MG Tab PO SCH (08:17)
[2021-01-05] MEDS: Gabapentin 600 MG Tab PO SCH (08:17)
[2021-01-05] MEDS: Metoprolol Tartrate 25 MG Tab PO SCH (08:18)
[2021-01-05] MEDS: Citalopram 20 MG Tab PO SCH (08:19)
[2021-01-05] MEDS: Allopurinol 300 MG Tab PO SCH (08:19)
[2021-01-05] MEDS: Thiamine 100 MG Tab PO SCH (08:19)
[2021-01-05] MEDS: Apixaban 5 MG Tab PO SCH (08:19)
[2021-01-05 08:20] VITALS: BP 129/84; PULSE 83
[2021-01-05] MEDS: Folic Acid 1 MG Tab PO SCH (08:20)
[2021-01-05] MEDS: Acetaminophen 325 MG Tab PO PRN (08:30)
== END 2021-01-05 10:23 | disposition home or self-care (01) | DRG 379 ==
LOC: JD.ED 05:26 → JD.MS 08:01
PROVIDERS: ADMIT Internal Medicine; ATTEND Internal Medicine
PROC: 0DJ08ZZ Inspection of Upper Intestinal Tract, Via Natural or Artificial Opening Endoscopic (ICD-10-PCS; principal; 2021-01-04)
PROC: 0DJD8ZZ Inspection of Lower Intestinal Tract, Via Natural or Artificial Opening Endoscopic (ICD-10-PCS; 2021-01-04)
DX: K27.4 Chronic or unspecified peptic ulcer, site unspecified, with hemorrhage (principal); R07.89 Other chest pain; F10.20 Alcohol dependence, uncomplicated; J44.9 Chronic obstructive pulmonary disease, unspecified; K92.2 Gastrointestinal hemorrhage, unspecified; K57.91 Diverticulosis of intestine, part unspecified, without perforation or abscess with bleeding; H54.7 Unspecified visual loss; E78.5 Hyperlipidemia, unspecified; I48.91 Unspecified atrial fibrillation; E78.00 Pure hypercholesterolemia, unspecified; E66.9 Obesity, unspecified; J45.909 Unspecified asthma, uncomplicated; K21.9 Gastro-esophageal reflux disease without esophagitis; N40.0 Benign prostatic hyperplasia without lower urinary tract symptoms; I12.9 Hypertensive chronic kidney disease with stage 1 through stage 4 chronic kidney disease, or unspecified chronic kidney disease; N18.30 Chronic kidney disease, stage 3 unspecified; M19.90 Unspecified osteoarthritis, unspecified site; Z68.32 Body mass index [BMI] 32.0-32.9, adult; Z86.010 Personal history of colon polyps; G62.9 Polyneuropathy, unspecified; F41.9 Anxiety disorder, unspecified; F32.9 Major depressive disorder, single episode, unspecified; Z79.01 Long term (current) use of anticoagulants; Z79.899 Other long term (current) drug therapy; F91.8 Other conduct disorders; Z20.822 Contact with and (suspected) exposure to COVID-19
CPT/HCPCS: 36415; 71045; 80053; 81003; 83605; 84484; 85025; 85610; 85730; 86850; 86900; 86901; 87040 ×2; 93005; 96374; 99285; A9270; C9113; J7120; U0002; 00813; 74177; 74177-26; 80048; 85014; 85018; 93010; 99222; 99232; 99239; 99283; J2250; J2704; J3010; Q9963; Q9967

== ENCOUNTER 2021-03-21 06:39 | Emergency (ER) | payer MEDICAID, MEDICARE ==
[2021-03-21] MEDS ORDERED: Sodium Chloride 0.9% 10 ML Syringe FLUSH PRN (07:17)
[2021-03-21] MEDS ORDERED: Albuterol/Ipratropium 3.0-0.5 MG/3 ML Neb Soln NEB ONE (07:18)
[2021-03-21] MEDS ORDERED: HYDROmorphone 1 MG/ML Syringe IVPUSH ONE (07:18)
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
--- NOTE | 2021-03-21 08:40 | CR ---
Chest: Portable view of the chest was obtained. Comparison: Prior chest x-ray of 01/03/21 and 11/15/20. Slight increased density is seen within the left lung base. Other lung markings are mildly increased which appear stable. Heart size and mediastinum are within normal limits. Old left-sided rib fractures are noted which appear healed. Impression: 1. Slight parenchymal density within the left base. Findings most likely represent atelectasis. 2. Other findings within the chest are stable from prior studies. Diagnostic code #2
[2021-03-21] MEDS ORDERED: HYDROmorphone 0.5 MG/0.5 ML Syringe IVPUSH ONE (09:53)
[2021-03-21 11:49] VITALS: BP 134/72; PULSE 94
== END 2021-03-21 10:34 | disposition home or self-care (01) ==
LOC: JD.ED 06:39
DX: G62.9 Polyneuropathy, unspecified (principal); J45.21 Mild intermittent asthma with (acute) exacerbation; I48.91 Unspecified atrial fibrillation; E78.00 Pure hypercholesterolemia, unspecified; I10 Essential (primary) hypertension; M10.9 Gout, unspecified; N40.0 Benign prostatic hyperplasia without lower urinary tract symptoms; E66.9 Obesity, unspecified; Z68.29 Body mass index [BMI] 29.0-29.9, adult; Z79.82 Long term (current) use of aspirin; Z79.01 Long term (current) use of anticoagulants; Z79.899 Other long term (current) drug therapy; Z20.822 Contact with and (suspected) exposure to COVID-19
CPT/HCPCS: 36415; 71045; 80053; 84484; 85025; 85379; 86140; 93005; 94640; 96374; 96376; 99285; J1170; U0002; J7620-GY

== ENCOUNTER 2021-04-13 11:48 | Emergency (ER) | payer MEDICARE, MEDICAID ==
[2021-04-13 11:54] VITALS: PULSE 100
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
[2021-04-13] MEDS: Sodium Chloride 0.9% 10 ML Syringe FLUSH PRN ×2 (12:25→18:28)
[2021-04-13] MEDS ORDERED: Albuterol 0.083% 2.5 MG/3 ML Neb Soln NEB ONE (12:37)
[2021-04-13] MEDS ORDERED: HYDROmorphone 0.5 MG/0.5 ML Syringe IVPUSH ONE (13:06)
[2021-04-13 13:19] LABS: CORONAVIRUS COVID-19 NAA NEGATIVE (NEGATIVE)
[2021-04-13] MEDS ORDERED: LORazepam 2 MG/ML SDV IVPUSH ONE ×2 (13:28→16:21)
[2021-04-13] MEDS ORDERED: Sodium Chloride 0.9% 1,000 ML IV ONE (13:38)
[2021-04-13] MEDS ORDERED: Iopamidol 755 Mg/ML 100 ML Bottle IVPUSH ONE (14:07)
--- NOTE | 2021-04-14 08:27 | CR ---
Chest: Portable view of the chest was obtained. Comparison: Prior chest x-ray of 03/21/21. Stable calcified nodule is seen within the left midlung. Density is noted within the left upper lung most likely relating to old rib fracture. No definite acute parenchymal change is seen. Heart size is not enlarged. Tortuous thoracic aorta is seen. Impression: 1. Findings as noted above. 2. Nothing acute is seen on portable chest x-ray. Diagnostic code #2
--- NOTE | 2021-04-14 12:16 | CT ---
CT chest Technique: Multiple axial sections were obtained from above the lung apices inferiorly through the lung bases. Intravenous contrast was utilized. Coronal and sagittal images were also obtained. Comparison: No prior chest CT is available, prior chest x-ray performed earlier on the same day (12:30 PM). Findings: Ascending aorta shows slight aneurysmal dilatation with an AP dimension of 4.3 cm. Descending aorta at the same level is 2.9 cm. Mediastinum shows no adenopathy or mass. No axillary adenopathy is seen. Mild coronary artery atherosclerotic change is seen. No pericardial thickening is seen. Visualized upper abdominal structures show a cyst within the left kidney. Fatty infiltration is seen within the liver. Prior stomach surgery is noted. Small hiatal hernia is seen. Calcified nodule is noted within the superior segment of the left lower lobe. No acute parenchymal change is seen. Bone window settings were reviewed which show diffuse degenerative change throughout the spine. Scattered old appearing rib fractures are seen within the left chest. Impression: 1. Slight aneurysmal dilatation of the ascending aorta with AP dimension of 4.3 cm. 2. Other chronic findings as described above. 3. Nothing acute is otherwise seen on CT study of the chest. Diagnostic code #3 I agree with preliminary report from [facility], finalized on 04/13/21, 8:01 PM BUSINESS TECHNOLOGY ARCHITECT, code 2
== END 2021-04-13 20:12 | disposition home or self-care (01) ==
LOC: JD.ED 11:48
DX: R06.02 Shortness of breath (principal); F41.9 Anxiety disorder, unspecified; I11.9 Hypertensive heart disease without heart failure; E78.00 Pure hypercholesterolemia, unspecified; K21.9 Gastro-esophageal reflux disease without esophagitis; M10.9 Gout, unspecified; E66.9 Obesity, unspecified; Z68.30 Body mass index [BMI] 30.0-30.9, adult; Z72.0 Tobacco use; Z79.01 Long term (current) use of anticoagulants; Z79.899 Other long term (current) drug therapy; Z20.822 Contact with and (suspected) exposure to COVID-19
CPT/HCPCS: 0240U; 36415; 36600; 71045; 71275; 80053; 80307; 82803; 83735; 83880; 84484; 85025; 85379; 85610; 85730; 86140; 93005; 94640; 96374; 96375; 96376; 99285; J1170; J2060; J7030; Q9967

== ENCOUNTER 2021-04-16 13:20 | Emergency (ER) | payer MEDICARE, MEDICAID ==
[2021-04-16 14:21] VITALS: BP 136/118; PULSE 96
[2021-04-16] MEDS ORDERED: LORazepam 2 MG/ML SDV IVPUSH ONE (14:37)
[2021-04-16] MEDS ORDERED: HYDROmorphone 0.5 MG/0.5 ML Syringe IVPUSH ONE ×2 (14:37→16:56)
[2021-04-16] MEDS ORDERED: Sodium Chloride 0.9% 1,000 ML IV STA (14:37)
--- NOTE | 2021-04-16 15:08 | CR ---
Chest: Portable view of the chest was obtained. Comparison: Prior chest CT study and chest x-ray of 04/13/21. Stable nodule is seen within the left mid chest. Slight scarring is seen in the left upper lung which is an area of old rib fractures within the left fifth, sixth, seventh and eighth ribs. Minimal atelectasis is seen within the left base. Lungs otherwise are clear. Heart size and mediastinum are stable. Impression: 1. Minimal left basilar atelectasis. 2. Other stable findings as noted above. Nothing acute is suspected. Diagnostic code #2
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
[2021-04-16] MEDS ORDERED: Acetaminophen/HYDROcodone 325-5 MG Tab PO ONE (17:19)
== END 2021-04-16 17:28 | disposition home or self-care (01) ==
LOC: JD.ED 13:20
DX: R07.89 Other chest pain (principal); R06.02 Shortness of breath; G62.9 Polyneuropathy, unspecified; F41.9 Anxiety disorder, unspecified; I48.91 Unspecified atrial fibrillation; E78.00 Pure hypercholesterolemia, unspecified; I10 Essential (primary) hypertension; K21.9 Gastro-esophageal reflux disease without esophagitis; E66.9 Obesity, unspecified; M10.9 Gout, unspecified; Z79.01 Long term (current) use of anticoagulants; Z79.899 Other long term (current) drug therapy; Z68.32 Body mass index [BMI] 32.0-32.9, adult
CPT/HCPCS: 36415; 71045; 80053; 80307; 83880; 84484; 85007; 85027; 85379; 93005; 96374; 96375; 96376; 99285; A9270; J1170; J2060; J7030